=== PATIENT | female | born 1980 | race American Indian/Alaskan Native ===

== ENCOUNTER 2020-10-18 17:01 | Inpatient (IN) | payer BC ==
--- NOTE | 2020-10-18 18:38 | Event Note ---
ED Screening Note ED Screening Note: 40-year-old female that presents with chest pain and SOB with n/v. Tachycardia 123 in EKG. This initial assessment/diagnostic orders/clinical plan/treatment(s) is/are subject to change based on patients health status, clinical progression and re- assessment by fellow clinical providers in the ED. Further treatment and workup at subsequent clinical providers discretion. Patient/guardian urged not to elope from the ED as their condition may be serious if not clinically assessed and managed. Initial orders include: cardiac workup
[2020-10-18 19:30] LABS: Basophils % (Auto) 0.3 % (0.0-1.8); Eosinophils % (Auto) 0.2 % (0.0-4.3); Lymphocytes # (Auto) 0.6 K/mm3 (1.2-5.4); Lymphocytes % (Auto) 3.8 % (13.4-35.0); Mean Corpuscular HGB Conc 31 % (30-34); Mean Corpuscular Volume 71 fl (79-97); Monocytes # (Auto) 1.1 K/mm3 (0.0-0.8); Red Blood Count 7.16 M/mm3 (3.65-5.03); Red Cell Distribution Width 19.5 % (13.2-15.2)
[2020-10-18 19:38] LABS: Hematocrit 50.5 % (30.3-42.9); Hemoglobin 15.5 gm/dl (10.1-14.3); Platelet Count 269 K/mm3 (140-440)
[2020-10-18 19:40] LABS: INR 1.11 (0.87-1.13)
[2020-10-18 19:54] LABS: Alanine Aminotransferase 13 units/L (7-56); Albumin 4.5 g/dL (3.9-5); BUN/Creatinine Ratio 21; Blood Urea Nitrogen 23 mg/dL (7-17); Calcium 9.9 mg/dL (8.4-10.2); Hemolysis Index 1
--- NOTE | 2020-10-18 21:58 | Emergency Department Report ---
ED Chest Pain HPI - General Chief Complaint: Chest Pain Stated Complaint: CHEST PAIN PUI?: No Time Seen by Provider: 10/18/20 18:26 Source: patient Mode of arrival: Ambulatory Limitations: No Limitations - History of Present Illness Initial Comments: Patient is a 40-year-old female that presents emergency room with complaints of chest pain, shortness of breath, nausea, vomiting. Patient states that her symptoms. 4 days ago. Patient states she was evaluated at another hospital, [place] 3 days ago. Patient states she was diagnosed with anxiety and given Zofran and Xanax. Patient states she never filled the Xanax. Patient states her symptoms are worsening. Patient states she is under a lot of stress. Patient states the chest pain is in her bilateral chest. Patient states the chest pain is radiating to her throat. Patient states the chest pain is a 10 out of 10 and is a pressure. Patient states the chest pain and shortness of breath are better with rest and worse with movement and exertion. Patient denies blood in her vomitus. Patient denies diarrhea. Patient states her nausea vomiting is better with n.p.o. remaining still. Patient states that her throat is hurting. Patient dates her throat pain is a 10 out of 10. Patient states it is a pressure and a burning sensation. Patient states she does not have a cough. Patient denies fever and chills. Patient denies recent travel. Patient denies recent international travel. Patient denies exposure to the novel coronavirus. Patient denies sick contacts. Patient denies fever and chills. Patient denies cough. Patient denies diarrhea. Patient denies coming in contact with anybody with symptoms of the novel coronavirus. MD Complaint: chest pain -: Sudden, days(s) Onset: during rest Pain Location: substernal, left chest, right chest Severity: severe Severity scale (0 -10): 10 Quality: heaviness Consistency: constant Improves With: rest Worsens With: movement re: nausea, vomting, dyspnea. denies: sense of impending doom Other Symptoms: denies: cough, fever, syncope, rash, acid taste in mouth, leg swelling, palpitations, burping Aspirin use within the Past 7 Days: (0) No - Related Data On Oral Contraceptives: No Allergies Allergy/AdvReac Type Severity Reaction Status Date / Time No Known Allergies Allergy Verified 10/19/20 01:19 Heart Score - HEART Score History: Slightly suspicious EKG: Normal Age: < 45 Risk factors: 1-2 risk factors Troponin: < normal limit HEART Score: 1 - EKG Read Time Time EKG Completed: 17:12 EKG Read Time: 17:12 ED Review of Systems ROS: Stated complaint: CHEST PAIN Other details as noted in HPI Constitutional: denies: chills, fever Eyes: denies: eye pain, eye discharge, vision change ENT: as per HPI, throat pain. denies: ear pain Respiratory: see HPI, shortness of breath. denies: cough, wheezing Cardiovascular: as per HPI, chest pain. denies: palpitations Endocrine: no symptoms reported Gastrointestinal: as per HPI, nausea, vomiting. denies: abdominal pain, diarrhea Genitourinary: denies: urgency, dysuria, discharge Musculoskeletal: denies: back pain, joint swelling, arthralgia Skin: denies: rash, lesions Neurological: denies: headache, weakness, paresthesias Psychiatric: anxiety. denies: depression Hematological/Lymphatic: denies: easy bleeding, easy bruising ED Past Medical Hx - Past Medical History Previous Medical History?: Yes Hx Diabetes: Yes - Surgical History Past Surgical History?: No - Family History Family history: no significant - Social History Smoking Status: Never Smoker Substance Use Type: None ED Physical Exam - General Limitations: No Limitations General appearance: alert, in no apparent distress - Head Head exam: Present: atraumatic, normocephalic - Eye Eye exam: Present: normal appearance, PERRL Pupils: Present: normal accommodation - ENT ENT exam: Present: mucous membranes moist, other (red oropharynx noted.) - Neck Neck exam: Present: normal inspection - Respiratory Respiratory exam: Present: normal lung sounds bilaterally, chest wall tenderness. Absent: respiratory distress, wheezes, rales - Cardiovascular Cardiovascular Exam: Present: regular rate, normal rhythm. Absent: systolic murmur, diastolic murmur, rubs, gallop - GI/Abdominal GI/Abdominal exam: Present: soft, normal bowel sounds - Extremities Exam Extremities exam: Present: normal inspection - Back Exam Back exam: Present: normal inspection - Neurological Exam Neurological exam: Present: alert, oriented X3 - Psychiatric Psychiatric exam: Present: anxious - Skin Skin exam: Present: warm, dry, intact, normal color. Absent: rash ED Course Vital Signs 10/18/20 10/18/20 10/18/20 17:07 21:52 21:53 Temperature 98.9 F Pulse Rate 119 H 107 H 110 H Respiratory 20 20 19 Rate Blood Pressure 139/93 148/96 O2 Sat by Pulse 95 93 96 Oximetry 10/18/20 10/18/20 10/18/20 21:55 21:57 21:59 Temperature Pulse Rate 105 H 103 H 97 H Respiratory 21 19 19 Rate Blood Pressure 148/96 148/96 148/96 O2 Sat by Pulse 95 95 95 Oximetry 10/18/20 10/18/20 10/18/20 22:01 22:30 23:00 Temperature Pulse Rate 100 H 97 H 102 H Respiratory 18 22 21 Rate Blood Pressure 139/97 135/90 139/80 O2 Sat by Pulse 95 96 98 Oximetry 10/18/20 10/18/20 10/19/20 23:08 23:30 00:00 Temperature Pulse Rate 99 H 101 H 108 H Respiratory 22 14 23 Rate Blood Pressure 139/80 119/88 150/98 O2 Sat by Pulse 98 96 Oximetry 10/19/20 10/19/20 10/19/20 00:30 01:00 01:30 Temperature Pulse Rate 109 H 96 H 92 H Respiratory 21 23 22 Rate Blood Pressure 136/91 134/85 129/80 O2 Sat by Pulse 96 97 94 Oximetry 10/19/20 10/19/20 10/19/20 02:00 02:30 03:00 Temperature Pulse Rate 126 H 91 H Respiratory 21 14 Rate Blood Pressure 136/87 124/85 139/88 O2 Sat by Pulse 94 95 96 Oximetry 10/19/20 10/19/20 10/19/20 03:30 04:08 04:28 Temperature Pulse Rate 91 H 103 H 100 H Respiratory 21 18 22 Rate Blood Pressure 132/87 O2 Sat by Pulse 96 97 97 Oximetry 10/19/20 10/19/20 10/19/20 04:30 04:32 04:34 Temperature Pulse Rate 99 H 96 H 95 H Respiratory 19 19 15 Rate Blood Pressure O2 Sat by Pulse 97 97 97 Oximetry 10/19/20 10/19/20 10/19/20 04:36 04:38 04:40 Temperature Pulse Rate 106 H 102 H 89 Respiratory 18 15 16 Rate Blood Pressure 132/87 O2 Sat by Pulse 95 96 94 Oximetry 0510/19/20 10/19/20 04:42 04:44 04:46 Temperature Pulse Rate 87 82 89 Respiratory 20 22 14 Rate Blood Pressure 132/87 132/87 132/87 O2 Sat by Pulse 96 96 96 Oximetry 10/19/20 10/19/20 10/19/20 04:48 04:50 04:52 Temperature Pulse Rate 90 94 H 81 Respiratory 19 22 24 Rate Blood Pressure 132/87 132/87 132/87 O2 Sat by Pulse 95 96 96 Oximetry 10/19/20 10/19/20 10/19/20 04:54 04:56 04:58 Temperature Pulse Rate 83 84 87 Respiratory 22 24 16 Rate Blood Pressure 132/87 132/87 132/87 O2 Sat by Pulse 97 97 96 Oximetry 10/19/20 10/19/20 05:00 05:02 Temperature Pulse Rate 82 82 Respiratory 18 25 H Rate Blood Pressure 133/86 133/86 O2 Sat by Pulse 96 97 Oximetry - Reevaluation(s) Reevaluation #1: Patient's blood sugar still high. Patient will be given 10 units of insulin. Patient states her throat is feeling better. 10/18/20 23:39 Reevaluation #2: Patient states she is feeling better. Patient states her chest pain is resolved. Patient states her throat pain is better. 10/19/20 00:34 Reevaluation #3: Patient states her pain is better. Patient states the throat still hurts but it is improving. Patient denies chest pain but states that the shortness of breath is only when she is exer in the ER and the patient's oxygen saturation dropped to 88%. Patient will have a CT scan of the chest done. 10/19/20 02:34 Reevaluation #4: I discussed all results with patient. I discussed plan of care with patient. Patient agrees with plan of care and admission. Patient to be admitted to the hospitalist service. 10/19/20 04:56 - Consultations Consultation #1: Hospitalist consulted for admission. Hospitalist to admit patient. 10/19/20 05:10 MARIE score - Marie Score Age > 65: (0) No Aspirin use within the Past 7 Days: (0) No 3 or more CAD Risk Factors: (0) No 2 or more Angina events in past 24 hrs: (0) No Known CAD with more than 50% Stenosis: (0) No Elevated Cardiac Markers: (0) No ST Deviation Greater than 0.5mm: (0) No MARIE Score: 0 ED Medical Decision Making - Lab Data Result diagrams: 10/18/20 19:15 10/18/20 19:15 - EKG Data -: EKG Interpreted by Me EKG shows normal: sinus rhythm, axis, intervals, QRS complexes, ST-T waves Rate: normal - Radiology Data Radiology results: report reviewed, image reviewed interpreted by me: Chest x-ray: No pneumonia, no pneumothorax, no foreign body, no osseous findings, no acute findings CHEST 1 VIEW 10/18/2020 9:12 PM INDICATION / CLINICAL INFORMATION: Chest Pain. COMPARISON: None available. FINDINGS: SUPPORT DEVICES: None. HEART / MEDIASTINUM: No significant abnormality. LUNGS / PLEURA: No significant pulmonary or pleural abnormality. No pneumothorax. ADDITIONAL FINDINGS: No significant additional findings. IMPRESSION: 1. No acute findings. CTA CHEST WITH IV CONTRAST INDICATION / CLINICAL INFORMATION: Pt complains of chest pain with S.O.B. Tachycardia. TECHNIQUE: Axial CT images were obtained through the chest after injection of 100 mL Omnipaque 350 IV contrast. 3 plane MIP and/or 3D reconstructions were produced. All CT scans at this location are performed using CT dose reduction for ALARA by means of automated exposure control. COMPARISON: Chest radiograph one day prior FINDINGS: PULMONARY ARTERIES: No pulmonary emboli. THORACIC AORTA: No significant abnormality. HEART: No significant abnormality. CORONARY ARTERIES: No significant calcification. PLEURA: No pleural effusion. No pneumothorax. LYMPH NODES: No significant adenopathy. LUNGS: There are mild to moderate patchy bilateral groundglass airspace opacities with a predominantly peripheral and lower lung zone predominance ADDITIONAL FINDINGS: None. UPPER ABDOMEN: No acute findings. SKELETAL STRUCTURES: No significant osseous abnormality. IMPRESSION: 1. No CT evidence for pulmonary embolism. 2. Mild to moderate patchy bilateral groundglass opacities are worrisome for multifocal pneumonia. Atypical and viral etiologies should be considered. - Medical Decision Making Patient is a 40-year-old female who presents emergency room with complaints of chest pain or shortness of breath. Patient's chest pain is reproducible on palpation of the chest wall. Patient also stated that the chest pain radiates to her throat and she had throat pain. I examined her throat throat was extremely red. Patient then had a strep and a Monospot both negative. Patient had labs done which showed an elevated WBC and hyperglycemia. Patient was given multiple doses of insulin for the blood sugar. The blood sugar slowly improved. Patient was given fluids and antibiotics as well as corticosteroids. Patient's chest pain and throat pain improved with the treatment. Patient's chest x-ray is negative for acute findings. Patient's EKG was negative for acute findings showed normal ST. I personally reviewed the EKG and a chest x-ray. Patient ambulated in the ER and became really short of breath and then ambulated the patient again with a pulse ox and the patient's oxygen saturation dropped. Patient oxygen saturation during ambulation was 88%. I then decided to do a CT scan to rule out a PE or other pulmonary processes. Patient CTA of the chest showed no PE but showed atypical pneumonia patient then had a COVID-19 panel started. ID was consulted. Patient admitted to the hospital service for further evaluation and treatment. Critical care time documented due to the multiple reassessments, prolonged time at the bedside, interpretation of diagnostics and labs. - Differential Diagnosis Chest pain, shortness of breath, anxiety, throat pain pharyngitis, Critical Care Time: Yes Critical care time in (mins) excluding proc time.: 35 Critical care attestation.: If time is entered above; I have spent that time in minutes in the direct care of this critically ill patient, excluding procedure time. Critical Care Time: 35 minutes ED Disposition Clinical Impression: Chest wall pain, Shortness of breath, Throat pain, Person under investigation for COVID-19, Hyperglycemia, Viral pneumonia Chest pain Qualifiers: Chest pain type: unspecified Qualified Code(s): R07.9 - Chest pain, unspecified Pharyngitis Qualifiers: Pharyngitis/tonsillitis etiology: unspecified etiology Qualified Code(s): J02.9 - Acute pharyngitis, unspecified Respiratory failure Qualifiers: Chronicity: acute Respiratory failure complication: hypoxia Qualified Code(s): J96.01 - Acute respiratory failure with hypoxia Pneumonia Qualifiers: Pneumonia type: due to unspecified organism Laterality: bilateral Lung location: unspecified part of lung Qualified Code(s): J18.9 - Pneumonia, unspecified organism Disposition: OP ADMIT IP TO THIS HOSP Is pt being admited?: Yes Does the pt Need Aspirin: No Condition: Critical Instructions: Nonspecific Chest Pain, Adult, Bacterial Pneumonia (ED) Time of Disposition: 05:12
[2020-10-18] MEDS ORDERED: SODIUM CHLORIDE 0.9% 1000 ML 1,000 ML IV ONE (22:00)
[2020-10-18] MEDS ORDERED: ONDANSETRON 4 MG/2 ML INJ IV ONE (22:00)
[2020-10-18] MEDS ORDERED: dexAMETHasone 4 MG/ML VIAL IV ONE (22:32)
--- NOTE | 2020-10-18 22:56 | XRay Report ---
CHEST 1 VIEW 10/18/2020 9:12 PM INDICATION / CLINICAL INFORMATION: Chest Pain. COMPARISON: None available. FINDINGS: SUPPORT DEVICES: None. HEART / MEDIASTINUM: No significant abnormality. LUNGS / PLEURA: No significant pulmonary or pleural abnormality. No pneumothorax. ADDITIONAL FINDINGS: No significant additional findings. IMPRESSION: 1. No acute findings. Signer Name: Armando Rene MD Signed: 10/18/2020 10:52 PM Workstation Name: [id number]
[2020-10-18] MEDS ORDERED: INSULIN REGULAR, HUMAN 100 UNITS/1 ML IV ONE (23:02)
[2020-10-19] MEDS ORDERED: SODIUM CHLORIDE 0.9% 1000 ML 1,000 ML IV ONE (00:34)
[2020-10-19] MEDS ORDERED: INSULIN REGULAR, HUMAN 100 UNITS/1 ML ONE (01:16)
[2020-10-19] MEDS ORDERED: INSULIN REGULAR, HUMAN 100 UNITS/1 ML IV ONE (01:21)
[2020-10-19] MEDS ORDERED: CLINDAMYCIN 600 MG/50 mL 600 MG/50 ML BAG IV ONE (01:39)
--- NOTE | 2020-10-19 04:37 | Cat Scan Report ---
CTA CHEST WITH IV CONTRAST INDICATION / CLINICAL INFORMATION: Pt complains of chest pain with S.O.B. Tachycardia. TECHNIQUE: Axial CT images were obtained through the chest after injection of 100 mL Omnipaque 350 IV contrast. 3 plane MIP and/or 3D reconstructions were produced. All CT scans at this location are performed usin g CT dose reduction for ALARA by means of automated exposure control. COMPARISON: Chest radiograph one day prior FINDINGS: PULMONARY ARTERIES: No pulmonary emboli. THORACIC AORTA: No significant abnormality. HEART: No significant abnormality. CORONARY ARTERIES: No significant calcification. PLEURA: No pleural effusion. No pneumothorax. LYMPH NODES: No significant adenopathy. LUNGS: There are mild to moderate patchy bilateral groundglass airspace opacities with a predominantl y peripheral and lower lung zone predominance ADDITIONAL FINDINGS: None. UPPER ABDOMEN: No acute findings. SKELETAL STRUCTURES: No significant osseous abnormality. IMPRESSION: 1. No CT evidence for pulmonary embolism. 2. Mild to moderate patchy bilateral groundglass opacities are worrisome for multifocal pneumonia. At ypical and viral etiologies should be considered. Signer Name: Roseann Tenorio MD Signed: 10/19/2020 4:32 AM Workstation Name: [id number]
[2020-10-19] MEDS ORDERED: ACETAMINOPHEN 325 MG TAB PO PRN (05:17)
[2020-10-19] MEDS ORDERED: DEXTROSE 50% IN WATER (25GM) 50 ML SYRINGE IV PRN (05:17)
[2020-10-19] MEDS ORDERED: ALBUTEROL 8.5 GM MDI INHALATION IH PRN (05:21)
--- NOTE | 2020-10-19 05:25 | History and Physical Report ---
History of Present Illness Date of examination: 10/19/20 Date of admission: 10/19/2020 Chief complaint: MAURO, chest pain History of present illness: 40-year-old -[place] female with history of diabetes who presents [facility] ED with complaints of chest pain, shortness of breath, nausea and vomiting x4 days. Patient states that she went to [place] [facility] approximately 3 days ago with complaints of shortness of breath, nausea, vomiting, and diarrhea; was diagnosed with anxiety, and was given Zofran and Xanax and discharged. Endorses feeling the prescription for Zofran, denies filling the Xanax prescription. She admits to being under a lot of stress however over the past 3 days her symptoms worsened. She describes her bilateral chest pain as pressure, rates it 8/10, and radiates to the back of her throat. Denies history of GERD, or PUD. Her shortness of breath is worse with activity. She continues to have nausea, vomiting, and diarrhea. Denies hematemesis, hemoptysis, or hematochezia. Patient lives at home with her 17-year-old son and denies any recent known sick exposures. Past History Past Medical History: diabetes Past Surgical History: (x1) Social history: single, lives with family (son), full code. denies: smoking Family history: no significant family history Medications and Allergies Allergies Allergy/AdvReac Type Severity Reaction Status Date / Time No Known Allergies Allergy Verified 10/19/20 01:19 Active Meds: Active Medications Acetaminophen (Acetaminophen 325 Mg Tab) 650 mg PO Q4H PRN PRN Reason: Pain MILD(1-3)/Fever >100.5/ROJAS Albuterol (Albuterol 8.5 Gm Mdi Inhalation) 2 puff IH Q2HRT PRN PRN Reason: Shortness Of Breath Dextrose (Dextrose 50% In Water (25gm) 50 Ml Syringe) 50 ml IV Q30MIN PRN; Protocol PRN Reason: Hypoglycemia Docusate Sodium (Docusate Sodium 100 Mg Cap) 100 mg PO BID ROSSANA Enoxaparin Sodium (Enoxaparin 40 Mg/0.4 Ml Inj) 40 mg SUB-Q QDAY ROSSANA Azithromycin (Zithromax/Ns) 500 mg in 250 mls @ 250 mls/hr IV Q24H ROSSANA Ceftriaxone Sodium (Rocephin/Ns 1 Gm/50 Ml) 1 gm in 50 mls @ 100 mls/hr IV Q24H ROSSANA; Protocol Insulin Glargine (Insulin Glargine 100 Units/Ml) 15 units SUB-Q QAMDIAB ROSSANA Insulin Human Regular (Insulin Regular, Human 100 Units/1 Ml) 0 units SUB-Q ACHS ROSSANA; Protocol Ondansetron HCl (Ondansetron 4 Mg/2 Ml Inj) 4 mg IV Q6H PRN PRN Reason: Nausea And Vomiting Oxycodone/Acetaminophen (Oxycodone /Acetaminophen 5-325mg Tab) 1 tab PO Q6H PRN PRN Reason: Pain, Moderate (4-6) Sodium Chloride (Sodium Chloride 0.9% 10 Ml Flush Syringe) 10 ml IV BID ROSSANA Sodium Chloride (Sodium Chloride 0.9% 10 Ml Flush Syringe) 10 ml IV PRN PRN PRN Reason: LINE FLUSH Review of Systems All systems: negative (As noted in HPI) Exam - Physical Exam Narrative exam: Physical exam General appearance: Present: No acute distress, oriented 3, adult - [place] female - EENT Eyes: Present: PERRL, EOM intact ENT: hearing intact, normal dentition - Neck Neck: Present: supple, normal ROM - Respiratory Respiratory effort: Non-labored Respiratory: Clear throughout - Cardiovascular Heart rate: 82 (bpm) Rhythm: Sinus Heart Sounds: Present: S1 & S2. Absent: rub, click - Extremities Extremities: no ischemia, pulses intact, - Peripheral Assessment Peripheral Pulses: within normal limits - Abdominal General gastrointestinal: soft, non-tender, normal bowel sounds - Integumentary Integumentary: Present: warm, dry - Musculoskeletal Musculoskeletal: Able to move all extremities, generalized weakness -Neurological Neurological: CN II-XII intact - Psychiatric Psychiatric:cooperative - Constitutional Vitals: Temp Pulse Resp BP Pulse Ox 98.9 F 82 25 H 133/86 97 10/18/20 17:07 10/19/20 05:02 10/19/20 05:02 10/19/20 05:02 10/19/20 05:02 HEART Score - HEART Score EKG: Normal Age: < 45 Risk factors: No known risk factors Troponin: Troponin T < 0.010 ng/mL (0.00-0.029) 10/18/20 21:29 Troponin: < normal limit Results - Labs CBC & Chem 7: 10/18/20 19:15 10/18/20 19:15 Labs: Laboratory Last Values WBC 16.2 K/mm3 (4.5-11.0) H 10/18/20 19:15 RBC 7.16 M/mm3 (3.65-5.03) H 10/18/20 19:15 Hgb 15.5 gm/dl (10.1-14.3) H 10/18/20 19:15 Hct 50.5 % (30.3-42.9) H 10/18/20 19:15 MCV 71 fl (79-97) L 10/18/20 19:15 MCH 22 pg (28-32) L 10/18/20 19:15 MCHC 31 % (30-34) 10/18/20 19:15 RDW 19.5 % (13.2-15.2) H 10/18/20 19:15 Plt Count 269 K/mm3 (140-440) 10/18/20 19:15 Lymph % (Auto) 3.8 % (13.4-35.0) L 10/18/20 19:15 Falls % (Auto) 7.0 % (0.0-7.3) 10/18/20 19:15 Eos % (Auto) 0.2 % (0.0-4.3) 10/18/20 19:15 Baso % (Auto) 0.3 % (0.0-1.8) 10/18/20 19:15 Lymph # (Auto) 0.6 K/mm3 (1.2-5.4) L 10/18/20 19:15 Falls # (Auto) 1.1 K/mm3 (0.0-0.8) H 10/18/20 19:15 Eos # (Auto) 0.0 K/mm3 (0.0-0.4) 10/18/20 19:15 Baso # (Auto) 0.0 K/mm3 (0.0-0.1) 10/18/20 19:15 Seg Neutrophils % 88.7 % (40.0-70.0) H 10/18/20 19:15 Seg Neutrophils # 14.4 K/mm3 (1.8-7.7) H 10/18/20 19:15 PT 14.1 Sec. (12.2-14.9) 10/18/20 19:15 INR 1.11 (0.87-1.13) 10/18/20 19:15 APTT 25.0 Sec. (24.2-36.6) 10/18/20 19:15 Sodium 143 mmol/L (137-145) 10/18/20 19:15 Potassium 4.5 mmol/L (3.6-5.0) 10/18/20 19:15 Chloride 99.8 mmol/L (98-107) 10/18/20 19:15 Carbon Dioxide 14 mmol/L (22-30) L 10/18/20 19:15 Anion Gap 34 mmol/L 10/18/20 19:15 BUN 23 mg/dL (7-17) H 10/18/20 19:15 Creatinine 1.1 mg/dL (0.6-1.2) 10/18/20 19:15 Estimated GFR 54 ml/min 10/18/20 19:15 BUN/Creatinine Ratio 21 % 10/18/20 19:15 Glucose 453 mg/dL (65-100) H 10/18/20 19:15 POC Glucose 310 mg/dL (70-105) H 10/19/20 02:35 Calcium 9.9 mg/dL (8.4-10.2) 10/18/20 19:15 Total Bilirubin 0.30 mg/dL (0.1-1.2) 10/18/20 19:15 AST 13 units/L (5-40) 10/18/20 19:15 ALT 13 units/L (7-56) 10/18/20 19:15 Alkaline Phosphatase 97 units/L (35-129) 10/18/20 19:15 Troponin T < 0.010 ng/mL (0.00-0.029) 10/18/20 21:29 Total Protein 8.2 g/dL (6.3-8.2) 10/18/20 19:15 Albumin 4.5 g/dL (3.9-5) 10/18/20 19:15 Albumin/Globulin Ratio 1.2 % 10/18/20 19:15 HCG, Qual Negative (Negative) 10/18/20 19:15 Monoscreen Negative (Negative) 10/18/20 23:02 Group A Strep Rapid Negative (Negative) 10/18/20 23:00 - Imaging and Cardiology Imaging and Cardiology: CT angio Chest: FINDINGS: PULMONARY ARTERIES: No pulmonary emboli. THORACIC AORTA: No significant abnormality. HEART: No significant abnormality. CORONARY ARTERIES: No significant calcification. PLEURA: No pleural effusion. No pneumothorax. LYMPH NODES: No significant adenopathy. LUNGS: There are mild to moderate patchy bilateral groundglass airspace opacities with a predominantly peripheral and lower lung zone predominance ADDITIONAL FINDINGS: None. UPPER ABDOMEN: No acute findings. SKELETAL STRUCTURES: No significant osseous abnormality. IMPRESSION: 1. No CT evidence for pulmonary embolism. 2. Mild to moderate patchy bilateral groundglass opacities are worrisome CXR: IMPRESSION: 1. No acute findings. Assessment and Plan Assessment and plan: Suspected COVID-19 virus infection -c/o shortness of breath, sore throat, nausea, vomiting, chest pain x4 days -CT angio chest negative for PE, but shows mild to moderate patchy bilateral groundglass opacities -COVID Swab pending -Isolate and initiate MARIPOSA precautions -f/u labs -Start IV Abx -Supportive Care Hypoxia -Likely secondary to COVID-19 virus infection -No Baseline home oxygen requirements -Desats to mid 80s with ambulation on room air -Monitor saturations -Continue supplemental oxygen wean as tolerated -Albuterol as needed DM -With hyperglycemia -BG 310 (453 on presentation) -POC BG monitoring -Schedule Lantus and SSI coverage prn -HgbA1C pending Acute atypical chest Pain -Continuous telemetry monitoring -Continue supportive care -Pain mgmt -Troponin negative x 2 -EKG unrevealing for acute ischemic abnormalities -CXR negative Leukocytosis -WBC on admission 16.2 -Afebrile -Cultures pending -On IV ABX -Continue to monitor CBC DVT PPX -On Lovenox Advance Directives: No VTE prophylaxis?: Chemical, Mechanical Plan of care discussed with patient/family: Yes
[2020-10-19 05:52] LABS: C-Reactive Protein 4.8 mg/dL (0.00-1.30)
[2020-10-19] MEDS: cefTRIAXone/NS 1 GM/50 ML 1 GM/50 ML BAG IV SCH (06:00)
[2020-10-19] MEDS: AZITHROMYCIN/NS 500 MG/250 ML 500 MG/250 ML BAG IV SCH (06:30)
[2020-10-19] MEDS: INSULIN REGULAR, HUMAN 100 UNITS/1 ML SUB-Q SCH ×3 (08:08→18:15)
[2020-10-19] MEDS: INSULIN GLARGINE 100 UNITS/ML SUB-Q SCH (08:09)
[2020-10-19] MEDS: guaiFENesin ER 600 MG TAB PO SCH (10:38)
[2020-10-19] MEDS: ENOXAPARIN 40 MG/0.4 ML INJ SUB-Q SCH (10:38)
[2020-10-19] MEDS: DOCUSATE SODIUM 100 MG CAP PO SCH (10:38)
--- NOTE | 2020-10-19 12:32 | Progress Note ---
Assessment and Plan Assessment and plan: Assessment and Plan Assessment and plan: Suspected COVID-19 virus infection -c/o shortness of breath, sore throat, nausea, vomiting, chest pain x4 days -CT angio chest negative for PE, but shows mild to moderate patchy bilateral groundglass opacities -COVID Swab pending -Isolate and initiate MARIPOSA precautions -f/u labs -Start IV Abx -Supportive Care Hypoxia -Likely secondary to COVID-19 virus infection -No Baseline home oxygen requirements -Desats to mid 80s with ambulation on room air -Monitor saturations -Continue supplemental oxygen wean as tolerated -Albuterol as needed DM -With hyperglycemia -BG 310 (453 on presentation) -POC BG monitoring -Schedule Lantus and SSI coverage prn -HgbA1C pending Acute atypical chest Pain -Continuous telemetry monitoring -Continue supportive care -Pain mgmt -Troponin negative x 2 -EKG unrevealing for acute ischemic abnormalities -CXR negative Leukocytosis -WBC on admission 16.2 -Afebrile -Cultures pending -On IV ABX -Continue to monitor CBC DVT PPX -On Lovenox 10/19/20 Patient is doing better. Denies any chest pain no shortness of breath now Continue Rocephin and Zithromax and neb treatment. Follow the Covid test result We we will follow the serial cardiac enzyme. Repeat CBC BMP in the morning Continue scheduled Lantus and SSI coverage. Will check whether patient needs for home oxygen. Possible discharge plan in a.m. if is stable History of present illness: 40-year-old -Swedish female with history of diabetes who presents [facility] with complaints of chest pain, shortness of breath, nausea and vomiting x4 days. Patient states that she went to [facility] approximately 3 days ago with complaints of shortness of breath, nausea, vomiting, and diarrhea; was diagnosed with anxiety, and was given Zofran and Xanax and discharged. Endorses feeling t he prescription for Zofran, denies filling the Xanax prescription. She admits to being under a lot of stress however over the past 3 days her symptoms worsened. She describes her bilateral chest pain as pressure, rates it 8/10, and radiates to the back of her throat. Denies history of GERD, or PUD. Her shortness of breath is worse with activity. She continues to have nausea, vomiting, and diarrhea. Denies hematemesis, hemoptysis, or hematochezia. Patient lives at home with her 17-year-old son and denies any recent known sick exposures. History Interval history: Patient is seen and examined Patient chart reviewed and medication reviewed Patient denied any chest pain now. No shortness of breath Vitals are stable Hospitalist Physical - Constitutional Vitals: Temp Pulse Resp BP Pulse Ox 98.9 F 77 20 133/83 97 10/18/20 17:07 10/19/20 08:30 10/19/20 08:30 10/19/20 08:30 10/19/20 08:30 General appearance: Present: no acute distress - Respiratory Respiratory: bilateral: diminished - Cardiovascular Rhythm: regular Heart Sounds: Present: S1 & S2 - Extremities Extremities: no ischemia - Abdominal General gastrointestinal: soft, non-tender, non-distended - Integumentary Integumentary: Present: warm, dry - Neurologic Neurologic: CNII-XII intact, moves all extremities HEART Score - HEART Score EKG: Normal Age: < 45 Risk factors: No known risk factors Troponin: Troponin T < 0.010 ng/mL (0.00-0.029) 10/18/20 21:29 Troponin: < normal limit Results - Labs CBC & Chem 7: 10/18/20 19:15 10/19/20 05:15 Labs: Laboratory Last Values WBC 16.2 K/mm3 (4.5-11.0) H 10/18/20 19:15 RBC 7.16 M/mm3 (3.65-5.03) H 10/18/20 19:15 Hgb 15.5 gm/dl (10.1-14.3) H 10/18/20 19:15 Hct 50.5 % (30.3-42.9) H 10/18/20 19:15 MCV 71 fl (79-97) L 10/18/20 19:15 MCH 22 pg (28-32) L 10/18/20 19:15 MCHC 31 % (30-34) 10/18/20 19:15 RDW 19.5 % (13.2-15.2) H 10/18/20 19:15 Plt Count 269 K/mm3 (140-440) 10/18/20 19:15 Lymph % (Auto) 3.8 % (13.4-35.0) L 10/18/20 19:15 [place] % (Auto) 7.0 % (0.0-7.3) 10/18/20 19:15 Eos % (Auto) 0.2 % (0.0-4.3) 10/18/20 19:15 Baso % (Auto) 0.3 % (0.0-1.8) 10/18/20 19:15 Lymph # (Auto) 0.6 K/mm3 (1.2-5.4) L 10/18/20 19:15 [place] # (Auto) 1.1 K/mm3 (0.0-0.8) H 10/18/20 19:15 Eos # (Auto) 0.0 K/mm3 (0.0-0.4) 10/18/20 19:15 Baso # (Auto) 0.0 K/mm3 (0.0-0.1) 10/18/20 19:15 Seg Neutrophils % 88.7 % (40.0-70.0) H 10/18/20 19:15 Seg Neutrophils # 14.4 K/mm3 (1.8-7.7) H 10/18/20 19:15 PT 14.1 Sec. (12.2-14.9) 10/18/20 19:15 INR 1.11 (0.87-1.13) 10/18/20 19:15 APTT 25.0 Sec. (24.2-36.6) 10/18/20 19:15 D-Dimer 1876.16 ng/mlDDU (0-234) H 10/19/20 05:15 Sodium 143 mmol/L (137-145) 10/18/20 19:15 Potassium 4.5 mmol/L (3.6-5.0) 10/18/20 19:15 Chloride 99.8 mmol/L (98-107) 10/18/20 19:15 Carbon Dioxide 14 mmol/L (22-30) L 10/18/20 19:15 Anion Gap 34 mmol/L 10/18/20 19:15 BUN 23 mg/dL (7-17) H 10/18/20 19:15 Creatinine 1.1 mg/dL (0.6-1.2) 10/18/20 19:15 Estimated GFR 54 ml/min 10/18/20 19:15 BUN/Creatinine Ratio 21 % 10/18/20 19:15 Glucose 344 mg/dL (65-100) H 10/19/20 05:15 POC Glucose 310 mg/dL (70-105) H 10/19/20 02:35 Hemoglobin A1c 12.5 % (4-6) H 10/19/20 05:28 Calcium 9.9 mg/dL (8.4-10.2) 10/18/20 19:15 Ferritin 171.0 ng/mL (10.0-200.0) 10/19/20 05:15 Total Bilirubin 0.30 mg/dL (0.1-1.2) 10/18/20 19:15 AST 13 units/L (5-40) 10/18/20 19:15 ALT 13 units/L (7-56) 10/18/20 19:15 Alkaline Phosphatase 97 units/L (35-129) 10/18/20 19:15 Lactate Dehydrogenase 270 units/L (91-180) H 10/19/20 05:15 Troponin T < 0.010 ng/mL (0.00-0.029) 10/18/20 21:29 C-Reactive Protein 4.80 mg/dL (0.00-1.30) H 10/19/20 05:15 Total Protein 8.2 g/dL (6.3-8.2) 10/18/20 19:15 Albumin 4.5 g/dL (3.9-5) 10/18/20 19:15 Albumin/Globulin Ratio 1.2 % 10/18/20 19:15 Procalcitonin < 0.05 ng/mL (<0.15) 10/19/20 05:15 HCG, Qual Negative (Negative) 10/18/20 19:15 Monoscreen Negative (Negative) 10/18/20 23:02 Group A Strep Rapid Negative (Negative) 10/18/20 23:00 Microbiology: Microbiology 10/19/20 05:36 Peripheral/Venous Blood Culture - Preliminary Culture in Progress 10/19/20 05:43 Peripheral/Venous Blood Culture - Preliminary Culture in Progress Active Medications - Current Medications Current Medications: Generic Name Dose Route Start Last Admin Trade Name Freq PRN Reason Stop Dose Admin Acetaminophen 650 mg 10/19/20 05:17 Acetaminophen 325 Mg Tab PO Q4H PRN Pain MILD(1-3)/Fever >100.5/ROJAS Albuterol 2 puff 10/19/20 05:21 Albuterol 8.5 Gm Mdi Inhalation IH Q2HRT PRN Shortness Of Breath Dextrose 50 ml 10/19/20 05:17 Dextrose 50% In Water (25gm) 50 Ml Syringe IV Q30MIN PRN Hypoglycemia Protocol Docusate Sodium 100 mg 10/19/20 10:00 10/19/20 10:38 Docusate Sodium 100 Mg Cap PO 100 mg BID ROSSANA Administration Enoxaparin Sodium 40 mg 10/19/20 10:00 10/19/20 10:38 Enoxaparin 40 Mg/0.4 Ml Inj SUB-Q 40 mg QDAY ROSSANA Administration Guaifenesin 600 mg 10/19/20 10:00 10/19/20 10:38 Guaifenesin Er 600 Mg Tab PO 600 mg BID ROSSANA Administration Azithromycin 500 mg in 250 mls @ 250 mls/hr 10/19/20 06:00 10/19/20 06:30 Zithromax/Ns IV 250 mls/hr Q24H ROSSANA Administration Ceftriaxone Sodium 1 gm in 50 mls @ 100 mls/hr 10/19/20 06:00 10/19/20 06:00 Rocephin/Ns 1 Gm/50 Ml IV 100 mls/hr Q24H ROSSANA Administration Protocol Insulin Glargine 15 units 10/19/20 08:00 10/19/20 08:09 Insulin Glargine 100 Units/Ml SUB-Q 15 units QAMDIAB ROSSANA Administration Insulin Human Regular 0 units 10/19/20 07:30 10/19/20 12:12 Insulin Regular, Human 100 Units/1 Ml SUB-Q 4 units ACHS ROSSANA Administration Protocol Ondansetron HCl 4 mg 10/19/20 05:17 Ondansetron 4 Mg/2 Ml Inj IV Q6H PRN Nausea And Vomiting Oxycodone/Acetaminophen 1 tab 10/19/20 05:17 Oxycodone /Acetaminophen 5-325mg Tab PO Q6H PRN Pain, Moderate (4-6) Sodium Chloride 10 ml 10/19/20 10:00 10/19/20 10:39 Sodium Chloride 0.9% 10 Ml Flush Syringe IV 10 ml BID ROSSANA Administration Sodium Chloride 10 ml 10/19/20 05:17 Sodium Chloride 0.9% 10 Ml Flush Syringe IV PRN PRN LINE FLUSH Nutrition/Malnutrition Assess - Malnutrition Assessment Minimum of two criteria: No - Attestation Statement I have reviewed and agreed w/ Malnutrition eval & tx plan: Yes
--- NOTE | 2020-10-19 12:51 | Consultation ---
History of Present Illness - Reason for Consult Consult date: 10/19/20 LYLY MEDRANOI Requesting physician: ELA ADAMSON III - History of Present Illness The patient is a 40-year-old female with diabetes admitted to the hospital with chest pain, shortness of breath along with nausea and vomiting for the last 4 days. She had previously gone to the emergency room at [place] with similar complaints and was sent home with prescriptions for Xanax and Zofran. Upon work-up in the emergency room, CTA was negative for PE, also showed mild to moderate patchy bilateral groundglass opacities. COVID-19 test was ordered and is pending. Infectious diseases was consulted for additional evaluation. Labs revealed WBC 16.2, D-dimer 1876, procalcitonin 0.05, CRP 4.8, LDH 270, ferritin 171. Review of Systems: reviewed in the chart, unable to obtain, minimize risk of transmission Past History Past Medical History: diabetes Past Surgical History: (x1) Social history: single, lives with family (son), full code. denies: smoking Family history: no significant family history Medications and Allergies Allergies Allergy/AdvReac Type Severity Reaction Status Date / Time No Known Allergies Allergy Verified 10/19/20 01:19 Active Meds: Active Medications Acetaminophen (Acetaminophen 325 Mg Tab) 650 mg PO Q4H PRN PRN Reason: Pain MILD(1-3)/Fever >100.5/ROJAS Albuterol (Albuterol 8.5 Gm Mdi Inhalation) 2 puff IH Q2HRT PRN PRN Reason: Shortness Of Breath Dextrose (Dextrose 50% In Water (25gm) 50 Ml Syringe) 50 ml IV Q30MIN PRN; Protocol PRN Reason: Hypoglycemia Docusate Sodium (Docusate Sodium 100 Mg Cap) 100 mg PO BID [facility] Last Admin: 10/19/20 10:38 Dose: 100 mg Documented by: Enoxaparin Sodium (Enoxaparin 40 Mg/0.4 Ml Inj) 40 mg SUB-Q QDAY [facility] Last Admin: 10/19/20 10:38 Dose: 40 mg Documented by: Guaifenesin (Guaifenesin Er 600 Mg Tab) 600 mg PO BID [facility] Last Admin: 10/19/20 10:38 Dose: 600 mg Documented by: Azithromycin (Zithromax/Ns) 500 mg in 250 mls @ 250 mls/hr IV Q24H [facility] Last Admin: 10/19/20 06:30 Dose: 250 mls/hr Documented by: Ceftriaxone Sodium (Rocephin/Ns 1 Gm/50 Ml) 1 gm in 50 mls @ 100 mls/hr IV Q24H [facility]; Protocol Last Admin: 10/19/20 06:00 Dose: 100 mls/hr Documented by: Insulin Glargine (Insulin Glargine 100 Units/Ml) 15 units SUB-Q QAMDIAB [facility] Last Admin: 10/19/20 08:09 Dose: 15 units Documented by: Insulin Human Regular (Insulin Regular, Human 100 Units/1 Ml) 0 units SUB-Q ACHS [facility]; Protocol Last Admin: 10/19/20 12:12 Dose: 4 units Documented by: Ondansetron HCl (Ondansetron 4 Mg/2 Ml Inj) 4 mg IV Q6H PRN PRN Reason: Nausea And Vomiting Oxycodone/Acetaminophen (Oxycodone /Acetaminophen 5-325mg Tab) 1 tab PO Q6H PRN PRN Reason: Pain, Moderate (4-6) Sodium Chloride (Sodium Chloride 0.9% 10 Ml Flush Syringe) 10 ml IV BID [facility] Last Admin: 10/19/20 10:39 Dose: 10 ml Documented by: Sodium Chloride (Sodium Chloride 0.9% 10 Ml Flush Syringe) 10 ml IV PRN PRN PRN Reason: LINE FLUSH Physical Examination - Physical Exam Narrative exam: Physical Exam (reviewed in chart to minimize risk of transmission) Constitutional: deferred Head, Ears, Nose: deferred Eyes: deferred Neck: deferred Oral: deferred Cardiovascular: deferred Respiratory: deferred GI: deferred Musculoskeletal: deferred Skin: deferred Hem/Lymphatic: deferred Psych: deferred Neurological: deferred - Constitutional Vitals: Vital Signs Temp Pulse Resp BP Pulse Ox 98.9 F 77 20 133/83 97 10/18/20 17:07 10/19/20 08:30 10/19/20 08:30 10/19/20 08:30 10/19/20 08:30 Temperature -Last 24 Hours Temperature 98.9 F Results - Labs CBC & Chem 7: 10/18/20 19:15 10/19/20 05:15 Labs: Abnormal lab results 10/18/20 10/18/2010/18/21 Range/Units 19:15 19:15 23:37 WBC 16.2 H (4.5-11.0) K/mm3 RBC 7.16 H (3.65-5.03) M/mm3 Hgb 15.5 H (10.1-14.3) gm/dl Hct 50.5 H (30.3-42.9) % MCV 71 L (79-97) fl MCH 22 L (28-32) pg RDW 19.5 H (13.2-15.2) % Lymph % (Auto) 3.8 L (13.4-35.0) % Lymph # (Auto) 0.6 L (1.2-5.4) K/mm3 [place] # (Auto) 1.1 H (0.0-0.8) K/mm3 Seg Neutrophils % 88.7 H (40.0-70.0) % Seg Neutrophils # 14.4 H (1.8-7.7) K/mm3 D-Dimer (0-234) ng/mlDDU Carbon Dioxide 14 L (22-30) mmol/L BUN 23 H (7-17) mg/dL Glucose 453 H (65-100) mg/dL POC Glucose 446 H (70-105) mg/dL Hemoglobin A1c (4-6) % Lactate Dehydrogenase (91-180) units/L C-Reactive Protein (0.00-1.30) mg/dL 10/19/20 10/19/20 10/19/20 Range/Units 01:12 02:35 05:15 WBC (4.5-11.0) K/mm3 RBC (3.65-5.03) M/mm3 Hgb (10.1-14.3) gm/dl Hct (30.3-42.9) % MCV (79-97) fl MCH (28-32) pg RDW (13.2-15.2) % Lymph % (Auto) (13.4-35.0) % Lymph # (Auto) (1.2-5.4) K/mm3 [place] # (Auto) (0.0-0.8) K/mm3 Seg Neutrophils % (40.0-70.0) % Seg Neutrophils # (1.8-7.7) K/mm3 D-Dimer 1876.16 H (0-234) ng/mlDDU Carbon Dioxide (22-30) mmol/L BUN (7-17) mg/dL Glucose (65-100) mg/dL POC Glucose 359 H 310 H (70-105) mg/dL Hemoglobin A1c (4-6) % Lactate Dehydrogenase (91-180) units/L C-Reactive Protein (0.00-1.30) mg/dL 10/19/20 10/19/20 Range/Units 05:15 05:28 WBC (4.5-11.0) K/mm3 RBC (3.65-5.03) M/mm3 Hgb (10.1-14.3) gm/dl Hct (30.3-42.9) % MCV (79-97) fl MCH (28-32) pg RDW (13.2-15.2) % Lymph % (Auto) (13.4-35.0) % Lymph # (Auto) (1.2-5.4) K/mm3 [place] # (Auto) (0.0-0.8) K/mm3 Seg Neutrophils % (40.0-70.0) % Seg Neutrophils # (1.8-7.7) K/mm3 D-Dimer (0-234) ng/mlDDU Carbon Dioxide (22-30) mmol/L BUN (7-17) mg/dL Glucose 344 H (65-100) mg/dL POC Glucose (70-105) mg/dL Hemoglobin A1c 12.5 H (4-6) % Lactate Dehydrogenase 270 H (91-180) units/L C-Reactive Protein 4.80 H (0.00-1.30) mg/dL - Imaging and Cardiology CT scan - chest: report reviewed, image reviewed (patchy b/l GGO) Assessment and Plan Cultures: SARS CoV2 PCR: Pending 10/19/2020 blood culture: In process A/P: 40/F with DM: #Bilateral pneumonia: Rule out COVID-19. Borderline hypoxia. Currently on room air. #Leukocytosis: Likely secondary to above #Diabetes mellitus, uncontrolled: HbA1c 12.5 Recs: Follow-up COVID-19 PCR, if positive, get ambulatory sats again, if hypoxic, initiate Remdesivir + steroids Continue empiric ceftriaxone, azithromycin for now Yuli Barillas MD, FACP [facility] O: [phone] F: [phone]
--- NOTE | 2020-10-19 18:42 | Electrocardiograph Report ---
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
[2020-10-19] MEDS: ONDANSETRON 4 MG/2 ML INJ IV PRN (20:45)
[2020-10-20] MEDS: DOCUSATE SODIUM 100 MG CAP PO SCH ×3 (00:20→22:17)
[2020-10-20] MEDS: INSULIN REGULAR, HUMAN 100 UNITS/1 ML SUB-Q SCH ×5 (00:21→22:17)
[2020-10-20] MEDS: guaiFENesin ER 600 MG TAB PO SCH ×3 (00:21→22:17)
[2020-10-20] MEDS: cefTRIAXone/NS 1 GM/50 ML 1 GM/50 ML BAG IV SCH (05:06)
[2020-10-20] MEDS: AZITHROMYCIN/NS 500 MG/250 ML 500 MG/250 ML BAG IV SCH (05:27)
[2020-10-20 08:07] LABS: Basophils % (Auto) 0.5 % (0.0-1.8); Eosinophils % (Auto) 0.1 % (0.0-4.3); Hematocrit 40.3 % (30.3-42.9); Hemoglobin 12.5 gm/dl (10.1-14.3); Lymphocytes # (Auto) 0.8 K/mm3 (1.2-5.4); Lymphocytes % (Auto) 8.8 % (13.4-35.0); Mean Corpuscular HGB Conc 31 % (30-34); Monocytes # (Auto) 0.6 K/mm3 (0.0-0.8); Monocytes % (Auto) 6.6 % (0.0-7.3); Platelet Count 222 K/mm3 (140-440); Red Blood Count 5.83 M/mm3 (3.65-5.03); Red Cell Distribution Width 19.1 % (13.2-15.2)
[2020-10-20 08:10] LABS: Mean Corpuscular Volume 69 fl (79-97)
[2020-10-20 08:26] LABS: Blood Urea Nitrogen 13 mg/dL (7-17); Calcium 8.5 mg/dL (8.4-10.2); Hemolysis Index 3
[2020-10-20 08:31] LABS: BUN/Creatinine Ratio 22
[2020-10-20] MEDS: INSULIN GLARGINE 100 UNITS/ML SUB-Q SCH (09:22)
[2020-10-20] MEDS: ENOXAPARIN 40 MG/0.4 ML INJ SUB-Q SCH (09:22)
--- NOTE | 2020-10-20 09:31 | Progress Note ---
Assessment and Plan Assessment and plan: Assessment and Plan Assessment and plan: Suspected COVID-19 virus infection -c/o shortness of breath, sore throat, nausea, vomiting, chest pain x4 days -CT angio chest negative for PE, but shows mild to moderate patchy bilateral groundglass opacities -COVID Swab pending -Isolate and initiate MARIPOSA precautions -f/u labs -Start IV Abx -Supportive Care Hypoxia -Likely secondary to COVID-19 virus infection -No Baseline home oxygen requirements -Desats to mid 80s with ambulation on room air -Monitor saturations -Continue supplemental oxygen wean as tolerated -Albuterol as needed DM -With hyperglycemia -BG 310 (453 on presentation) -POC BG monitoring -Schedule Lantus and SSI coverage prn -HgbA1C pending Acute atypical chest Pain -Continuous telemetry monitoring -Continue supportive care -Pain mgmt -Troponin negative x 2 -EKG unrevealing for acute ischemic abnormalities -CXR negative Leukocytosis -WBC on admission 16.2 -Afebrile -Cultures pending -On IV ABX -Continue to monitor CBC DVT PPX -On Lovenox 10/19/20 Patient is doing better. Denies any chest pain no shortness of breath now Continue Rocephin and Zithromax and neb treatment. Follow the Covid test result We we will follow the serial cardiac enzyme. Repeat CBC BMP in the morning Continue scheduled Lantus and SSI coverage. Will check whether patient needs for home oxygen. Possible discharge plan in a.m. if is stable 10/20/20 Patient is doing better. Denies any chest pain no shortness of breath . No cough Continue Rocephin and Zithromax and neb treatment. Covid test is positive. Decadron 6 mg IV daily. We will check for oxygen saturation on walking. ID follow-up We we will follow the serial cardiac enzyme. Outpatient the stress test because of Covid status. Potassium is 3.3. Potassium supplemented. Repeat CBC BMP in the morning Continue scheduled Lantus and SSI coverage. History of present illness: 40-year-old -Serbian female with history of diabetes who presents [facility] with complaints of chest pain, shortness of breath, nausea and vomiting x4 days. Patient states that she went to [place] ER approximately 3 days ago with complaints of shortness of breath, nausea, vomiting, and diarrhea; was diagnosed with anxiety, and was given Zofran and Xanax and discharged. Endorses feeling the prescription for Zofran, denies filling the Xanax prescription. She admits to being under a lot of stress however over the past 3 days her symptoms worsened. She describes her bilateral chest pain as pressure, rates it 8/10, and radiates to the back of her throat. Denies history of GERD, or PUD. Her shortness of breath is worse with activity. She continues to have nausea, vomiting, and diarrhea. Denies hematemesis, hemoptysis, or hematochezia. Patient lives at home with her 17-year-old son and denies any recent known sick exposures. History Interval history: Patient is seen and examined Patient chart reviewed and medication reviewed Patient: [place] test is positive no shortness of breath. No cough Vitals are stable Hospitalist Physical - Constitutional Vitals: Temp Pulse Resp BP Pulse Ox 98.9 F 79 17 114/69 92 10/20/20 05:01 10/20/20 05:01 10/20/20 05:01 10/20/20 05:01 10/20/20 05:01 General appearance: Present: no acute distress - EENT Eyes: Present: PERRL, EOM intact ENT: hearing intact - Neck Neck: Present: supple, normal ROM - Respiratory Respiratory effort: normal Respiratory: bilateral: diminished - Cardiovascular Rhythm: regular Heart Sounds: Present: S1 & S2 - Extremities Extremities: no ischemia Peripheral Pulses: within normal limits - Abdominal General gastrointestinal: soft, non-tender, non-distended - Integumentary Integumentary: Present: warm, dry - Psychiatric Psychiatric: appropriate mood/affect, intact judgment & insight - Neurologic Neurologic: CNII-XII intact, moves all extremities - Allied Health Allied health notes reviewed: case management HEART Score - HEART Score EKG: Normal Age: < 45 Risk factors: No known risk factors Troponin: Troponin T < 0.010 ng/mL (0.00-0.029) 10/18/20 21:29 Troponin: < normal limit Results - Labs CBC & Chem 7: 10/20/20 07:05 10/20/20 07:05 Labs: Laboratory Last Values WBC 8.8 K/mm3 (4.5-11.0) 10/20/20 07:05 RBC 5.83 M/mm3 (3.65-5.03) H 10/20/20 07:05 Hgb 12.5 gm/dl (10.1-14.3) D 10/20/20 07:05 Hct 40.3 % (30.3-42.9) D 10/20/20 07:05 MCV 69 fl (79-97) L 10/20/20 07:05 MCH 22 pg (28-32) L 10/20/20 07:05 MCHC 31 % (30-34) 10/20/20 07:05 RDW 19.1 % (13.2-15.2) H 10/20/20 07:05 Plt Count 222 K/mm3 (140-440) 10/20/20 07:05 Lymph % (Auto) 8.8 % (13.4-35.0) L 10/20/20 07:05 [place] % (Auto) 6.6 % (0.0-7.3) 10/20/20 07:05 Eos % (Auto) 0.1 % (0.0-4.3) 10/20/20 07:05 Baso % (Auto) 0.5 % (0.0-1.8) 10/20/20 07:05 Lymph # (Auto) 0.8 K/mm3 (1.2-5.4) L 10/20/20 07:05 [place] # (Auto) 0.6 K/mm3 (0.0-0.8) 10/20/20 07:05 Eos # (Auto) 0.0 K/mm3 (0.0-0.4) 10/20/20 07:05 Baso # (Auto) 0.0 K/mm3 (0.0-0.1) 10/20/20 07:05 Seg Neutrophils % 84.0 % (40.0-70.0) H 10/20/20 07:05 Seg Neutrophils # 7.4 K/mm3 (1.8-7.7) 10/20/20 07:05 PT 14.1 Sec. (12.2-14.9) 10/18/20 19:15 INR 1.11 (0.87-1.13) 10/18/20 19:15 APTT 25.0 Sec. (24.2-36.6) 10/18/20 19:15 D-Dimer 1876.16 ng/mlDDU (0-234) H 10/19/20 05:15 Sodium 145 mmol/L (137-145) 10/20/20 07:05 Potassium 3.3 mmol/L (3.6-5.0) L D 10/20/20 07:05 Chloride 107.0 mmol/L (98-107) 10/20/20 07:05 Carbon Dioxide 20 mmol/L (22-30) L 10/20/20 07:05 Anion Gap 21 mmol/L 10/20/20 07:05 BUN 13 mg/dL (7-17) 10/20/20 07:05 Creatinine 0.6 mg/dL (0.6-1.2) 10/20/20 07:05 Estimated GFR > 60 ml/min 10/20/20 07:05 BUN/Creatinine Ratio 22 % 10/20/20 07:05 Glucose 280 mg/dL (65-100) H 10/20/20 07:05 POC Glucose 263 mg/dL (70-105) H 10/20/20 07:46 Hemoglobin A1c 12.5 % (4-6) H 10/19/20 05:28 Calcium 8.5 mg/dL (8.4-10.2) 10/20/20 07:05 Ferritin 171.0 ng/mL (10.0-200.0) 10/19/20 05:15 Total Bilirubin 0.30 mg/dL (0.1-1.2) 10/18/20 19:15 AST 13 units/L (5-40) 10/18/20 19:15 ALT 13 units/L (7-56) 10/18/20 19:15 Alkaline Phosphatase 97 units/L (35-129) 10/18/20 19:15 Lactate Dehydrogenase 270 units/L (91-180) H 10/19/20 05:15 Troponin T < 0.010 ng/mL (0.00-0.029) 10/18/20 21:29 C-Reactive Protein 4.80 mg/dL (0.00-1.30) H 10/19/20 05:15 Total Protein 8.2 g/dL (6.3-8.2) 10/18/20 19:15 Albumin 4.5 g/dL (3.9-5) 10/18/20 19:15 Albumin/Globulin Ratio 1.2 % 10/18/20 19:15 Procalcitonin < 0.05 ng/mL (<0.15) 10/19/20 05:15 HCG, Qual Negative (Negative) 10/18/20 19:15 Coronavirus (PCR) Positive (Negative) A 10/19/20 09:05 Monoscreen Negative (Negative) 10/18/20 23:02 Group A Strep Rapid Negative (Negative) 10/18/20 23:00 Microbiology: Microbiology 10/19/20 05:43 Peripheral/Venous Blood Culture - Preliminary NO GROWTH AFTER 24 HOURS 10/19/20 05:36 Peripheral/Venous Blood Culture - Preliminary NO GROWTH AFTER 24 HOURS [place]/IV: Voiding Method Toilet Active Medications - Current Medications Current Medications: Generic Name Dose Route Start Last Admin Trade Name Freq PRN Reason Stop Dose Admin Acetaminophen 650 mg 10/19/20 05:17 Acetaminophen 325 Mg Tab PO Q4H PRN Pain MILD(1-3)/Fever >100.5/ROJAS Albuterol 2 puff 10/19/20 05:21 Albuterol 8.5 Gm Mdi Inhalation IH Q2HRT PRN Shortness Of Breath Dexamethasone 6 mg 10/20/20 10:00 Dexamethasone 4 Mg/Ml Vial IV DAILY ROSSANA Dextrose 50 ml 10/19/20 05:17 Dextrose 50% In Water (25gm) 50 Ml Syringe IV Q30MIN PRN Hypoglycemia Protocol Docusate Sodium 100 mg 10/19/20 10:00 10/20/20 09:22 Docusate Sodium 100 Mg Cap PO 100 mg BID ROSSANA Administration Enoxaparin Sodium 40 mg 10/19/20 10:00 10/20/20 09:22 Enoxaparin 40 Mg/0.4 Ml Inj SUB-Q 40 mg QDAY ROSSANA Administration Guaifenesin 600 mg 10/19/20 10:00 10/20/20 00:21 Guaifenesin Er 600 Mg Tab PO 600 mg BID ROSSANA Administration Azithromycin 500 mg in 250 mls @ 250 mls/hr 10/19/20 06:00 10/20/20 05:27 Zithromax/Ns IV 250 mls/hr Q24H ROSSANA Administration Ceftriaxone Sodium 1 gm in 50 mls @ 100 mls/hr 10/19/20 06:00 10/20/20 05:06 Rocephin/Ns 1 Gm/50 Ml IV 100 mls/hr Q24H ROSSANA Administration Protocol Insulin Glargine 15 units 10/19/20 08:00 10/20/20 09:22 Insulin Glargine 100 Units/Ml SUB-Q 15 units QAMDIAB ROSSANA Administration Insulin Human Regular 0 units 10/19/20 07:30 10/20/20 08:37 Insulin Regular, Human 100 Units/1 Ml SUB-Q 4 units ACHS ROSSANA Administration Protocol Ondansetron HCl 4 mg 10/19/20 05:17 10/19/20 20:45 Ondansetron 4 Mg/2 Ml Inj IV 4 mg Q6H PRN Administration Nausea And Vomiting Oxycodone/Acetaminophen 1 tab 10/19/20 05:17 Oxycodone /Acetaminophen 5-325mg Tab PO Q6H PRN Pain, Moderate (4-6) Potassium Chloride 40 meq 10/20/20 09:24 Potassium Chloride Er 20 Meq Tab PO 10/20/20 09:25 ONCE ONE Sodium Chloride 10 ml 10/19/20 10:00 10/20/20 00:21 Sodium Chloride 0.9% 10 Ml Flush Syringe IV 10 ml BID ROSSANA Administration Sodium Chloride 10 ml 10/19/20 05:17 Sodium Chloride 0.9% 10 Ml Flush Syringe IV PRN PRN LINE FLUSH Nutrition/Malnutrition Assess - Malnutrition Assessment Minimum of two criteria: No - Attestation Statement I have reviewed and agreed w/ Malnutrition eval & tx plan: Yes
[2020-10-20] MEDS ORDERED: POTASSIUM CHLORIDE ER 20 MEQ TAB PO SCH (10:00)
[2020-10-20] MEDS ORDERED: dexAMETHasone 4 MG/ML VIAL IV SCH (10:00)
[2020-10-20 10:01] LABS: Basophils % (Auto) 0.3 % (0.0-1.8); Lymphocytes # (Auto) 0.9 K/mm3 (1.2-5.4); Lymphocytes % (Auto) 9.9 % (13.4-35.0); Mean Corpuscular HGB Conc 31 % (30-34); Monocytes # (Auto) 0.7 K/mm3 (0.0-0.8); Monocytes % (Auto) 7.3 % (0.0-7.3); Red Blood Count 6.09 M/mm3 (3.65-5.03); Red Cell Distribution Width 18.7 % (13.2-15.2)
[2020-10-20 10:10] LABS: Hematocrit 42.1 % (30.3-42.9); Mean Corpuscular Volume 69 fl (79-97)
[2020-10-20 10:11] LABS: Platelet Count 226 K/mm3 (140-440)
[2020-10-20] MEDS ORDERED: guaiFENesin 200 MG TAB PO PRN (12:35)
--- NOTE | 2020-10-20 12:40 | Progress Note ---
Assessment and Plan Cultures: SARS CoV2 PCR: positive 10/19/2020 blood culture: In process A/P: 40/F with DM: #Bilateral pneumonia: due to COVID-19. Remains on room air. #Leukocytosis: Likely secondary to above, improved. #Diabetes mellitus, uncontrolled: HbA1c 12.5 Recs: -Remains on room air, no indication for remdesivir yet per hospital criteria -Get ambulatory sats, if hypoxic, initiate Remdesivir + steroids -Procalcitonin is low, antibiotics discontinued Yuli Barillas MD, FACP [facility] ([facility] O: [phone] F: [phone] Subjective Date of service: 10/20/20 Interval history: No fever. Feels weak and tired. Not on oxygen. Discussed with RN. Patient reports cough along with some vomiting. Objective - Exam Narrative Exam: Physical Exam: Constitutional: Alert, cooperative. No acute distress Head, Ears, Nose: Normocephalic, atraumatic. External ears, nose normal Eyes: Conjunctivae/corneas clear. No icterus. No ptosis. Neck: Supple, no meningeal signs Cardiovascular: S1, S2 normal. Respiratory: Good air entry, clear to auscultation bilaterally GI: Soft, non-tender; bowel sounds normal. No peritoneal signs Musculoskeletal: No pedal edema, no cyanosis. Skin: No rash or abscess Hem/Lymphatic: No palpable cervical or supraclavicular nodes. No lymphangitis Psych: Mood ok. Affect normal Neurological: Awake, alert, oriented. No gross abnormality - Constitutional Vitals: Vital Signs Temp Pulse Resp BP Pulse Ox 98.9 F 79 17 114/69 92 10/20/20 05:01 10/20/20 05:01 10/20/20 05:01 10/20/20 05:01 10/20/20 05:01 Temperature -Last 24 Hours Temperature 98.9 F Temperature 98.6 F Temperature 98.3 F Temperature 98 F - Labs CBC & Chem 7: 10/20/20 09:05 10/20/20 07:05 Labs: Abnormal lab results 10/19/20 10/19/20 10/19/20 Range/Units 07:40 09:05 12:04 RBC (3.65-5.03) M/mm3 MCV (79-97) fl MCH (28-32) pg RDW (13.2-15.2) % Lymph % (Auto) (13.4-35.0) % Lymph # (Auto) (1.2-5.4) K/mm3 Seg Neutrophils % (40.0-70.0) % Potassium (3.6-5.0) mmol/L Carbon Dioxide (22-30) mmol/L Glucose (65-100) mg/dL POC Glucose 322 H 297 H (70-105) mg/dL Coronavirus (PCR) Positive A (Negative) 10/19/20 10/19/20 10/20/20 Range/Units 17:59 22:59 07:05 RBC 5.83 H (3.65-5.03) M/mm3 MCV 69 L (79-97) fl MCH 22 L (28-32) pg RDW 19.1 H (13.2-15.2) % Lymph % (Auto) 8.8 L (13.4-35.0) % Lymph # (Auto) 0.8 L (1.2-5.4) K/mm3 Seg Neutrophils % 84.0 H (40.0-70.0) % Potassium (3.6-5.0) mmol/L Carbon Dioxide (22-30) mmol/L Glucose (65-100) mg/dL POC Glucose 285 H 244 H (70-105) mg/dL Coronavirus (PCR) (Negative) 10/20/20 10/20/20 10/20/20 Range/Units 07:05 07:46 09:05 RBC 6.09 H (3.65-5.03) M/mm3 MCV 69 L (79-97) fl MCH 21 L (28-32) pg RDW 18.7 H (13.2-15.2) % Lymph % (Auto) 9.9 L (13.4-35.0) % Lymph # (Auto) 0.9 L (1.2-5.4) K/mm3 Seg Neutrophils % 82.5 H (40.0-70.0) % Potassium 3.3 L D (3.6-5.0) mmol/L Carbon Dioxide 20 L (22-30) mmol/L Glucose 280 H (65-100) mg/dL POC Glucose 263 H (70-105) mg/dL Coronavirus (PCR) (Negative)
[2020-10-20] MEDS: guaiFENesin 100 MG/5 ML ORAL LIQD PO PRN ×2 (13:38→22:40)
[2020-10-20] MEDS: oxyCODONE /ACETAMINOPHEN 5-325MG TAB PO PRN (17:49)
[2020-10-20] MEDS: ONDANSETRON 4 MG/2 ML INJ IV PRN (22:17)
[2020-10-21] MEDS: oxyCODONE /ACETAMINOPHEN 5-325MG TAB PO PRN (00:41)
[2020-10-21] MEDS: guaiFENesin 100 MG/5 ML ORAL LIQD PO PRN ×2 (07:52→17:16)
[2020-10-21] MEDS: INSULIN REGULAR, HUMAN 100 UNITS/1 ML SUB-Q SCH ×4 (07:53→22:19)
[2020-10-21 08:26] LABS: Blood Urea Nitrogen 9 mg/dL (7-17); Calcium 8.6 mg/dL (8.4-10.2); Hemolysis Index 0
[2020-10-21 08:31] LABS: BUN/Creatinine Ratio 18
[2020-10-21] MEDS ORDERED: POTASSIUM CHLORIDE ER 20 MEQ TAB PO ONE (09:00)
--- NOTE | 2020-10-21 09:06 | Progress Note ---
Assessment and Plan Assessment and plan: Assessment and Plan Assessment and plan: Suspected COVID-19 virus infection -c/o shortness of breath, sore throat, nausea, vomiting, chest pain x4 days -CT angio chest negative for PE, but shows mild to moderate patchy bilateral groundglass opacities -COVID Swab pending -Isolate and initiate MARIPOSA precautions -f/u labs -Start IV Abx -Supportive Care Hypoxia -Likely secondary to COVID-19 virus infection -No Baseline home oxygen requirements -Desats to mid 80s with ambulation on room air -Monitor saturations -Continue supplemental oxygen wean as tolerated -Albuterol as needed DM -With hyperglycemia -BG 310 (453 on presentation) -POC BG monitoring -Schedule Lantus and SSI coverage prn -HgbA1C pending Acute atypical chest Pain -Continuous telemetry monitoring -Continue supportive care -Pain mgmt -Troponin negative x 2 -EKG unrevealing for acute ischemic abnormalities -CXR negative Leukocytosis -WBC on admission 16.2 -Afebrile -Cultures pending -On IV ABX -Continue to monitor CBC DVT PPX -On Lovenox 10/19/20 Patient is doing better. Denies any chest pain no shortness of breath now Continue Rocephin and Zithromax and neb treatment. Follow the Covid test result We we will follow the serial cardiac enzyme. Repeat CBC BMP in the morning Continue scheduled Lantus and SSI coverage. Will check whether patient needs for home oxygen. Possible discharge plan in a.m. if is stable 10/20/20 Patient is doing better. Denies any chest pain no shortness of breath . No cough Continue Rocephin and Zithromax and neb treatment. Covid test is positive. Decadron 6 mg IV daily. We will check for oxygen saturation on walking. ID follow-up We we will follow the serial cardiac enzyme. Outpatient the stress test because of Covid status. Potassium is 3.3. Potassium supplemented. Repeat CBC BMP in the morning Continue scheduled Lantus and SSI coverage. 10/21/20 Patient complained mild coughing and shortness of breath. Continue DuoNeb treatment. Oxygen 2 to 3 L/min. Procalcitonin is low so antibiotic and steroid was discontinued. We will do a 6-minute walking test for oxygen. Potassium is 3.3 potassium is supplemented. BMP in the morning. Continue scheduled Lantus and SSI coverage. ID follow-up. Discharge planning 1 to 2 days History of present illness: 40-year-old -[place] female with history of diabetes who presents [facility] with complaints of chest pain, shortness of breath, nausea and vomiting x4 days. Patient states that she went to [place] ER approximately 3 days ago with complaints of shortness of breath, nausea, vomiting, and diarrhea; was diagnosed with anxiety, and was given Zofran and Xanax and discharged. Endorses feeling the prescription for Zofran, denies filling the Xanax prescription. She admits to being under a lot of stress however over the past 3 days her symptoms worsened. She describes her bilateral chest pain as pressure, rates it 8/10, and radiates to the back of her throat. Denies history of GERD, or PUD. Her shortness of breath is worse with activity. She continues to have nausea, vomiting, and diarrhea. Denies hematemesis, hemoptysis, or hematochezia. Patient lives at home with her 17-year-old son and denies any recent known sick exposures. History Interval history: Patient is seen and examined Patient chart reviewed and medication reviewed Patient: Wallis test is positive .complain of mild shortness of breath and coughing Vitals are stable Hospitalist Physical - Constitutional Vitals: Temp Pulse Resp BP Pulse Ox 98.5 F 73 20 123/76 91 10/21/20 05:32 10/21/20 05:32 10/21/20 05:32 10/21/20 05:32 10/21/20 05:32 General appearance: Present: no acute distress - EENT Eyes: Present: PERRL, EOM intact ENT: hearing intact - Neck Neck: Present: supple, normal ROM - Respiratory Respiratory effort: normal Respiratory: bilateral: diminished - Cardiovascular Rhythm: regular Heart Sounds: Present: S1 & S2 - Extremities Extremities: no ischemia Peripheral Pulses: within normal limits - Abdominal General gastrointestinal: soft, non-tender, non-distended, normal bowel sounds - Integumentary Integumentary: Present: warm, dry - Psychiatric Psychiatric: appropriate mood/affect, intact judgment & insight, memory intact - Neurologic Neurologic: CNII-XII intact, moves all extremities HEART Score - HEART Score EKG: Normal Age: < 45 Risk factors: No known risk factors Troponin: Troponin T < 0.010 ng/mL (0.00-0.029) 10/18/20 21:29 Troponin: < normal limit Results - Labs CBC & Chem 7: 10/20/20 09:05 10/21/20 07:21 Labs: Laboratory Last Values WBC 9.4 K/mm3 (4.5-11.0) 10/20/20 09:05 RBC 6.09 M/mm3 (3.65-5.03) H 10/20/20 09:05 Hgb 13.0 gm/dl (10.1-14.3) 10/20/20 09:05 Hct 42.1 % (30.3-42.9) 10/20/20 09:05 MCV 69 fl (79-97) L 10/20/20 09:05 MCH 21 pg (28-32) L 10/20/20 09:05 MCHC 31 % (30-34) 10/20/20 09:05 RDW 18.7 % (13.2-15.2) H 10/20/20 09:05 Plt Count 226 K/mm3 (140-440) 10/20/20 09:05 Lymph % (Auto) 9.9 % (13.4-35.0) L 10/20/20 09:05 Dukes % (Auto) 7.3 % (0.0-7.3) 10/20/20 09:05 Eos % (Auto) 0.0 % (0.0-4.3) 10/20/20 09:05 Baso % (Auto) 0.3 % (0.0-1.8) 10/20/20 09:05 Lymph # (Auto) 0.9 K/mm3 (1.2-5.4) L 10/20/20 09:05 Dukes # (Auto) 0.7 K/mm3 (0.0-0.8) 10/20/20 09:05 Eos # (Auto) 0.0 K/mm3 (0.0-0.4) 10/20/20 09:05 Baso # (Auto) 0.0 K/mm3 (0.0-0.1) 10/20/20 09:05 Seg Neutrophils % 82.5 % (40.0-70.0) H 10/20/20 09:05 Seg Neutrophils # 7.7 K/mm3 (1.8-7.7) 10/20/20 09:05 PT 14.1 Sec. (12.2-14.9) 10/18/20 19:15 INR 1.11 (0.87-1.13) 10/18/20 19:15 APTT 25.0 Sec. (24.2-36.6) 10/18/20 19:15 D-Dimer 1876.16 ng/mlDDU (0-234) H 10/19/20 05:15 Sodium 140 mmol/L (137-145) 10/21/20 07:21 Potassium 3.3 mmol/L (3.6-5.0) L 10/21/20 07:21 Chloride 102.7 mmol/L (98-107) 10/21/20 07:21 Carbon Dioxide 25 mmol/L (22-30) 10/21/20 07:21 Anion Gap 16 mmol/L 10/21/20 07:21 BUN 9 mg/dL (7-17) 10/21/20 07:21 Creatinine 0.5 mg/dL (0.6-1.2) L 10/21/20 07:21 Estimated GFR > 60 ml/min 10/21/20 07:21 BUN/Creatinine Ratio 18 % 10/21/20 07:21 Glucose 239 mg/dL (65-100) H 10/21/20 07:21 POC Glucose 256 mg/dL (70-105) H 10/21/20 07:11 Hemoglobin A1c 12.5 % (4-6) H 10/19/20 05:28 Calcium 8.6 mg/dL (8.4-10.2) 10/21/20 07:21 Ferritin 171.0 ng/mL (10.0-200.0) 10/19/20 05:15 Total Bilirubin 0.30 mg/dL (0.1-1.2) 10/18/20 19:15 AST 13 units/L (5-40) 10/18/20 19:15 ALT 13 units/L (7-56) 10/18/20 19:15 Alkaline Phosphatase 97 units/L (35-129) 10/18/20 19:15 Lactate Dehydrogenase 270 units/L (91-180) H 10/19/20 05:15 Troponin T < 0.010 ng/mL (0.00-0.029) 10/18/20 21:29 C-Reactive Protein 4.80 mg/dL (0.00-1.30) H 10/19/20 05:15 Total Protein 8.2 g/dL (6.3-8.2) 10/18/20 19:15 Albumin 4.5 g/dL (3.9-5) 10/18/20 19:15 Albumin/Globulin Ratio 1.2 % 10/18/20 19:15 Procalcitonin < 0.05 ng/mL (<0.15) 10/19/20 05:15 HCG, Qual Negative (Negative) 10/18/20 19:15 Coronavirus (PCR) Positive (Negative) A 10/19/20 09:05 Monoscreen Negative (Negative) 10/18/20 23:02 Group A Strep Rapid Negative (Negative) 10/18/20 23:00 Microbiology: Microbiology 10/19/20 05:36 Peripheral/Venous Blood Culture - Preliminary NO GROWTH AFTER 48 HOURS 10/19/20 05:43 Peripheral/Venous Blood Culture - Preliminary NO GROWTH AFTER 48 HOURS 10/18/20 23:18 Throat Group A Strep Throat Culture - Preliminary Sauceda/IV: Voiding Method Toilet Active Medications - Current Medications Current Medications: Generic Name Dose Route Start Last Admin Trade Name Freq PRN Reason Stop Dose Admin Acetaminophen 650 mg 10/19/20 05:17 Acetaminophen 325 Mg Tab PO Q4H PRN Pain MILD(1-3)/Fever >100.5/ROJAS Albuterol 2 puff 10/19/20 05:21 Albuterol 8.5 Gm Mdi Inhalation IH Q2HRT PRN Shortness Of Breath Dextrose 50 ml 10/19/20 05:17 Dextrose 50% In Water (25gm) 50 Ml Syringe IV Q30MIN PRN Hypoglycemia Protocol Docusate Sodium 100 mg 10/19/20 10:00 10/20/20 22:17 Docusate Sodium 100 Mg Cap PO 100 mg BID ROSSANA Administration Enoxaparin Sodium 40 mg 10/19/20 10:00 10/20/20 09:22 Enoxaparin 40 Mg/0.4 Ml Inj SUB-Q 40 mg QDAY ROSSANA Administration Guaifenesin 600 mg 10/19/20 10:00 10/20/20 22:17 Guaifenesin Er 600 Mg Tab PO 600 mg BID ROSSANA Administration Guaifenesin 200 mg 10/20/20 12:48 10/21/20 07:52 Guaifenesin 100 Mg/5 Ml Oral Liqd PO 200 mg Q8H PRN Administration Cough Insulin Glargine 15 units 10/19/20 08:00 10/20/20 09:22 Insulin Glargine 100 Units/Ml SUB-Q 15 units QAMDIAB ROSSANA Administration Insulin Human Regular 0 units 10/19/20 07:30 10/21/20 07:53 Insulin Regular, Human 100 Units/1 Ml SUB-Q 4 units ACHS ROSSANA Administration Protocol Ondansetron HCl 4 mg 10/19/20 05:17 10/20/20 22:17 Ondansetron 4 Mg/2 Ml Inj IV 4 mg Q6H PRN Administration Nausea And Vomiting Oxycodone/Acetaminophen 1 tab 10/19/20 05:17 10/21/20 00:41 Oxycodone /Acetaminophen 5-325mg Tab PO 1 tab Q6H PRN Administration Pain, Moderate (4-6) Phenol 1 spray 10/21/20 08:12 Phenol 1.4% 177 Ml Bottle MM PRN PRN Sore Throat Potassium Chloride 40 meq 10/21/20 09:00 Potassium Chloride Er 20 Meq Tab PO 10/21/20 09:01 ONCE ONE Sodium Chloride 10 ml 10/19/20 10:00 10/20/20 22:18 Sodium Chloride 0.9% 10 Ml Flush Syringe IV 10 ml BID ROSSANA Administration Sodium Chloride 10 ml 10/19/20 05:17 Sodium Chloride 0.9% 10 Ml Flush Syringe IV PRN PRN LINE FLUSH Nutrition/Malnutrition Assess - Malnutrition Assessment Minimum of two criteria: No physical signs of malnutrition - Attestation Statement I have reviewed and agreed w/ Malnutrition eval & tx plan: Yes
[2020-10-21] MEDS: INSULIN GLARGINE 100 UNITS/ML SUB-Q SCH (10:05)
[2020-10-21] MEDS: DOCUSATE SODIUM 100 MG CAP PO SCH ×2 (10:06→22:19)
[2020-10-21] MEDS: guaiFENesin ER 600 MG TAB PO SCH ×2 (10:06→22:19)
[2020-10-21] MEDS: ENOXAPARIN 40 MG/0.4 ML INJ SUB-Q SCH (10:07)
[2020-10-21] MEDS: ONDANSETRON 4 MG/2 ML INJ IV PRN (10:08)
[2020-10-21] MEDS: PHENOL 1.4% 177 ML BOTTLE MM PRN ×3 (10:40→17:18)
[2020-10-21] MEDS ORDERED: REMDESIVIR 100 MG VIAL IV ONE (13:00)
[2020-10-21] MEDS ORDERED: REMDESIVIR 200 MG in SODIUM CHLORIDE 0.9% 250ML 250 ML IV ONE (13:00)
[2020-10-21] MEDS ORDERED: SODIUM CHLORIDE 0.9% 50 ML ONE (13:11)
[2020-10-21] MEDS: dexAMETHasone 4 MG/ML VIAL IV SCH (13:44)
[2020-10-21 16:50] LABS: Alanine Aminotransferase 9 units/L (7-56); Albumin 2.9 g/dL (3.9-5); Blood Urea Nitrogen 9 mg/dL (7-17); Calcium 8.3 mg/dL (8.4-10.2); Hemolysis Index 0
[2020-10-21 16:51] LABS: BUN/Creatinine Ratio 18
[2020-10-21] MEDS: SODIUM CHLORIDE 0.9% 50 ML IVPB IV SCH (22:21)
[2020-10-22 08:20] LABS: Alanine Aminotransferase 10 units/L (7-56); Albumin 3.1 g/dL (3.9-5); Blood Urea Nitrogen 8 mg/dL (7-17); Calcium 8.8 mg/dL (8.4-10.2); Hemolysis Index 6
[2020-10-22 08:39] LABS: BUN/Creatinine Ratio 16
--- NOTE | 2020-10-22 09:48 | Progress Note ---
Assessment and Plan Assessment and plan: Assessment and Plan Assessment and plan: Suspected COVID-19 virus infection -c/o shortness of breath, sore throat, nausea, vomiting, chest pain x4 days -CT angio chest negative for PE, but shows mild to moderate patchy bilateral groundglass opacities -COVID Swab pending -Isolate and initiate MARIPOSA precautions -f/u labs -Start IV Abx -Supportive Care Hypoxia -Likely secondary to COVID-19 virus infection -No Baseline home oxygen requirements -Desats to mid 80s with ambulation on room air -Monitor saturations -Continue supplemental oxygen wean as tolerated -Albuterol as needed DM -With hyperglycemia -BG 310 (453 on presentation) -POC BG monitoring -Schedule Lantus and SSI coverage prn -HgbA1C pending Acute atypical chest Pain -Continuous telemetry monitoring -Continue supportive care -Pain mgmt -Troponin negative x 2 -EKG unrevealing for acute ischemic abnormalities -CXR negative Leukocytosis -WBC on admission 16.2 -Afebrile -Cultures pending -On IV ABX -Continue to monitor CBC DVT PPX -On Lovenox 10/19/20 Patient is doing better. Denies any chest pain no shortness of breath now Continue Rocephin and Zithromax and neb treatment. Follow the Covid test result We we will follow the serial cardiac enzyme. Repeat CBC BMP in the morning Continue scheduled Lantus and SSI coverage. Will check whether patient needs for home oxygen. Possible discharge plan in a.m. if is stable 10/20/20 Patient is doing better. Denies any chest pain no shortness of breath . No cough Continue Rocephin and Zithromax and neb treatment. Covid test is positive. Decadron 6 mg IV daily. We will check for oxygen saturation on walking. ID follow-up We we will follow the serial cardiac enzyme. Outpatient the stress test because of Covid status. Potassium is 3.3. Potassium supplemented. Repeat CBC BMP in the morning Continue scheduled Lantus and SSI coverage. 10/21/20 Patient complained mild coughing and shortness of breath. Continue DuoNeb treatment. Oxygen 2 to 3 L/min. Procalcitonin is low so antibiotic and steroid was discontinued. We will do a 6-minute walking test for oxygen. Potassium is 3.3 potassium is supplemented. BMP in the morning. Continue scheduled Lantus and SSI coverage. ID follow-up. Discharge planning 1 to 2 days 10/22/20 Patient is seen and examined Patient complained of nausea. Also shortness of breath and coughing. Patient O2 sat dropped to 85% on walking yesterday We started on remdesivir and dexamethasone IV 6 mg daily. Follow the markers of Covid Continue DuoNeb treatment. Oxygen 2 to 3 L/min. Procalcitonin is low so antibiotic was discontinued. Zofran 4 mg IV every 6 hours as needed. BMP in the morning. Continue scheduled Lantus and SSI coverage. ID follow-up. Discharge planning when medically stable and remdesivir completed. History of present illness: 40-year-old -[place] female with history of diabetes who presents [facility] with complaints of chest pain, shortness of breath, nausea and vomiting x4 days. Patient states that she went to [place] ER approximately 3 days ago with complaints of shortness of breath, nausea, vomiting, and diarrhea; was diagnosed with anxiety, and was given Zofran and Xanax and discharged. Endorses feeling the prescription for Zofran, denies filling the Xanax prescription. She admits to being under a lot of stress however over the past 3 days her symptoms worsened. She describes her bilateral chest pain as pressure, rates it 8/10, and radiates to the back of her throat. Denies history of GERD, or PUD. Her shortness of breath is worse with activity. She continues to have nausea, vomiting, and diarrhea. Denies hematemesis, hemoptysis, or hematochezia. Patient lives at home with her 17-year-old son and denies any recent known sick exposures. History Interval history: Patient is seen and examined Patient chart reviewed and medication reviewed Patient: Wallis test is positive. Complaint nausea ,complain of mild shortness of breath and coughing. O2 sat dropped to 85% on walking yesterday Vitals are stable Hospitalist Physical - Constitutional Vitals: Temp Pulse Resp BP Pulse Ox 98.7 F 71 20 120/69 92 10/22/20 06:17 10/22/20 08:43 10/22/20 06:17 10/22/20 06:17 10/22/20 08:12 General appearance: Present: mild distress - EENT Eyes: Present: PERRL, EOM intact ENT: hearing intact, clear oral mucosa, dentition normal - Neck Neck: Present: supple, normal ROM - Respiratory Respiratory effort: normal Respiratory: bilateral: diminished - Cardiovascular Rhythm: regular Heart Sounds: Present: S1 & S2 - Extremities Extremities: no ischemia Peripheral Pulses: within normal limits - Abdominal General gastrointestinal: soft, non-tender, non-distended, normal bowel sounds - Integumentary Integumentary: Present: clear, warm, dry - Psychiatric Psychiatric: appropriate mood/affect - Neurologic Neurologic: CNII-XII intact, moves all extremities - Allied Health Allied health notes reviewed: nursing HEART Score - HEART Score EKG: Normal Age: < 45 Risk factors: No known risk factors Troponin: Troponin T < 0.010 ng/mL (0.00-0.029) 10/18/20 21:29 Troponin: < normal limit Results - Labs CBC & Chem 7: 10/20/20 09:05 10/22/20 06:57 Labs: Laboratory Last Values WBC 9.4 K/mm3 (4.5-11.0) 10/20/20 09:05 RBC 6.09 M/mm3 (3.65-5.03) H 10/20/20 09:05 Hgb 13.0 gm/dl (10.1-14.3) 10/20/20 09:05 Hct 42.1 % (30.3-42.9) 10/20/20 09:05 MCV 69 fl (79-97) L 10/20/20 09:05 MCH 21 pg (28-32) L 10/20/20 09:05 MCHC 31 % (30-34) 10/20/20 09:05 RDW 18.7 % (13.2-15.2) H 10/20/20 09:05 Plt Count 226 K/mm3 (140-440) 10/20/20 09:05 Lymph % (Auto) 9.9 % (13.4-35.0) L 10/20/20 09:05 [place] % (Auto) 7.3 % (0.0-7.3) 10/20/20 09:05 Eos % (Auto) 0.0 % (0.0-4.3) 10/20/20 09:05 Baso % (Auto) 0.3 % (0.0-1.8) 10/20/20 09:05 Lymph # (Auto) 0.9 K/mm3 (1.2-5.4) L 10/20/20 09:05 [place] # (Auto) 0.7 K/mm3 (0.0-0.8) 10/20/20 09:05 Eos # (Auto) 0.0 K/mm3 (0.0-0.4) 10/20/20 09:05 Baso # (Auto) 0.0 K/mm3 (0.0-0.1) 10/20/20 09:05 Seg Neutrophils % 82.5 % (40.0-70.0) H 10/20/20 09:05 Seg Neutrophils # 7.7 K/mm3 (1.8-7.7) 10/20/20 09:05 PT 14.1 Sec. (12.2-14.9) 10/18/20 19:15 INR 1.11 (0.87-1.13) 10/18/20 19:15 APTT 25.0 Sec. (24.2-36.6) 10/18/20 19:15 D-Dimer 1876.16 ng/mlDDU (0-234) H 10/19/20 05:15 Sodium 140 mmol/L (137-145) 10/22/20 06:57 Potassium 3.3 mmol/L (3.6-5.0) L 10/22/20 06:57 Chloride 101.3 mmol/L (98-107) 10/22/20 06:57 Carbon Dioxide 29 mmol/L (22-30) 10/22/20 06:57 Anion Gap 13 mmol/L 10/22/20 06:57 BUN 8 mg/dL (7-17) 10/22/20 06:57 Creatinine 0.5 mg/dL (0.6-1.2) L 10/22/20 06:57 Estimated GFR > 60 ml/min 10/22/20 06:57 BUN/Creatinine Ratio 16 % 10/22/20 06:57 Glucose 200 mg/dL (65-100) H 10/22/20 06:57 POC Glucose 298 mg/dL (70-105) H 10/21/20 22:05 Hemoglobin A1c 12.5 % (4-6) H 10/19/20 05:28 Calcium 8.8 mg/dL (8.4-10.2) 10/22/20 06:57 Ferritin 171.0 ng/mL (10.0-200.0) 10/19/20 05:15 Total Bilirubin 0.40 mg/dL (0.1-1.2) 10/22/20 06:57 AST 13 units/L (5-40) 10/22/20 06:57 ALT 10 units/L (7-56) 10/22/20 06:57 Alkaline Phosphatase 79 units/L (35-129) 10/22/20 06:57 Lactate Dehydrogenase 270 units/L (91-180) H 10/19/20 05:15 Troponin T < 0.010 ng/mL (0.00-0.029) 10/18/20 21:29 C-Reactive Protein 4.80 mg/dL (0.00-1.30) H 10/19/20 05:15 Total Protein 6.4 g/dL (6.3-8.2) 10/22/20 06:57 Albumin 3.1 g/dL (3.9-5) L 10/22/20 06:57 Albumin/Globulin Ratio 0.9 % 10/22/20 06:57 Procalcitonin < 0.05 ng/mL (<0.15) 10/19/20 05:15 HCG, Qual Negative (Negative) 10/18/20 19:15 Coronavirus (PCR) Positive (Negative) A 10/19/20 09:05 Monoscreen Negative (Negative) 10/18/20 23:02 Group A Strep Rapid Negative (Negative) 10/18/20 23:00 Microbiology: Microbiology 10/19/20 05:36 Peripheral/Venous Blood Culture - Preliminary NO GROWTH AFTER 72 HOURS 10/19/20 05:43 Peripheral/Venous Blood Culture - Preliminary NO GROWTH AFTER 72 HOURS 10/18/20 23:18 Throat Group A Strep Throat Culture - Final Sauceda/IV: Voiding Method Toilet Active Medications - Current Medications Current Medications: Generic Name Dose Route Start Last Admin Trade Name Freq PRN Reason Stop Dose Admin Acetaminophen 650 mg 10/19/20 05:17 Acetaminophen 325 Mg Tab PO Q4H PRN Pain MILD(1-3)/Fever >100.5/ROJAS Albuterol 2 puff 10/19/20 05:21 Albuterol 8.5 Gm Mdi Inhalation IH Q2HRT PRN Shortness Of Breath Dexamethasone 6 mg 10/21/20 12:00 10/21/20 13:44 Dexamethasone 4 Mg/Ml Vial IV 10/30/20 10:01 6 mg DAILY ROSSANA Administration Dextrose 50 ml 10/19/20 05:17 Dextrose 50% In Water (25gm) 50 Ml Syringe IV Q30MIN PRN Hypoglycemia Protocol Docusate Sodium 100 mg 10/19/20 10:00 10/21/20 22:19 Docusate Sodium 100 Mg Cap PO 100 mg BID ROSSANA Administration Enoxaparin Sodium 40 mg 10/19/20 10:00 10/21/20 10:07 Enoxaparin 40 Mg/0.4 Ml Inj SUB-Q 40 mg QDAY ROSSANA Administration Guaifenesin 600 mg 10/19/20 10:00 10/21/20 22:19 Guaifenesin Er 600 Mg Tab PO 600 mg BID ROSSANA Administration Guaifenesin 200 mg 10/20/20 12:48 10/21/20 17:16 Guaifenesin 100 Mg/5 Ml Oral Liqd PO 200 mg Q8H PRN Administration Cough REMDESIVIR 100 mg/ Sodium 250 mls @ 500 mls/hr 10/22/20 21:00 Chloride IV 10/25/20 21:29 Q24HR@2100 COUNT INCLUDES THE [facility] Insulin Glargine 15 units 10/19/20 08:00 10/21/20 10:05 Insulin Glargine 100 Units/Ml SUB-Q 15 units QAMDIAB ROSSANA Administration Insulin Human Regular 0 units 10/19/20 07:30 10/21/20 22:19 Insulin Regular, Human 100 Units/1 Ml SUB-Q 4 units ACHS ROSSANA Administration Protocol Ondansetron HCl 4 mg 10/19/20 05:17 10/21/20 10:08 Ondansetron 4 Mg/2 Ml Inj IV 4 mg Q6H PRN Administration Nausea And Vomiting Oxycodone/Acetaminophen 1 tab 10/19/20 05:17 10/21/20 00:41 Oxycodone /Acetaminophen 5-325mg Tab PO 1 tab Q6H PRN Administration Pain, Moderate (4-6) Phenol 1 spray 10/21/20 08:12 10/21/20 17:18 Phenol 1.4% 177 Ml Bottle MM 1 spray PRN PRN Administration Sore Throat Sodium Chloride 10 ml 10/19/20 10:00 10/21/20 22:22 Sodium Chloride 0.9% 10 Ml Flush Syringe IV 10 ml BID ROSSANA Administration Sodium Chloride 10 ml 10/19/20 05:17 Sodium Chloride 0.9% 10 Ml Flush Syringe IV PRN PRN LINE FLUSH Sodium Chloride 50 ml 10/21/20 21:00 10/21/20 22:21 Sodium Chloride 0.9% 50 Ml Ivpb IV 10/25/20 21:01 50 ml Q24HR@2100 ROSSANA Administration Nutrition/Malnutrition Assess - Malnutrition Assessment Minimum of two criteria: No physical signs of malnutrition - Attestation Statement I have reviewed and agreed w/ Malnutrition eval & tx plan: Yes
[2020-10-22] MEDS: ENOXAPARIN 40 MG/0.4 ML INJ SUB-Q SCH (09:56)
[2020-10-22] MEDS: DOCUSATE SODIUM 100 MG CAP PO SCH ×2 (09:56→22:16)
[2020-10-22] MEDS: dexAMETHasone 4 MG/ML VIAL IV SCH (09:56)
[2020-10-22] MEDS: guaiFENesin ER 600 MG TAB PO SCH ×2 (09:56→22:16)
[2020-10-22] MEDS ORDERED: REMDESIVIR(see order set) IV SCH (10:00)
[2020-10-22] MEDS ORDERED: dexAMETHasone 4 MG/ML VIAL IV SCH (10:00)
[2020-10-22] MEDS: INSULIN GLARGINE 100 UNITS/ML SUB-Q SCH (10:05)
[2020-10-22] MEDS: INSULIN REGULAR, HUMAN 100 UNITS/1 ML SUB-Q SCH ×4 (10:05→22:17)
--- NOTE | 2020-10-22 14:46 | Progress Note ---
Assessment and Plan Cultures: SARS CoV2 PCR: positive 10/19/2020 blood culture: In process A/P: 40/F with DM: #COVID-19 pneumonia: Remains on room air. Markers elevated, D-dimer 1876, CRP 4.8, LDH 270. Ferritin is normal. #Leukocytosis: Likely secondary to above, improved. #Hypoxia: Sats dropped to 80s. On 2 L nasal cannula. #Diabetes mellitus, uncontrolled: HbA1c 12.5 Recs: -Continue dexamethasone 6 mg IV/PO daily for 10 days -Continue remdesivir D2 of 5 -No indication for antibiotics, procalcitonin is low -Evaluation for reflux, complaining of epigastric pain -Repeat markers today -Prone positioning as possible -Anticoagulation per system protocol MD [facility] ([facility]) Office [phone] Subjective Date of service: 10/22/20 Principal diagnosis: COVID-19 Interval history: Patient feels better, complaining of some epigastric pain, nausea and vomiting this time 1. Remains on 2 L. Positive cough. Objective - Exam Narrative Exam: General appearance: Alert in NAD pleasant Eyes: anicteric sclerae, moist conjunctivae; no lid-lag; PERRLA HENT: Normocephalic, Atraumatic; normal external ears, nares open, oropharynx clear with moist mucous membranes and no oral thrush Neck: supple, tracheal midline, no JVD Lungs: Bilateral crackles CV: RRR no murmur Abdomen: Soft, non-tender; no masses or hepatosplenomegaly Extremities: no edema, no cyanosis Skin: No rash. Psych: no agitated Neuro: alert and oriented x 3. Moving all extermities - Constitutional Vitals: Vital Signs Temp Pulse Resp BP Pulse Ox 98.7 F 71 20 120/69 92 10/22/20 06:17 10/22/20 08:43 10/22/20 06:17 10/22/20 06:17 10/22/20 08:12 Temperature -Last 24 Hours Temperature 98.7 F Temperature 98.6 F Temperature 98.7 F - Labs CBC & Chem 7: 10/20/20 09:05 10/22/20 06:57 Labs: Abnormal lab results 10/21/20 10/21/20 10/21/20 Range/Units 11:32 15:23 16:06 Potassium (3.6-5.0) mmol/L Creatinine 0.5 L (0.6-1.2) mg/dL Glucose 371 H (65-100) mg/dL POC Glucose 258 H 387 H (70-105) mg/dL Calcium 8.3 L (8.4-10.2) mg/dL Total Protein 5.4 L D (6.3-8.2) g/dL Albumin 2.9 L (3.9-5) g/dL 10/21/20 10/22/20 10/22/20 Range/Units 22:05 06:57 08:04 Potassium 3.3 L (3.6-5.0) mmol/L Creatinine 0.5 L (0.6-1.2) mg/dL Glucose 200 H (65-100) mg/dL POC Glucose 298 H 200 H (70-105) mg/dL Calcium (8.4-10.2) mg/dL Total Protein (6.3-8.2) g/dL Albumin 3.1 L (3.9-5) g/dL
[2020-10-22 17:11] LABS: C-Reactive Protein 1.4 mg/dL (0.00-1.30)
[2020-10-22] MEDS: REMDESIVIR 100 MG in SODIUM CHLORIDE 0.9% 250ML 250 ML IV SCH (22:16)
[2020-10-22] MEDS: SODIUM CHLORIDE 0.9% 50 ML IVPB IV SCH (23:01)
[2020-10-22] MEDS: guaiFENesin 100 MG/5 ML ORAL LIQD PO PRN (23:01)
[2020-10-23 06:54] LABS: Alanine Aminotransferase 9 units/L (7-56); Albumin 2.4 g/dL (3.9-5); Blood Urea Nitrogen 6 mg/dL (7-17); Hemolysis Index 15
[2020-10-23 07:15] LABS: BUN/Creatinine Ratio 15
[2020-10-23] MEDS ORDERED: POTASSIUM CHLORIDE ER 20 MEQ TAB PO NR ×2 (07:45→12:00)
[2020-10-23] MEDS: INSULIN REGULAR, HUMAN 100 UNITS/1 ML SUB-Q SCH ×4 (08:16→23:48)
[2020-10-23] MEDS: INSULIN GLARGINE 100 UNITS/ML SUB-Q SCH (08:34)
--- NOTE | 2020-10-23 09:04 | Progress Note ---
Assessment and Plan Assessment and plan: COVID-19 virus infection -CT angio chest negative for PE, but shows mild to moderate patchy bilateral gr oundglass opacities Acute hypoxic respiratory failure -Likely secondary to COVID-19 virus infection DM II, uncontrolled Acute atypical chest Pain -Troponin negative x 2 -EKG unrevealing for acute ischemic abnormalities -CXR negative Leukocytosis -WBC on admission 16.2 DVT PPX -On Lovenox 10/19/20 Patient is doing better. Denies any chest pain no shortness of breath now Continue Rocephin and Zithromax and neb treatment. Follow the Covid test result We we will follow the serial cardiac enzyme. Repeat CBC BMP in the morning Continue scheduled Lantus and SSI coverage. Will check whether patient needs for home oxygen. Possible discharge plan in a.m. if is stable 10/20/20 Patient is doing better. Denies any chest pain no shortness of breath . No cough Continue Rocephin and Zithromax and neb treatment. Covid test is positive. Decadron 6 mg IV daily. We will check for oxygen saturation on walking. ID follow-up We we will follow the serial cardiac enzyme. Outpatient the stress test because of Covid status. Potassium is 3.3. Potassium supplemented. Repeat CBC BMP in the morning Continue scheduled Lantus and SSI coverage. 10/21/20 Patient complained mild coughing and shortness of breath. Continue DuoNeb treatment. Oxygen 2 to 3 L/min. Procalcitonin is low so antibiotic and steroid was discontinued. We will do a 6-minute walking test for oxygen. Potassium is 3.3 potassium is supplemented. BMP in the morning. Continue scheduled Lantus and SSI coverage. ID follow-up. Discharge planning 1 to 2 days 10/22/20 Patient is seen and examined Patient complained of nausea. Also shortness of breath and coughing. Patient O2 sat dropped to 85% on walking yesterday We started on remdesivir and dexamethasone IV 6 mg daily. Follow the markers of Covid Continue DuoNeb treatment. Oxygen 2 to 3 L/min. Procalcitonin is low so antibiotic was discontinued. Zofran 4 mg IV every 6 hours as needed. BMP in the morning. Continue scheduled Lantus and SSI coverage. ID follow-up. Discharge planning when medically stable and remdesivir completed. 10/23/2020. Continue remdesivir and dexamethasone. ID following. Procalcitonin is low so antibiotic was discontinued. Exercise pulse oximetry testing prior to discharge. History Interval history: No new issues overnight. Hospitalist Physical - Constitutional Vitals: Temp Pulse Resp BP Pulse Ox 98.3 F 69 18 113/66 93 10/23/20 04:06 10/23/20 04:06 10/23/20 04:06 10/23/20 04:06 10/23/20 04:06 General appearance: Present: no acute distress - EENT Eyes: Present: PERRL, EOM intact ENT: hearing intact, clear oral mucosa, dentition normal - Neck Neck: Present: supple, normal ROM - Respiratory Respiratory effort: normal Respiratory: bilateral: CTA - Cardiovascular Rhythm: regular Heart Sounds: Present: S1 & S2. Absent: gallop, rub - Extremities Extremities: no ischemia, No edema, Full ROM - Abdominal General gastrointestinal: soft, non-tender, non-distended, normal bowel sounds - Integumentary Integumentary: Present: clear, warm, dry - Neurologic Neurologic: CNII-XII intact, moves all extremities HEART Score - HEART Score EKG: Normal Age: < 45 Risk factors: No known risk factors Troponin: Troponin T < 0.010 ng/mL (0.00-0.029) 10/18/20 21:29 Troponin: < normal limit Results - Labs CBC & Chem 7: 10/20/20 09:05 10/23/20 05:30 Labs: Laboratory Last Values WBC 9.4 K/mm3 (4.5-11.0) 10/20/20 09:05 RBC 6.09 M/mm3 (3.65-5.03) H 10/20/20 09:05 Hgb 13.0 gm/dl (10.1-14.3) 10/20/20 09:05 Hct 42.1 % (30.3-42.9) 10/20/20 09:05 MCV 69 fl (79-97) L 10/20/20 09:05 MCH 21 pg (28-32) L 10/20/20 09:05 MCHC 31 % (30-34) 10/20/20 09:05 RDW 18.7 % (13.2-15.2) H 10/20/20 09:05 Plt Count 226 K/mm3 (140-440) 10/20/20 09:05 Lymph % (Auto) 9.9 % (13.4-35.0) L 10/20/20 09:05 [place] % (Auto) 7.3 % (0.0-7.3) 10/20/20 09:05 Eos % (Auto) 0.0 % (0.0-4.3) 10/20/20 09:05 Baso % (Auto) 0.3 % (0.0-1.8) 10/20/20 09:05 Lymph # (Auto) 0.9 K/mm3 (1.2-5.4) L 10/20/20 09:05 [place] # (Auto) 0.7 K/mm3 (0.0-0.8) 10/20/20 09:05 Eos # (Auto) 0.0 K/mm3 (0.0-0.4) 10/20/20 09:05 Baso # (Auto) 0.0 K/mm3 (0.0-0.1) 10/20/20 09:05 Seg Neutrophils % 82.5 % (40.0-70.0) H 10/20/20 09:05 Seg Neutrophils # 7.7 K/mm3 (1.8-7.7) 10/20/20 09:05 PT 14.1 Sec. (12.2-14.9) 10/18/20 19:15 INR 1.11 (0.87-1.13) 10/18/20 19:15 APTT 25.0 Sec. (24.2-36.6) 10/18/20 19:15 D-Dimer 995.73 ng/mlDDU (0-234) H 10/23/20 05:30 Sodium 140 mmol/L (137-145) 10/23/20 05:30 Potassium 2.8 mmol/L (3.6-5.0) L* 10/23/20 05:30 Chloride 101.6 mmol/L (98-107) 10/23/20 05:30 Carbon Dioxide 32 mmol/L (22-30) H 10/23/20 05:30 Anion Gap 9 mmol/L 10/23/20 05:30 BUN 6 mg/dL (7-17) L 10/23/20 05:30 Creatinine 0.4 mg/dL (0.6-1.2) L 10/23/20 05:30 Estimated GFR > 60 ml/min 10/23/20 05:30 BUN/Creatinine Ratio 15 % 10/23/20 05:30 Glucose 131 mg/dL (65-100) H 10/23/20 05:30 POC Glucose 120 mg/dL (70-105) H 10/23/20 08:22 Hemoglobin A1c 12.5 % (4-6) H 10/19/20 05:28 Calcium 8.0 mg/dL (8.4-10.2) L 10/23/20 05:30 Ferritin 169.2 ng/mL (10.0-200.0) 10/23/20 05:30 Total Bilirubin 0.20 mg/dL (0.1-1.2) 10/23/20 05:30 AST 14 units/L (5-40) 10/23/20 05:30 ALT 9 units/L (7-56) 10/23/20 05:30 Alkaline Phosphatase 61 units/L (35-129) 10/23/20 05:30 Lactate Dehydrogenase 274 units/L (91-180) H 10/23/20 05:30 Troponin T < 0.010 ng/mL (0.00-0.029) 10/18/20 21:29 C-Reactive Protein 1.50 mg/dL (0.00-1.30) H 10/23/20 05:30 Total Protein 5.2 g/dL (6.3-8.2) L 10/23/20 05:30 Albumin 2.4 g/dL (3.9-5) L 10/23/20 05:30 Albumin/Globulin Ratio 0.9 % 10/23/20 05:30 Procalcitonin < 0.05 ng/mL (<0.15) 10/19/20 05:15 HCG, Qual Negative (Negative) 10/18/20 19:15 Coronavirus (PCR) Positive (Negative) A 10/19/20 09:05 Monoscreen Negative (Negative) 10/18/20 23:02 Group A Strep Rapid Negative (Negative) 10/18/20 23:00 Microbiology: Microbiology 10/19/20 05:36 Peripheral/Venous Blood Culture - Preliminary NO GROWTH AFTER 4 DAYS 10/19/20 05:43 Peripheral/Venous Blood Culture - Preliminary NO GROWTH AFTER 4 DAYS [place]/IV: Voiding Method Toilet Active Medications - Current Medications Current Medications: Generic Name Dose Route Start Last Admin Trade Name Freq PRN Reason Stop Dose Admin Acetaminophen 650 mg 10/19/20 05:17 Acetaminophen 325 Mg Tab PO Q4H PRN Pain MILD(1-3)/Fever >100.5/ROJAS Albuterol 2 puff 10/19/20 05:21 Albuterol 8.5 Gm Mdi Inhalation IH Q2HRT PRN Shortness Of Breath Dexamethasone 6 mg 10/21/20 12:00 10/22/20 09:56 Dexamethasone 4 Mg/Ml Vial IV 10/30/20 10:01 6 mg DAILY ROSSANA Administration Dextrose 50 ml 10/19/20 05:17 Dextrose 50% In Water (25gm) 50 Ml Syringe IV Q30MIN PRN Hypoglycemia Protocol Docusate Sodium 100 mg 10/19/20 10:00 10/22/20 22:16 Docusate Sodium 100 Mg Cap PO 100 mg BID ROSSANA Administration Enoxaparin Sodium 40 mg 10/19/20 10:00 10/22/20 09:56 Enoxaparin 40 Mg/0.4 Ml Inj SUB-Q 40 mg QDAY ROSSANA Administration Guaifenesin 600 mg 10/19/20 10:00 10/22/20 22:16 Guaifenesin Er 600 Mg Tab PO 600 mg BID ROSSANA Administration Guaifenesin 200 mg 10/20/20 12:48 10/22/20 23:01 Guaifenesin 100 Mg/5 Ml Oral Liqd PO 200 mg Q8H PRN Administration Cough REMDESIVIR 100 mg/ Sodium 250 mls @ 500 mls/hr 10/22/20 21:00 10/22/20 22:16 Chloride IV 10/25/20 21:29 500 mls/hr Q24HR@2100 ROSSANA Administration Insulin Glargine 15 units 10/19/20 08:00 10/23/20 08:34 Insulin Glargine 100 Units/Ml SUB-Q 15 units QAMDIAB ROSSANA Administration Insulin Human Regular 0 units 10/19/20 07:30 10/23/20 08:16 Insulin Regular, Human 100 Units/1 Ml SUB-Q Not Given ACHS ROSSANA Protocol Ondansetron HCl 4 mg 10/19/20 05:17 10/21/20 10:08 Ondansetron 4 Mg/2 Ml Inj IV 4 mg Q6H PRN Administration Nausea And Vomiting Oxycodone/Acetaminophen 1 tab 10/19/20 05:17 10/21/20 00:41 Oxycodone /Acetaminophen 5-325mg Tab PO 1 tab Q6H PRN Administration Pain, Moderate (4-6) Phenol 1 spray 10/21/20 08:12 10/21/20 17:18 Phenol 1.4% 177 Ml Bottle MM 1 spray PRN PRN Administration Sore Throat Potassium Chloride 40 meq 10/23/20 07:45 Potassium Chloride Er 20 Meq Tab PO 10/23/20 10:00 ONCE NR Potassium Chloride 40 meq 10/23/20 12:00 Potassium Chloride Er 20 Meq Tab PO 10/23/20 14:00 ONCE NR Sodium Chloride 10 ml 10/19/20 10:00 10/22/20 22:17 Sodium Chloride 0.9% 10 Ml Flush Syringe IV 10 ml BID ROSSANA Administration Sodium Chloride 10 ml 10/19/20 05:17 Sodium Chloride 0.9% 10 Ml Flush Syringe IV PRN PRN LINE FLUSH Sodium Chloride 50 ml 10/21/20 21:00 10/22/20 23:01 Sodium Chloride 0.9% 50 Ml Ivpb IV 10/25/20 21:01 50 ml Q24HR@2100 ROSSANA Administration
[2020-10-23] MEDS: guaiFENesin ER 600 MG TAB PO SCH ×2 (09:15→22:29)
[2020-10-23] MEDS: DOCUSATE SODIUM 100 MG CAP PO SCH ×2 (09:16→22:29)
[2020-10-23] MEDS: dexAMETHasone 4 MG/ML VIAL IV SCH (09:16)
[2020-10-23] MEDS: ENOXAPARIN 40 MG/0.4 ML INJ SUB-Q SCH (09:19)
--- NOTE | 2020-10-23 15:55 | Progress Note ---
Assessment and Plan Cultures: SARS CoV2 PCR: positive 10/19/2020 blood culture: no growth today A/P: 40/F with DM: #COVID-19 pneumonia: Markers elevated, D-dimer 1876, CRP 4.8, LDH 270. Markers improving. Ferritin is normal. #Leukocytosis: Likely secondary to above, improved. #Hypoxia: Sats dropped to 80s. Remains on 2 L nasal cannula. #Diabetes mellitus, uncontrolled: HbA1c 12.5 Recs: -Continue dexamethasone 6 mg IV/PO daily for 10 days -Continue remdesivir D3 of 5 -No indication for antibiotics, procalcitonin is low -Evaluation for reflux, complaining of epigastric pain -Prone positioning as possible -Anticoagulation per system protocol -check 6min exercise walking test Carline Gross MD [facility] ([facility]) Office [phone] Subjective Date of service: 10/23/20 Principal diagnosis: COVID-19 Interval history: Patient remains on 2 L nasal cannula, no desaturations. No fever. Objective - Exam Narrative Exam: Physical exam deferred to minimize COVID-19 transmission during pandemic. - Constitutional Vitals: Vital Signs Temp Pulse Resp BP Pulse Ox 98.4 F 77 19 100/60 92 10/23/20 11:42 10/23/20 11:42 10/23/20 11:42 10/23/20 11:42 10/23/20 11:42 Temperature -Last 24 Hours Temperature 98.4 F Temperature 98.3 F Temperature 98.7 F - Labs CBC & Chem 7: 10/20/20 09:05 10/23/20 05:30 Labs: Abnormal lab results 10/22/20 10/22/20 10/22/20 Range/Units 16:08 16:15 16:15 D-Dimer 1275.26 H (0-234) ng/mlDDU Potassium (3.6-5.0) mmol/L Carbon Dioxide (22-30) mmol/L BUN (7-17) mg/dL Creatinine (0.6-1.2) mg/dL Glucose (65-100) mg/dL POC Glucose 297 H (70-105) mg/dL Calcium (8.4-10.2) mg/dL Ferritin 201.8 H (10.0-200.0) ng/mL Lactate Dehydrogenase (91-180) units/L C-Reactive Protein (0.00-1.30) mg/dL Total Protein (6.3-8.2) g/dL Albumin (3.9-5) g/dL 10/22/20 10/22/20 10/23/20 Range/Units 16:15 22:05 05:30 D-Dimer (0-234) ng/mlDDU Potassium 2.8 L* (3.6-5.0) mmol/L Carbon Dioxide 32 H (22-30) mmol/L BUN 6 L (7-17) mg/dL Creatinine 0.4 L (0.6-1.2) mg/dL Glucose 131 H (65-100) mg/dL POC Glucose 283 H (70-105) mg/dL Calcium 8.0 L (8.4-10.2) mg/dL Ferritin (10.0-200.0) ng/mL Lactate Dehydrogenase 296 H 274 H (91-180) units/L C-Reactive Protein 1.40 H 1.50 H (0.00-1.30) mg/dL Total Protein 5.2 L (6.3-8.2) g/dL Albumin 2.4 L (3.9-5) g/dL 10/23/20 10/23/20 10/23/20 Range/Units 05:30 08:22 11:40 D-Dimer 995.73 H (0-234) ng/mlDDU Potassium (3.6-5.0) mmol/L Carbon Dioxide (22-30) mmol/L BUN (7-17) mg/dL Creatinine (0.6-1.2) mg/dL Glucose (65-100) mg/dL POC Glucose 120 H 257 H (70-105) mg/dL Calcium (8.4-10.2) mg/dL Ferritin (10.0-200.0) ng/mL Lactate Dehydrogenase (91-180) units/L C-Reactive Protein (0.00-1.30) mg/dL Total Protein (6.3-8.2) g/dL Albumin (3.9-5) g/dL
[2020-10-23 16:09] LABS: Blood Urea Nitrogen 10 mg/dL (7-17); Hemolysis Index 73
[2020-10-23 16:21] LABS: BUN/Creatinine Ratio 25
[2020-10-23] MEDS: REMDESIVIR 100 MG in SODIUM CHLORIDE 0.9% 250ML 250 ML IV SCH (22:30)
[2020-10-23] MEDS: SODIUM CHLORIDE 0.9% 50 ML IVPB IV SCH (23:05)
[2020-10-24 05:59] LABS: Basophils % (Auto) 0.4 % (0.0-1.8); Eosinophils # (Auto) 0.1 K/mm3 (0.0-0.4); Eosinophils % (Auto) 0.9 % (0.0-4.3); Hematocrit 37.9 % (30.3-42.9); Lymphocytes # (Auto) 1.8 K/mm3 (1.2-5.4); Lymphocytes % (Auto) 19.3 % (13.4-35.0); Mean Corpuscular HGB Conc 32 % (30-34); Monocytes # (Auto) 0.9 K/mm3 (0.0-0.8); Monocytes % (Auto) 10.3 % (0.0-7.3); Platelet Count 223 K/mm3 (140-440); Red Blood Count 5.52 M/mm3 (3.65-5.03); Red Cell Distribution Width 17.7 % (13.2-15.2)
[2020-10-24 06:00] LABS: Mean Corpuscular Volume 69 fl (79-97)
[2020-10-24 06:22] LABS: Alanine Aminotransferase 22 units/L (7-56); Albumin 2.3 g/dL (3.9-5); Blood Urea Nitrogen 6 mg/dL (7-17); Calcium 7.9 mg/dL (8.4-10.2); Hemolysis Index 10
[2020-10-24 06:24] LABS: BUN/Creatinine Ratio 12
[2020-10-24] MEDS: INSULIN REGULAR, HUMAN 100 UNITS/1 ML SUB-Q SCH ×5 (08:12→22:37)
[2020-10-24] MEDS: INSULIN GLARGINE 100 UNITS/ML SUB-Q SCH (08:12)
[2020-10-24] MEDS: DOCUSATE SODIUM 100 MG CAP PO SCH ×2 (09:01→22:38)
[2020-10-24] MEDS: ENOXAPARIN 40 MG/0.4 ML INJ SUB-Q SCH (09:01)
[2020-10-24] MEDS: guaiFENesin ER 600 MG TAB PO SCH ×2 (09:01→22:36)
[2020-10-24] MEDS: dexAMETHasone 4 MG/ML VIAL IV SCH (09:01)
--- NOTE | 2020-10-24 11:18 | Progress Note ---
Assessment and Plan Assessment and plan: COVID-19 virus infection -CT angio chest negative for PE, but shows mild to moderate patchy bilateral gr oundglass opacities Acute hypoxic respiratory failure -Likely secondary to COVID-19 virus infection DM II, uncontrolled Acute atypical chest Pain -Troponin negative x 2 -EKG unrevealing for acute ischemic abnormalities -CXR negative Leukocytosis -WBC on admission 16.2 DVT PPX -On Lovenox 10/19/20 Patient is doing better. Denies any chest pain no shortness of breath now Continue Rocephin and Zithromax and neb treatment. Follow the Covid test result We we will follow the serial cardiac enzyme. Repeat CBC BMP in the morning Continue scheduled Lantus and SSI coverage. Will check whether patient needs for home oxygen. Possible discharge plan in a.m. if is stable 10/20/20 Patient is doing better. Denies any chest pain no shortness of breath . No cough Continue Rocephin and Zithromax and neb treatment. Covid test is positive. Decadron 6 mg IV daily. We will check for oxygen saturation on walking. ID follow-up We we will follow the serial cardiac enzyme. Outpatient the stress test because of Covid status. Potassium is 3.3. Potassium supplemented. Repeat CBC BMP in the morning Continue scheduled Lantus and SSI coverage. 10/21/20 Patient complained mild coughing and shortness of breath. Continue DuoNeb treatment. Oxygen 2 to 3 L/min. Procalcitonin is low so antibiotic and steroid was discontinued. We will do a 6-minute walking test for oxygen. Potassium is 3.3 potassium is supplemented. BMP in the morning. Continue scheduled Lantus and SSI coverage. ID follow-up. Discharge planning 1 to 2 days 10/22/20 Patient is seen and examined Patient complained of nausea. Also shortness of breath and coughing. Patient O2 sat dropped to 85% on walking yesterday We started on remdesivir and dexamethasone IV 6 mg daily. Follow the markers of Covid Continue DuoNeb treatment. Oxygen 2 to 3 L/min. Procalcitonin is low so antibiotic was discontinued. Zofran 4 mg IV every 6 hours as needed. BMP in the morning. Continue scheduled Lantus and SSI coverage. ID follow-up. Discharge planning when medically stable and remdesivir completed. 10/23/2020. Continue remdesivir and dexamethasone. ID following. Procalcitonin is low so antibiotic was discontinued. Exercise pulse oximetry testing prior to discharge. 10/24/2020. Patient is to have remdesivir completed tomorrow. Continue dexamethasone. Walk test as reported by nursing is as follows: started walk test at 1033 on RA, pts sats 90%. Pt stood up, walked to sink. pt desatted to 85% on RA, complained on dizziness. Pt walked back to bed, sat down. O2 2L applied. Pt recovered to 91%, at 2 min zeyad after resting. Pt ambulated with O2 2L on. saturations 90-91%. After 2 mins pt requesting to sit down, stating " I am dizzy and short of breath." Pt oxygen sats 88-89% on 2L/NC. Pt recovered to 90-91% after 2 mins of resting in bed. Pt states feeling better after sitting. will continue plan of care, notify MD of walk test results. History Interval history: No new issues overnight. Hospitalist Physical - Constitutional Vitals: Temp Pulse Resp BP Pulse Ox 98.4 F 66 18 103/65 93 10/24/20 05:38 10/24/20 06:18 10/24/20 10:00 10/24/20 06:18 10/24/20 10:00 General appearance: Present: no acute distress - EENT Eyes: Present: PERRL, EOM intact ENT: hearing intact, clear oral mucosa, dentition normal - Neck Neck: Present: supple, normal ROM - Respiratory Respiratory effort: normal Respiratory: bilateral: CTA - Cardiovascular Rhythm: regular Heart Sounds: Present: S1 & S2. Absent: gallop, rub - Extremities Extremities: no ischemia, No edema, Full ROM - Abdominal General gastrointestinal: soft, non-tender, non-distended, normal bowel sounds - Integumentary Integumentary: Present: clear, warm, dry - Neurologic Neurologic: CNII-XII intact, moves all extremities HEART Score - HEART Score EKG: Normal Age: < 45 Risk factors: No known risk factors Troponin: Troponin T < 0.010 ng/mL (0.00-0.029) 10/18/20 21:29 Troponin: < normal limit Results - Labs CBC & Chem 7: 10/24/20 05:24 10/24/20 05:24 Labs: Laboratory Last Values WBC 9.2 K/mm3 (4.5-11.0) 10/24/20 05:24 RBC 5.52 M/mm3 (3.65-5.03) H 10/24/20 05:24 Hgb 12.0 gm/dl (10.1-14.3) 10/24/20 05:24 Hct 37.9 % (30.3-42.9) 10/24/20 05:24 MCV 69 fl (79-97) L 10/24/20 05:24 MCH 22 pg (28-32) L 10/24/20 05:24 MCHC 32 % (30-34) 10/24/20 05:24 RDW 17.7 % (13.2-15.2) H 10/24/20 05:24 Plt Count 223 K/mm3 (140-440) 10/24/20 05:24 Lymph % (Auto) 19.3 % (13.4-35.0) 10/24/20 05:24 [place] % (Auto) 10.3 % (0.0-7.3) H 10/24/20 05:24 Eos % (Auto) 0.9 % (0.0-4.3) 10/24/20 05:24 Baso % (Auto) 0.4 % (0.0-1.8) 10/24/20 05:24 Lymph # (Auto) 1.8 K/mm3 (1.2-5.4) 10/24/20 05:24 [place] # (Auto) 0.9 K/mm3 (0.0-0.8) H 10/24/20 05:24 Eos # (Auto) 0.1 K/mm3 (0.0-0.4) 10/24/20 05:24 Baso # (Auto) 0.0 K/mm3 (0.0-0.1) 10/24/20 05:24 Seg Neutrophils % 69.1 % (40.0-70.0) 10/24/20 05:24 Seg Neutrophils # 6.4 K/mm3 (1.8-7.7) 10/24/20 05:24 PT 14.1 Sec. (12.2-14.9) 10/18/20 19:15 INR 1.11 (0.87-1.13) 10/18/20 19:15 APTT 25.0 Sec. (24.2-36.6) 10/18/20 19:15 D-Dimer 995.73 ng/mlDDU (0-234) H 10/23/20 05:30 Sodium 139 mmol/L (137-145) 10/24/20 05:24 Potassium 3.0 mmol/L (3.6-5.0) L D 10/24/20 05:24 Chloride 102.3 mmol/L (98-107) 10/24/20 05:24 Carbon Dioxide 31 mmol/L (22-30) H 10/24/20 05:24 Anion Gap 9 mmol/L 10/24/20 05:24 BUN 6 mg/dL (7-17) L 10/24/20 05:24 Creatinine 0.5 mg/dL (0.6-1.2) L 10/24/20 05:24 Estimated GFR > 60 ml/min 10/24/20 05:24 BUN/Creatinine Ratio 12 % 10/24/20 05:24 Glucose 257 mg/dL (65-100) H 10/24/20 05:24 POC Glucose 212 mg/dL (70-105) H 10/24/20 07:41 Hemoglobin A1c 12.5 % (4-6) H 10/19/20 05:28 Calcium 7.9 mg/dL (8.4-10.2) L 10/24/20 05:24 Ferritin 169.2 ng/mL (10.0-200.0) 10/23/20 05:30 Total Bilirubin < 0.20 mg/dL (0.1-1.2) 10/24/20 05:24 AST 28 units/L (5-40) 10/24/20 05:24 ALT 22 units/L (7-56) 10/24/20 05:24 Alkaline Phosphatase 77 units/L (35-129) 10/24/20 05:24 Lactate Dehydrogenase 274 units/L (91-180) H 10/23/20 05:30 Troponin T < 0.010 ng/mL (0.00-0.029) 10/18/20 21:29 C-Reactive Protein 1.50 mg/dL (0.00-1.30) H 10/23/20 05:30 Total Protein 5.0 g/dL (6.3-8.2) L 10/24/20 05:24 Albumin 2.3 g/dL (3.9-5) L 10/24/20 05:24 Albumin/Globulin Ratio 0.9 % 10/24/20 05:24 Procalcitonin < 0.05 ng/mL (<0.15) 10/19/20 05:15 HCG, Qual Negative (Negative) 10/18/20 19:15 Coronavirus (PCR) Positive (Negative) A 10/19/20 09:05 Monoscreen Negative (Negative) 10/18/20 23:02 Group A Strep Rapid Negative (Negative) 10/18/20 23:00 Microbiology: Microbiology 10/19/20 05:36 Peripheral/Venous Blood Culture - Final NO GROWTH AFTER 5 DAYS 10/19/20 05:43 Peripheral/Venous Blood Culture - Final NO GROWTH AFTER 5 DAYS [place]/IV: Voiding Method Toilet Active Medications - Current Medications Current Medications: Generic Name Dose Route Start Last Admin Trade Name Freq PRN Reason Stop Dose Admin Acetaminophen 650 mg 10/19/20 05:17 10/23/20 09:25 Acetaminophen 325 Mg Tab PO 650 mg Q4H PRN Administration Pain MILD(1-3)/Fever >100.5/ROJAS Albuterol 2 puff 10/19/20 05: Albuterol 8.5 Gm Mdi Inhalation IH Q2HRT PRN Shortness Of Breath Dexamethasone 6 mg 10/21/20 12:00 10/24/20 09:01 Dexamethasone 4 Mg/Ml Vial IV 10/30/20 10:01 6 mg DAILY ROSSANA Administration Dextrose 50 ml 10/19/20 05:17 Dextrose 50% In Water (25gm) 50 Ml Syringe IV Q30MIN PRN Hypoglycemia Protocol Docusate Sodium 100 mg 10/19/20 10:00 10/24/20 09:01 Docusate Sodium 100 Mg Cap PO 100 mg BID ROSSANA Administration Enoxaparin Sodium 40 mg 10/19/20 10:00 10/24/20 09:01 Enoxaparin 40 Mg/0.4 Ml Inj SUB-Q 40 mg QDAY ROSSANA Administration Guaifenesin 600 mg 10/19/20 10:00 10/24/20 09:01 Guaifenesin Er 600 Mg Tab PO 600 mg BID ROSSANA Administration Guaifenesin 200 mg 10/20/20 12:48 10/22/20 23:01 Guaifenesin 100 Mg/5 Ml Oral Liqd PO 200 mg Q8H PRN Administration Cough REMDESIVIR 100 mg/ Sodium 250 mls @ 500 mls/hr 10/22/20 21:00 10/23/20 22:30 Chloride IV 10/25/20 21:29 500 mls/hr Q24HR@2100 ROSSANA Administration Insulin Glargine 15 units 10/19/20 08:00 10/24/20 08:12 Insulin Glargine 100 Units/Ml SUB-Q 15 units QAMDIAB ROSSANA Administration Insulin Human Regular 0 units 10/19/20 07:30 10/24/20 08:12 Insulin Regular, Human 100 Units/1 Ml SUB-Q 3 units ACHS ROSSANA Administration Protocol Ondansetron HCl 4 mg 10/19/20 05:17 10/21/20 10:08 Ondansetron 4 Mg/2 Ml Inj IV 4 mg Q6H PRN Administration Nausea And Vomiting Oxycodone/Acetaminophen 1 tab 10/19/20 05:17 10/21/20 00:41 Oxycodone /Acetaminophen 5-325mg Tab PO 1 tab Q6H PRN Administration Pain, Moderate (4-6) Phenol 1 spray 10/21/20 08:12 10/21/20 17:18 Phenol 1.4% 177 Ml Bottle MM 1 spray PRN PRN Administration Sore Throat Sodium Chloride 10 ml 10/19/20 10:00 10/24/20 09:02 Sodium Chloride 0.9% 10 Ml Flush Syringe IV 10 ml BID ROSSANA Administration Sodium Chloride 10 ml 10/19/20 05:17 Sodium Chloride 0.9% 10 Ml Flush Syringe IV PRN PRN LINE FLUSH Sodium Chloride 50 ml 10/21/20 21:00 10/23/20 23:05 Sodium Chloride 0.9% 50 Ml Ivpb IV 10/25/20 21:01 50 ml Q24HR@2100 ROSSANA Administration
--- NOTE | 2020-10-24 14:03 | Progress Note ---
Assessment and Plan Cultures: SARS CoV2 PCR: positive 10/19/2020 blood culture: no growth today A/P: 40/F with DM: #COVID-19 pneumonia: Markers elevated, D-dimer 1876, CRP 4.8, LDH 270. Markers improving. Ferritin is normal. #Leukocytosis: Likely secondary to above, improved. #Hypoxia: Sats dropped to 80s. Remains on 2 L nasal cannula. #Diabetes mellitus, uncontrolled: HbA1c 12.5 Recs: -Continue dexamethasone 6 mg IV/PO daily for 10 days -Continue remdesivir D4 of 5 -No indication for antibiotics, procalcitonin is low -Evaluation for reflux, complaining of epigastric pain -Prone positioning as possible -Anticoagulation per system protocol -check 6min exercise walking test, ordered Carline Gross MD [facility] ([facility]) Office [phone] Subjective Date of service: 10/24/20 Principal diagnosis: COVID-19 Interval history: Patient remains on 2 L nasal cannula, no fever. Objective - Exam Narrative Exam: General appearance: Alert in NAD pleasant Eyes: anicteric sclerae, moist conjunctivae; no lid-lag; PERRLA HENT: Normocephalic, Atraumatic; normal external ears, nares open, oropharynx limited Neck: supple, tracheal midline, no JVD Lungs: Diminished breath sound bilaterally CV: RRR Abdomen soft nontender Extremities: no edema, no cyanosis Skin: No rash. Psych: no agitated Neuro: alert and oriented x 3. Moving all extermities - Constitutional Vitals: Vital Signs Temp Pulse Resp BP Pulse Ox 98.3 F 89 18 96/77 95 10/24/20 12:27 10/24/20 12:27 10/24/20 12:27 10/24/20 12:27 10/24/20 12:27 Temperature -Last 24 Hours Temperature 98.3 F Temperature 98.4 F Temperature 98.2 F Temperature 97.6 F - Labs CBC & Chem 7: 10/24/20 05:24 10/24/20 05:24 Labs: Abnormal lab results 10/23/20 10/23/20 10/24/20 Range/Units 15:26 21:49 05:24 RBC (3.65-5.03) M/mm3 MCV (79-97) fl MCH (28-32) pg RDW (13.2-15.2) % Me[place] % (Auto) (0.0-7.3) % Me[place] # (Auto) (0.0-0.8) K/mm3 Sodium 134 L (137-145) mmol/L Potassium 3.0 L D (3.6-5.0) mmol/L Chloride 97.2 L (98-107) mmol/L Carbon Dioxide 31 H (22-30) mmol/L BUN 6 L (7-17) mg/dL Creatinine 0.4 L 0.5 L (0.6-1.2) mg/dL Glucose 372 H 257 H (65-100) mg/dL POC Glucose 292 H (70-105) mg/dL Calcium 8.0 L 7.9 L (8.4-10.2) mg/dL Total Protein 5.0 L (6.3-8.2) g/dL Albumin 2.3 L (3.9-5) g/dL 10/24/20 10/24/20 Range/Units 05:24 07:41 RBC 5.52 H (3.65-5.03) M/mm3 MCV 69 L (79-97) fl MCH 22 L (28-32) pg RDW 17.7 H (13.2-15.2) % Meade % (Auto) 10.3 H (0.0-7.3) % [place]ade # (Auto) 0.9 H (0.0-0.8) K/mm3 Sodium (137-145) mmol/L Potassium (3.6-5.0) mmol/L Chloride (98-107) mmol/L Carbon Dioxide (22-30) mmol/L BUN (7-17) mg/dL Creatinine (0.6-1.2) mg/dL Glucose (65-100) mg/dL POC Glucose 212 H (70-105) mg/dL Calcium (8.4-10.2) mg/dL Total Protein (6.3-8.2) g/dL Albumin (3.9-5) g/dL
[2020-10-24] MEDS: REMDESIVIR 100 MG in SODIUM CHLORIDE 0.9% 250ML 250 ML IV SCH (22:35)
[2020-10-24] MEDS: SODIUM CHLORIDE 0.9% 50 ML IVPB IV SCH (22:36)
--- NOTE | 2020-10-25 08:14 | Progress Note ---
Assessment and Plan Assessment and plan: COVID-19 virus infection -CT angio chest negative for PE, but shows mild to moderate patchy bilateral gr oundglass opacities Acute hypoxic respiratory failure -Likely secondary to COVID-19 virus infection DM II, uncontrolled Acute atypical chest Pain -Troponin negative x 2 -EKG unrevealing for acute ischemic abnormalities -CXR negative Leukocytosis -WBC on admission 16.2 DVT PPX -On Lovenox 10/19/20 Patient is doing better. Denies any chest pain no shortness of breath now Continue Rocephin and Zithromax and neb treatment. Follow the Covid test result We we will follow the serial cardiac enzyme. Repeat CBC BMP in the morning Continue scheduled Lantus and SSI coverage. Will check whether patient needs for home oxygen. Possible discharge plan in a.m. if is stable 10/20/20 Patient is doing better. Denies any chest pain no shortness of breath . No cough Continue Rocephin and Zithromax and neb treatment. Covid test is positive. Decadron 6 mg IV daily. We will check for oxygen saturation on walking. ID follow-up We we will follow the serial cardiac enzyme. Outpatient the stress test because of Covid status. Potassium is 3.3. Potassium supplemented. Repeat CBC BMP in the morning Continue scheduled Lantus and SSI coverage. 10/21/20 Patient complained mild coughing and shortness of breath. Continue DuoNeb treatment. Oxygen 2 to 3 L/min. Procalcitonin is low so antibiotic and steroid was discontinued. We will do a 6-minute walking test for oxygen. Potassium is 3.3 potassium is supplemented. BMP in the morning. Continue scheduled Lantus and SSI coverage. ID follow-up. Discharge planning 1 to 2 days 10/22/20 Patient is seen and examined Patient complained of nausea. Also shortness of breath and coughing. Patient O2 sat dropped to 85% on walking yesterday We started on remdesivir and dexamethasone IV 6 mg daily. Follow the markers of Covid Continue DuoNeb treatment. Oxygen 2 to 3 L/min. Procalcitonin is low so antibiotic was discontinued. Zofran 4 mg IV every 6 hours as needed. BMP in the morning. Continue scheduled Lantus and SSI coverage. ID follow-up. Discharge planning when medically stable and remdesivir completed. 10/23/2020. Continue remdesivir and dexamethasone. ID following. Procalcitonin is low so antibiotic was discontinued. Exercise pulse oximetry testing prior to discharge. 10/24/2020. Patient is to have remdesivir completed tomorrow. Continue dexamethasone. Walk test as reported by nursing is as follows: started walk test at 1033 on RA, pts sats 90%. Pt stood up, walked to sink. pt desatted to 85% on RA, complained on dizziness. Pt walked back to bed, sat down. O2 2L applied. Pt recovered to 91%, at 2 min zeyad after resting. Pt ambulated with O2 2L on. saturations 90-91%. After 2 mins pt requesting to sit down, stating " I am dizzy and short of breath." Pt oxygen sats 88-89% on 2L/NC. Pt recovered to 90-91% after 2 mins of resting in bed. Pt states feeling better after sitting. will continue plan of care, notify MD of walk test results. 10/25/2020. Continue dexamethasone and remdesivir is to complete on 10/25. Patient was hypoxic with exercise on oxygen with walk test yesterday. Therefore we will continue inpatient hospitalization until completion of her labs very which will be tonight. Continue to monitor and anticipate discharge in a.m. History Interval history: No new issues overnight. Hospitalist Physical - Constitutional Vitals: Temp Pulse Resp BP Pulse Ox 98.6 F 63 19 95/61 92 10/25/20 04:59 10/25/20 06:13 10/25/20 06:13 10/25/20 06:13 10/25/20 06:13 General appearance: Present: no acute distress - EENT Eyes: Present: PERRL, EOM intact ENT: hearing intact, clear oral mucosa, dentition normal - Neck Neck: Present: supple, normal ROM - Respiratory Respiratory effort: normal Respiratory: bilateral: CTA - Cardiovascular Rhythm: regular Heart Sounds: Present: S1 & S2. Absent: gallop, rub - Extremities Extremities: no ischemia, No edema, Full ROM - Abdominal General gastrointestinal: soft, non-tender, non-distended, normal bowel sounds - Integumentary Integumentary: Present: clear, warm, dry - Neurologic Neurologic: CNII-XII intact, moves all extremities HEART Score - HEART Score EKG: Normal Age: < 45 Risk factors: No known risk factors Troponin: Troponin T < 0.010 ng/mL (0.00-0.029) 10/18/20 21:29 Troponin: < normal limit Results - Labs CBC & Chem 7: 10/24/20 05:24 10/24/20 05:24 Labs: Laboratory Last Values WBC 9.2 K/mm3 (4.5-11.0) 10/24/20 05:24 RBC 5.52 M/mm3 (3.65-5.03) H 10/24/20 05:24 Hgb 12.0 gm/dl (10.1-14.3) 10/24/20 05:24 Hct 37.9 % (30.3-42.9) 10/24/20 05:24 MCV 69 fl (79-97) L 10/24/20 05:24 MCH 22 pg (28-32) L 10/24/20 05:24 MCHC 32 % (30-34) 10/24/20 05:24 RDW 17.7 % (13.2-15.2) H 10/24/20 05:24 Plt Count 223 K/mm3 (140-440) 10/24/20 05:24 Lymph % (Auto) 19.3 % (13.4-35.0) 10/24/20 05:24 [place] % (Auto) 10.3 % (0.0-7.3) H 10/24/20 05:24 Eos % (Auto) 0.9 % (0.0-4.3) 10/24/20 05:24 Baso % (Auto) 0.4 % (0.0-1.8) 10/24/20 05:24 Lymph # (Auto) 1.8 K/mm3 (1.2-5.4) 10/24/20 05:24 [place] # (Auto) 0.9 K/mm3 (0.0-0.8) H 10/24/20 05:24 Eos # (Auto) 0.1 K/mm3 (0.0-0.4) 10/24/20 05:24 Baso # (Auto) 0.0 K/mm3 (0.0-0.1) 10/24/20 05:24 Seg Neutrophils % 69.1 % (40.0-70.0) 10/24/20 05:24 Seg Neutrophils # 6.4 K/mm3 (1.8-7.7) 10/24/20 05:24 PT 14.1 Sec. (12.2-14.9) 10/18/20 19:15 INR 1.11 (0.87-1.13) 10/18/20 19:15 APTT 25.0 Sec. (24.2-36.6) 10/18/20 19:15 D-Dimer 995.73 ng/mlDDU (0-234) H 10/23/20 05:30 Sodium 139 mmol/L (137-145) 10/24/20 05:24 Potassium 3.0 mmol/L (3.6-5.0) L D 10/24/20 05:24 Chloride 102.3 mmol/L (98-107) 10/24/20 05:24 Carbon Dioxide 31 mmol/L (22-30) H 10/24/20 05:24 Anion Gap 9 mmol/L 10/24/20 05:24 BUN 6 mg/dL (7-17) L 10/24/20 05:24 Creatinine 0.5 mg/dL (0.6-1.2) L 10/24/20 05:24 Estimated GFR > 60 ml/min 10/24/20 05:24 BUN/Creatinine Ratio 12 % 10/24/20 05:24 Glucose 257 mg/dL (65-100) H 10/24/20 05:24 POC Glucose 316 mg/dL (70-105) H 10/24/20 21:03 Hemoglobin A1c 12.5 % (4-6) H 10/19/20 05:28 Calcium 7.9 mg/dL (8.4-10.2) L 10/24/20 05:24 Ferritin 169.2 ng/mL (10.0-200.0) 10/23/20 05:30 Total Bilirubin < 0.20 mg/dL (0.1-1.2) 10/24/20 05:24 AST 28 units/L (5-40) 10/24/20 05:24 ALT 22 units/L (7-56) 10/24/20 05:24 Alkaline Phosphatase 77 units/L (35-129) 10/24/20 05:24 Lactate Dehydrogenase 274 units/L (91-180) H 10/23/20 05:30 Troponin T < 0.010 ng/mL (0.00-0.029) 10/18/20 21:29 C-Reactive Protein 1.50 mg/dL (0.00-1.30) H 10/23/20 05:30 Total Protein 5.0 g/dL (6.3-8.2) L 10/24/20 05:24 Albumin 2.3 g/dL (3.9-5) L 10/24/20 05:24 Albumin/Globulin Ratio 0.9 % 10/24/20 05:24 Procalcitonin < 0.05 ng/mL (<0.15) 10/19/20 05:15 HCG, Qual Negative (Negative) 10/18/20 19:15 Coronavirus (PCR) Positive (Negative) A 10/19/20 09:05 Monoscreen Negative (Negative) 10/18/20 23:02 Group A Strep Rapid Negative (Negative) 10/18/20 23:00 Microbiology: Microbiology 10/19/20 05:36 Peripheral/Venous Blood Culture - Final NO GROWTH AFTER 5 DAYS 10/19/20 05:43 Peripheral/Venous Blood Culture - Final NO GROWTH AFTER 5 DAYS Sauceda/IV: Voiding Method Toilet Active Medications - Current Medications Current Medications: Generic Name Dose Route Start Last Admin Trade Name Freq PRN Reason Stop Dose Admin Acetaminophen 650 mg 10/19/20 05:17 10/23/20 09:25 Acetaminophen 325 Mg Tab PO 650 mg Q4H PRN Administration Pain MILD(1-3)/Fever >100.5/ROJAS Albuterol 2 puff 10/19/20 05: Albuterol 8.5 Gm Mdi Inhalation IH Q2HRT PRN Shortness Of Breath Dexamethasone 6 mg 10/21/20 12:00 10/24/20 09:01 Dexamethasone 4 Mg/Ml Vial IV 10/30/20 10:01 6 mg DAILY ROSSANA Administration Dextrose 50 ml 10/19/20 05:17 Dextrose 50% In Water (25gm) 50 Ml Syringe IV Q30MIN PRN Hypoglycemia Protocol Docusate Sodium 100 mg 10/19/20 10:00 10/24/20 22:38 Docusate Sodium 100 Mg Cap PO 100 mg BID ROSSANA Administration Enoxaparin Sodium 40 mg 10/19/20 10:00 10/24/20 09:01 Enoxaparin 40 Mg/0.4 Ml Inj SUB-Q 40 mg QDAY ROSSANA Administration Guaifenesin 600 mg 10/19/20 10:00 10/24/20 22:36 Guaifenesin Er 600 Mg Tab PO 600 mg BID ROSSANA Administration Guaifenesin 200 mg 10/20/20 12:48 10/22/20 23:01 Guaifenesin 100 Mg/5 Ml Oral Liqd PO 200 mg Q8H PRN Administration Cough REMDESIVIR 100 mg/ Sodium 250 mls @ 500 mls/hr 10/22/20 21:00 10/24/20 22:35 Chloride IV 10/25/20 21:29 500 mls/hr Q24HR@2100 ROSSANA Administration Insulin Glargine 15 units 10/19/20 08:00 10/24/20 08:12 Insulin Glargine 100 Units/Ml SUB-Q 15 units QAMDIAB ROSSANA Administration Insulin Human Regular 0 units 10/19/20 07:30 10/24/20 22:37 Insulin Regular, Human 100 Units/1 Ml SUB-Q 6 units ACHS ROSSANA Administration Protocol Ondansetron HCl 4 mg 10/19/20 05:17 10/21/20 10:08 Ondansetron 4 Mg/2 Ml Inj IV 4 mg Q6H PRN Administration Nausea And Vomiting Oxycodone/Acetaminophen 1 tab 10/19/20 05:17 10/21/20 00:41 Oxycodone /Acetaminophen 5-325mg Tab PO 1 tab Q6H PRN Administration Pain, Moderate (4-6) Phenol 1 spray 10/21/20 08:12 10/21/20 17:18 Phenol 1.4% 177 Ml Bottle MM 1 spray PRN PRN Administration Sore Throat Sodium Chloride 10 ml 10/19/20 10:00 10/24/20 22:38 Sodium Chloride 0.9% 10 Ml Flush Syringe IV 10 ml BID ROSSANA Administration Sodium Chloride 10 ml 10/19/20 05:17 Sodium Chloride 0.9% 10 Ml Flush Syringe IV PRN PRN LINE FLUSH Sodium Chloride 50 ml 10/21/20 21:00 10/24/20 22:36 Sodium Chloride 0.9% 50 Ml Ivpb IV 10/25/20 21:01 50 ml Q24HR@2100 ROSSANA Administration
[2020-10-25] MEDS: INSULIN REGULAR, HUMAN 100 UNITS/1 ML SUB-Q SCH ×4 (08:51→21:43)
[2020-10-25] MEDS: INSULIN GLARGINE 100 UNITS/ML SUB-Q SCH (08:51)
[2020-10-25] MEDS: dexAMETHasone 4 MG/ML VIAL IV SCH (09:55)
[2020-10-25] MEDS: guaiFENesin ER 600 MG TAB PO SCH ×2 (09:56→21:44)
[2020-10-25] MEDS: DOCUSATE SODIUM 100 MG CAP PO SCH ×2 (09:56→21:44)
[2020-10-25] MEDS: ENOXAPARIN 40 MG/0.4 ML INJ SUB-Q SCH (09:56)
--- NOTE | 2020-10-25 13:52 | Progress Note ---
Assessment and Plan Cultures: SARS CoV2 PCR: positive 10/19/2020 blood culture: no growth today A/P: 40/F with DM: #COVID-19 pneumonia: Markers elevated, D-dimer 1876, CRP 4.8, LDH 270. Markers improving. Ferritin is normal. #Leukocytosis: Likely secondary to above, improved. #Acute hypoxemic respiratory failure: Placed on salter 15 L overnight, O2 sat dropped to 89%. #Diabetes mellitus, uncontrolled: HbA1c 12.5 Recs: -Evaluation of O2 sats, patient clinically feels better, inflammatory markers are better, however an isolated 89% sats was noted overnight, patient is now 15 L -Home O2 arranged per case repairer -Continue dexamethasone 6 mg IV/PO daily for 10 days -Continue remdesivir D5 of 5 -No indication for antibiotics, procalcitonin is low -Prone positioning as possible -Anticoagulation per system protocol MD [facility] ([facility]) Office [phone] Subjective Date of service: 10/25/20 Principal diagnosis: COVID-19 Interval history: O2 sat dropped to 89%, patient was placed on 15 L overnight. Feels okay denies any shortness of breath. Objective - Exam Narrative Exam: Physical exam deferred to minimize COVID-19 transmission during pandemic. - Constitutional Vitals: Vital Signs Temp Pulse Resp BP Pulse Ox 98.6 F 63 19 95/61 93 10/25/20 04:59 10/25/20 06:13 10/25/20 06:13 10/25/20 06:13 10/25/20 08:19 Temperature -Last 24 Hours Temperature 98.6 F Temperature 98.4 F Temperature 98.3 F Temperature 98.2 F - Labs CBC & Chem 7: 10/24/20 05:24 10/24/20 05:24 Labs: Abnormal lab results 10/24/20 10/24/20 10/24/20 Range/Units 11:15 16:23 21:03 POC Glucose 228 H 386 H 316 H (70-105) mg/dL 10/25/20 10/25/20 Range/Units 07:41 11:24 POC Glucose 177 H 359 H (70-105) mg/dL
--- NOTE | 2020-10-25 18:14 | Consultation ---
History of Present Illness Consult date: 10/25/20 Requesting physician: LINDA MELCHOR Reason for consult: dyspnea, pneumonia History of present illness: 40 yo admitted with dyspnea, chest pain, N/V, hypoxia, and positive Covid-19 PCR. Has been receiving usual therapy. O2 requirements increased the past 24 hours, now on 15L. Patient denies worsening SOB the past 24 hours and actually states she feels better. Active Medications Acetaminophen (Acetaminophen 325 Mg Tab) 650 mg PO Q4H PRN PRN Reason: Pain MILD(1-3)/Fever >100.5/ROJAS Last Admin: 10/23/20 09:25 Dose: 650 mg Documented by: Albuterol (Albuterol 8.5 Gm Mdi Inhalation) 2 puff IH Q2HRT PRN PRN Reason: Shortness Of Breath Dexamethasone (Dexamethasone 4 Mg/Ml Vial) 6 mg IV DAILY [facility] Stop: 10/30/20 10:01 Last Admin: 10/25/20 09:55 Dose: 6 mg Documented by: Dextrose (Dextrose 50% In Water (25gm) 50 Ml Syringe) 50 ml IV Q30MIN PRN; Protocol PRN Reason: Hypoglycemia Docusate Sodium (Docusate Sodium 100 Mg Cap) 100 mg PO BID [facility] Last Admin: 10/25/20 09:56 Dose: 100 mg Documented by: Enoxaparin Sodium (Enoxaparin 40 Mg/0.4 Ml Inj) 40 mg SUB-Q QDAY [facility] Last Admin: 10/25/20 09:56 Dose: 40 mg Documented by: Guaifenesin (Guaifenesin Er 600 Mg Tab) 600 mg PO BID [facility] Last Admin: 10/25/20 09:56 Dose: 600 mg Documented by: Guaifenesin (Guaifenesin 100 Mg/5 Ml Oral Liqd) 200 mg PO Q8H PRN PRN Reason: Cough Last Admin: 10/22/20 23:01 Dose: 200 mg Documented by: REMDESIVIR 100 mg/ Sodium (Chloride) 250 mls @ 500 mls/hr IV Q24HR@2100 [facility] Stop: 10/25/20 21:29 Last Admin: 10/24/20 22:35 Dose: 500 mls/hr Documented by: Insulin Glargine (Insulin Glargine 100 Units/Ml) 15 units SUB-Q QAMDIAB [facility] Last Admin: 10/25/20 08:51 Dose: 15 units Documented by: Insulin Human Regular (Insulin Regular, Human 100 Units/1 Ml) 0 units SUB-Q ACHS [facility]; Protocol Last Admin: 10/25/20 17:55 Dose: 8 units Documented by: Ondansetron HCl (Ondansetron 4 Mg/2 Ml Inj) 4 mg IV Q6H PRN PRN Reason: Nausea And Vomiting Last Admin: 10/21/20 10:08 Dose: 4 mg Documented by: Oxycodone/Acetaminophen (Oxycodone /Acetaminophen 5-325mg Tab) 1 tab PO Q6H PRN PRN Reason: Pain, Moderate (4-6) Last Admin: 10/21/20 00:41 Dose: 1 tab Documented by: Phenol (Phenol 1.4% 177 Ml Bottle) 1 spray MM PRN PRN PRN Reason: Sore Throat Last Admin: 10/21/20 17:18 Dose: 1 spray Documented by: Sodium Chloride (Sodium Chloride 0.9% 10 Ml Flush Syringe) 10 ml IV BID [facility] Last Admin: 10/25/20 09:56 Dose: 10 ml Documented by: Sodium Chloride (Sodium Chloride 0.9% 10 Ml Flush Syringe) 10 ml IV PRN PRN PRN Reason: LINE FLUSH Sodium Chloride (Sodium Chloride 0.9% 50 Ml Ivpb) 50 ml IV Q24HR@2100 [facility] Stop: 10/25/20 21:01 Last Admin: 10/24/20 22:36 Dose: 50 ml Documented by: Past History Past Medical History: diabetes Past Surgical History: (x1) Social history: single, lives with family (son), full code. denies: smoking, alcohol abuse Family history: no significant family history (no pulm issues) Medications and Allergies Allergies Allergy/AdvReac Type Severity Reaction Status Date / Time No Known Allergies Allergy Verified 10/19/20 01:19 Home Medications Medication Instructions Recorded Confirmed Last Taken Type No Known Home Medications [No 10/21/20 10/21/20 Unknown History Reported Home Medications] Active Meds: Active Medications Acetaminophen (Acetaminophen 325 Mg Tab) 650 mg PO Q4H PRN PRN Reason: Pain MILD(1-3)/Fever >100.5/ROJAS Last Admin: 10/23/20 09:25 Dose: 650 mg Documented by: Albuterol (Albuterol 8.5 Gm Mdi Inhalation) 2 puff IH Q2HRT PRN PRN Reason: Shortness Of Breath Dexamethasone (Dexamethasone 4 Mg/Ml Vial) 6 mg IV DAILY [facility] Stop: 10/30/20 10:01 Last Admin: 10/25/20 09:55 Dose: 6 mg Documented by: Dextrose (Dextrose 50% In Water (25gm) 50 Ml Syringe) 50 ml IV Q30MIN PRN; Protocol PRN Reason: Hypoglycemia Docusate Sodium (Docusate Sodium 100 Mg Cap) 100 mg PO BID [facility] Last Admin: 10/25/20 09:56 Dose: 100 mg Documented by: Enoxaparin Sodium (Enoxaparin 40 Mg/0.4 Ml Inj) 40 mg SUB-Q QDAY [facility] Last Admin: 10/25/20 09:56 Dose: 40 mg Documented by: Guaifenesin (Guaifenesin Er 600 Mg Tab) 600 mg PO BID [facility] Last Admin: 10/25/20 09:56 Dose: 600 mg Documented by: Guaifenesin (Guaifenesin 100 Mg/5 Ml Oral Liqd) 200 mg PO Q8H PRN PRN Reason: Cough Last Admin: 10/22/20 23:01 Dose: 200 mg Documented by: REMDESIVIR 100 mg/ Sodium (Chloride) 250 mls @ 500 mls/hr IV Q24HR@2100 [facility] Stop: 10/25/20 21:29 Last Admin: 10/24/20 22:35 Dose: 500 mls/hr Documented by: Insulin Glargine (Insulin Glargine 100 Units/Ml) 15 units SUB-Q QAMDIAB [facility] Last Admin: 10/25/20 08:51 Dose: 15 units Documented by: Insulin Human Regular (Insulin Regular, Human 100 Units/1 Ml) 0 units SUB-Q ACHS [facility]; Protocol Last Admin: 10/25/20 17:55 Dose: 8 units Documented by: Ondansetron HCl (Ondansetron 4 Mg/2 Ml Inj) 4 mg IV Q6H PRN PRN Reason: Nausea And Vomiting Last Admin: 10/21/20 10:08 Dose: 4 mg Documented by: Oxycodone/Acetaminophen (Oxycodone /Acetaminophen 5-325mg Tab) 1 tab PO Q6H PRN PRN Reason: Pain, Moderate (4-6) Last Admin: 10/21/20 00:41 Dose: 1 tab Documented by: Phenol (Phenol 1.4% 177 Ml Bottle) 1 spray MM PRN PRN PRN Reason: Sore Throat Last Admin: 10/21/20 17:18 Dose: 1 spray Documented by: Sodium Chloride (Sodium Chloride 0.9% 10 Ml Flush Syringe) 10 ml IV BID [facility] Last Admin: 10/25/20 09:56 Dose: 10 ml Documented by: Sodium Chloride (Sodium Chloride 0.9% 10 Ml Flush Syringe) 10 ml IV PRN PRN PRN Reason: LINE FLUSH Sodium Chloride (Sodium Chloride 0.9% 50 Ml Ivpb) 50 ml IV Q24HR@2100 [facility] Stop: 10/25/20 21:01 Last Admin: 10/24/20 22:36 Dose: 50 ml Documented by: Review of Systems All systems: negative Physical Examination Vital signs: Vital Signs Temp Pulse Resp BP Pulse Ox 98.9 F 119 H 20 139/93 95 10/18/20 17:07 10/18/20 17:07 10/18/20 17:07 10/18/20 17:07 10/18/20 17:07 Vital Signs - 24 hr 10/24/20 10/24/20 10/24/20 22:00 22:10 22:29 Temperature 98.3 F 98.4 F Pulse Rate 89 Respiratory 19 19 17 Rate Blood Pressure 113/67 Blood Pressure 106/69 [Right] O2 Sat by Pulse 94 89 3 L Oximetry 10/25/20 10/25/20 10/25/20 04:59 06:13 08:19 Temperature 98.6 F Pulse Rate 68 63 Respiratory 20 19 Rate Blood Pressure 89/55 Blood Pressure 95/61 [Right] O2 Sat by Pulse 92 92 93 Oximetry 10/25/20 10/25/20 10/25/20 10:00 13:00 16:16 Temperature 97.6 F 97.3 F L Pulse Rate 79 72 Respiratory 24 18 24 Rate Blood Pressure 126/79 91/56 Blood Pressure [Right] O2 Sat by Pulse 94 98 99 Oximetry General appearance: no acute distress, alert Eyes: non-icteric ENT: oropharynx moist Neck: supple Effort: normal Ascultation: Bilateral: rales Cardiovascular: regular rate and rhythm Gastrointestinal: normoactive bowel sounds, soft, non-tender, non-distended Integumentary: normal Extremities: no cyanosis Musculoskeletal: no deformities normal mental status, non-focal exam, pupils equal and round, CN II-XII normal mood appropriate, affect normal Results - Laboratory Findings CBC and BMP: 10/24/20 05:24 10/24/20 05:24 PT/INR, D-dimer PT 14.1 Sec. (12.2-14.9) 10/18/20 19:15 INR 1.11 (0.87-1.13) 10/18/20 19:15 D-Dimer 995.73 ng/mlDDU (0-234) H 10/23/20 05:30 Abnormal lab findings: Abnormal Labs 10/18/20 10/18/20 10/18/20 19:15 19:15 23:37 WBC 16.2 H RBC 7.16 H Hgb 15.5 H Hct 50.5 H MCV 71 L MCH 22 L RDW 19.5 H Lymph % (Auto) 3.8 L Teller % (Auto) Lymph # (Auto) 0.6 L Teller # (Auto) 1.1 H Seg Neutrophils % 88.7 H Seg Neutrophils # 14.4 H D-Dimer Sodium Potassium Chloride Carbon Dioxide 14 L BUN 23 H Creatinine Glucose 453 H POC Glucose 446 H Hemoglobin A1c Calcium Ferritin Lactate Dehydrogenase C-Reactive Protein Total Protein Albumin Coronavirus (PCR) 10/19/20 10/19/20 10/19/20 01:12 02:35 05:15 WBC RBC Hgb Hct MCV MCH RDW Lymph % (Auto) Teller % (Auto) Lymph # (Auto) Teller # (Auto) Seg Neutrophils % Seg Neutrophils # D-Dimer 1876.16 H Sodium Potassium Chloride Carbon Dioxide BUN Creatinine Glucose POC Glucose 359 H 310 H Hemoglobin A1c Calcium Ferritin Lactate Dehydrogenase C-Reactive Protein Total Protein Albumin Coronavirus (PCR) 10/19/20 10/19/20 10/19/20 05:15 05:28 07:40 WBC RBC Hgb Hct MCV MCH RDW Lymph % (Auto) Teller % (Auto) Lymph # (Auto) Teller # (Auto) Seg Neutrophils % Seg Neutrophils # D-Dimer Sodium Potassium Chloride Carbon Dioxide BUN Creatinine Glucose 344 H POC Glucose 322 H Hemoglobin A1c 12.5 H Calcium Ferritin Lactate Dehydrogenase 270 H C-Reactive Protein 4.80 H Total Protein Albumin Coronavirus (PCR) 10/19/20 10/19/20 10/19/20 09:05 12:04 17:59 WBC RBC Hgb Hct MCV MCH RDW Lymph % (Auto) Teller % (Auto) Lymph # (Auto) Teller # (Auto) Seg Neutrophils % Seg Neutrophils # D-Dimer Sodium Potassium Chloride Carbon Dioxide BUN Creatinine Glucose POC Glucose 297 H 285 H Hemoglobin A1c Calcium Ferritin Lactate Dehydrogenase C-Reactive Protein Total Protein Albumin Coronavirus (PCR) Positive A 10/19/20 10/20/20 10/20/20 22:59 07:05 07:05 WBC RBC 5.83 H Hgb Hct MCV 69 L MCH 22 L RDW 19.1 H Lymph % (Auto) 8.8 L Teller % (Auto) Lymph # (Auto) 0.8 L Teller # (Auto) Seg Neutrophils % 84.0 H Seg Neutrophils # D-Dimer Sodium Potassium 3.3 L D Chloride Carbon Dioxide 20 L BUN Creatinine Glucose 280 H POC Glucose 244 H Hemoglobin A1c Calcium Ferritin Lactate Dehydrogenase C-Reactive Protein Total Protein Albumin Coronavirus (PCR) 10/20/20 10/20/20 10/20/20 07:46 09:05 11:31 WBC RBC 6.09 H Hgb Hct MCV 69 L MCH 21 L RDW 18.7 H Lymph % (Auto) 9.9 L Teller % (Auto) Lymph # (Auto) 0.9 L Teller # (Auto) Seg Neutrophils % 82.5 H Seg Neutrophils # D-Dimer Sodium Potassium Chloride Carbon Dioxide BUN Creatinine Glucose POC Glucose 263 H 349 H Hemoglobin A1c Calcium Ferritin Lactate Dehydrogenase C-Reactive Protein Total Protein Albumin Coronavirus (PCR) 10/20/20 10/20/20 10/21/20 16:28 22:01 07:11 WBC RBC Hgb Hct MCV MCH RDW Lymph % (Auto) Teller % (Auto) Lymph # (Auto) Teller # (Auto) Seg Neutrophils % Seg Neutrophils # D-Dimer Sodium Potassium Chloride Carbon Dioxide BUN Creatinine Glucose POC Glucose 245 H 278 H 256 H Hemoglobin A1c Calcium Ferritin Lactate Dehydrogenase C-Reactive Protein Total Protein Albumin Coronavirus (PCR) 10/21/20 10/21/20 10/21/20 07:21 11:32 15:23 WBC RBC Hgb Hct MCV MCH RDW Lymph % (Auto) Teller % (Auto) Lymph # (Auto) Teller # (Auto) Seg Neutrophils % Seg Neutrophils # D-Dimer Sodium Potassium 3.3 L Chloride Carbon Dioxide BUN Creatinine 0.5 L 0.5 L Glucose 239 H 371 H POC Glucose 258 H Hemoglobin A1c Calcium 8.3 L Ferritin Lactate Dehydrogenase C-Reactive Protein Total Protein 5.4 L D Albumin 2.9 L Coronavirus (PCR) 10/21/20 10/21/20 10/22/20 16:06 22:05 06:57 WBC RBC Hgb Hct MCV MCH RDW Lymph % (Auto) Teller % (Auto) Lymph # (Auto) Teller # (Auto) Seg Neutrophils % Seg Neutrophils # D-Dimer Sodium Potassium 3.3 L Chloride Carbon Dioxide BUN Creatinine 0.5 L Glucose 200 H POC Glucose 387 H 298 H Hemoglobin A1c Calcium Ferritin Lactate Dehydrogenase C-Reactive Protein Total Protein Albumin 3.1 L Coronavirus (PCR) 10/22/20 10/22/20 10/22/20 08:04 12:39 16:08 WBC RBC Hgb Hct MCV MCH RDW Lymph % (Auto) Teller % (Auto) Lymph # (Auto) Teller # (Auto) Seg Neutrophils % Seg Neutrophils # D-Dimer Sodium Potassium Chloride Carbon Dioxide BUN Creatinine Glucose POC Glucose 200 H 240 H 297 H Hemoglobin A1c Calcium Ferritin Lactate Dehydrogenase C-Reactive Protein Total Protein Albumin Coronavirus (PCR) 10/22/20 10/22/20 10/22/20 16:15 16:15 16:15 WBC RBC Hgb Hct MCV MCH RDW Lymph % (Auto) Teller % (Auto) Lymph # (Auto) Teller # (Auto) Seg Neutrophils % Seg Neutrophils # D-Dimer 1275.26 H Sodium Potassium Chloride Carbon Dioxide BUN Creatinine Glucose POC Glucose Hemoglobin A1c Calcium Ferritin 201.8 H Lactate Dehydrogenase 296 H C-Reactive Protein 1.40 H Total Protein Albumin Coronavirus (PCR) 10/22/20 10/23/20 10/23/20 22:05 05:30 05:30 WBC RBC Hgb Hct MCV MCH RDW Lymph % (Auto) Teller % (Auto) Lymph # (Auto) Teller # (Auto) Seg Neutrophils % Seg Neutrophils # D-Dimer 995.73 H Sodium Potassium 2.8 L* Chloride Carbon Dioxide 32 H BUN 6 L Creatinine 0.4 L Glucose 131 H POC Glucose 283 H Hemoglobin A1c Calcium 8.0 L Ferritin Lactate Dehydrogenase 274 H C-Reactive Protein 1.50 H Total Protein 5.2 L Albumin 2.4 L Coronavirus (PCR) 10/23/20 10/23/20 10/23/20 08:22 11:40 15:26 WBC RBC Hgb Hct MCV MCH RDW Lymph % (Auto) Teller % (Auto) Lymph # (Auto) Teller # (Auto) Seg Neutrophils % Seg Neutrophils # D-Dimer Sodium 134 L Potassium Chloride 97.2 L Carbon Dioxide BUN Creatinine 0.4 L Glucose 372 H POC Glucose 120 H 257 H Hemoglobin A1c Calcium 8.0 L Ferritin Lactate Dehydrogenase C-Reactive Protein Total Protein Albumin Coronavirus (PCR) 10/23/20 10/24/20 10/24/20 21:49 05:24 05:24 WBC RBC 5.52 H Hgb Hct MCV 69 L MCH 22 L RDW 17.7 H Lymph % (Auto) Teller % (Auto) 10.3 H Lymph # (Auto) Teller # (Auto) 0.9 H Seg Neutrophils % Seg Neutrophils # D-Dimer Sodium Potassium 3.0 L D Chloride Carbon Dioxide 31 H BUN 6 L Creatinine 0.5 L Glucose 257 H POC Glucose 292 H Hemoglobin A1c Calcium 7.9 L Ferritin Lactate Dehydrogenase C-Reactive Protein Total Protein 5.0 L Albumin 2.3 L Coronavirus (PCR) 10/24/20 10/24/20 10/24/20 07:41 11:15 16:23 WBC RBC Hgb Hct MCV MCH RDW Lymph % (Auto) Teller % (Auto) Lymph # (Auto) Teller # (Auto) Seg Neutrophils % Seg Neutrophils # D-Dimer Sodium Potassium Chloride Carbon Dioxide BUN Creatinine Glucose POC Glucose 212 H 228 H 386 H Hemoglobin A1c Calcium Ferritin Lactate Dehydrogenase C-Reactive Protein Total Protein Albumin Coronavirus (PCR) 10/24/20 10/25/20 10/25/20 21:03 07:41 11:24 WBC RBC Hgb Hct MCV MCH RDW Lymph % (Auto) Teller % (Auto) Lymph # (Auto) Teller # (Auto) Seg Neutrophils % Seg Neutrophils # D-Dimer Sodium Potassium Chloride Carbon Dioxide BUN Creatinine Glucose POC Glucose 316 H 177 H 359 H Hemoglobin A1c Calcium Ferritin Lactate Dehydrogenase C-Reactive Protein Total Protein Albumin Coronavirus (PCR) 10/25/20 16:19 WBC RBC Hgb Hct MCV MCH RDW Lymph % (Auto) Teller % (Auto) Lymph # (Auto) Teller # (Auto) Seg Neutrophils % Seg Neutrophils # D-Dimer Sodium Potassium Chloride Carbon Dioxide BUN Creatinine Glucose POC Glucose 368 H Hemoglobin A1c Calcium Ferritin Lactate Dehydrogenase C-Reactive Protein Total Protein Albumin Coronavirus (PCR) - Diagnostic Findings Chest x-ray: report reviewed, image reviewed CT scan - chest: report reviewed, image reviewed Assessment and Plan Imp: 1. Covid-19 2. Viral pneumonia 3. Acute respiratory failure, hypoxia 4. Hypokalemia 5. Diabetes Mellitus Rec: 1. Cont. Remdesivir, Decadron 2. Proning 3. Monitor inflammatory markers 4. VTE unlikely with CTA chest negative and D-dimer trending down; repeat D- dimer in AM; cont. current Lovenox dose 5. CXR, labs in AM 6. Wean FiO2 to keep sats 88% or > Plan of care reviewed w/ patient, she understands/agrees Thanks for the consult. Will follow with you.
[2020-10-25] MEDS: SODIUM CHLORIDE 0.9% 50 ML IVPB IV SCH (21:42)
[2020-10-25] MEDS: REMDESIVIR 100 MG in SODIUM CHLORIDE 0.9% 250ML 250 ML IV SCH (21:43)
[2020-10-26 07:56] LABS: Hematocrit 35.1 % (30.3-42.9); Hemoglobin 11.2 gm/dl (10.1-14.3); Mean Corpuscular HGB Conc 32 % (30-34); Mean Corpuscular Volume 69 fl (79-97); Platelet Count 251 K/mm3 (140-440); Red Blood Count 5.09 M/mm3 (3.65-5.03); Red Cell Distribution Width 17.4 % (13.2-15.2)
[2020-10-26 08:09] LABS: Blood Urea Nitrogen 7 mg/dL (7-17); Calcium 7.9 mg/dL (8.4-10.2); Hemolysis Index 3
--- NOTE | 2020-10-26 08:14 | Progress Note ---
Assessment and Plan Assessment and plan: COVID-19 virus infection -CT angio chest negative for PE, but shows mild to moderate patchy bilateral gr oundglass opacities Acute hypoxic respiratory failure -Likely secondary to COVID-19 virus infection DM II, uncontrolled Acute atypical chest Pain -Troponin negative x 2 -EKG unrevealing for acute ischemic abnormalities -CXR negative Leukocytosis -WBC on admission 16.2 DVT PPX -On Lovenox 10/19/20 Patient is doing better. Denies any chest pain no shortness of breath now Continue Rocephin and Zithromax and neb treatment. Follow the Covid test result We we will follow the serial cardiac enzyme. Repeat CBC BMP in the morning Continue scheduled Lantus and SSI coverage. Will check whether patient needs for home oxygen. Possible discharge plan in a.m. if is stable 10/20/20 Patient is doing better. Denies any chest pain no shortness of breath . No cough Continue Rocephin and Zithromax and neb treatment. Covid test is positive. Decadron 6 mg IV daily. We will check for oxygen saturation on walking. ID follow-up We we will follow the serial cardiac enzyme. Outpatient the stress test because of Covid status. Potassium is 3.3. Potassium supplemented. Repeat CBC BMP in the morning Continue scheduled Lantus and SSI coverage. 10/21/20 Patient complained mild coughing and shortness of breath. Continue DuoNeb treatment. Oxygen 2 to 3 L/min. Procalcitonin is low so antibiotic and steroid was discontinued. We will do a 6-minute walking test for oxygen. Potassium is 3.3 potassium is supplemented. BMP in the morning. Continue scheduled Lantus and SSI coverage. ID follow-up. Discharge planning 1 to 2 days 10/22/20 Patient is seen and examined Patient complained of nausea. Also shortness of breath and coughing. Patient O2 sat dropped to 85% on walking yesterday We started on remdesivir and dexamethasone IV 6 mg daily. Follow the markers of Covid Continue DuoNeb treatment. Oxygen 2 to 3 L/min. Procalcitonin is low so antibiotic was discontinued. Zofran 4 mg IV every 6 hours as needed. BMP in the morning. Continue scheduled Lantus and SSI coverage. ID follow-up. Discharge planning when medically stable and remdesivir completed. 10/23/2020. Continue remdesivir and dexamethasone. ID following. Procalcitonin is low so antibiotic was discontinued. Exercise pulse oximetry testing prior to discharge. 10/24/2020. Patient is to have remdesivir completed tomorrow. Continue dexamethasone. Walk test as reported by nursing is as follows: started walk test at 1033 on RA, pts sats 90%. Pt stood up, walked to sink. pt desatted to 85% on RA, complained on dizziness. Pt walked back to bed, sat down. O2 2L applied. Pt recovered to 91%, at 2 min zeyad after resting. Pt ambulated with O2 2L on. saturations 90-91%. After 2 mins pt requesting to sit down, stating " I am dizzy and short of breath." Pt oxygen sats 88-89% on 2L/NC. Pt recovered to 90-91% after 2 mins of resting in bed. Pt states feeling better after sitting. will continue plan of care, notify MD of walk test results. 10/25/2020. Continue dexamethasone and remdesivir is to complete on 10/25. Patient was hypoxic with exercise on oxygen with walk test yesterday. Therefore we will continue inpatient hospitalization until completion of her labs very which will be tonight. Continue to monitor and anticipate discharge in a.m. 10/26/2020. Patient's oxygen requirements increased to 15 L yesterday and somewhat improved today down to 10 L. Patient became more hypoxemic but doing better. We will continue to wean oxygen supplementation as needed. Remdesivir completed yesterday. Continue dexamethasone. Prone positioning as possible. Check inflammatory markers. History Interval history: No new issues overnight. Hospitalist Physical - Constitutional Vitals: Temp Pulse Resp BP Pulse Ox 97.2 F L 67 16 98/62 98 10/26/20 04:26 10/26/20 04:26 10/26/20 04:26 10/26/20 04:26 10/26/20 08:09 General appearance: Present: no acute distress - EENT Eyes: Present: PERRL, EOM intact ENT: hearing intact, clear oral mucosa, dentition normal - Neck Neck: Present: supple, normal ROM - Respiratory Respiratory effort: normal Respiratory: bilateral: CTA - Cardiovascular Rhythm: regular Heart Sounds: Present: S1 & S2. Absent: gallop, rub - Extremities Extremities: no ischemia, No edema, Full ROM - Abdominal General gastrointestinal: soft, non-tender, non-distended, normal bowel sounds - Integumentary Integumentary: Present: clear, warm, dry - Neurologic Neurologic: CNII-XII intact, moves all extremities HEART Score - HEART Score EKG: Normal Age: < 45 Risk factors: No known risk factors Troponin: Troponin T < 0.010 ng/mL (0.00-0.029) 10/18/20 21:29 Troponin: < normal limit Results - Labs CBC & Chem 7: 10/26/20 06:42 10/26/20 06:42 Labs: Laboratory Last Values WBC 11.7 K/mm3 (4.5-11.0) H 10/26/20 06:42 RBC 5.09 M/mm3 (3.65-5.03) H 10/26/20 06:42 Hgb 11.2 gm/dl (10.1-14.3) 10/26/20 06:42 Hct 35.1 % (30.3-42.9) 10/26/20 06:42 MCV 69 fl (79-97) L 10/26/20 06:42 MCH 22 pg (28-32) L 10/26/20 06:42 MCHC 32 % (30-34) 10/26/20 06:42 RDW 17.4 % (13.2-15.2) H 10/26/20 06:42 Plt Count 251 K/mm3 (140-440) 10/26/20 06:42 Lymph % (Auto) 19.3 % (13.4-35.0) 10/24/20 05:24 [place] % (Auto) 10.3 % (0.0-7.3) H 10/24/20 05:24 Eos % (Auto) 0.9 % (0.0-4.3) 10/24/20 05:24 Baso % (Auto) 0.4 % (0.0-1.8) 10/24/20 05:24 Lymph # (Auto) 1.8 K/mm3 (1.2-5.4) 10/24/20 05:24 [place] # (Auto) 0.9 K/mm3 (0.0-0.8) H 10/24/20 05:24 Eos # (Auto) 0.1 K/mm3 (0.0-0.4) 10/24/20 05:24 Baso # (Auto) 0.0 K/mm3 (0.0-0.1) 10/24/20 05:24 Seg Neutrophils % 69.1 % (40.0-70.0) 10/24/20 05:24 Seg Neutrophils # 6.4 K/mm3 (1.8-7.7) 10/24/20 05:24 PT 14.1 Sec. (12.2-14.9) 10/18/20 19:15 INR 1.11 (0.87-1.13) 10/18/20 19:15 APTT 25.0 Sec. (24.2-36.6) 10/18/20 19:15 D-Dimer 1137.09 ng/mlDDU (0-234) H 10/26/20 06:42 Sodium 142 mmol/L (137-145) 10/26/20 06:42 Potassium 3.0 mmol/L (3.6-5.0) L D 10/24/20 05:24 Chloride 102.8 mmol/L (98-107) 10/26/20 06:42 Carbon Dioxide 33 mmol/L (22-30) H 10/26/20 06:42 Anion Gap 9 mmol/L 10/26/20 06:42 BUN 7 mg/dL (7-17) 10/26/20 06:42 Creatinine 0.5 mg/dL (0.6-1.2) L 10/24/20 05:24 Estimated GFR > 60 ml/min 10/24/20 05:24 BUN/Creatinine Ratio 12 % 10/24/20 05:24 Glucose 136 mg/dL (65-100) H 10/26/20 06:42 POC Glucose 256 mg/dL (70-105) H 10/25/20 21:23 Hemoglobin A1c 12.5 % (4-6) H 10/19/20 05:28 Calcium 7.9 mg/dL (8.4-10.2) L 10/26/20 06:42 Ferritin 169.2 ng/mL (10.0-200.0) 10/23/20 05:30 Total Bilirubin < 0.20 mg/dL (0.1-1.2) 10/24/20 05:24 AST 28 units/L (5-40) 10/24/20 05:24 ALT 22 units/L (7-56) 10/24/20 05:24 Alkaline Phosphatase 77 units/L (35-129) 10/24/20 05:24 Lactate Dehydrogenase 274 units/L (91-180) H 10/23/20 05:30 Troponin T < 0.010 ng/mL (0.00-0.029) 10/18/20 21:29 C-Reactive Protein 1.50 mg/dL (0.00-1.30) H 10/23/20 05:30 Total Protein 5.0 g/dL (6.3-8.2) L 10/24/20 05:24 Albumin 2.3 g/dL (3.9-5) L 10/24/20 05:24 Albumin/Globulin Ratio 0.9 % 10/24/20 05:24 Procalcitonin < 0.05 ng/mL (<0.15) 10/19/20 05:15 HCG, Qual Negative (Negative) 10/18/20 19:15 Coronavirus (PCR) Positive (Negative) A 10/19/20 09:05 Monoscreen Negative (Negative) 10/18/20 23:02 Group A Strep Rapid Negative (Negative) 10/18/20 23:00 Sauceda/IV: Voiding Method Toilet Active Medications - Current Medications Current Medications: Generic Name Dose Route Start Last Admin Trade Name Freq PRN Reason Stop Dose Admin Acetaminophen 650 mg 10/19/20 05:17 10/23/20 09:25 Acetaminophen 325 Mg Tab PO 650 mg Q4H PRN Administration Pain MILD(1-3)/Fever >100.5/ROJAS Albuterol 2 puff 10/19/20 05:21 Albuterol 8.5 Gm Mdi Inhalation IH Q2HRT PRN Shortness Of Breath Dexamethasone 6 mg 10/21/20 12:00 10/25/20 09:55 Dexamethasone 4 Mg/Ml Vial IV 10/30/20 10:01 6 mg DAILY ROSSANA Administration Dextrose 50 ml 10/19/20 05:17 Dextrose 50% In Water (25gm) 50 Ml Syringe IV Q30MIN PRN Hypoglycemia Protocol Docusate Sodium 100 mg 10/19/20 10:00 10/25/20 21:44 Docusate Sodium 100 Mg Cap PO 100 mg BID ROSSANA Administration Enoxaparin Sodium 40 mg 10/19/20 10:00 10/25/20 09:56 Enoxaparin 40 Mg/0.4 Ml Inj SUB-Q 40 mg QDAY ROSSANA Administration Guaifenesin 600 mg 10/19/20 10:00 10/25/20 21:44 Guaifenesin Er 600 Mg Tab PO 600 mg BID ROSSANA Administration Guaifenesin 200 mg 10/20/20 12:48 10/22/20 23:01 Guaifenesin 100 Mg/5 Ml Oral Liqd PO 200 mg Q8H PRN Administration Cough Insulin Glargine 15 units 10/19/20 08:00 10/25/20 08:51 Insulin Glargine 100 Units/Ml SUB-Q 15 units QAMDIAB ROSSANA Administration Insulin Human Regular 0 units 10/19/20 07:30 10/25/20 21:43 Insulin Regular, Human 100 Units/1 Ml SUB-Q 4 units ACHS ROSSANA Administration Protocol Ondansetron HCl 4 mg 10/19/20 05:17 10/21/20 10:08 Ondansetron 4 Mg/2 Ml Inj IV 4 mg Q6H PRN Administration Nausea And Vomiting Oxycodone/Acetaminophen 1 tab 10/19/20 05:17 10/21/20 00:41 Oxycodone /Acetaminophen 5-325mg Tab PO 1 tab Q6H PRN Administration Pain, Moderate (4-6) Phenol 1 spray 10/21/20 08:12 10/21/20 17:18 Phenol 1.4% 177 Ml Bottle MM 1 spray PRN PRN Administration Sore Throat Sodium Chloride 10 ml 10/19/20 10:00 10/25/20 21:44 Sodium Chloride 0.9% 10 Ml Flush Syringe IV 10 ml BID ROSSANA Administration Sodium Chloride 10 ml 10/19/20 05:17 Sodium Chloride 0.9% 10 Ml Flush Syringe IV PRN PRN LINE FLUSH
[2020-10-26 08:37] LABS: BUN/Creatinine Ratio 18
[2020-10-26] MEDS: INSULIN REGULAR, HUMAN 100 UNITS/1 ML SUB-Q SCH ×4 (08:41→22:07)
[2020-10-26 08:49] LABS: Anisocytosis 1+; Band Neutrophils # (Manual) 0.5 K/mm3; Hypochromasia 1+; Myelocytes # (Manual) 0.1 K/mm3; Poikilocytosis 1+; Total Cells Counted 100
[2020-10-26 08:50] LABS: Ovalocytes 1+; Platelet Estimate Consistent w Auto
--- NOTE | 2020-10-26 09:08 | XRay Report ---
XR chest 1V ap INDICATION / CLINICAL INFORMATION: Covid pneumonia COMPARISON: Oct 18 2020 FINDINGS: SUPPORT DEVICES: None. HEART / MEDIASTINUM: No significant abnormality. LUNGS / PLEURA: Patchy bilateral airspace disease in a peripheral predilection. No definite effusion. No pneumothorax. ADDITIONAL FINDINGS: No significant additional findings. IMPRESSION: 1. Bilateral airspace disease consistent with provided history of Covid pneumonia. Signer Name: Wes Amato MD Signed: 10/26/2020 9:03 AM Workstation Name: [id number]
[2020-10-26] MEDS: guaiFENesin ER 600 MG TAB PO SCH ×2 (09:46→22:07)
[2020-10-26] MEDS: DOCUSATE SODIUM 100 MG CAP PO SCH ×2 (09:46→22:07)
[2020-10-26] MEDS: dexAMETHasone 4 MG/ML VIAL IV SCH (09:46)
[2020-10-26] MEDS: INSULIN GLARGINE 100 UNITS/ML SUB-Q SCH (09:47)
[2020-10-26] MEDS: ENOXAPARIN 40 MG/0.4 ML INJ SUB-Q SCH (09:47)
[2020-10-26] MEDS ORDERED: POTASSIUM CHLORIDE ER 20 MEQ TAB PO NR ×2 (12:00→16:00)
[2020-10-26 12:02] LABS: C-Reactive Protein 1.5 mg/dL (0.00-1.30)
--- NOTE | 2020-10-26 13:41 | Progress Note ---
Assessment and Plan Cultures: SARS CoV2 PCR: positive 10/19/2020 blood culture: no growth today A/P: 40/F with DM: #COVID-19 pneumonia: Markers elevated, D-dimer 1876, CRP 4.8, LDH 270. Markers improving. Ferritin is up now #Leukocytosis: Likely secondary to above, improved. #Acute hypoxemic respiratory failure: Placed on salter 15 L on 10/24 --> O2 sat dropped to 89% now 8L #Diabetes mellitus, uncontrolled: HbA1c 12.5 Recs: -Home O2 arranged per supervisor case loading -Continue dexamethasone 6 mg IV/PO daily for 10 days -Completed remdesivir -No indication for antibiotics, procalcitonin is low -Prone positioning as possible -Anticoagulation per system protocol -Pulmonary on board Carline Gross MD [facility] ([facility]) Office [phone] Subjective Date of service: 10/26/20 Principal diagnosis: COVID-19 Interval history: Patient is now on 8 L nasal cannula, complaining of shortness of breath feeling tired. Objective - Exam Narrative Exam: General appearance: Alert in NAD pleasant Eyes: anicteric sclerae, moist conjunctivae; no lid-lag; PERRLA HENT: Normocephalic, Atraumatic; normal external ears, nares open, oropharynx masood Neck: supple, tracheal midline, no JVD Lungs: Bilateral crackles CV: RRR no murmur Abdomen: Soft, non-tender; no masses or hepatosplenomegaly Extremities: no edema, no cyanosis Skin: No rash. Psych: no agitated Neuro: alert and oriented x 3. Moving all extermities - Constitutional Vitals: Vital Signs Temp Pulse Resp BP Pulse Ox 97.2 F L 67 18 98/62 98 10/26/20 04:26 10/26/20 04:26 10/26/20 08:03 10/26/20 04:26 10/26/20 08:09 Temperature -Last 24 Hours Temperature 97.2 F Temperature 98.2 F Temperature 97.3 F - Labs CBC & Chem 7: 10/26/20 06:42 10/26/20 06:42 Labs: Abnormal lab results 10/25/20 10/25/20 10/26/20 Range/Units 16:19 21:23 06:42 WBC 11.7 H (4.5-11.0) K/mm3 RBC 5.09 H (3.65-5.03) M/mm3 MCV 69 L (79-97) fl MCH 22 L (28-32) pg RDW 17.4 H (13.2-15.2) % D-Dimer (0-234) ng/mlDDU Potassium (3.6-5.0) mmol/L Carbon Dioxide (22-30) mmol/L Creatinine (0.6-1.2) mg/dL Glucose (65-100) mg/dL POC Glucose 368 H 256 H (70-105) mg/dL Calcium (8.4-10.2) mg/dL Ferritin (10.0-200.0) ng/mL Lactate Dehydrogenase (91-180) units/L C-Reactive Protein (0.00-1.30) mg/dL 10/26/20 10/26/20 10/26/20 Range/Units 06:42 06:42 07:47 WBC (4.5-11.0) K/mm3 RBC (3.65-5.03) M/mm3 MCV (79-97) fl MCH (28-32) pg RDW (13.2-15.2) % D-Dimer 1137.09 H (0-234) ng/mlDDU Potassium 2.9 L* (3.6-5.0) mmol/L Carbon Dioxide 33 H (22-30) mmol/L Creatinine 0.4 L (0.6-1.2) mg/dL Glucose 136 H (65-100) mg/dL POC Glucose 154 H (70-105) mg/dL Calcium 7.9 L (8.4-10.2) mg/dL Ferritin (10.0-200.0) ng/mL Lactate Dehydrogenase (91-180) units/L C-Reactive Protein (0.00-1.30) mg/dL 10/26/20 10/26/20 10/26/20 Range/Units 10:42 10:42 10:42 WBC (4.5-11.0) K/mm3 RBC (3.65-5.03) M/mm3 MCV (79-97) fl MCH (28-32) pg RDW (13.2-15.2) % D-Dimer 1101.58 H (0-234) ng/mlDDU Potassium (3.6-5.0) mmol/L Carbon Dioxide (22-30) mmol/L Creatinine (0.6-1.2) mg/dL Glucose (65-100) mg/dL POC Glucose (70-105) mg/dL Calcium (8.4-10.2) mg/dL Ferritin 235.0 H (10.0-200.0) ng/mL Lactate Dehydrogenase 332 H (91-180) units/L C-Reactive Protein 1.50 H (0.00-1.30) mg/dL
--- NOTE | 2020-10-26 15:38 | Progress Note ---
Assessment and Plan Imp: 1. Covid-19 2. Viral pneumonia 3. Acute respiratory failure, hypoxia 4. Hypokalemia 5. Diabetes Mellitus Rec: 1. Cont. Remdesivir, Decadron 2. Proning 3. Monitor inflammatory markers 4. VTE unlikely with CTA chest negative and D-dimer trending down; cont. current Lovenox dose 5. CXR worse but she is clinically better today; wean FiO2 to keep sats 88% or > 6. High complexity Plan of care reviewed w/ patient, she understands/agrees Subjective Date of service: 10/26/20 Principal diagnosis: COVID-19 Interval history: No events. On 8L NC. SOB better. Has dry cough, stable. Active Medications Acetaminophen (Acetaminophen 325 Mg Tab) 650 mg PO Q4H PRN PRN Reason: Pain MILD(1-3)/Fever >100.5/ROJAS Last Admin: 10/23/20 09:25 Dose: 650 mg Documented by: Albuterol (Albuterol 8.5 Gm Mdi Inhalation) 2 puff IH Q2HRT PRN PRN Reason: Shortness Of Breath Dexamethasone (Dexamethasone 4 Mg/Ml Vial) 6 mg IV DAILY [facility] Stop: 10/30/20 10:01 Last Admin: 10/26/20 09:46 Dose: 6 mg Documented by: Dextrose (Dextrose 50% In Water (25gm) 50 Ml Syringe) 50 ml IV Q30MIN PRN; Protocol PRN Reason: Hypoglycemia Docusate Sodium (Docusate Sodium 100 Mg Cap) 100 mg PO BID [facility] Last Admin: 10/26/20 09:46 Dose: 100 mg Documented by: Enoxaparin Sodium (Enoxaparin 40 Mg/0.4 Ml Inj) 40 mg SUB-Q QDAY [facility] Last Admin: 10/26/20 09:47 Dose: 40 mg Documented by: Guaifenesin (Guaifenesin Er 600 Mg Tab) 600 mg PO BID [facility] Last Admin: 10/26/20 09:46 Dose: 600 mg Documented by: Guaifenesin (Guaifenesin 100 Mg/5 Ml Oral Liqd) 200 mg PO Q8H PRN PRN Reason: Cough Last Admin: 10/22/20 23:01 Dose: 200 mg Documented by: Insulin Glargine (Insulin Glargine 100 Units/Ml) 15 units SUB-Q QAMDIAB [facility] Last Admin: 10/26/20 09:47 Dose: 15 units Documented by: Insulin Human Regular (Insulin Regular, Human 100 Units/1 Ml) 0 units SUB-Q ACHS [facility]; Protocol Last Admin: 10/26/20 12:46 Dose: 4 units Documented by: Ondansetron HCl (Ondansetron 4 Mg/2 Ml Inj) 4 mg IV Q6H PRN PRN Reason: Nausea And Vomiting Last Admin: 10/21/20 10:08 Dose: 4 mg Documented by: Oxycodone/Acetaminophen (Oxycodone /Acetaminophen 5-325mg Tab) 1 tab PO Q6H PRN PRN Reason: Pain, Moderate (4-6) Last Admin: 10/21/20 00:41 Dose: 1 tab Documented by: Phenol (Phenol 1.4% 177 Ml Bottle) 1 spray MM PRN PRN PRN Reason: Sore Throat Last Admin: 10/21/20 17:18 Dose: 1 spray Documented by: Potassium Chloride (Potassium Chloride Er 20 Meq Tab) 40 meq PO ONCE NR Stop: 10/26/20 18:00 Sodium Chloride (Sodium Chloride 0.9% 10 Ml Flush Syringe) 10 ml IV BID [facility] Last Admin: 10/26/20 09:47 Dose: 10 ml Documented by: Sodium Chloride (Sodium Chloride 0.9% 10 Ml Flush Syringe) 10 ml IV PRN PRN PRN Reason: LINE FLUSH Objective Vital Signs - 12hr 10/26/20 10/26/20 10/26/20 04:26 08:03 08:09 Temperature 97.2 F L Pulse Rate 67 Respiratory 16 18 Rate Blood Pressure 98/62 O2 Sat by Pulse 91 98 Oximetry 10/26/20 10/26/20 14:00 14:02 Temperature 97.4 F L Pulse Rate 70 Respiratory 18 Rate Blood Pressure 104/68 O2 Sat by Pulse 99 Oximetry Constitutional: no acute distress, alert Eyes: non-icteric ENT: oropharynx moist Neck: supple Effort: normal Ascultation: Bilateral: rales Cardiovascular: regular rate and rhythm Gastrointestinal: normoactive bowel sounds, soft, non-tender, non-distended Integumentary: normal Extremities: no cyanosis Neurologic: normal mental status, non-focal exam, pupils equal and round, CN II- XII normal Psychiatric: mood appropriate, affect normal CBC and BMP: 10/26/20 06:42 10/26/20 06:42 ABG, PT/INR, D-dimer: PT/INR, D-dimer PT 14.1 Sec. (12.2-14.9) 10/18/20 19:15 INR 1.11 (0.87-1.13) 10/18/20 19:15 D-Dimer 1101.58 ng/mlDDU (0-234) H 10/26/20 10:42 Abnormal lab findings: Abnormal Labs 10/18/20 10/18/20 10/18/20 19:15 19:15 23:37 WBC 16.2 H RBC 7.16 H Hgb 15.5 H Hct 50.5 H MCV 71 L MCH 22 L RDW 19.5 H Lymph % (Auto) 3.8 L Marshall % (Auto) Lymph # (Auto) 0.6 L Marshall # (Auto) 1.1 H Seg Neutrophils % 88.7 H Seg Neutrophils # 14.4 H D-Dimer Sodium Potassium Chloride Carbon Dioxide 14 L BUN 23 H Creatinine Glucose 453 H POC Glucose 446 H Hemoglobin A1c Calcium Ferritin Lactate Dehydrogenase C-Reactive Protein Total Protein Albumin Coronavirus (PCR) 10/19/20 10/19/20 10/19/20 01:12 02:35 05:15 WBC RBC Hgb Hct MCV MCH RDW Lymph % (Auto) Marshall % (Auto) Lymph # (Auto) Marshall # (Auto) Seg Neutrophils % Seg Neutrophils # D-Dimer 1876.16 H Sodium Potassium Chloride Carbon Dioxide BUN Creatinine Glucose POC Glucose 359 H 310 H Hemoglobin A1c Calcium Ferritin Lactate Dehydrogenase C-Reactive Protein Total Protein Albumin Coronavirus (PCR) 10/19/20 10/19/20 10/19/20 05:15 05:28 07:40 WBC RBC Hgb Hct MCV MCH RDW Lymph % (Auto) Marshall % (Auto) Lymph # (Auto) Marshall # (Auto) Seg Neutrophils % Seg Neutrophils # D-Dimer Sodium Potassium Chloride Carbon Dioxide BUN Creatinine Glucose 344 H POC Glucose 322 H Hemoglobin A1c 12.5 H Calcium Ferritin Lactate Dehydrogenase 270 H C-Reactive Protein 4.80 H Total Protein Albumin Coronavirus (PCR) 10/19/20 10/19/20 10/19/20 09:05 12:04 17:59 WBC RBC Hgb Hct MCV MCH RDW Lymph % (Auto) Marshall % (Auto) Lymph # (Auto) Marshall # (Auto) Seg Neutrophils % Seg Neutrophils # D-Dimer Sodium Potassium Chloride Carbon Dioxide BUN Creatinine Glucose POC Glucose 297 H 285 H Hemoglobin A1c Calcium Ferritin Lactate Dehydrogenase C-Reactive Protein Total Protein Albumin Coronavirus (PCR) Positive A 10/19/20 10/20/20 10/20/20 22:59 07:05 07:05 WBC RBC 5.83 H Hgb Hct MCV 69 L MCH 22 L RDW 19.1 H Lymph % (Auto) 8.8 L Marshall % (Auto) Lymph # (Auto) 0.8 L Marshall # (Auto) Seg Neutrophils % 84.0 H Seg Neutrophils # D-Dimer Sodium Potassium 3.3 L D Chloride Carbon Dioxide 20 L BUN Creatinine Glucose 280 H POC Glucose 244 H Hemoglobin A1c Calcium Ferritin Lactate Dehydrogenase C-Reactive Protein Total Protein Albumin Coronavirus (PCR) 10/20/20 10/20/20 10/20/20 07:46 09:05 11:31 WBC RBC 6.09 H Hgb Hct MCV 69 L MCH 21 L RDW 18.7 H Lymph % (Auto) 9.9 L Marshall % (Auto) Lymph # (Auto) 0.9 L Marshall # (Auto) Seg Neutrophils % 82.5 H Seg Neutrophils # D-Dimer Sodium Potassium Chloride Carbon Dioxide BUN Creatinine Glucose POC Glucose 263 H 349 H Hemoglobin A1c Calcium Ferritin Lactate Dehydrogenase C-Reactive Protein Total Protein Albumin Coronavirus (PCR) 10/20/20 10/20/20 10/21/20 16:28 22:01 07:11 WBC RBC Hgb Hct MCV MCH RDW Lymph % (Auto) Marshall % (Auto) Lymph # (Auto) Marshall # (Auto) Seg Neutrophils % Seg Neutrophils # D-Dimer Sodium Potassium Chloride Carbon Dioxide BUN Creatinine Glucose POC Glucose 245 H 278 H 256 H Hemoglobin A1c Calcium Ferritin Lactate Dehydrogenase C-Reactive Protein Total Protein Albumin Coronavirus (PCR) 10/21/20 10/21/20 10/21/20 07:21 11:32 15:23 WBC RBC Hgb Hct MCV MCH RDW Lymph % (Auto) Marshall % (Auto) Lymph # (Auto) Marshall # (Auto) Seg Neutrophils % Seg Neutrophils # D-Dimer Sodium Potassium 3.3 L Chloride Carbon Dioxide BUN Creatinine 0.5 L 0.5 L Glucose 239 H 371 H POC Glucose 258 H Hemoglobin A1c Calcium 8.3 L Ferritin Lactate Dehydrogenase C-Reactive Protein Total Protein 5.4 L D Albumin 2.9 L Coronavirus (PCR) 10/21/20 10/21/20 10/22/20 16:06 22:05 06:57 WBC RBC Hgb Hct MCV MCH RDW Lymph % (Auto) Marshall % (Auto) Lymph # (Auto) Marshall # (Auto) Seg Neutrophils % Seg Neutrophils # D-Dimer Sodium Potassium 3.3 L Chloride Carbon Dioxide BUN Creatinine 0.5 L Glucose 200 H POC Glucose 387 H 298 H Hemoglobin A1c Calcium Ferritin Lactate Dehydrogenase C-Reactive Protein Total Protein Albumin 3.1 L Coronavirus (PCR) 10/22/20 10/22/20 10/22/20 08:04 12:39 16:08 WBC RBC Hgb Hct MCV MCH RDW Lymph % (Auto) Marshall % (Auto) Lymph # (Auto) Marshall # (Auto) Seg Neutrophils % Seg Neutrophils # D-Dimer Sodium Potassium Chloride Carbon Dioxide BUN Creatinine Glucose POC Glucose 200 H 240 H 297 H Hemoglobin A1c Calcium Ferritin Lactate Dehydrogenase C-Reactive Protein Total Protein Albumin Coronavirus (PCR) 10/22/20 10/22/20 10/22/20 16:15 16:15 16:15 WBC RBC Hgb Hct MCV MCH RDW Lymph % (Auto) Marshall % (Auto) Lymph # (Auto) Marshall # (Auto) Seg Neutrophils % Seg Neutrophils # D-Dimer 1275.26 H Sodium Potassium Chloride Carbon Dioxide BUN Creatinine Glucose POC Glucose Hemoglobin A1c Calcium Ferritin 201.8 H Lactate Dehydrogenase 296 H C-Reactive Protein 1.40 H Total Protein Albumin Coronavirus (PCR) 10/22/20 10/23/20 10/23/20 22:05 05:30 05:30 WBC RBC Hgb Hct MCV MCH RDW Lymph % (Auto) Marshall % (Auto) Lymph # (Auto) Marshall # (Auto) Seg Neutrophils % Seg Neutrophils # D-Dimer 995.73 H Sodium Potassium 2.8 L* Chloride Carbon Dioxide 32 H BUN 6 L Creatinine 0.4 L Glucose 131 H POC Glucose 283 H Hemoglobin A1c Calcium 8.0 L Ferritin Lactate Dehydrogenase 274 H C-Reactive Protein 1.50 H Total Protein 5.2 L Albumin 2.4 L Coronavirus (PCR) 10/23/20 10/23/20 10/23/20 08:22 11:40 15:26 WBC RBC Hgb Hct MCV MCH RDW Lymph % (Auto) Marshall % (Auto) Lymph # (Auto) Marshall # (Auto) Seg Neutrophils % Seg Neutrophils # D-Dimer Sodium 134 L Potassium Chloride 97.2 L Carbon Dioxide BUN Creatinine 0.4 L Glucose 372 H POC Glucose 120 H 257 H Hemoglobin A1c Calcium 8.0 L Ferritin Lactate Dehydrogenase C-Reactive Protein Total Protein Albumin Coronavirus (PCR) 10/23/20 10/24/20 10/24/20 21:49 05:24 05:24 WBC RBC 5.52 H Hgb Hct MCV 69 L MCH 22 L RDW 17.7 H Lymph % (Auto) Marshall % (Auto) 10.3 H Lymph # (Auto) Marshall # (Auto) 0.9 H Seg Neutrophils % Seg Neutrophils # D-Dimer Sodium Potassium 3.0 L D Chloride Carbon Dioxide 31 H BUN 6 L Creatinine 0.5 L Glucose 257 H POC Glucose 292 H Hemoglobin A1c Calcium 7.9 L Ferritin Lactate Dehydrogenase C-Reactive Protein Total Protein 5.0 L Albumin 2.3 L Coronavirus (PCR) 10/24/20 10/24/20 10/24/20 07:41 11:15 16:23 WBC RBC Hgb Hct MCV MCH RDW Lymph % (Auto) Marshall % (Auto) Lymph # (Auto) Marshall # (Auto) Seg Neutrophils % Seg Neutrophils # D-Dimer Sodium Potassium Chloride Carbon Dioxide BUN Creatinine Glucose POC Glucose 212 H 228 H 386 H Hemoglobin A1c Calcium Ferritin Lactate Dehydrogenase C-Reactive Protein Total Protein Albumin Coronavirus (PCR) 10/24/20 10/25/20 10/25/20 21:03 07:41 11:24 WBC RBC Hgb Hct MCV MCH RDW Lymph % (Auto) Marshall % (Auto) Lymph # (Auto) Marshall # (Auto) Seg Neutrophils % Seg Neutrophils # D-Dimer Sodium Potassium Chloride Carbon Dioxide BUN Creatinine Glucose POC Glucose 316 H 177 H 359 H Hemoglobin A1c Calcium Ferritin Lactate Dehydrogenase C-Reactive Protein Total Protein Albumin Coronavirus (PCR) 10/25/20 10/25/20 10/26/20 16:19 21:23 06:42 WBC 11.7 H RBC 5.09 H Hgb Hct MCV 69 L MCH 22 L RDW 17.4 H Lymph % (Auto) Marshall % (Auto) Lymph # (Auto) Marshall # (Auto) Seg Neutrophils % Seg Neutrophils # D-Dimer Sodium Potassium Chloride Carbon Dioxide BUN Creatinine Glucose POC Glucose 368 H 256 H Hemoglobin A1c Calcium Ferritin Lactate Dehydrogenase C-Reactive Protein Total Protein Albumin Coronavirus (PCR) 10/26/20 10/26/20 10/26/20 06:42 06:42 07:47 WBC RBC Hgb Hct MCV MCH RDW Lymph % (Auto) Marshall % (Auto) Lymph # (Auto) Marshall # (Auto) Seg Neutrophils % Seg Neutrophils # D-Dimer 1137.09 H Sodium Potassium 2.9 L* Chloride Carbon Dioxide 33 H BUN Creatinine 0.4 L Glucose 136 H POC Glucose 154 H Hemoglobin A1c Calcium 7.9 L Ferritin Lactate Dehydrogenase C-Reactive Protein Total Protein Albumin Coronavirus (PCR) 10/26/20 10/26/20 10/26/20 10:42 10:42 10:42 WBC RBC Hgb Hct MCV MCH RDW Lymph % (Auto) Marshall % (Auto) Lymph # (Auto) Marshall # (Auto) Seg Neutrophils % Seg Neutrophils # D-Dimer 1101.58 H Sodium Potassium Chloride Carbon Dioxide BUN Creatinine Glucose POC Glucose Hemoglobin A1c Calcium Ferritin 235.0 H Lactate Dehydrogenase 332 H C-Reactive Protein 1.50 H Total Protein Albumin Coronavirus (PCR) 10/26/20 11:56 WBC RBC Hgb Hct MCV MCH RDW Lymph % (Auto) Marshall % (Auto) Lymph # (Auto) Marshall # (Auto) Seg Neutrophils % Seg Neutrophils # D-Dimer Sodium Potassium Chloride Carbon Dioxide BUN Creatinine Glucose POC Glucose 270 H Hemoglobin A1c Calcium Ferritin Lactate Dehydrogenase C-Reactive Protein Total Protein Albumin Coronavirus (PCR) Chest x-ray: report reviewed, image reviewed (worsening bilateral infiltrates)
[2020-10-27] MEDS: INSULIN REGULAR, HUMAN 100 UNITS/1 ML SUB-Q SCH ×4 (07:30→22:21)
--- NOTE | 2020-10-27 07:42 | Progress Note ---
Assessment and Plan Assessment and plan: COVID-19 virus infection -CT angio chest negative for PE, but shows mild to moderate patchy bilateral gr oundglass opacities Acute hypoxic respiratory failure -Likely secondary to COVID-19 virus infection DM II, uncontrolled Acute atypical chest Pain -Troponin negative x 2 -EKG unrevealing for acute ischemic abnormalities -CXR negative Leukocytosis -WBC on admission 16.2 DVT PPX -On Lovenox 10/19/20 Patient is doing better. Denies any chest pain no shortness of breath now Continue Rocephin and Zithromax and neb treatment. Follow the Covid test result We we will follow the serial cardiac enzyme. Repeat CBC BMP in the morning Continue scheduled Lantus and SSI coverage. Will check whether patient needs for home oxygen. Possible discharge plan in a.m. if is stable 10/20/20 Patient is doing better. Denies any chest pain no shortness of breath . No cough Continue Rocephin and Zithromax and neb treatment. Covid test is positive. Decadron 6 mg IV daily. We will check for oxygen saturation on walking. ID follow-up We we will follow the serial cardiac enzyme. Outpatient the stress test because of Covid status. Potassium is 3.3. Potassium supplemented. Repeat CBC BMP in the morning Continue scheduled Lantus and SSI coverage. 10/21/20 Patient complained mild coughing and shortness of breath. Continue DuoNeb treatment. Oxygen 2 to 3 L/min. Procalcitonin is low so antibiotic and steroid was discontinued. We will do a 6-minute walking test for oxygen. Potassium is 3.3 potassium is supplemented. BMP in the morning. Continue scheduled Lantus and SSI coverage. ID follow-up. Discharge planning 1 to 2 days 10/22/20 Patient is seen and examined Patient complained of nausea. Also shortness of breath and coughing. Patient O2 sat dropped to 85% on walking yesterday We started on remdesivir and dexamethasone IV 6 mg daily. Follow the markers of Covid Continue DuoNeb treatment. Oxygen 2 to 3 L/min. Procalcitonin is low so antibiotic was discontinued. Zofran 4 mg IV every 6 hours as needed. BMP in the morning. Continue scheduled Lantus and SSI coverage. ID follow-up. Discharge planning when medically stable and remdesivir completed. 10/23/2020. Continue remdesivir and dexamethasone. ID following. Procalcitonin is low so antibiotic was discontinued. Exercise pulse oximetry testing prior to discharge. 10/24/2020. Patient is to have remdesivir completed tomorrow. Continue dexamethasone. Walk test as reported by nursing is as follows: started walk test at 1033 on RA, pts sats 90%. Pt stood up, walked to sink. pt desatted to 85% on RA, complained on dizziness. Pt walked back to bed, sat down. O2 2L applied. Pt recovered to 91%, at 2 min zeyad after resting. Pt ambulated with O2 2L on. saturations 90-91%. After 2 mins pt requesting to sit down, stating " I am dizzy and short of breath." Pt oxygen sats 88-89% on 2L/NC. Pt recovered to 90-91% after 2 mins of resting in bed. Pt states feeling better after sitting. will continue plan of care, notify MD of walk test results. 10/25/2020. Continue dexamethasone and remdesivir is to complete on 10/25. Patient was hypoxic with exercise on oxygen with walk test yesterday. Therefore we will continue inpatient hospitalization until completion of her labs very which will be tonight. Continue to monitor and anticipate discharge in a.m. 10/26/2020. Patient's oxygen requirements increased to 15 L yesterday and somewhat improved today down to 10 L. Patient became more hypoxemic but doing better. We will continue to wean oxygen supplementation as needed. Remdesivir completed yesterday. Continue dexamethasone. Prone positioning as possible. Check inflammatory markers. 10/27/2020. Patient's oxygen requirements decreased from 10 L to 8 L/min currently. Continue to wean oxygen supplementation as needed. Remdesivir completed. Prone positioning as possible. History Interval history: No new issues overnight. Hospitalist Physical - Constitutional Vitals: Temp Pulse Resp BP Pulse Ox 97.5 F L 63 16 97/57 97 10/27/20 04:00 10/27/20 04:00 10/27/20 04:00 10/27/20 04:00 10/27/20 04:00 General appearance: Present: no acute distress - EENT Eyes: Present: PERRL, EOM intact ENT: hearing intact, clear oral mucosa, dentition normal - Neck Neck: Present: supple, normal ROM - Respiratory Respiratory effort: normal Respiratory: bilateral: CTA - Cardiovascular Rhythm: regular Heart Sounds: Present: S1 & S2. Absent: gallop, rub - Extremities Extremities: no ischemia, No edema, Full ROM - Abdominal General gastrointestinal: soft, non-tender, non-distended, normal bowel sounds - Integumentary Integumentary: Present: clear, warm, dry - Neurologic Neurologic: CNII-XII intact, moves all extremities HEART Score - HEART Score EKG: Normal Age: < 45 Risk factors: No known risk factors Troponin: Troponin T < 0.010 ng/mL (0.00-0.029) 10/18/20 21:29 Troponin: < normal limit Results - Labs CBC & Chem 7: 10/26/20 06:42 10/26/20 06:42 Labs: Laboratory Last Values WBC 11.7 K/mm3 (4.5-11.0) H 10/26/20 06:42 RBC 5.09 M/mm3 (3.65-5.03) H 10/26/20 06:42 Hgb 11.2 gm/dl (10.1-14.3) 10/26/20 06:42 Hct 35.1 % (30.3-42.9) 10/26/20 06:42 MCV 69 fl (79-97) L 10/26/20 06:42 MCH 22 pg (28-32) L 10/26/20 06:42 MCHC 32 % (30-34) 10/26/20 06:42 RDW 17.4 % (13.2-15.2) H 10/26/20 06:42 Plt Count 251 K/mm3 (140-440) 10/26/20 06:42 Lymph % (Auto) 19.3 % (13.4-35.0) 10/24/20 05:24 [place] % (Auto) 10.3 % (0.0-7.3) H 10/24/20 05:24 Eos % (Auto) 0.9 % (0.0-4.3) 10/24/20 05:24 Baso % (Auto) 0.4 % (0.0-1.8) 10/24/20 05:24 Lymph # (Auto) 1.8 K/mm3 (1.2-5.4) 10/24/20 05:24 [place] # (Auto) 0.9 K/mm3 (0.0-0.8) H 10/24/20 05:24 Eos # (Auto) 0.1 K/mm3 (0.0-0.4) 10/24/20 05:24 Baso # (Auto) 0.0 K/mm3 (0.0-0.1) 10/24/20 05:24 Add Manual Diff Complete 10/26/20 06:42 Total Counted 100 10/26/20 06:42 Seg Neutrophils % 69.1 % (40.0-70.0) 10/24/20 05:24 Seg Neuts % (Manual) 65.0 % (40.0-70.0) 10/26/20 06:42 Band Neutrophils % 4.0 % 10/26/20 06:42 Lymphocytes % (Manual) 18.0 % (13.4-35.0) 10/26/20 06:42 Monocytes % (Manual) 4.0 % (0.0-7.3) 10/26/20 06:42 Eosinophils % (Manual) 1.0 % (0.0-4.3) 10/26/20 06:42 Metamyelocytes % 7.0 % 10/26/20 06:42 Myelocytes % 1.0 % 10/26/20 06:42 Nucleated RBC % Not Reportable 10/26/20 06:42 Seg Neutrophils # 6.4 K/mm3 (1.8-7.7) 10/24/20 05:24 Seg Neutrophils # Man 7.6 K/mm3 (1.8-7.7) 10/26/20 06:42 Band Neutrophils # 0.5 K/mm3 10/26/20 06:42 Lymphocytes # (Manual) 2.1 K/mm3 (1.2-5.4) 10/26/20 06:42 Abs React Lymphs (Man) 0.0 K/mm3 10/26/20 06:42 Monocytes # (Manual) 0.5 K/mm3 (0.0-0.8) 10/26/20 06:42 Eosinophils # (Manual) 0.1 K/mm3 (0.0-0.4) 10/26/20 06:42 Basophils # (Manual) 0.0 K/mm3 (0.0-0.1) 10/26/20 06:42 Metamyelocytes # 0.8 K/mm3 10/26/20 06:42 Myelocytes # 0.1 K/mm3 10/26/20 06:42 Promyelocytes # 0.0 K/mm3 10/26/20 06:42 Blast Cells # 0.0 K/mm3 10/26/20 06:42 WBC Morphology Not Reportable 10/26/20 06:42 Hypersegmented Neuts Not Reportable 10/26/20 06:42 Hyposegmented Neuts Not Reportable 10/26/20 06:42 Hypogranular Neuts Not Reportable 10/26/20 06:42 Smudge Cells Not Reportable 10/26/20 06:42 Toxic Granulation Not Reportable 10/26/20 06:42 Toxic Vacuolation Not Reportable 10/26/20 06:42 Dohle Bodies Not Reportable 10/26/20 06:42 Pelger-Huet Anomaly Not Reportable 10/26/20 06:42 Apryl Rods Not Reportable 10/26/20 06:42 Platelet Estimate Consistent w auto 10/26/20 06:42 Clumped Platelets Not Reportable 10/26/20 06:42 Plt Clumps, EDTA Not Reportable 10/26/20 06:42 Large Platelets Not Reportable 10/26/20 06:42 Giant Platelets Not Reportable 10/26/20 06:42 Platelet Satelliting Not Reportable 10/26/20 06:42 Plt Morphology Comment Not Reportable 10/26/20 06:42 RBC Morphology Not Reportable 10/26/20 06:42 Dimorphic RBCs Not Reportable 10/26/20 06:42 Polychromasia Not Reportable 10/26/20 06:42 Hypochromasia 1+ 10/26/20 06:42 Poikilocytosis 1+ 10/26/20 06:42 Anisocytosis 1+ 10/26/20 06:42 Microcytosis 1+ 10/26/20 06:42 Macrocytosis Not Reportable 10/26/20 06:42 Spherocytes Not Reportable 10/26/20 06:42 Pappenheimer Bodies Not Reportable 10/26/20 06:42 Sickle Cells Not Reportable 10/26/20 06:42 Target Cells Not Reportable 10/26/20 06:42 Tear Drop Cells Not Reportable 10/26/20 06:42 Ovalocytes 1+ 10/26/20 06:42 Helmet Cells Not Reportable 10/26/20 06:[address] [place] Bodies Not Reportable 10/26/20 06:42 [place] Rings Not Reportable 10/26/20 06:42 [place] Cells Not Reportable 10/26/20 06:42 Bite Cells Not Reportable 10/26/20 06:42 Crenated Cell Not Reportable 10/26/20 06:42 Elliptocytes Few 10/26/20 06:42 Acanthocytes (Spur) Not Reportable 10/26/20 06:42 Rouleaux Not Reportable 10/26/20 06:42 Hemoglobin C Crystals Not Reportable 10/26/20 06:42 Schistocytes Not Reportable 10/26/20 06:42 Malaria parasites Not Reportable 10/26/20 06:42 Mauricio Bodies Not Reportable 10/26/20 06:42 Hem Pathologist Commnt No 10/26/20 06:42 PT 14.1 Sec. (12.2-14.9) 10/18/20 19:15 INR 1.11 (0.87-1.13) 10/18/20 19:15 APTT 25.0 Sec. (24.2-36.6) 10/18/20 19:15 D-Dimer 1101.58 ng/mlDDU (0-234) H 10/26/20 10:42 Sodium 142 mmol/L (137-145) 10/26/20 06:42 Potassium 2.9 mmol/L (3.6-5.0) L* 10/26/20 06:42 Chloride 102.8 mmol/L (98-107) 10/26/20 06:42 Carbon Dioxide 33 mmol/L (22-30) H 10/26/20 06:42 Anion Gap 9 mmol/L 10/26/20 06:42 BUN 7 mg/dL (7-17) 10/26/20 06:42 Creatinine 0.4 mg/dL (0.6-1.2) L 10/26/20 06:42 Estimated GFR > 60 ml/min 10/26/20 06:42 BUN/Creatinine Ratio 18 % 10/26/20 06:42 Glucose 136 mg/dL (65-100) H 10/26/20 06:42 POC Glucose 321 mg/dL (70-105) H 10/26/20 21:04 Hemoglobin A1c 12.5 % (4-6) H 10/19/20 05:28 Calcium 7.9 mg/dL (8.4-10.2) L 10/26/20 06:42 Ferritin 235.0 ng/mL (10.0-200.0) H 10/26/20 10:42 Total Bilirubin < 0.20 mg/dL (0.1-1.2) 10/24/20 05:24 AST 28 units/L (5-40) 10/24/20 05:24 ALT 22 units/L (7-56) 10/24/20 05:24 Alkaline Phosphatase 77 units/L (35-129) 10/24/20 05:24 Lactate Dehydrogenase 332 units/L (91-180) H 10/26/20 10:42 Troponin T < 0.010 ng/mL (0.00-0.029) 10/18/20 21:29 C-Reactive Protein 1.50 mg/dL (0.00-1.30) H 10/26/20 10:42 Total Protein 5.0 g/dL (6.3-8.2) L 10/24/20 05:24 Albumin 2.3 g/dL (3.9-5) L 10/24/20 05:24 Albumin/Globulin Ratio 0.9 % 10/24/20 05:24 Procalcitonin < 0.05 ng/mL (<0.15) 10/19/20 05:15 HCG, Qual Negative (Negative) 10/18/20 19:15 Coronavirus (PCR) Positive (Negative) A 10/19/20 09:05 Monoscreen Negative (Negative) 10/18/20 23:02 Group A Strep Rapid Negative (Negative) 10/18/20 23:00 Sauceda/IV: Voiding Method Toilet Active Medications - Current Medications Current Medications: Generic Name Dose Route Start Last Admin Trade Name Freq PRN Reason Stop Dose Admin Acetaminophen 650 mg 10/19/20 05:17 10/23/20 09:25 Acetaminophen 325 Mg Tab PO 650 mg Q4H PRN Administration Pain MILD(1-3)/Fever >100.5/ROJAS Albuterol 2 puff 10/19/20 05:21 Albuterol 8.5 Gm Mdi Inhalation IH Q2HRT PRN Shortness Of Breath Dexamethasone 6 mg 10/21/20 12:00 10/26/20 09:46 Dexamethasone 4 Mg/Ml Vial IV 10/30/20 10:01 6 mg DAILY ROSSANA Administration Dextrose 50 ml 10/19/20 05:17 Dextrose 50% In Water (25gm) 50 Ml Syringe IV Q30MIN PRN Hypoglycemia Protocol Docusate Sodium 100 mg 10/19/20 10:00 10/26/20 22:07 Docusate Sodium 100 Mg Cap PO 100 mg BID ROSSANA Administration Enoxaparin Sodium 40 mg 10/19/20 10:00 10/26/20 09:47 Enoxaparin 40 Mg/0.4 Ml Inj SUB-Q 40 mg QDAY ROSSANA Administration Guaifenesin 600 mg 10/19/20 10:00 10/26/20 22:07 Guaifenesin Er 600 Mg Tab PO 600 mg BID ROSSANA Administration Guaifenesin 200 mg 10/20/20 12:48 10/22/20 23:01 Guaifenesin 100 Mg/5 Ml Oral Liqd PO 200 mg Q8H PRN Administration Cough Insulin Glargine 15 units 10/19/20 08:00 10/26/20 09:47 Insulin Glargine 100 Units/Ml SUB-Q 15 units QAMDIAB ROSSANA Administration Insulin Human Regular 0 units 10/19/20 07:30 10/26/20 22:07 Insulin Regular, Human 100 Units/1 Ml SUB-Q 6 units ACHS ROSSANA Administration Protocol Ondansetron HCl 4 mg 10/19/20 05:17 10/21/20 10:08 Ondansetron 4 Mg/2 Ml Inj IV 4 mg Q6H PRN Administration Nausea And Vomiting Oxycodone/Acetaminophen 1 tab 10/19/20 05:17 10/21/20 00:41 Oxycodone /Acetaminophen 5-325mg Tab PO 1 tab Q6H PRN Administration Pain, Moderate (4-6) Phenol 1 spray 10/21/20 08:12 10/21/20 17:18 Phenol 1.4% 177 Ml Bottle MM 1 spray PRN PRN Administration Sore Throat Sodium Chloride 10 ml 10/19/20 10:00 10/26/20 22:08 Sodium Chloride 0.9% 10 Ml Flush Syringe IV 10 ml BID ROSSANA Administration Sodium Chloride 10 ml 10/19/20 05:17 Sodium Chloride 0.9% 10 Ml Flush Syringe IV PRN PRN LINE FLUSH Nutrition/Malnutrition Assess - Dietary Evaluation Nutrition/Malnutrition Findings: Nutrition Notes Start: 10/26/20 08:32 Freq: Status: Active Protocol: Document 10/26/20 08:32 AT (Rec: 10/26/20 08:38 AT [id number]) Co-Sign 10/26/20 08:32 MK Nutrition Notes Need for Assessment generated from: LOS Initial or Follow up Brief Note Current Diagnosis Diabetes Other Pertinent Diagnosis COVID-19(+) Current Diet Cardiac/Consistent CHO Labs/Tests K 2.9 Cr 0.4 BG 136 A1c 12.5% Gary Body Weight (kg) 0 Subjective/Other Information Screen for LOS. Unable to reach pt by phone x3. Per chart, pt consuming 69% of meals on average. However, yesterday pt consumed 75% of meals on average. Per RN, pt consumed 75% of breakfast this morning. Pt meeting 80% EER and 100% of estimated protein needs. Pt may be appropriate for Consistent CHO diet education. Will follow for stable intakes and ONS needs. Nutrition Intervention Anticipated Discharge Needs: Cardiac/Consistent CHO Follow-Up By: 10/30/20 Additional Comments F/U stable intakes, ONS needs, diet education needs
[2020-10-27] MEDS: INSULIN GLARGINE 100 UNITS/ML SUB-Q SCH (08:06)
[2020-10-27] MEDS: ENOXAPARIN 40 MG/0.4 ML INJ SUB-Q SCH (10:36)
[2020-10-27] MEDS: DOCUSATE SODIUM 100 MG CAP PO SCH ×2 (10:36→22:21)
[2020-10-27] MEDS: dexAMETHasone 4 MG/ML VIAL IV SCH (10:37)
[2020-10-27] MEDS: guaiFENesin ER 600 MG TAB PO SCH ×2 (10:37→22:21)
--- NOTE | 2020-10-27 12:02 | Progress Note ---
Assessment and Plan - Patient Problems (1) Acute respiratory failure due to COVID-19 Current Visit: Yes Status: Acute (2) Pharyngitis Current Visit: Yes Status: Acute Qualifiers: Pharyngitis/tonsillitis etiology: unspecified etiology Qualified Code(s): J02.9 - Acute pharyngitis, unspecified (3) Pneumonia Current Visit: Yes Status: Acute Qualifiers: Pneumonia type: due to unspecified organism Laterality: bilateral Lung location: unspecified part of lung Qualified Code(s): J18.9 - Pneumonia, unspecified organism (4) Respiratory failure Current Visit: Yes Status: Acute Qualifiers: Chronicity: acute Respiratory failure complication: hypoxia Qualified Code(s): J96.01 - Acute respiratory failure with hypoxia (5) Shortness of breath Current Visit: Yes Status: Acute (6) Hypoxia Current Visit: Yes Status: Acute Subjective Principal diagnosis: COVID-19 Interval history: feels bettr. Still sob. Has been ambulating in room and doing incentive paramjit and prone positioning Objective Vital Signs - 12hr 10/27/20 10/27/20 10/27/20 02:23 04:00 08:00 Temperature 97.5 F L Pulse Rate 63 Respiratory 16 Rate Blood Pressure 97/57 O2 Sat by Pulse 91 97 95 Oximetry Constitutional: no acute distress, alert Eyes: non-icteric ENT: oropharynx moist Neck: supple Effort: normal Ascultation: Bilateral: rales (rare) Cardiovascular: regular rate and rhythm Gastrointestinal: normoactive bowel sounds, soft, non-tender, non-distended Integumentary: normal Extremities: no cyanosis Neurologic: normal mental status, non-focal exam, pupils equal and round, CN II- XII normal Psychiatric: mood appropriate, affect normal CBC and BMP: 10/26/20 06:42 10/26/20 06:42 ABG, PT/INR, D-dimer: PT/INR, D-dimer PT 14.1 Sec. (12.2-14.9) 10/18/20 19:15 INR 1.11 (0.87-1.13) 10/18/20 19:15 D-Dimer 1101.58 ng/mlDDU (0-234) H 10/26/20 10:42 Abnormal lab findings: Abnormal Labs 10/18/20 10/18/20 10/18/20 19:15 19:15 23:37 WBC 16.2 H RBC 7.16 H Hgb 15.5 H Hct 50.5 H MCV 71 L MCH 22 L RDW 19.5 H Lymph % (Auto) 3.8 L [place] % (Auto) Lymph # (Auto) 0.6 L [place] # (Auto) 1.1 H Seg Neutrophils % 88.7 H Seg Neutrophils # 14.4 H D-Dimer Sodium Potassium Chloride Carbon Dioxide 14 L BUN 23 H Creatinine Glucose 453 H POC Glucose 446 H Hemoglobin A1c Calcium Ferritin Lactate Dehydrogenase C-Reactive Protein Total Protein Albumin Coronavirus (PCR) 10/19/20 10/19/20 10/19/20 01:12 02:35 05:15 WBC RBC Hgb Hct MCV MCH RDW Lymph % (Auto) [place] % (Auto) Lymph # (Auto) [place] # (Auto) Seg Neutrophils % Seg Neutrophils # D-Dimer 1876.16 H Sodium Potassium Chloride Carbon Dioxide BUN Creatinine Glucose POC Glucose 359 H 310 H Hemoglobin A1c Calcium Ferritin Lactate Dehydrogenase C-Reactive Protein Total Protein Albumin Coronavirus (PCR) 10/19/20 10/19/20 10/19/20 05:15 05:28 07:40 WBC RBC Hgb Hct MCV MCH RDW Lymph % (Auto) [place] % (Auto) Lymph # (Auto) [place] # (Auto) Seg Neutrophils % Seg Neutrophils # D-Dimer Sodium Potassium Chloride Carbon Dioxide BUN Creatinine Glucose 344 H POC Glucose 322 H Hemoglobin A1c 12.5 H Calcium Ferritin Lactate Dehydrogenase 270 H C-Reactive Protein 4.80 H Total Protein Albumin Coronavirus (PCR) 10/19/20 10/19/20 10/19/20 09:05 12:04 17:59 WBC RBC Hgb Hct MCV MCH RDW Lymph % (Auto) [place] % (Auto) Lymph # (Auto) [place] # (Auto) Seg Neutrophils % Seg Neutrophils # D-Dimer Sodium Potassium Chloride Carbon Dioxide BUN Creatinine Glucose POC Glucose 297 H 285 H Hemoglobin A1c Calcium Ferritin Lactate Dehydrogenase C-Reactive Protein Total Protein Albumin Coronavirus (PCR) Positive A 10/19/20 10/20/20 10/20/20 22:59 07:05 07:05 WBC RBC 5.83 H Hgb Hct MCV 69 L MCH 22 L RDW 19.1 H Lymph % (Auto) 8.8 L [place] % (Auto) Lymph # (Auto) 0.8 L [place] # (Auto) Seg Neutrophils % 84.0 H Seg Neutrophils # D-Dimer Sodium Potassium 3.3 L D Chloride Carbon Dioxide 20 L BUN Creatinine Glucose 280 H POC Glucose 244 H Hemoglobin A1c Calcium Ferritin Lactate Dehydrogenase C-Reactive Protein Total Protein Albumin Coronavirus (PCR) 10/20/20 10/20/20 10/20/20 07:46 09:05 11:31 WBC RBC 6.09 H Hgb Hct MCV 69 L MCH 21 L RDW 18.7 H Lymph % (Auto) 9.9 L [place] % (Auto) Lymph # (Auto) 0.9 L [place] # (Auto) Seg Neutrophils % 82.5 H Seg Neutrophils # D-Dimer Sodium Potassium Chloride Carbon Dioxide BUN Creatinine Glucose POC Glucose 263 H 349 H Hemoglobin A1c Calcium Ferritin Lactate Dehydrogenase C-Reactive Protein Total Protein Albumin Coronavirus (PCR) 10/20/20 10/20/20 10/21/20 16:28 22:01 07:11 WBC RBC Hgb Hct MCV MCH RDW Lymph % (Auto) [place] % (Auto) Lymph # (Auto) [place] # (Auto) Seg Neutrophils % Seg Neutrophils # D-Dimer Sodium Potassium Chloride Carbon Dioxide BUN Creatinine Glucose POC Glucose 245 H 278 H 256 H Hemoglobin A1c Calcium Ferritin Lactate Dehydrogenase C-Reactive Protein Total Protein Albumin Coronavirus (PCR) 10/21/20 10/21/20 10/21/20 07:21 11:32 15:23 WBC RBC Hgb Hct MCV MCH RDW Lymph % (Auto) [place] % (Auto) Lymph # (Auto) [place] # (Auto) Seg Neutrophils % Seg Neutrophils # D-Dimer Sodium Potassium 3.3 L Chloride Carbon Dioxide BUN Creatinine 0.5 L 0.5 L Glucose 239 H 371 H POC Glucose 258 H Hemoglobin A1c Calcium 8.3 L Ferritin Lactate Dehydrogenase C-Reactive Protein Total Protein 5.4 L D Albumin 2.9 L Coronavirus (PCR) 10/21/20 10/21/20 10/22/20 16:06 22:05 06:57 WBC RBC Hgb Hct MCV MCH RDW Lymph % (Auto) [place] % (Auto) Lymph # (Auto) [place] # (Auto) Seg Neutrophils % Seg Neutrophils # D-Dimer Sodium Potassium 3.3 L Chloride Carbon Dioxide BUN Creatinine 0.5 L Glucose 200 H POC Glucose 387 H 298 H Hemoglobin A1c Calcium Ferritin Lactate Dehydrogenase C-Reactive Protein Total Protein Albumin 3.1 L Coronavirus (PCR) 10/22/20 10/22/20 10/22/20 08:04 12:39 16:08 WBC RBC Hgb Hct MCV MCH RDW Lymph % (Auto) [place] % (Auto) Lymph # (Auto) [place] # (Auto) Seg Neutrophils % Seg Neutrophils # D-Dimer Sodium Potassium Chloride Carbon Dioxide BUN Creatinine Glucose POC Glucose 200 H 240 H 297 H Hemoglobin A1c Calcium Ferritin Lactate Dehydrogenase C-Reactive Protein Total Protein Albumin Coronavirus (PCR) 10/22/20 10/22/20 10/22/20 16:15 16:15 16:15 WBC RBC Hgb Hct MCV MCH RDW Lymph % (Auto) [place] % (Auto) Lymph # (Auto) [place] # (Auto) Seg Neutrophils % Seg Neutrophils # D-Dimer 1275.26 H Sodium Potassium Chloride Carbon Dioxide BUN Creatinine Glucose POC Glucose Hemoglobin A1c Calcium Ferritin 201.8 H Lactate Dehydrogenase 296 H C-Reactive Protein 1.40 H Total Protein Albumin Coronavirus (PCR) 10/22/20 10/23/20 10/23/20 22:05 05:30 05:30 WBC RBC Hgb Hct MCV MCH RDW Lymph % (Auto) [place] % (Auto) Lymph # (Auto) [place] # (Auto) Seg Neutrophils % Seg Neutrophils # D-Dimer 995.73 H Sodium Potassium 2.8 L* Chloride Carbon Dioxide 32 H BUN 6 L Creatinine 0.4 L Glucose 131 H POC Glucose 283 H Hemoglobin A1c Calcium 8.0 L Ferritin Lactate Dehydrogenase 274 H C-Reactive Protein 1.50 H Total Protein 5.2 L Albumin 2.4 L Coronavirus (PCR) 10/23/20 10/23/20 10/23/20 08:22 11:40 15:26 WBC RBC Hgb Hct MCV MCH RDW Lymph % (Auto) [place] % (Auto) Lymph # (Auto) [place] # (Auto) Seg Neutrophils % Seg Neutrophils # D-Dimer Sodium 134 L Potassium Chloride 97.2 L Carbon Dioxide BUN Creatinine 0.4 L Glucose 372 H POC Glucose 120 H 257 H Hemoglobin A1c Calcium 8.0 L Ferritin Lactate Dehydrogenase C-Reactive Protein Total Protein Albumin Coronavirus (PCR) 10/23/20 10/24/20 10/24/20 21:49 05:24 05:24 WBC RBC 5.52 H Hgb Hct MCV 69 L MCH 22 L RDW 17.7 H Lymph % (Auto) [place] % (Auto) 10.3 H Lymph # (Auto) [place] # (Auto) 0.9 H Seg Neutrophils % Seg Neutrophils # D-Dimer Sodium Potassium 3.0 L D Chloride Carbon Dioxide 31 H BUN 6 L Creatinine 0.5 L Glucose 257 H POC Glucose 292 H Hemoglobin A1c Calcium 7.9 L Ferritin Lactate Dehydrogenase C-Reactive Protein Total Protein 5.0 L Albumin 2.3 L Coronavirus (PCR) 10/24/20 10/24/20 10/24/20 07:41 11:15 16:23 WBC RBC Hgb Hct MCV MCH RDW Lymph % (Auto) [place] % (Auto) Lymph # (Auto) [place] # (Auto) Seg Neutrophils % Seg Neutrophils # D-Dimer Sodium Potassium Chloride Carbon Dioxide BUN Creatinine Glucose POC Glucose 212 H 228 H 386 H Hemoglobin A1c Calcium Ferritin Lactate Dehydrogenase C-Reactive Protein Total Protein Albumin Coronavirus (PCR) 10/24/20 10/25/20 10/25/20 21:03 07:41 11:24 WBC RBC Hgb Hct MCV MCH RDW Lymph % (Auto) [place] % (Auto) Lymph # (Auto) [place] # (Auto) Seg Neutrophils % Seg Neutrophils # D-Dimer Sodium Potassium Chloride Carbon Dioxide BUN Creatinine Glucose POC Glucose 316 H 177 H 359 H Hemoglobin A1c Calcium Ferritin Lactate Dehydrogenase C-Reactive Protein Total Protein Albumin Coronavirus (PCR) 10/25/20 10/25/20 10/26/20 16:19 21:23 06:42 WBC 11.7 H RBC 5.09 H Hgb Hct MCV 69 L MCH 22 L RDW 17.4 H Lymph % (Auto) [place] % (Auto) Lymph # (Auto) [place] # (Auto) Seg Neutrophils % Seg Neutrophils # D-Dimer Sodium Potassium Chloride Carbon Dioxide BUN Creatinine Glucose POC Glucose 368 H 256 H Hemoglobin A1c Calcium Ferritin Lactate Dehydrogenase C-Reactive Protein Total Protein Albumin Coronavirus (PCR) 10/26/20 10/26/20 10/26/20 06:42 06:42 07:47 WBC RBC Hgb Hct MCV MCH RDW Lymph % (Auto) [place] % (Auto) Lymph # (Auto) [place] # (Auto) Seg Neutrophils % Seg Neutrophils # D-Dimer 1137.09 H Sodium Potassium 2.9 L* Chloride Carbon Dioxide 33 H BUN Creatinine 0.4 L Glucose 136 H POC Glucose 154 H Hemoglobin A1c Calcium 7.9 L Ferritin Lactate Dehydrogenase C-Reactive Protein Total Protein Albumin Coronavirus (PCR) 10/26/20 10/26/2021 10:42 10:42 10:42 WBC RBC Hgb Hct MCV MCH RDW Lymph % (Auto) [place] % (Auto) Lymph # (Auto) [place] # (Auto) Seg Neutrophils % Seg Neutrophils # D-Dimer 1101.58 H Sodium Potassium Chloride Carbon Dioxide BUN Creatinine Glucose POC Glucose Hemoglobin A1c Calcium Ferritin 235.0 H Lactate Dehydrogenase 332 H C-Reactive Protein 1.50 H Total Protein Albumin Coronavirus (PCR) 10/26/20 10/26/20 10/26/20 11:56 16:14 21:04 WBC RBC Hgb Hct MCV MCH RDW Lymph % (Auto) [place] % (Auto) Lymph # (Auto) [place] # (Auto) Seg Neutrophils % Seg Neutrophils # D-Dimer Sodium Potassium Chloride Carbon Dioxide BUN Creatinine Glucose POC Glucose 270 H 363 H 321 H Hemoglobin A1c Calcium Ferritin Lactate Dehydrogenase C-Reactive Protein Total Protein Albumin Coronavirus (PCR) 10/27/20 07:54 WBC RBC Hgb Hct MCV MCH RDW Lymph % (Auto) [place] % (Auto) Lymph # (Auto) [place] # (Auto) Seg Neutrophils % Seg Neutrophils # D-Dimer Sodium Potassium Chloride Carbon Dioxide BUN Creatinine Glucose POC Glucose 190 H Hemoglobin A1c Calcium Ferritin Lactate Dehydrogenase C-Reactive Protein Total Protein Albumin Coronavirus (PCR) Chest x-ray: report reviewed, image reviewed
[2020-10-28] MEDS: INSULIN REGULAR, HUMAN 100 UNITS/1 ML SUB-Q SCH ×4 (07:30→22:32)
--- NOTE | 2020-10-28 07:35 | Progress Note ---
Assessment and Plan Assessment and plan: COVID-19 virus infection -CT angio chest negative for PE, but shows mild to moderate patchy bilateral gr oundglass opacities Acute hypoxic respiratory failure -Likely secondary to COVID-19 virus infection Asthma exacerbation DM II, uncontrolled Acute atypical chest Pain -Troponin negative x 2 -EKG unrevealing for acute ischemic abnormalities -CXR negative Leukocytosis -WBC on admission 16.2 DVT PPX -On Lovenox 10/19/20 Patient is doing better. Denies any chest pain no shortness of breath now Continue Rocephin and Zithromax and neb treatment. Follow the Covid test result We we will follow the serial cardiac enzyme. Repeat CBC BMP in the morning Continue scheduled Lantus and SSI coverage. Will check whether patient needs for home oxygen. Possible discharge plan in a.m. if is stable 10/20/20 Patient is doing better. Denies any chest pain no shortness of breath . No cough Continue Rocephin and Zithromax and neb treatment. Covid test is positive. Decadron 6 mg IV daily. We will check for oxygen saturation on walking. ID follow-up We we will follow the serial cardiac enzyme. Outpatient the stress test because of Covid status. Potassium is 3.3. Potassium supplemented. Repeat CBC BMP in the morning Continue scheduled Lantus and SSI coverage. 10/21/20 Patient complained mild coughing and shortness of breath. Continue DuoNeb treatment. Oxygen 2 to 3 L/min. Procalcitonin is low so antibiotic and steroid was discontinued. We will do a 6-minute walking test for oxygen. Potassium is 3.3 potassium is supplemented. BMP in the morning. Continue scheduled Lantus and SSI coverage. ID follow-up. Discharge planning 1 to 2 days 10/22/20 Patient is seen and examined Patient complained of nausea. Also shortness of breath and coughing. Patient O2 sat dropped to 85% on walking yesterday We started on remdesivir and dexamethasone IV 6 mg daily. Follow the markers of Covid Continue DuoNeb treatment. Oxygen 2 to 3 L/min. Procalcitonin is low so antibiotic was discontinued. Zofran 4 mg IV every 6 hours as needed. BMP in the morning. Continue scheduled Lantus and SSI coverage. ID follow-up. Discharge planning when medically stable and remdesivir completed. 10/23/2020. Continue remdesivir and dexamethasone. ID following. Procalcitonin is low so antibiotic was discontinued. Exercise pulse oximetry testing prior to discharge. 10/24/2020. Patient is to have remdesivir completed tomorrow. Continue dexamethasone. Walk test as reported by nursing is as follows: started walk test at 1033 on RA, pts sats 90%. Pt stood up, walked to sink. pt desatted to 85% on RA, complained on dizziness. Pt walked back to bed, sat down. O2 2L applied. Pt recovered to 91%, at 2 min zeyad after resting. Pt ambulated with O2 2L on. saturations 90-91%. After 2 mins pt requesting to sit down, stating " I am dizzy and short of breath." Pt oxygen sats 88-89% on 2L/NC. Pt recovered to 90-91% after 2 mins of resting in bed. Pt states feeling better after sitting. will continue plan of care, notify of walk test results. 10/25/2020. Continue dexamethasone and remdesivir is to complete on 10/25. Patient was hypoxic with exercise on oxygen with walk test yesterday. Therefore we will continue inpatient hospitalization until completion of her labs very which will be tonight. Continue to monitor and anticipate discharge in a.m. 10/26/2020. Patient's oxygen requirements increased to 15 L yesterday and somewhat improved today down to 10 L. Patient became more hypoxemic but doing better. We will continue to wean oxygen supplementation as needed. Remdesivir completed yesterday. Continue dexamethasone. Prone positioning as possible. Check inflammatory markers. 10/27/2020. Patient's oxygen requirements decreased from 10 L to 8 L/min currently. Continue to wean oxygen supplementation as needed. Remdesivir completed. Prone positioning as possible. 10/28/2020. Patient's oxygen requirements decreased from 8 L to 7 L/min currently. Continue to wean oxygen supplementation as needed. Remdesivir completed. Prone positioning as possible. Patient reports a history of asthma but not on medications for the past few years. Consider changing dexamethasone to Solu-Medrol IV. Defer to pulmonary. History Interval history: No new issues overnight. Hospitalist Physical - Constitutional Vitals: Temp Pulse Resp BP Pulse Ox 98.0 F 61 18 105/65 96 10/28/20 04:41 10/28/20 04:41 10/28/20 04:41 10/28/20 04:41 10/28/20 07:23 General appearance: Present: no acute distress - EENT Eyes: Present: PERRL, EOM intact ENT: hearing intact, clear oral mucosa, dentition normal - Neck Neck: Present: supple, normal ROM - Respiratory Respiratory effort: normal Respiratory: bilateral: CTA - Cardiovascular Rhythm: regular Heart Sounds: Present: S1 & S2. Absent: gallop, rub - Extremities Extremities: no ischemia, No edema, Full ROM - Abdominal General gastrointestinal: soft, non-tender, non-distended, normal bowel sounds - Integumentary Integumentary: Present: clear, warm, dry - Neurologic Neurologic: CNII-XII intact, moves all extremities HEART Score - HEART Score EKG: Normal Age: < 45 Risk factors: No known risk factors Troponin: Troponin T < 0.010 ng/mL (0.00-0.029) 10/18/20 21:29 Troponin: < normal limit Results - Labs CBC & Chem 7: 10/26/20 06:42 10/26/20 06:42 Labs: Laboratory Last Values WBC 11.7 K/mm3 (4.5-11.0) H 10/26/20 06:42 RBC 5.09 M/mm3 (3.65-5.03) H 10/26/20 06:42 Hgb 11.2 gm/dl (10.1-14.3) 10/26/20 06:42 Hct 35.1 % (30.3-42.9) 10/26/20 06:42 MCV 69 fl (79-97) L 10/26/20 06:42 MCH 22 pg (28-32) L 10/26/20 06:42 MCHC 32 % (30-34) 10/26/20 06:42 RDW 17.4 % (13.2-15.2) H 10/26/20 06:42 Plt Count 251 K/mm3 (140-440) 10/26/20 06:42 Lymph % (Auto) 19.3 % (13.4-35.0) 10/24/20 05:24 Bee % (Auto) 10.3 % (0.0-7.3) H 10/24/20 05:24 Eos % (Auto) 0.9 % (0.0-4.3) 10/24/20 05:24 Baso % (Auto) 0.4 % (0.0-1.8) 10/24/20 05:24 Lymph # (Auto) 1.8 K/mm3 (1.2-5.4) 10/24/20 05:24 Bee # (Auto) 0.9 K/mm3 (0.0-0.8) H 10/24/20 05:24 Eos # (Auto) 0.1 K/mm3 (0.0-0.4) 10/24/20 05:24 Baso # (Auto) 0.0 K/mm3 (0.0-0.1) 10/24/20 05:24 Add Manual Diff Complete 10/26/20 06:42 Total Counted 100 10/26/20 06:42 Seg Neutrophils % 69.1 % (40.0-70.0) 10/24/20 05:24 Seg Neuts % (Manual) 65.0 % (40.0-70.0) 10/26/20 06:42 Band Neutrophils % 4.0 % 10/26/20 06:42 Lymphocytes % (Manual) 18.0 % (13.4-35.0) 10/26/20 06:42 Monocytes % (Manual) 4.0 % (0.0-7.3) 10/26/20 06:42 Eosinophils % (Manual) 1.0 % (0.0-4.3) 10/26/20 06:42 Metamyelocytes % 7.0 % 10/26/20 06:42 Myelocytes % 1.0 % 10/26/20 06:42 Nucleated RBC % Not Reportable 10/26/20 06:42 Seg Neutrophils # 6.4 K/mm3 (1.8-7.7) 10/24/20 05:24 Seg Neutrophils # Man 7.6 K/mm3 (1.8-7.7) 10/26/20 06:42 Band Neutrophils # 0.5 K/mm3 10/26/20 06:42 Lymphocytes # (Manual) 2.1 K/mm3 (1.2-5.4) 10/26/20 06:42 Abs React Lymphs (Man) 0.0 K/mm3 10/26/20 06:42 Monocytes # (Manual) 0.5 K/mm3 (0.0-0.8) 10/26/20 06:42 Eosinophils # (Manual) 0.1 K/mm3 (0.0-0.4) 10/26/20 06:42 Basophils # (Manual) 0.0 K/mm3 (0.0-0.1) 10/26/20 06:42 Metamyelocytes # 0.8 K/mm3 10/26/20 06:42 Myelocytes # 0.1 K/mm3 10/26/20 06:42 Promyelocytes # 0.0 K/mm3 10/26/20 06:42 Blast Cells # 0.0 K/mm3 10/26/20 06:42 WBC Morphology Not Reportable 10/26/20 06:42 Hypersegmented Neuts Not Reportable 10/26/20 06:42 Hyposegmented Neuts Not Reportable 10/26/20 06:42 Hypogranular Neuts Not Reportable 10/26/20 06:42 Smudge Cells Not Reportable 10/26/20 06:42 Toxic Granulation Not Reportable 10/26/20 06:42 Toxic Vacuolation Not Reportable 10/26/20 06:42 Dohle Bodies Not Reportable 10/26/20 06:42 Pelger-Huet Anomaly Not Reportable 10/26/20 06:42 Apryl Rods Not Reportable 10/26/20 06:42 Platelet Estimate Consistent w auto 10/26/20 06:42 Clumped Platelets Not Reportable 10/26/20 06:42 Plt Clumps, EDTA Not Reportable 10/26/20 06:42 Large Platelets Not Reportable 10/26/20 06:42 Giant Platelets Not Reportable 10/26/20 06:42 Platelet Satelliting Not Reportable 10/26/20 06:42 Plt Morphology Comment Not Reportable 10/26/20 06:42 RBC Morphology Not Reportable 10/26/20 06:42 Dimorphic RBCs Not Reportable 10/26/20 06:42 Polychromasia Not Reportable 10/26/20 06:42 Hypochromasia 1+ 10/26/20 06:42 Poikilocytosis 1+ 10/26/20 06:42 Anisocytosis 1+ 10/26/20 06:42 Microcytosis 1+ 10/26/20 06:42 Macrocytosis Not Reportable 10/26/20 06:42 Spherocytes Not Reportable 10/26/20 06:42 Pappenheimer Bodies Not Reportable 10/26/20 06:42 Sickle Cells Not Reportable 10/26/20 06:42 Target Cells Not Reportable 10/26/20 06:42 Tear Drop Cells Not Reportable 10/26/20 06:42 Ovalocytes 1+ 10/26/20 06:42 Helmet Cells Not Reportable 10/26/20 06:42 [place] Hotrontk Bodies Not Reportable 10/26/20 06:42 Chicken Rings Not Reportable 10/26/20 06:42 Delores Cells Not Reportable 10/26/20 06:42 Bite Cells Not Reportable 10/26/20 06:42 Crenated Cell Not Reportable 10/26/20 06:42 Elliptocytes Few 10/26/20 06:42 Acanthocytes (Spur) Not Reportable 10/26/20 06:42 Rouleaux Not Reportable 10/26/20 06:42 Hemoglobin C Crystals Not Reportable 10/26/20 06:42 Schistocytes Not Reportable 10/26/20 06:42 Malaria parasites Not Reportable 10/26/20 06:42 Mauricio Bodies Not Reportable 10/26/20 06:42 Hem Pathologist Commnt No 10/26/20 06:42 PT 14.1 Sec. (12.2-14.9) 10/18/20 19:15 INR 1.11 (0.87-1.13) 10/18/20 19:15 APTT 25.0 Sec. (24.2-36.6) 10/18/20 19:15 D-Dimer 1101.58 ng/mlDDU (0-234) H 10/26/20 10:42 Sodium 142 mmol/L (137-145) 10/26/20 06:42 Potassium 2.9 mmol/L (3.6-5.0) L* 10/26/20 06:42 Chloride 102.8 mmol/L (98-107) 10/26/20 06:42 Carbon Dioxide 33 mmol/L (22-30) H 10/26/20 06:42 Anion Gap 9 mmol/L 10/26/20 06:42 BUN 7 mg/dL (7-17) 10/26/20 06:42 Creatinine 0.4 mg/dL (0.6-1.2) L 10/26/20 06:42 Estimated GFR > 60 ml/min 10/26/20 06:42 BUN/Creatinine Ratio 18 % 10/26/20 06:42 Glucose 136 mg/dL (65-100) H 10/26/20 06:42 POC Glucose 264 mg/dL (70-105) H 10/27/20 22:08 Hemoglobin A1c 12.5 % (4-6) H 10/19/20 05:28 Calcium 7.9 mg/dL (8.4-10.2) L 10/26/20 06:42 Ferritin 235.0 ng/mL (10.0-200.0) H 10/26/20 10:42 Total Bilirubin < 0.20 mg/dL (0.1-1.2) 10/24/20 05:24 AST 28 units/L (5-40) 10/24/20 05:24 ALT 22 units/L (7-56) 10/24/20 05:24 Alkaline Phosphatase 77 units/L (35-129) 10/24/20 05:24 Lactate Dehydrogenase 332 units/L (91-180) H 10/26/20 10:42 Troponin T < 0.010 ng/mL (0.00-0.029) 10/18/20 21:29 C-Reactive Protein 1.50 mg/dL (0.00-1.30) H 10/26/20 10:42 Total Protein 5.0 g/dL (6.3-8.2) L 10/24/20 05:24 Albumin 2.3 g/dL (3.9-5) L 10/24/20 05:24 Albumin/Globulin Ratio 0.9 % 10/24/20 05:24 Procalcitonin < 0.05 ng/mL (<0.15) 10/19/20 05:15 HCG, Qual Negative (Negative) 10/18/20 19:15 Coronavirus (PCR) Positive (Negative) A 10/19/20 09:05 Monoscreen Negative (Negative) 10/18/20 23:02 Group A Strep Rapid Negative (Negative) 10/18/20 23:00 Sauceda/IV: Voiding Method Toilet Active Medications - Current Medications Current Medications: Generic Name Dose Route Start Last Admin Trade Name Freq PRN Reason Stop Dose Admin Acetaminophen 650 mg 10/19/20 05:17 10/23/20 09:25 Acetaminophen 325 Mg Tab PO 650 mg Q4H PRN Administration Pain MILD(1-3)/Fever >100.5/ROJAS Albuterol 2 puff 10/19/20 05:21 Albuterol 8.5 Gm Mdi Inhalation IH Q2HRT PRN Shortness Of Breath Dexamethasone 6 mg 10/21/20 12:00 10/27/20 10:37 Dexamethasone 4 Mg/Ml Vial IV 10/30/20 10:01 6 mg DAILY ROSSANA Administration Dextrose 50 ml 10/19/20 05:17 Dextrose 50% In Water (25gm) 50 Ml Syringe IV Q30MIN PRN Hypoglycemia Protocol Docusate Sodium 100 mg 10/19/20 10:00 10/27/20 22:21 Docusate Sodium 100 Mg Cap PO 100 mg BID ROSSANA Administration Enoxaparin Sodium 40 mg 10/19/20 10:00 10/27/20 10:36 Enoxaparin 40 Mg/0.4 Ml Inj SUB-Q 40 mg QDAY ROSSANA Administration Guaifenesin 600 mg 10/19/20 10:00 10/27/20 22:21 Guaifenesin Er 600 Mg Tab PO 600 mg BID ROSSANA Administration Guaifenesin 200 mg 10/20/20 12:48 10/22/20 23:01 Guaifenesin 100 Mg/5 Ml Oral Liqd PO 200 mg Q8H PRN Administration Cough Insulin Glargine 15 units 10/19/20 08:00 10/27/20 08:06 Insulin Glargine 100 Units/Ml SUB-Q 15 units QAMDIAB ROSSANA Administration Insulin Human Regular 0 units 10/19/20 07:30 10/27/20 22:21 Insulin Regular, Human 100 Units/1 Ml SUB-Q 3 units ACHS ROSSANA Administration Protocol Ondansetron HCl 4 mg 10/19/20 05:17 10/21/20 10:08 Ondansetron 4 Mg/2 Ml Inj IV 4 mg Q6H PRN Administration Nausea And Vomiting Oxycodone/Acetaminophen 1 tab 10/19/20 05:17 10/21/20 00:41 Oxycodone /Acetaminophen 5-325mg Tab PO 1 tab Q6H PRN Administration Pain, Moderate (4-6) Phenol 1 spray 10/21/20 08:12 05/09/21 17:18 Phenol 1.4% 177 Ml Bottle MM 1 spray PRN PRN Administration Sore Throat Sodium Chloride 10 ml 10/19/20 10:00 10/27/20 22:21 Sodium Chloride 0.9% 10 Ml Flush Syringe IV 10 ml BID ROSSANA Administration Sodium Chloride 10 ml 10/19/20 05:17 Sodium Chloride 0.9% 10 Ml Flush Syringe IV PRN PRN LINE FLUSH Nutrition/Malnutrition Assess - Dietary Evaluation Nutrition/Malnutrition Findings: Nutrition Notes Start: 10/26/20 08:32 Freq: Status: Active Protocol: Document 10/26/20 08:32 AT (Rec: 10/26/20 08:38 AT [id number]) Co-Sign 10/26/20 08:32 MK Nutrition Notes Need for Assessment generated from: LOS Initial or Follow up Brief Note Current Diagnosis Diabetes Other Pertinent Diagnosis COVID-19(+) Current Diet Cardiac/Consistent CHO Labs/Tests K 2.9 Cr 0.4 BG 136 A1c 12.5% [place] Body Weight (kg) 0 Subjective/Other Information Screen for LOS. Unable to reach pt by phone x3. Per chart, pt consuming 69% of meals on average. However, yesterday pt consumed 75% of meals on average. Per RN, pt consumed 75% of breakfast this morning. Pt meeting 80% EER and 100% of estimated protein needs. Pt may be appropriate for Consistent CHO diet education. Will follow for stable intakes and ONS needs. Nutrition Intervention Anticipated Discharge Needs: Cardiac/Consistent CHO Follow-Up By: 10/30/20 Additional Comments F/U stable intakes, ONS needs, diet education needs
[2020-10-28] MEDS: INSULIN GLARGINE 100 UNITS/ML SUB-Q SCH (08:04)
[2020-10-28] MEDS: dexAMETHasone 4 MG/ML VIAL IV SCH (10:28)
[2020-10-28] MEDS: DOCUSATE SODIUM 100 MG CAP PO SCH ×2 (10:28→22:32)
[2020-10-28] MEDS: ENOXAPARIN 40 MG/0.4 ML INJ SUB-Q SCH (10:29)
[2020-10-28] MEDS: guaiFENesin ER 600 MG TAB PO SCH ×2 (10:29→22:32)
--- NOTE | 2020-10-28 13:50 | Progress Note ---
Assessment and Plan - Patient Problems (1) Acute respiratory failure due to COVID-19 Current Visit: Yes Status: Acute (2) Pharyngitis Current Visit: Yes Status: Acute Qualifiers: Qualified Code(s): J02.9 - Acute pharyngitis, unspecified (3) Pneumonia Current Visit: Yes Status: Acute Qualifiers: Qualified Code(s): J18.9 - Pneumonia, unspecified organism (4) Respiratory failure Current Visit: Yes Status: Acute Qualifiers: Qualified Code(s): J96.01 - Acute respiratory failure with hypoxia (5) Shortness of breath Current Visit: Yes Status: Acute (6) Hypoxia Current Visit: Yes Status: Acute Subjective Principal diagnosis: COVID-19 Interval history: in prone position. feels better Objective Vital Signs - 12hr 10/28/20 10/28/20 10/28/20 02:00 04:41 07:23 Temperature 98.0 F Pulse Rate 61 Respiratory 18 Rate Blood Pressure 105/65 O2 Sat by Pulse 96 98 96 Oximetry 10/28/20 10/28/20 08:00 11:33 Temperature 98.6 F Pulse Rate 77 Respiratory 16 Rate Blood Pressure 109/71 O2 Sat by Pulse 100 93 Oximetry Constitutional: no acute distress, alert Eyes: non-icteric ENT: oropharynx moist Neck: supple Effort: normal Ascultation: Bilateral: rales (rare) Cardiovascular: regular rate and rhythm Gastrointestinal: normoactive bowel sounds, soft, non-tender, non-distended Integumentary: normal Extremities: no cyanosis Neurologic: normal mental status, non-focal exam, pupils equal and round, CN II- XII normal Psychiatric: mood appropriate, affect normal CBC and BMP: 10/26/20 06:42 10/26/20 06:42 ABG, PT/INR, D-dimer: PT/INR, D-dimer PT 14.1 Sec. (12.2-14.9) 10/18/20 19:15 INR 1.11 (0.87-1.13) 10/18/20 19:15 D-Dimer 1101.58 ng/mlDDU (0-234) H 10/26/20 10:42 Abnormal lab findings: Abnormal Labs 10/18/20 10/18/20 10/18/20 19:15 19:15 23:37 WBC 16.2 H RBC 7.16 H Hgb 15.5 H Hct 50.5 H MCV 71 L MCH 22 L RDW 19.5 H Lymph % (Auto) 3.8 L [place] % (Auto) Lymph # (Auto) 0.6 L [place] # (Auto) 1.1 H Seg Neutrophils % 88.7 H Seg Neutrophils # 14.4 H D-Dimer Sodium Potassium Chloride Carbon Dioxide 14 L BUN 23 H Creatinine Glucose 453 H POC Glucose 446 H Hemoglobin A1c Calcium Ferritin Lactate Dehydrogenase C-Reactive Protein Total Protein Albumin Coronavirus (PCR) 10/19/20 10/19/20 10/19/20 01:12 02:35 05:15 WBC RBC Hgb Hct MCV MCH RDW Lymph % (Auto) [place] % (Auto) Lymph # (Auto) [place] # (Auto) Seg Neutrophils % Seg Neutrophils # D-Dimer 1876.16 H Sodium Potassium Chloride Carbon Dioxide BUN Creatinine Glucose POC Glucose 359 H 310 H Hemoglobin A1c Calcium Ferritin Lactate Dehydrogenase C-Reactive Protein Total Protein Albumin Coronavirus (PCR) 10/19/20 10/19/20 10/19/20 05:15 05:28 07:40 WBC RBC Hgb Hct MCV MCH RDW Lymph % (Auto) [place] % (Auto) Lymph # (Auto) [place] # (Auto) Seg Neutrophils % Seg Neutrophils # D-Dimer Sodium Potassium Chloride Carbon Dioxide BUN Creatinine Glucose 344 H POC Glucose 322 H Hemoglobin A1c 12.5 H Calcium Ferritin Lactate Dehydrogenase 270 H C-Reactive Protein 4.80 H Total Protein Albumin Coronavirus (PCR) 10/19/20 10/19/20 10/19/20 09:05 12:04 17:59 WBC RBC Hgb Hct MCV MCH RDW Lymph % (Auto) [place] % (Auto) Lymph # (Auto) [place] # (Auto) Seg Neutrophils % Seg Neutrophils # D-Dimer Sodium Potassium Chloride Carbon Dioxide BUN Creatinine Glucose POC Glucose 297 H 285 H Hemoglobin A1c Calcium Ferritin Lactate Dehydrogenase C-Reactive Protein Total Protein Albumin Coronavirus (PCR) Positive A 10/19/20 10/20/20 10/20/20 22:59 07:05 07:05 WBC RBC 5.83 H Hgb Hct MCV 69 L MCH 22 L RDW 19.1 H Lymph % (Auto) 8.8 L [place] % (Auto) Lymph # (Auto) 0.8 L [place] # (Auto) Seg Neutrophils % 84.0 H Seg Neutrophils # D-Dimer Sodium Potassium 3.3 L D Chloride Carbon Dioxide 20 L BUN Creatinine Glucose 280 H POC Glucose 244 H Hemoglobin A1c Calcium Ferritin Lactate Dehydrogenase C-Reactive Protein Total Protein Albumin Coronavirus (PCR) 10/20/20 10/20/20 10/20/20 07:46 09:05 11:31 WBC RBC 6.09 H Hgb Hct MCV 69 L MCH 21 L RDW 18.7 H Lymph % (Auto) 9.9 L [place] % (Auto) Lymph # (Auto) 0.9 L [place] # (Auto) Seg Neutrophils % 82.5 H Seg Neutrophils # D-Dimer Sodium Potassium Chloride Carbon Dioxide BUN Creatinine Glucose POC Glucose 263 H 349 H Hemoglobin A1c Calcium Ferritin Lactate Dehydrogenase C-Reactive Protein Total Protein Albumin Coronavirus (PCR) 10/20/20 10/20/20 10/21/20 16:28 22:01 07:11 WBC RBC Hgb Hct MCV MCH RDW Lymph % (Auto) [place] % (Auto) Lymph # (Auto) [place] # (Auto) Seg Neutrophils % Seg Neutrophils # D-Dimer Sodium Potassium Chloride Carbon Dioxide BUN Creatinine Glucose POC Glucose 245 H 278 H 256 H Hemoglobin A1c Calcium Ferritin Lactate Dehydrogenase C-Reactive Protein Total Protein Albumin Coronavirus (PCR) 10/21/20 10/21/20 10/21/20 07:21 11:32 15:23 WBC RBC Hgb Hct MCV MCH RDW Lymph % (Auto) [place] % (Auto) Lymph # (Auto) [place] # (Auto) Seg Neutrophils % Seg Neutrophils # D-Dimer Sodium Potassium 3.3 L Chloride Carbon Dioxide BUN Creatinine 0.5 L 0.5 L Glucose 239 H 371 H POC Glucose 258 H Hemoglobin A1c Calcium 8.3 L Ferritin Lactate Dehydrogenase C-Reactive Protein Total Protein 5.4 L D Albumin 2.9 L Coronavirus (PCR) 10/21/20 10/21/20 10/22/20 16:06 22:05 06:57 WBC RBC Hgb Hct MCV MCH RDW Lymph % (Auto) [place] % (Auto) Lymph # (Auto) [place] # (Auto) Seg Neutrophils % Seg Neutrophils # D-Dimer Sodium Potassium 3.3 L Chloride Carbon Dioxide BUN Creatinine 0.5 L Glucose 200 H POC Glucose 387 H 298 H Hemoglobin A1c Calcium Ferritin Lactate Dehydrogenase C-Reactive Protein Total Protein Albumin 3.1 L Coronavirus (PCR) 10/22/20 10/22/20 10/22/20 08:04 12:39 16:08 WBC RBC Hgb Hct MCV MCH RDW Lymph % (Auto) [place] % (Auto) Lymph # (Auto) [place] # (Auto) Seg Neutrophils % Seg Neutrophils # D-Dimer Sodium Potassium Chloride Carbon Dioxide BUN Creatinine Glucose POC Glucose 200 H 240 H 297 H Hemoglobin A1c Calcium Ferritin Lactate Dehydrogenase C-Reactive Protein Total Protein Albumin Coronavirus (PCR) 10/22/20 10/22/20 10/22/20 16:15 16:15 16:15 WBC RBC Hgb Hct MCV MCH RDW Lymph % (Auto) [place] % (Auto) Lymph # (Auto) [place] # (Auto) Seg Neutrophils % Seg Neutrophils # D-Dimer 1275.26 H Sodium Potassium Chloride Carbon Dioxide BUN Creatinine Glucose POC Glucose Hemoglobin A1c Calcium Ferritin 201.8 H Lactate Dehydrogenase 296 H C-Reactive Protein 1.40 H Total Protein Albumin Coronavirus (PCR) 10/22/20 10/23/20 10/23/20 22:05 05:30 05:30 WBC RBC Hgb Hct MCV MCH RDW Lymph % (Auto) [place] % (Auto) Lymph # (Auto) [place] # (Auto) Seg Neutrophils % Seg Neutrophils # D-Dimer 995.73 H Sodium Potassium 2.8 L* Chloride Carbon Dioxide 32 H BUN 6 L Creatinine 0.4 L Glucose 131 H POC Glucose 283 H Hemoglobin A1c Calcium 8.0 L Ferritin Lactate Dehydrogenase 274 H C-Reactive Protein 1.50 H Total Protein 5.2 L Albumin 2.4 L Coronavirus (PCR) 10/23/20 10/23/20 10/23/20 08:22 11:40 15:26 WBC RBC Hgb Hct MCV MCH RDW Lymph % (Auto) [place] % (Auto) Lymph # (Auto) [place] # (Auto) Seg Neutrophils % Seg Neutrophils # D-Dimer Sodium 134 L Potassium Chloride 97.2 L Carbon Dioxide BUN Creatinine 0.4 L Glucose 372 H POC Glucose 120 H 257 H Hemoglobin A1c Calcium 8.0 L Ferritin Lactate Dehydrogenase C-Reactive Protein Total Protein Albumin Coronavirus (PCR) 10/23/20 10/24/20 10/24/20 21:49 05:24 05:24 WBC RBC 5.52 H Hgb Hct MCV 69 L MCH 22 L RDW 17.7 H Lymph % (Auto) [place] % (Auto) 10.3 H Lymph # (Auto) [place] # (Auto) 0.9 H Seg Neutrophils % Seg Neutrophils # D-Dimer Sodium Potassium 3.0 L D Chloride Carbon Dioxide 31 H BUN 6 L Creatinine 0.5 L Glucose 257 H POC Glucose 292 H Hemoglobin A1c Calcium 7.9 L Ferritin Lactate Dehydrogenase C-Reactive Protein Total Protein 5.0 L Albumin 2.3 L Coronavirus (PCR) 10/24/20 10/24/20 10/24/20 07:41 11:15 16:23 WBC RBC Hgb Hct MCV MCH RDW Lymph % (Auto) [place] % (Auto) Lymph # (Auto) [place] # (Auto) Seg Neutrophils % Seg Neutrophils # D-Dimer Sodium Potassium Chloride Carbon Dioxide BUN Creatinine Glucose POC Glucose 212 H 228 H 386 H Hemoglobin A1c Calcium Ferritin Lactate Dehydrogenase C-Reactive Protein Total Protein Albumin Coronavirus (PCR) 10/24/20 10/25/20 10/25/20 21:03 07:41 11:24 WBC RBC Hgb Hct MCV MCH RDW Lymph % (Auto) [place] % (Auto) Lymph # (Auto) [place] # (Auto) Seg Neutrophils % Seg Neutrophils # D-Dimer Sodium Potassium Chloride Carbon Dioxide BUN Creatinine Glucose POC Glucose 316 H 177 H 359 H Hemoglobin A1c Calcium Ferritin Lactate Dehydrogenase C-Reactive Protein Total Protein Albumin Coronavirus (PCR) 10/25/20 10/25/20 10/26/20 16:19 21:23 06:42 WBC 11.7 H RBC 5.09 H Hgb Hct MCV 69 L MCH 22 L RDW 17.4 H Lymph % (Auto) [place] % (Auto) Lymph # (Auto) [place] # (Auto) Seg Neutrophils % Seg Neutrophils # D-Dimer Sodium Potassium Chloride Carbon Dioxide BUN Creatinine Glucose POC Glucose 368 H 256 H Hemoglobin A1c Calcium Ferritin Lactate Dehydrogenase C-Reactive Protein Total Protein Albumin Coronavirus (PCR) 10/26/20 10/26/20 10/26/20 06:42 06:42 07:47 WBC RBC Hgb Hct MCV MCH RDW Lymph % (Auto) [place] % (Auto) Lymph # (Auto) [place] # (Auto) Seg Neutrophils % Seg Neutrophils # D-Dimer 1137.09 H Sodium Potassium 2.9 L* Chloride Carbon Dioxide 33 H BUN Creatinine 0.4 L Glucose 136 H POC Glucose 154 H Hemoglobin A1c Calcium 7.9 L Ferritin Lactate Dehydrogenase C-Reactive Protein Total Protein Albumin Coronavirus (PCR) 10/26/20 10/26/20 10/26/20 10:42 10:42 10:42 WBC RBC Hgb Hct MCV MCH RDW Lymph % (Auto) [place] % (Auto) Lymph # (Auto) [place] # (Auto) Seg Neutrophils % Seg Neutrophils # D-Dimer 1101.58 H Sodium Potassium Chloride Carbon Dioxide BUN Creatinine Glucose POC Glucose Hemoglobin A1c Calcium Ferritin 235.0 H Lactate Dehydrogenase 332 H C-Reactive Protein 1.50 H Total Protein Albumin Coronavirus (PCR) 10/26/20 10/26/20 10/26/20 11:56 16:14 21:04 WBC RBC Hgb Hct MCV MCH RDW Lymph % (Auto) [place] % (Auto) Lymph # (Auto) [place] # (Auto) Seg Neutrophils % Seg Neutrophils # D-Dimer Sodium Potassium Chloride Carbon Dioxide BUN Creatinine Glucose POC Glucose 270 H 363 H 321 H Hemoglobin A1c Calcium Ferritin Lactate Dehydrogenase C-Reactive Protein Total Protein Albumin Coronavirus (PCR) 10/27/20 10/27/20 10/27/20 07:54 11:24 16:05 WBC RBC Hgb Hct MCV MCH RDW Lymph % (Auto) [place] % (Auto) Lymph # (Auto) [place] # (Auto) Seg Neutrophils % Seg Neutrophils # D-Dimer Sodium Potassium Chloride Carbon Dioxide BUN Creatinine Glucose POC Glucose 190 H 451 H 314 H Hemoglobin A1c Calcium Ferritin Lactate Dehydrogenase C-Reactive Protein Total Protein Albumin Coronavirus (PCR) 10/27/20 10/28/20 10/28/20 22:08 07:46 11:35 WBC RBC Hgb Hct MCV MCH RDW Lymph % (Auto) [place] % (Auto) Lymph # (Auto) [place] # (Auto) Seg Neutrophils % Seg Neutrophils # D-Dimer Sodium Potassium Chloride Carbon Dioxide BUN Creatinine Glucose POC Glucose 264 H 208 H 270 H Hemoglobin A1c Calcium Ferritin Lactate Dehydrogenase C-Reactive Protein Total Protein Albumin Coronavirus (PCR)
--- NOTE | 2020-10-28 14:01 | Progress Note ---
Assessment and Plan Cultures: SARS CoV2 PCR: positive 10/19/2020 blood culture: no growth today A/P: 40/F with DM: #COVID-19 pneumonia: Markers elevated, D-dimer 1876, CRP 4.8, LDH 270. Markers uptrending. CTA no PE. #Leukocytosis: Likely secondary to above, improved. #Acute hypoxemic respiratory failure: better remains on salter now 5L #Diabetes mellitus, uncontrolled: HbA1c 12.5 Recs: -Ordered markers today -Home O2 arranged per case planner -Continue dexamethasone 6 mg IV/PO daily for 10 days -Completed remdesivir -No indication for antibiotics, procalcitonin is low -Prone positioning as possible -Anticoagulation per system protocol -Pulmonary on board Okay to discharge home if continues to improve Discussed with patient MD Fermin [facility] ([facility]) Office [phone] Subjective Date of service: 10/28/20 Principal diagnosis: COVID-19 Interval history: Patient feels much better, currently on 5 L salter, cough improving. Objective - Exam Narrative Exam: General appearance: Alert in NAD pleasant Eyes: anicteric sclerae, moist conjunctivae; no lid-lag; PERRLA HENT: Normocephalic, Atraumatic; normal external ears, nares open, oropharynx masood Neck: supple, tracheal midline, no JVD Lungs: Bilateral crackles CV: RRR no murmur Abdomen: Soft, non-tender; no masses or hepatosplenomegaly Extremities: no edema, no cyanosis Skin: No rash. Psych: no agitated Neuro: alert and oriented x 3. Moving all extermities - Constitutional Vitals: Vital Signs Temp Pulse Resp BP Pulse Ox 98.0 F 61 18 105/65 100 10/28/20 04:41 10/28/20 04:41 10/28/20 04:41 10/28/20 04:41 10/28/20 08:00 Temperature -Last 24 Hours Temperature 98.0 F Temperature 97.8 F Temperature 98 F Temperature 97.6 F - Labs CBC & Chem 7: 10/26/20 06:42 10/26/20 06:42 Labs: Abnormal lab results 10/27/20 10/27/20 10/27/20 Range/Units 11:24 16:05 22:08 POC Glucose 451 H 314 H 264 H (70-105) mg/dL 10/28/20 Range/Units 07:46 POC Glucose 208 H (70-105) mg/dL
[2020-10-28 15:46] LABS: C-Reactive Protein 0.8 mg/dL (0.00-1.30)
--- NOTE | 2020-10-29 07:26 | Progress Note ---
Assessment and Plan Assessment and plan: COVID-19 virus infection -CT angio chest negative for PE, but shows mild to moderate patchy bilateral gr oundglass opacities Acute hypoxic respiratory failure -Likely secondary to COVID-19 virus infection Asthma exacerbation DM II, uncontrolled Acute atypical chest Pain -Troponin negative x 2 -EKG unrevealing for acute ischemic abnormalities -CXR negative Leukocytosis -WBC on admission 16.2 DVT PPX -On Lovenox 10/19/20 Patient is doing better. Denies any chest pain no shortness of breath now Continue Rocephin and Zithromax and neb treatment. Follow the Covid test result We we will follow the serial cardiac enzyme. Repeat CBC BMP in the morning Continue scheduled Lantus and SSI coverage. Will check whether patient needs for home oxygen. Possible discharge plan in a.m. if is stable 10/20/20 Patient is doing better. Denies any chest pain no shortness of breath . No cough Continue Rocephin and Zithromax and neb treatment. Covid test is positive. Decadron 6 mg IV daily. We will check for oxygen saturation on walking. ID follow-up We we will follow the serial cardiac enzyme. Outpatient the stress test because of Covid status. Potassium is 3.3. Potassium supplemented. Repeat CBC BMP in the morning Continue scheduled Lantus and SSI coverage. 10/21/20 Patient complained mild coughing and shortness of breath. Continue DuoNeb treatment. Oxygen 2 to 3 L/min. Procalcitonin is low so antibiotic and steroid was discontinued. We will do a 6-minute walking test for oxygen. Potassium is 3.3 potassium is supplemented. BMP in the morning. Continue scheduled Lantus and SSI coverage. ID follow-up. Discharge planning 1 to 2 days 10/22/20 Patient is seen and examined Patient complained of nausea. Also shortness of breath and coughing. Patient O2 sat dropped to 85% on walking yesterday We started on remdesivir and dexamethasone IV 6 mg daily. Follow the markers of Covid Continue DuoNeb treatment. Oxygen 2 to 3 L/min. Procalcitonin is low so antibiotic was discontinued. Zofran 4 mg IV every 6 hours as needed. BMP in the morning. Continue scheduled Lantus and SSI coverage. ID follow-up. Discharge planning when medically stable and remdesivir completed. 10/23/2020. Continue remdesivir and dexamethasone. ID following. Procalcitonin is low so antibiotic was discontinued. Exercise pulse oximetry testing prior to discharge. 10/24/2020. Patient is to have remdesivir completed tomorrow. Continue dexamethasone. Walk test as reported by nursing is as follows: started walk test at 1033 on RA, pts sats 90%. Pt stood up, walked to sink. pt desatted to 85% on RA, complained on dizziness. Pt walked back to bed, sat down. O2 2L applied. Pt recovered to 91%, at 2 min zeyad after resting. Pt ambulated with O2 2L on. saturations 90-91%. After 2 mins pt requesting to sit down, stating " I am dizzy and short of breath." Pt oxygen sats 88-89% on 2L/NC. Pt recovered to 90-91% after 2 mins of resting in bed. Pt states feeling better after sitting. will continue plan of care, notify MD of walk test results. 10/25/2020. Continue dexamethasone and remdesivir is to complete on 10/25. Patient was hypoxic with exercise on oxygen with walk test yesterday. Therefore we will continue inpatient hospitalization until completion of her labs very which will be tonight. Continue to monitor and anticipate discharge in a.m. 10/26/2020. Patient's oxygen requirements increased to 15 L yesterday and somewhat improved today down to 10 L. Patient became more hypoxemic but doing better. We will continue to wean oxygen supplementation as needed. Remdesivir completed yesterday. Continue dexamethasone. Prone positioning as possible. Check inflammatory markers. 10/27/2020. Patient's oxygen requirements decreased from 10 L to 8 L/min currently. Continue to wean oxygen supplementation as needed. Remdesivir completed. Prone positioning as possible. 10/28/2020. Patient's oxygen requirements decreased from 8 L to 7 L/min currently. Continue to wean oxygen supplementation as needed. Remdesivir completed. Prone positioning as possible. Patient reports a history of asthma but not on medications for the past few years. Consider changing dexamethasone to Solu-Medrol IV. Defer to pulmonary. 10/29/2020. Patient's oxygen requirements have been decreased to 5 L/min. Continue to wean oxygen supplementation as needed. Remdesivir completed. Prone positioning as possible. Exercise pulse oximetry testing to determine discharge planning. History Interval history: No new issues overnight. Hospitalist Physical - Constitutional Vitals: Temp Pulse Resp BP Pulse Ox 98.6 F 75 18 107/71 97 10/29/20 04:11 10/29/20 04:11 10/29/20 04:11 10/29/20 04:11 10/29/20 04:11 General appearance: Present: no acute distress - EENT Eyes: Present: PERRL, EOM intact ENT: hearing intact, clear oral mucosa, dentition normal - Neck Neck: Present: supple, normal ROM - Respiratory Respiratory effort: normal Respiratory: bilateral: CTA - Cardiovascular Rhythm: regular Heart Sounds: Present: S1 & S2. Absent: gallop, rub - Extremities Extremities: no ischemia, No edema, Full ROM - Abdominal General gastrointestinal: soft, non-tender, non-distended, normal bowel sounds - Integumentary Integumentary: Present: clear, warm, dry - Neurologic Neurologic: CNII-XII intact, moves all extremities HEART Score - HEART Score EKG: Normal Age: < 45 Risk factors: No known risk factors Troponin: Troponin T < 0.010 ng/mL (0.00-0.029) 10/18/20 21:29 Troponin: < normal limit Results - Labs CBC & Chem 7: 10/26/20 06:42 10/26/20 06:42 Labs: Laboratory Last Values WBC 11.7 K/mm3 (4.5-11.0) H 10/26/20 06:42 RBC 5.09 M/mm3 (3.65-5.03) H 10/26/20 06:42 Hgb 11.2 gm/dl (10.1-14.3) 10/26/20 06:42 Hct 35.1 % (30.3-42.9) 10/26/20 06:42 MCV 69 fl (79-97) L 10/26/20 06:42 MCH 22 pg (28-32) L 10/26/20 06:42 MCHC 32 % (30-34) 10/26/20 06:42 RDW 17.4 % (13.2-15.2) H 10/26/20 06:42 Plt Count 251 K/mm3 (140-440) 10/26/20 06:42 Lymph % (Auto) 19.3 % (13.4-35.0) 10/24/20 05:24 Gray % (Auto) 10.3 % (0.0-7.3) H 10/24/20 05:24 Eos % (Auto) 0.9 % (0.0-4.3) 10/24/20 05:24 Baso % (Auto) 0.4 % (0.0-1.8) 10/24/20 05:24 Lymph # (Auto) 1.8 K/mm3 (1.2-5.4) 10/24/20 05:24 Gray # (Auto) 0.9 K/mm3 (0.0-0.8) H 10/24/20 05:24 Eos # (Auto) 0.1 K/mm3 (0.0-0.4) 10/24/20 05:24 Baso # (Auto) 0.0 K/mm3 (0.0-0.1) 10/24/20 05:24 Add Manual Diff Complete 10/26/20 06:42 Total Counted 100 10/26/20 06:42 Seg Neutrophils % 69.1 % (40.0-70.0) 10/24/20 05:24 Seg Neuts % (Manual) 65.0 % (40.0-70.0) 10/26/20 06:42 Band Neutrophils % 4.0 % 10/26/20 06:42 Lymphocytes % (Manual) 18.0 % (13.4-35.0) 10/26/20 06:42 Monocytes % (Manual) 4.0 % (0.0-7.3) 10/26/20 06:42 Eosinophils % (Manual) 1.0 % (0.0-4.3) 10/26/20 06:42 Metamyelocytes % 7.0 % 10/26/20 06:42 Myelocytes % 1.0 % 10/26/20 06:42 Nucleated RBC % Not Reportable 10/26/20 06:42 Seg Neutrophils # 6.4 K/mm3 (1.8-7.7) 10/24/20 05:24 Seg Neutrophils # Man 7.6 K/mm3 (1.8-7.7) 10/26/20 06:42 Band Neutrophils # 0.5 K/mm3 10/26/20 06:42 Lymphocytes # (Manual) 2.1 K/mm3 (1.2-5.4) 10/26/20 06:42 Abs React Lymphs (Man) 0.0 K/mm3 10/26/20 06:42 Monocytes # (Manual) 0.5 K/mm3 (0.0-0.8) 10/26/20 06:42 Eosinophils # (Manual) 0.1 K/mm3 (0.0-0.4) 10/26/20 06:42 Basophils # (Manual) 0.0 K/mm3 (0.0-0.1) 10/26/20 06:42 Metamyelocytes # 0.8 K/mm3 10/26/20 06:42 Myelocytes # 0.1 K/mm3 10/26/20 06:42 Promyelocytes # 0.0 K/mm3 10/26/20 06:42 Blast Cells # 0.0 K/mm3 10/26/20 06:42 WBC Morphology Not Reportable 10/26/20 06:42 Hypersegmented Neuts Not Reportable 10/26/20 06:42 Hyposegmented Neuts Not Reportable 10/26/20 06:42 Hypogranular Neuts Not Reportable 10/26/20 06:42 Smudge Cells Not Reportable 10/26/20 06:42 Toxic Granulation Not Reportable 10/26/20 06:42 Toxic Vacuolation Not Reportable 10/26/20 06:42 Dohle Bodies Not Reportable 10/26/20 06:42 Pelger-Huet Anomaly Not Reportable 10/26/20 06:42 Apryl Rods Not Reportable 10/26/20 06:42 Platelet Estimate Consistent w auto 10/26/20 06:42 Clumped Platelets Not Reportable 10/26/20 06:42 Plt Clumps, EDTA Not Reportable 10/26/20 06:42 Large Platelets Not Reportable 10/26/20 06:42 Giant Platelets Not Reportable 10/26/20 06:42 Platelet Satelliting Not Reportable 10/26/20 06:42 Plt Morphology Comment Not Reportable 10/26/20 06:42 RBC Morphology Not Reportable 10/26/20 06:42 Dimorphic RBCs Not Reportable 10/26/20 06:42 Polychromasia Not Reportable 10/26/20 06:42 Hypochromasia 1+ 10/26/20 06:42 Poikilocytosis 1+ 10/26/20 06:42 Anisocytosis 1+ 10/26/20 06:42 Microcytosis 1+ 10/26/20 06:42 Macrocytosis Not Reportable 10/26/20 06:42 Spherocytes Not Reportable 10/26/20 06:42 Pappenheimer Bodies Not Reportable 10/26/20 06:42 Sickle Cells Not Reportable 10/26/20 06:42 Target Cells Not Reportable 10/26/20 06:42 Tear Drop Cells Not Reportable 10/26/20 06:42 Ovalocytes 1+ 10/26/20 06:42 Helmet Cells Not Reportable 10/26/20 06:42 [place] Bodies Not Reportable 10/26/20 06:42 [place] Rings Not Reportable 10/26/20 06:42 [place] Cells Not Reportable 10/26/20 06:42 Bite Cells Not Reportable 10/26/20 06:42 Crenated Cell Not Reportable 10/26/20 06:42 Elliptocytes Few 10/26/20 06:42 Acanthocytes (Spur) Not Reportable 10/26/20 06:42 Rouleaux Not Reportable 10/26/20 06:42 Hemoglobin C Crystals Not Reportable 10/26/20 06:42 Schistocytes Not Reportable 10/26/20 06:42 Malaria parasites Not Reportable 10/26/20 06:42 Mauricio Bodies Not Reportable 10/26/20 06:42 Hem Pathologist Commnt No 10/26/20 06:42 PT 14.1 Sec. (12.2-14.9) 10/18/20 19:15 INR 1.11 (0.87-1.13) 10/18/20 19:15 APTT 25.0 Sec. (24.2-36.6) 10/18/20 19:15 D-Dimer 699.99 ng/mlDDU (0-234) H 10/28/20 14:38 Sodium 142 mmol/L (137-145) 10/26/20 06:42 Potassium 2.9 mmol/L (3.6-5.0) L* 10/26/20 06:42 Chloride 102.8 mmol/L (98-107) 10/26/20 06:42 Carbon Dioxide 33 mmol/L (22-30) H 10/26/20 06:42 Anion Gap 9 mmol/L 10/26/20 06:42 BUN 7 mg/dL (7-17) 10/26/20 06:42 Creatinine 0.4 mg/dL (0.6-1.2) L 10/26/20 06:42 Estimated GFR > 60 ml/min 10/26/20 06:42 BUN/Creatinine Ratio 18 % 10/26/20 06:42 Glucose 136 mg/dL (65-100) H 10/26/20 06:42 POC Glucose 298 mg/dL (70-105) H 10/28/20 21:58 Hemoglobin A1c 12.5 % (4-6) H 10/19/20 05:28 Calcium 7.9 mg/dL (8.4-10.2) L 10/26/20 06:42 Ferritin 137.1 ng/mL (10.0-200.0) 10/28/20 14:38 Total Bilirubin < 0.20 mg/dL (0.1-1.2) 10/24/20 05:24 AST 28 units/L (5-40) 10/24/20 05:24 ALT 22 units/L (7-56) 10/24/20 05:24 Alkaline Phosphatase 77 units/L (35-129) 10/24/20 05:24 Lactate Dehydrogenase 354 units/L (91-180) H 10/28/20 14:38 Troponin T < 0.010 ng/mL (0.00-0.029) 10/18/20 21:29 C-Reactive Protein 0.80 mg/dL (0.00-1.30) 10/28/20 14:38 Total Protein 5.0 g/dL (6.3-8.2) L 10/24/20 05:24 Albumin 2.3 g/dL (3.9-5) L 10/24/20 05:24 Albumin/Globulin Ratio 0.9 % 10/24/20 05:24 Procalcitonin < 0.05 ng/mL (<0.15) 10/19/20 05:15 HCG, Qual Negative (Negative) 10/18/20 19:15 Coronavirus (PCR) Positive (Negative) A 10/19/20 09:05 Monoscreen Negative (Negative) 10/18/20 23:02 Group A Strep Rapid Negative (Negative) 10/18/20 23:00 [place]/IV: Voiding Method Toilet Active Medications - Current Medications Current Medications: Generic Name Dose Route Start Last Admin Trade Name Freq PRN Reason Stop Dose Admin Acetaminophen 650 mg 10/19/20 05:17 10/23/20 09:25 Acetaminophen 325 Mg Tab PO 650 mg Q4H PRN Administration Pain MILD(1-3)/Fever >100.5/ROJAS Albuterol 2 puff 10/19/20 05:21 Albuterol 8.5 Gm Mdi Inhalation IH Q2HRT PRN Shortness Of Breath Dexamethasone 6 mg 10/21/20 12:00 10/28/20 10:28 Dexamethasone 4 Mg/Ml Vial IV 10/30/20 10:01 6 mg DAILY ROSSANA Administration Dextrose 50 ml 10/19/20 05:17 Dextrose 50% In Water (25gm) 50 Ml Syringe IV Q30MIN PRN Hypoglycemia Protocol Docusate Sodium 100 mg 10/19/20 10:00 10/28/20 22:32 Docusate Sodium 100 Mg Cap PO 100 mg BID ROSSANA Administration Enoxaparin Sodium 40 mg 10/19/20 10:00 10/28/20 10:29 Enoxaparin 40 Mg/0.4 Ml Inj SUB-Q 40 mg QDAY ROSSANA Administration Guaifenesin 600 mg 10/19/20 10:00 10/28/20 22:32 Guaifenesin Er 600 Mg Tab PO 600 mg BID ROSSANA Administration Guaifenesin 200 mg 10/20/20 12:48 10/22/20 23:01 Guaifenesin 100 Mg/5 Ml Oral Liqd PO 200 mg Q8H PRN Administration Cough Insulin Glargine 15 units 10/19/20 08:00 10/28/20 08:04 Insulin Glargine 100 Units/Ml SUB-Q 15 units QAMDIAB ROSSANA Administration Insulin Human Regular 0 units 10/19/20 07:30 10/28/20 22:32 Insulin Regular, Human 100 Units/1 Ml SUB-Q 4 units ACHS ROSSANA Administration Protocol Ondansetron HCl 4 mg 10/19/20 05:17 10/21/20 10:08 Ondansetron 4 Mg/2 Ml Inj IV 4 mg Q6H PRN Administration Nausea And Vomiting Oxycodone/Acetaminophen 1 tab 10/19/20 05:17 10/21/20 00:41 Oxycodone /Acetaminophen 5-325mg Tab PO 1 tab Q6H PRN Administration Pain, Moderate (4-6) Phenol 1 spray 10/21/20 08:12 10/21/20 17:18 Phenol 1.4% 177 Ml Bottle MM 1 spray PRN PRN Administration Sore Throat Sodium Chloride 10 ml 10/19/20 10:00 10/28/20 22:33 Sodium Chloride 0.9% 10 Ml Flush Syringe IV 10 ml BID ROSSANA Administration Sodium Chloride 10 ml 10/19/20 05:17 Sodium Chloride 0.9% 10 Ml Flush Syringe IV PRN PRN LINE FLUSH Nutrition/Malnutrition Assess - Dietary Evaluation Nutrition/Malnutrition Findings: Nutrition Notes Start: 10/26/20 08:32 Freq: Status: Active Protocol: Document 10/26/20 08:32 AT (Rec: 10/26/20 08:38 AT [id number]) Co-Sign 10/26/20 08:32 MK Nutrition Notes Need for Assessment generated from: LOS Initial or Follow up Brief Note Current Diagnosis Diabetes Other Pertinent Diagnosis COVID-19(+) Current Diet Cardiac/Consistent CHO Labs/Tests K 2.9 Cr 0.4 BG 136 A1c 12.5% [place] Body Weight (kg) 0 Subjective/Other Information Screen for LOS. Unable to reach pt by phone x3. Per chart, pt consuming 69% of meals on average. However, yesterday pt consumed 75% of meals on average. Per RN, pt consumed 75% of breakfast this morning. Pt meeting 80% EER and 100% of estimated protein needs. Pt may be appropriate for Consistent CHO diet education. Will follow for stable intakes and ONS needs. Nutrition Intervention Anticipated Discharge Needs: Cardiac/Consistent CHO Follow-Up By: 10/30/20 Additional Comments F/U stable intakes, ONS needs, diet education needs
[2020-10-29] MEDS: INSULIN GLARGINE 100 UNITS/ML SUB-Q SCH (09:00)
[2020-10-29] MEDS: INSULIN REGULAR, HUMAN 100 UNITS/1 ML SUB-Q SCH ×4 (09:00→21:41)
[2020-10-29] MEDS: dexAMETHasone 4 MG/ML VIAL IV SCH (09:48)
[2020-10-29] MEDS: DOCUSATE SODIUM 100 MG CAP PO SCH ×2 (09:48→21:26)
[2020-10-29] MEDS: ENOXAPARIN 40 MG/0.4 ML INJ SUB-Q SCH (09:49)
[2020-10-29] MEDS: guaiFENesin ER 600 MG TAB PO SCH ×2 (09:50→21:25)
--- NOTE | 2020-10-29 10:57 | Progress Note ---
Assessment and Plan Cultures: SARS CoV2 PCR: positive 10/19/2020 blood culture: no growth today A/P: 40/F with DM: #COVID-19 pneumonia: Markers elevated, D-dimer 1876, CRP 4.8, LDH 270. Markers uptrending. CTA no PE. #Leukocytosis: Likely secondary to above, improved. #Acute hypoxemic respiratory failure: better remains on salter now 5L #Diabetes mellitus, uncontrolled: HbA1c 12.5 Recs: -Home O2 arranged per case monitor -Continue dexamethasone 6 mg IV/PO daily for 10 days -Completed remdesivir -No indication for antibiotics, procalcitonin is low -Prone positioning as possible -Anticoagulation per system protocol -Pulmonary on board OK to DC when otherwise stable. Loki Byrne MD [facility] O: [phone] F: [phone] vascular fellow 5 implant on #4. Melanoma diagnosis Subjective Date of service: 10/29/20 Principal diagnosis: COVID-19 Interval history: Afebrile, no acute change. Objective - Exam Narrative Exam: Physical exam deferred to reduce risk of transmission of COVID-19. Please refer to primary team's note. - Constitutional Vitals: Vital Signs Temp Pulse Resp BP Pulse Ox 98.6 F 75 18 107/71 97 10/29/20 04:11 10/29/20 04:11 10/29/20 04:11 10/29/20 04:11 10/29/20 04:11 Temperature -Last 24 Hours Temperature 98.6 F Temperature 98.3 F Temperature 98.1 F Temperature 98.6 F - Labs CBC & Chem 7: 10/26/20 06:42 10/26/20 06:42 Labs: Abnormal lab results 10/28/20 10/28/20 10/28/20 Range/Units 11:35 14:38 14:38 D-Dimer 699.99 H (0-234) ng/mlDDU POC Glucose 270 H (70-105) mg/dL Lactate Dehydrogenase 354 H (91-180) units/L 10/28/20 10/28/20 Range/Units 16:46 21:58 D-Dimer (0-234) ng/mlDDU POC Glucose 292 H 298 H (70-105) mg/dL Lactate Dehydrogenase (91-180) units/L
--- NOTE | 2020-10-29 11:46 | Progress Note ---
Assessment and Plan 40 y/o female with acute respiratory failure secondary to COVID 19 1. Continue to wean FiO2 as tolerated. Would walk patient on 3 liters to make sure she maintains sats on this. And this would be what I would send her home on. If she needs 4, patient would benefit from a higher flow concentrator at home (7-10) liters to provide more of a buffer if there are times when more oxygen is needed. Agree with finishing 10 days total of steroids. Monitor fluid balance. Will continue to follow along with you. Subjective Date of service: 10/29/20 Principal diagnosis: COVID-19 Interval history: Down to 4 liters. Sats in the low 90's. Had walk test on done on yesterday to show that she qualified for home O2. Objective Vital Signs - 12hr 10/29/20 10/29/20 10/29/20 01:53 04:11 08:00 Temperature 98.6 F Pulse Rate 75 Respiratory 18 Rate Blood Pressure 107/71 O2 Sat by Pulse 96 97 93 Oximetry Constitutional: no acute distress, alert Eyes: non-icteric ENT: oropharynx moist Neck: supple Effort: normal Ascultation: Bilateral: rales (rare) Cardiovascular: regular rate and rhythm Gastrointestinal: normoactive bowel sounds, soft, non-tender, non-distended Integumentary: normal Extremities: no cyanosis Neurologic: normal mental status, non-focal exam, pupils equal and round, CN II- XII normal Psychiatric: mood appropriate, affect normal CBC and BMP: 10/26/20 06:42 10/26/20 06:42 ABG, PT/INR, D-dimer: PT/INR, D-dimer PT 14.1 Sec. (12.2-14.9) 10/18/20 19:15 INR 1.11 (0.87-1.13) 10/18/20 19:15 D-Dimer 699.99 ng/mlDDU (0-234) H 10/28/20 14:38 Abnormal lab findings: Abnormal Labs 10/18/20 10/18/20 10/18/20 19:15 19:15 23:37 WBC 16.2 H RBC 7.16 H Hgb 15.5 H Hct 50.5 H MCV 71 L MCH 22 L RDW 19.5 H Lymph % (Auto) 3.8 L [place] % (Auto) Lymph # (Auto) 0.6 L [place] # (Auto) 1.1 H Seg Neutrophils % 88.7 H Seg Neutrophils # 14.4 H D-Dimer Sodium Potassium Chloride Carbon Dioxide 14 L BUN 23 H Creatinine Glucose 453 H POC Glucose 446 H Hemoglobin A1c Calcium Ferritin Lactate Dehydrogenase C-Reactive Protein Total Protein Albumin Coronavirus (PCR) 10/19/20 10/19/20 10/19/20 01:12 02:35 05:15 WBC RBC Hgb Hct MCV MCH RDW Lymph % (Auto) [place] % (Auto) Lymph # (Auto) [place] # (Auto) Seg Neutrophils % Seg Neutrophils # D-Dimer 1876.16 H Sodium Potassium Chloride Carbon Dioxide BUN Creatinine Glucose POC Glucose 359 H 310 H Hemoglobin A1c Calcium Ferritin Lactate Dehydrogenase C-Reactive Protein Total Protein Albumin Coronavirus (PCR) 10/19/20 10/19/20 10/19/20 05:15 05:28 07:40 WBC RBC Hgb Hct MCV MCH RDW Lymph % (Auto) [place] % (Auto) Lymph # (Auto) [place] # (Auto) Seg Neutrophils % Seg Neutrophils # D-Dimer Sodium Potassium Chloride Carbon Dioxide BUN Creatinine Glucose 344 H POC Glucose 322 H Hemoglobin A1c 12.5 H Calcium Ferritin Lactate Dehydrogenase 270 H C-Reactive Protein 4.80 H Total Protein Albumin Coronavirus (PCR) 10/19/20 10/19/20 10/19/20 09:05 12:04 17:59 WBC RBC Hgb Hct MCV MCH RDW Lymph % (Auto) [place] % (Auto) Lymph # (Auto) [place] # (Auto) Seg Neutrophils % Seg Neutrophils # D-Dimer Sodium Potassium Chloride Carbon Dioxide BUN Creatinine Glucose POC Glucose 297 H 285 H Hemoglobin A1c Calcium Ferritin Lactate Dehydrogenase C-Reactive Protein Total Protein Albumin Coronavirus (PCR) Positive A 10/19/20 10/20/20 10/20/20 22:59 07:05 07:05 WBC RBC 5.83 H Hgb Hct MCV 69 L MCH 22 L RDW 19.1 H Lymph % (Auto) 8.8 L [place] % (Auto) Lymph # (Auto) 0.8 L [place] # (Auto) Seg Neutrophils % 84.0 H Seg Neutrophils # D-Dimer Sodium Potassium 3.3 L D Chloride Carbon Dioxide 20 L BUN Creatinine Glucose 280 H POC Glucose 244 H Hemoglobin A1c Calcium Ferritin Lactate Dehydrogenase C-Reactive Protein Total Protein Albumin Coronavirus (PCR) 10/20/20 10/20/20 10/20/20 07:46 09:05 11:31 WBC RBC 6.09 H Hgb Hct MCV 69 L MCH 21 L RDW 18.7 H Lymph % (Auto) 9.9 L [place] % (Auto) Lymph # (Auto) 0.9 L [place] # (Auto) Seg Neutrophils % 82.5 H Seg Neutrophils # D-Dimer Sodium Potassium Chloride Carbon Dioxide BUN Creatinine Glucose POC Glucose 263 H 349 H Hemoglobin A1c Calcium Ferritin Lactate Dehydrogenase C-Reactive Protein Total Protein Albumin Coronavirus (PCR) 10/20/20 10/20/20 10/21/20 16:28 22:01 07:11 WBC RBC Hgb Hct MCV MCH RDW Lymph % (Auto) [place] % (Auto) Lymph # (Auto) [place] # (Auto) Seg Neutrophils % Seg Neutrophils # D-Dimer Sodium Potassium Chloride Carbon Dioxide BUN Creatinine Glucose POC Glucose 245 H 278 H 256 H Hemoglobin A1c Calcium Ferritin Lactate Dehydrogenase C-Reactive Protein Total Protein Albumin Coronavirus (PCR) 10/21/20 10/21/20 10/21/20 07:21 11:32 15:23 WBC RBC Hgb Hct MCV MCH RDW Lymph % (Auto) [place] % (Auto) Lymph # (Auto) [place] # (Auto) Seg Neutrophils % Seg Neutrophils # D-Dimer Sodium Potassium 3.3 L Chloride Carbon Dioxide BUN Creatinine 0.5 L 0.5 L Glucose 239 H 371 H POC Glucose 258 H Hemoglobin A1c Calcium 8.3 L Ferritin Lactate Dehydrogenase C-Reactive Protein Total Protein 5.4 L D Albumin 2.9 L Coronavirus (PCR) 10/21/20 10/21/20 10/22/20 16:06 22:05 06:57 WBC RBC Hgb Hct MCV MCH RDW Lymph % (Auto) [place] % (Auto) Lymph # (Auto) [place] # (Auto) Seg Neutrophils % Seg Neutrophils # D-Dimer Sodium Potassium 3.3 L Chloride Carbon Dioxide BUN Creatinine 0.5 L Glucose 200 H POC Glucose 387 H 298 H Hemoglobin A1c Calcium Ferritin Lactate Dehydrogenase C-Reactive Protein Total Protein Albumin 3.1 L Coronavirus (PCR) 10/22/20 10/22/20 10/22/20 08:04 12:39 16:08 WBC RBC Hgb Hct MCV MCH RDW Lymph % (Auto) [place] % (Auto) Lymph # (Auto) [place] # (Auto) Seg Neutrophils % Seg Neutrophils # D-Dimer Sodium Potassium Chloride Carbon Dioxide BUN Creatinine Glucose POC Glucose 200 H 240 H 297 H Hemoglobin A1c Calcium Ferritin Lactate Dehydrogenase C-Reactive Protein Total Protein Albumin Coronavirus (PCR) 10/22/20 10/22/20 10/22/20 16:15 16:15 16:15 WBC RBC Hgb Hct MCV MCH RDW Lymph % (Auto) [place] % (Auto) Lymph # (Auto) [place] # (Auto) Seg Neutrophils % Seg Neutrophils # D-Dimer 1275.26 H Sodium Potassium Chloride Carbon Dioxide BUN Creatinine Glucose POC Glucose Hemoglobin A1c Calcium Ferritin 201.8 H Lactate Dehydrogenase 296 H C-Reactive Protein 1.40 H Total Protein Albumin Coronavirus (PCR) 10/22/20 10/23/20 10/23/20 22:05 05:30 05:30 WBC RBC Hgb Hct MCV MCH RDW Lymph % (Auto) [place] % (Auto) Lymph # (Auto) [place] # (Auto) Seg Neutrophils % Seg Neutrophils # D-Dimer 995.73 H Sodium Potassium 2.8 L* Chloride Carbon Dioxide 32 H BUN 6 L Creatinine 0.4 L Glucose 131 H POC Glucose 283 H Hemoglobin A1c Calcium 8.0 L Ferritin Lactate Dehydrogenase 274 H C-Reactive Protein 1.50 H Total Protein 5.2 L Albumin 2.4 L Coronavirus (PCR) 10/23/20 10/23/20 10/23/20 08:22 11:40 15:26 WBC RBC Hgb Hct MCV MCH RDW Lymph % (Auto) [place] % (Auto) Lymph # (Auto) [place] # (Auto) Seg Neutrophils % Seg Neutrophils # D-Dimer Sodium 134 L Potassium Chloride 97.2 L Carbon Dioxide BUN Creatinine 0.4 L Glucose 372 H POC Glucose 120 H 257 H Hemoglobin A1c Calcium 8.0 L Ferritin Lactate Dehydrogenase C-Reactive Protein Total Protein Albumin Coronavirus (PCR) 10/23/20 10/24/20 10/24/20 21:49 05:24 05:24 WBC RBC 5.52 H Hgb Hct MCV 69 L MCH 22 L RDW 17.7 H Lymph % (Auto) [place] % (Auto) 10.3 H Lymph # (Auto) [place] # (Auto) 0.9 H Seg Neutrophils % Seg Neutrophils # D-Dimer Sodium Potassium 3.0 L D Chloride Carbon Dioxide 31 H BUN 6 L Creatinine 0.5 L Glucose 257 H POC Glucose 292 H Hemoglobin A1c Calcium 7.9 L Ferritin Lactate Dehydrogenase C-Reactive Protein Total Protein 5.0 L Albumin 2.3 L Coronavirus (PCR) 10/24/20 10/24/20 10/24/20 07:41 11:15 16:23 WBC RBC Hgb Hct MCV MCH RDW Lymph % (Auto) [place] % (Auto) Lymph # (Auto) [place] # (Auto) Seg Neutrophils % Seg Neutrophils # D-Dimer Sodium Potassium Chloride Carbon Dioxide BUN Creatinine Glucose POC Glucose 212 H 228 H 386 H Hemoglobin A1c Calcium Ferritin Lactate Dehydrogenase C-Reactive Protein Total Protein Albumin Coronavirus (PCR) 10/24/20 10/25/20 10/25/20 21:03 07:41 11:24 WBC RBC Hgb Hct MCV MCH RDW Lymph % (Auto) [place] % (Auto) Lymph # (Auto) [place] # (Auto) Seg Neutrophils % Seg Neutrophils # D-Dimer Sodium Potassium Chloride Carbon Dioxide BUN Creatinine Glucose POC Glucose 316 H 177 H 359 H Hemoglobin A1c Calcium Ferritin Lactate Dehydrogenase C-Reactive Protein Total Protein Albumin Coronavirus (PCR) 10/25/20 10/25/20 10/26/20 16:19 21:23 06:42 WBC 11.7 H RBC 5.09 H Hgb Hct MCV 69 L MCH 22 L RDW 17.4 H Lymph % (Auto) [place] % (Auto) Lymph # (Auto) [place] # (Auto) Seg Neutrophils % Seg Neutrophils # D-Dimer Sodium Potassium Chloride Carbon Dioxide BUN Creatinine Glucose POC Glucose 368 H 256 H Hemoglobin A1c Calcium Ferritin Lactate Dehydrogenase C-Reactive Protein Total Protein Albumin Coronavirus (PCR) 10/26/20 10/26/20 10/26/20 06:42 06:42 07:47 WBC RBC Hgb Hct MCV MCH RDW Lymph % (Auto) [place] % (Auto) Lymph # (Auto) [place] # (Auto) Seg Neutrophils % Seg Neutrophils # D-Dimer 1137.09 H Sodium Potassium 2.9 L* Chloride Carbon Dioxide 33 H BUN Creatinine 0.4 L Glucose 136 H POC Glucose 154 H Hemoglobin A1c Calcium 7.9 L Ferritin Lactate Dehydrogenase C-Reactive Protein Total Protein Albumin Coronavirus (PCR) 10/26/20 10/26/20 10/26/20 10:42 10:42 10:42 WBC RBC Hgb Hct MCV MCH RDW Lymph % (Auto) [place] % (Auto) Lymph # (Auto) [place] # (Auto) Seg Neutrophils % Seg Neutrophils # D-Dimer 1101.58 H Sodium Potassium Chloride Carbon Dioxide BUN Creatinine Glucose POC Glucose Hemoglobin A1c Calcium Ferritin 235.0 H Lactate Dehydrogenase 332 H C-Reactive Protein 1.50 H Total Protein Albumin Coronavirus (PCR) 10/26/20 10/26/20 10/26/20 11:56 16:14 21:04 WBC RBC Hgb Hct MCV MCH RDW Lymph % (Auto) [place] % (Auto) Lymph # (Auto) [place] # (Auto) Seg Neutrophils % Seg Neutrophils # D-Dimer Sodium Potassium Chloride Carbon Dioxide BUN Creatinine Glucose POC Glucose 270 H 363 H 321 H Hemoglobin A1c Calcium Ferritin Lactate Dehydrogenase C-Reactive Protein Total Protein Albumin Coronavirus (PCR) 10/27/20 10/27/20 10/27/20 07:54 11:24 16:05 WBC RBC Hgb Hct MCV MCH RDW Lymph % (Auto) [place] % (Auto) Lymph # (Auto) [place] # (Auto) Seg Neutrophils % Seg Neutrophils # D-Dimer Sodium Potassium Chloride Carbon Dioxide BUN Creatinine Glucose POC Glucose 190 H 451 H 314 H Hemoglobin A1c Calcium Ferritin Lactate Dehydrogenase C-Reactive Protein Total Protein Albumin Coronavirus (PCR) 10/27/20 10/28/20 10/28/20 22:08 07:46 11:35 WBC RBC Hgb Hct MCV MCH RDW Lymph % (Auto) [place] % (Auto) Lymph # (Auto) [place] # (Auto) Seg Neutrophils % Seg Neutrophils # D-Dimer Sodium Potassium Chloride Carbon Dioxide BUN Creatinine Glucose POC Glucose 264 H 208 H 270 H Hemoglobin A1c Calcium Ferritin Lactate Dehydrogenase C-Reactive Protein Total Protein Albumin Coronavirus (PCR) 10/28/20 10/28/20 10/28/20 14:38 14:38 16:46 WBC RBC Hgb Hct MCV MCH RDW Lymph % (Auto) [place] % (Auto) Lymph # (Auto) [place] # (Auto) Seg Neutrophils % Seg Neutrophils # D-Dimer 699.99 H Sodium Potassium Chloride Carbon Dioxide BUN Creatinine Glucose POC Glucose 292 H Hemoglobin A1c Calcium Ferritin Lactate Dehydrogenase 354 H C-Reactive Protein Total Protein Albumin Coronavirus (PCR) 10/28/20 10/29/20 21:58 07:22 WBC RBC Hgb Hct MCV MCH RDW Lymph % (Auto) [place] % (Auto) Lymph # (Auto) [place] # (Auto) Seg Neutrophils % Seg Neutrophils # D-Dimer Sodium Potassium Chloride Carbon Dioxide BUN Creatinine Glucose POC Glucose 298 H 171 H Hemoglobin A1c Calcium Ferritin Lactate Dehydrogenase C-Reactive Protein Total Protein Albumin Coronavirus (PCR)
[2020-10-29] MEDS: oxyCODONE /ACETAMINOPHEN 5-325MG TAB PO PRN (21:25)
[2020-10-30] MEDS: oxyCODONE /ACETAMINOPHEN 5-325MG TAB PO PRN (05:23)
[2020-10-30] MEDS: guaiFENesin 100 MG/5 ML ORAL LIQD PO PRN (05:23)
[2020-10-30] MEDS: INSULIN REGULAR, HUMAN 100 UNITS/1 ML SUB-Q SCH ×4 (08:32→21:17)
[2020-10-30] MEDS: INSULIN GLARGINE 100 UNITS/ML SUB-Q SCH (08:32)
[2020-10-30 08:36] LABS: Basophils # (Auto) 0.1 K/mm3 (0.0-0.1); Basophils % (Auto) 0.7 % (0.0-1.8); Eosinophils % (Auto) 0.2 % (0.0-4.3); Hematocrit 34.9 % (30.3-42.9); Hemoglobin 11.1 gm/dl (10.1-14.3); Lymphocytes # (Auto) 2.2 K/mm3 (1.2-5.4); Lymphocytes % (Auto) 15.4 % (13.4-35.0); Mean Corpuscular HGB Conc 32 % (30-34); Mean Corpuscular Volume 70 fl (79-97); Monocytes # (Auto) 0.8 K/mm3 (0.0-0.8); Monocytes % (Auto) 5.7 % (0.0-7.3); Platelet Count 283 K/mm3 (140-440); Red Blood Count 4.98 M/mm3 (3.65-5.03); Red Cell Distribution Width 17.4 % (13.2-15.2)
[2020-10-30 08:57] LABS: Blood Urea Nitrogen 7 mg/dL (7-17); Calcium 8.5 mg/dL (8.4-10.2); Hemolysis Index 7
[2020-10-30 09:05] LABS: BUN/Creatinine Ratio 18
[2020-10-30] MEDS: guaiFENesin ER 600 MG TAB PO SCH ×2 (09:10→21:16)
[2020-10-30] MEDS: DOCUSATE SODIUM 100 MG CAP PO SCH ×2 (09:10→21:16)
[2020-10-30] MEDS: dexAMETHasone 4 MG/ML VIAL IV SCH (09:10)
[2020-10-30] MEDS: ENOXAPARIN 40 MG/0.4 ML INJ SUB-Q SCH (09:11)
--- NOTE | 2020-10-30 09:14 | Progress Note ---
Assessment and Plan 40 y/o female with acute respiratory failure secondary to COVID 19 10/30/20: Same recs as yesterday. Please see below. 1. Continue to wean FiO2 as tolerated. Would walk patient on 3 liters to make sure she maintains sats on this. And this would be what I would send her home on. If she needs 4, patient would benefit from a higher flow concentrator at home (7-10) liters to provide more of a buffer if there are times when more oxygen is needed. Agree with finishing 10 days total of steroids. Monitor fluid balance. Will continue to follow along with you. Subjective Date of service: 10/30/20 Principal diagnosis: COVID-19 Interval history: Last documented O2 at 4 liters. Good sats. this was last night. None documented yet for this am. Remainder is negative. Objective Vital Signs - 12hr 10/29/20 10/29/20 10/29/20 21:25 21:32 21:48 Temperature 98.8 F Pulse Rate 67 Pulse Rate [ 71 From Monitor] Respiratory 18 18 Rate Blood Pressure 104/68 O2 Sat by Pulse 95 96 Oximetry 10/29/20 10/29/20 10/30/20 21:55 22:25 05:23 Temperature Pulse Rate Pulse Rate [ From Monitor] Respiratory 18 18 Rate Blood Pressure O2 Sat by Pulse 96 Oximetry 10/30/20 05:47 Temperature 97.6 F Pulse Rate 58 L Pulse Rate [ From Monitor] Respiratory 18 Rate Blood Pressure 104/67 O2 Sat by Pulse 97 Oximetry Constitutional: no acute distress, alert Eyes: non-icteric ENT: oropharynx moist Neck: supple Effort: normal Ascultation: Bilateral: rales (rare) Cardiovascular: regular rate and rhythm Gastrointestinal: normoactive bowel sounds, soft, non-tender, non-distended Integumentary: normal Extremities: no cyanosis Neurologic: normal mental status, non-focal exam, pupils equal and round, CN II- XII normal Psychiatric: mood appropriate, affect normal CBC and BMP: 10/30/20 07:56 10/30/20 07:56 ABG, PT/INR, D-dimer: PT/INR, D-dimer PT 14.1 Sec. (12.2-14.9) 10/18/20 19:15 INR 1.11 (0.87-1.13) 10/18/20 19:15 D-Dimer 699.99 ng/mlDDU (0-234) H 10/28/20 14:38 Abnormal lab findings: Abnormal Labs 10/18/20 10/18/20 10/18/20 19:15 19:15 23:37 WBC 16.2 H RBC 7.16 H Hgb 15.5 H Hct 50.5 H MCV 71 L MCH 22 L RDW 19.5 H Lymph % (Auto) 3.8 L Humphreys % (Auto) Lymph # (Auto) 0.6 L Humphreys # (Auto) 1.1 H Seg Neutrophils % 88.7 H Seg Neutrophils # 14.4 H D-Dimer Sodium Potassium Chloride Carbon Dioxide 14 L BUN 23 H Creatinine Glucose 453 H POC Glucose 446 H Hemoglobin A1c Calcium Ferritin Lactate Dehydrogenase C-Reactive Protein Total Protein Albumin Coronavirus (PCR) 10/19/20 10/19/20 10/19/20 01:12 02:35 05:15 WBC RBC Hgb Hct MCV MCH RDW Lymph % (Auto) Humphreys % (Auto) Lymph # (Auto) Humphreys # (Auto) Seg Neutrophils % Seg Neutrophils # D-Dimer 1876.16 H Sodium Potassium Chloride Carbon Dioxide BUN Creatinine Glucose POC Glucose 359 H 310 H Hemoglobin A1c Calcium Ferritin Lactate Dehydrogenase C-Reactive Protein Total Protein Albumin Coronavirus (PCR) 10/19/20 10/19/20 10/19/20 05:15 05:28 07:40 WBC RBC Hgb Hct MCV MCH RDW Lymph % (Auto) Humphreys % (Auto) Lymph # (Auto) Humphreys # (Auto) Seg Neutrophils % Seg Neutrophils # D-Dimer Sodium Potassium Chloride Carbon Dioxide BUN Creatinine Glucose 344 H POC Glucose 322 H Hemoglobin A1c 12.5 H Calcium Ferritin Lactate Dehydrogenase 270 H C-Reactive Protein 4.80 H Total Protein Albumin Coronavirus (PCR) 10/19/20 10/19/20 10/19/20 09:05 12:04 17:59 WBC RBC Hgb Hct MCV MCH RDW Lymph % (Auto) Humphreys % (Auto) Lymph # (Auto) Humphreys # (Auto) Seg Neutrophils % Seg Neutrophils # D-Dimer Sodium Potassium Chloride Carbon Dioxide BUN Creatinine Glucose POC Glucose 297 H 285 H Hemoglobin A1c Calcium Ferritin Lactate Dehydrogenase C-Reactive Protein Total Protein Albumin Coronavirus (PCR) Positive A 10/19/20 10/20/20 10/20/20 22:59 07:05 07:05 WBC RBC 5.83 H Hgb Hct MCV 69 L MCH 22 L RDW 19.1 H Lymph % (Auto) 8.8 L Humphreys % (Auto) Lymph # (Auto) 0.8 L Humphreys # (Auto) Seg Neutrophils % 84.0 H Seg Neutrophils # D-Dimer Sodium Potassium 3.3 L D Chloride Carbon Dioxide 20 L BUN Creatinine Glucose 280 H POC Glucose 244 H Hemoglobin A1c Calcium Ferritin Lactate Dehydrogenase C-Reactive Protein Total Protein Albumin Coronavirus (PCR) 10/20/20 10/20/20 10/20/20 07:46 09:05 11:31 WBC RBC 6.09 H Hgb Hct MCV 69 L MCH 21 L RDW 18.7 H Lymph % (Auto) 9.9 L Humphreys % (Auto) Lymph # (Auto) 0.9 L Humphreys # (Auto) Seg Neutrophils % 82.5 H Seg Neutrophils # D-Dimer Sodium Potassium Chloride Carbon Dioxide BUN Creatinine Glucose POC Glucose 263 H 349 H Hemoglobin A1c Calcium Ferritin Lactate Dehydrogenase C-Reactive Protein Total Protein Albumin Coronavirus (PCR) 10/20/20 10/20/20 10/21/20 16:28 22:01 07:11 WBC RBC Hgb Hct MCV MCH RDW Lymph % (Auto) Humphreys % (Auto) Lymph # (Auto) Humphreys # (Auto) Seg Neutrophils % Seg Neutrophils # D-Dimer Sodium Potassium Chloride Carbon Dioxide BUN Creatinine Glucose POC Glucose 245 H 278 H 256 H Hemoglobin A1c Calcium Ferritin Lactate Dehydrogenase C-Reactive Protein Total Protein Albumin Coronavirus (PCR) 10/21/20 10/21/20 10/21/20 07:21 11:32 15:23 WBC RBC Hgb Hct MCV MCH RDW Lymph % (Auto) Humphreys % (Auto) Lymph # (Auto) Humphreys # (Auto) Seg Neutrophils % Seg Neutrophils # D-Dimer Sodium Potassium 3.3 L Chloride Carbon Dioxide BUN Creatinine 0.5 L 0.5 L Glucose 239 H 371 H POC Glucose 258 H Hemoglobin A1c Calcium 8.3 L Ferritin Lactate Dehydrogenase C-Reactive Protein Total Protein 5.4 L D Albumin 2.9 L Coronavirus (PCR) 10/21/20 10/21/20 10/22/20 16:06 22:05 06:57 WBC RBC Hgb Hct MCV MCH RDW Lymph % (Auto) Humphreys % (Auto) Lymph # (Auto) Humphreys # (Auto) Seg Neutrophils % Seg Neutrophils # D-Dimer Sodium Potassium 3.3 L Chloride Carbon Dioxide BUN Creatinine 0.5 L Glucose 200 H POC Glucose 387 H 298 H Hemoglobin A1c Calcium Ferritin Lactate Dehydrogenase C-Reactive Protein Total Protein Albumin 3.1 L Coronavirus (PCR) 10/22/20 10/22/20 10/22/20 08:04 12:39 16:08 WBC RBC Hgb Hct MCV MCH RDW Lymph % (Auto) Humphreys % (Auto) Lymph # (Auto) Humphreys # (Auto) Seg Neutrophils % Seg Neutrophils # D-Dimer Sodium Potassium Chloride Carbon Dioxide BUN Creatinine Glucose POC Glucose 200 H 240 H 297 H Hemoglobin A1c Calcium Ferritin Lactate Dehydrogenase C-Reactive Protein Total Protein Albumin Coronavirus (PCR) 10/22/20 10/22/20 10/22/20 16:15 16:15 16:15 WBC RBC Hgb Hct MCV MCH RDW Lymph % (Auto) Humphreys % (Auto) Lymph # (Auto) Humphreys # (Auto) Seg Neutrophils % Seg Neutrophils # D-Dimer 1275.26 H Sodium Potassium Chloride Carbon Dioxide BUN Creatinine Glucose POC Glucose Hemoglobin A1c Calcium Ferritin 201.8 H Lactate Dehydrogenase 296 H C-Reactive Protein 1.40 H Total Protein Albumin Coronavirus (PCR) 10/22/20 10/23/20 10/23/20 22:05 05:30 05:30 WBC RBC Hgb Hct MCV MCH RDW Lymph % (Auto) Humphreys % (Auto) Lymph # (Auto) Humphreys # (Auto) Seg Neutrophils % Seg Neutrophils # D-Dimer 995.73 H Sodium Potassium 2.8 L* Chloride Carbon Dioxide 32 H BUN 6 L Creatinine 0.4 L Glucose 131 H POC Glucose 283 H Hemoglobin A1c Calcium 8.0 L Ferritin Lactate Dehydrogenase 274 H C-Reactive Protein 1.50 H Total Protein 5.2 L Albumin 2.4 L Coronavirus (PCR) 10/23/20 10/23/20 10/23/20 08:22 11:40 15:26 WBC RBC Hgb Hct MCV MCH RDW Lymph % (Auto) Humphreys % (Auto) Lymph # (Auto) Humphreys # (Auto) Seg Neutrophils % Seg Neutrophils # D-Dimer Sodium 134 L Potassium Chloride 97.2 L Carbon Dioxide BUN Creatinine 0.4 L Glucose 372 H POC Glucose 120 H 257 H Hemoglobin A1c Calcium 8.0 L Ferritin Lactate Dehydrogenase C-Reactive Protein Total Protein Albumin Coronavirus (PCR) 10/23/20 10/24/20 10/24/20 21:49 05:24 05:24 WBC RBC 5.52 H Hgb Hct MCV 69 L MCH 22 L RDW 17.7 H Lymph % (Auto) Humphreys % (Auto) 10.3 H Lymph # (Auto) Humphreys # (Auto) 0.9 H Seg Neutrophils % Seg Neutrophils # D-Dimer Sodium Potassium 3.0 L D Chloride Carbon Dioxide 31 H BUN 6 L Creatinine 0.5 L Glucose 257 H POC Glucose 292 H Hemoglobin A1c Calcium 7.9 L Ferritin Lactate Dehydrogenase C-Reactive Protein Total Protein 5.0 L Albumin 2.3 L Coronavirus (PCR) 10/24/20 10/24/20 10/24/20 07:41 11:15 16:23 WBC RBC Hgb Hct MCV MCH RDW Lymph % (Auto) Humphreys % (Auto) Lymph # (Auto) Humphreys # (Auto) Seg Neutrophils % Seg Neutrophils # D-Dimer Sodium Potassium Chloride Carbon Dioxide BUN Creatinine Glucose POC Glucose 212 H 228 H 386 H Hemoglobin A1c Calcium Ferritin Lactate Dehydrogenase C-Reactive Protein Total Protein Albumin Coronavirus (PCR) 10/24/20 10/25/20 10/25/20 21:03 07:41 11:24 WBC RBC Hgb Hct MCV MCH RDW Lymph % (Auto) Humphreys % (Auto) Lymph # (Auto) Humphreys # (Auto) Seg Neutrophils % Seg Neutrophils # D-Dimer Sodium Potassium Chloride Carbon Dioxide BUN Creatinine Glucose POC Glucose 316 H 177 H 359 H Hemoglobin A1c Calcium Ferritin Lactate Dehydrogenase C-Reactive Protein Total Protein Albumin Coronavirus (PCR) 10/25/20 10/25/20 10/26/20 16:19 21:23 06:42 WBC 11.7 H RBC 5.09 H Hgb Hct MCV 69 L MCH 22 L RDW 17.4 H Lymph % (Auto) Humphreys % (Auto) Lymph # (Auto) Humphreys # (Auto) Seg Neutrophils % Seg Neutrophils # D-Dimer Sodium Potassium Chloride Carbon Dioxide BUN Creatinine Glucose POC Glucose 368 H 256 H Hemoglobin A1c Calcium Ferritin Lactate Dehydrogenase C-Reactive Protein Total Protein Albumin Coronavirus (PCR) 10/26/20 10/26/20 10/26/20 06:42 06:42 07:47 WBC RBC Hgb Hct MCV MCH RDW Lymph % (Auto) Humphreys % (Auto) Lymph # (Auto) Humphreys # (Auto) Seg Neutrophils % Seg Neutrophils # D-Dimer 1137.09 H Sodium Potassium 2.9 L* Chloride Carbon Dioxide 33 H BUN Creatinine 0.4 L Glucose 136 H POC Glucose 154 H Hemoglobin A1c Calcium 7.9 L Ferritin Lactate Dehydrogenase C-Reactive Protein Total Protein Albumin Coronavirus (PCR) 10/26/20 10/26/20 10/26/20 10:42 10:42 10:42 WBC RBC Hgb Hct MCV MCH RDW Lymph % (Auto) Humphreys % (Auto) Lymph # (Auto) Humphreys # (Auto) Seg Neutrophils % Seg Neutrophils # D-Dimer 1101.58 H Sodium Potassium Chloride Carbon Dioxide BUN Creatinine Glucose POC Glucose Hemoglobin A1c Calcium Ferritin 235.0 H Lactate Dehydrogenase 332 H C-Reactive Protein 1.50 H Total Protein Albumin Coronavirus (PCR) 10/26/20 10/26/20 10/26/20 11:56 16:14 21:04 WBC RBC Hgb Hct MCV MCH RDW Lymph % (Auto) Humphreys % (Auto) Lymph # (Auto) Humphreys # (Auto) Seg Neutrophils % Seg Neutrophils # D-Dimer Sodium Potassium Chloride Carbon Dioxide BUN Creatinine Glucose POC Glucose 270 H 363 H 321 H Hemoglobin A1c Calcium Ferritin Lactate Dehydrogenase C-Reactive Protein Total Protein Albumin Coronavirus (PCR) 10/27/20 10/27/20 10/27/20 07:54 11:24 16:05 WBC RBC Hgb Hct MCV MCH RDW Lymph % (Auto) Humphreys % (Auto) Lymph # (Auto) Humphreys # (Auto) Seg Neutrophils % Seg Neutrophils # D-Dimer Sodium Potassium Chloride Carbon Dioxide BUN Creatinine Glucose POC Glucose 190 H 451 H 314 H Hemoglobin A1c Calcium Ferritin Lactate Dehydrogenase C-Reactive Protein Total Protein Albumin Coronavirus (PCR) 10/27/20 10/28/20 10/28/20 22:08 07:46 11:35 WBC RBC Hgb Hct MCV MCH RDW Lymph % (Auto) Humphreys % (Auto) Lymph # (Auto) Humphreys # (Auto) Seg Neutrophils % Seg Neutrophils # D-Dimer Sodium Potassium Chloride Carbon Dioxide BUN Creatinine Glucose POC Glucose 264 H 208 H 270 H Hemoglobin A1c Calcium Ferritin Lactate Dehydrogenase C-Reactive Protein Total Protein Albumin Coronavirus (PCR) 10/28/20 10/28/20 10/28/20 14:38 14:38 16:46 WBC RBC Hgb Hct MCV MCH RDW Lymph % (Auto) Humphreys % (Auto) Lymph # (Auto) Humphreys # (Auto) Seg Neutrophils % Seg Neutrophils # D-Dimer 699.99 H Sodium Potassium Chloride Carbon Dioxide BUN Creatinine Glucose POC Glucose 292 H Hemoglobin A1c Calcium Ferritin Lactate Dehydrogenase 354 H C-Reactive Protein Total Protein Albumin Coronavirus (PCR) 10/28/20 10/29/20 10/29/20 21:58 07:22 11:48 WBC RBC Hgb Hct MCV MCH RDW Lymph % (Auto) Humphreys % (Auto) Lymph # (Auto) Humphreys # (Auto) Seg Neutrophils % Seg Neutrophils # D-Dimer Sodium Potassium Chloride Carbon Dioxide BUN Creatinine Glucose POC Glucose 298 H 171 H 267 H Hemoglobin A1c Calcium Ferritin Lactate Dehydrogenase C-Reactive Protein Total Protein Albumin Coronavirus (PCR) 10/29/20 10/29/20 10/30/20 16:11 21:31 07:37 WBC RBC Hgb Hct MCV MCH RDW Lymph % (Auto) Humphreys % (Auto) Lymph # (Auto) Humphreys # (Auto) Seg Neutrophils % Seg Neutrophils # D-Dimer Sodium Potassium Chloride Carbon Dioxide BUN Creatinine Glucose POC Glucose 494 H 267 H 185 H Hemoglobin A1c Calcium Ferritin Lactate Dehydrogenase C-Reactive Protein Total Protein Albumin Coronavirus (PCR) 10/30/20 10/30/20 07:56 07:56 WBC 14.6 H RBC Hgb Hct MCV 70 L MCH 22 L RDW 17.4 H Lymph % (Auto) Humphreys % (Auto) Lymph # (Auto) Humphreys # (Auto) Seg Neutrophils % 78.0 H Seg Neutrophils # 11.4 H D-Dimer Sodium Potassium Chloride Carbon Dioxide BUN Creatinine 0.4 L Glucose 200 H POC Glucose Hemoglobin A1c Calcium Ferritin Lactate Dehydrogenase C-Reactive Protein Total Protein Albumin Coronavirus (PCR)
--- NOTE | 2020-10-30 11:16 | Progress Note ---
Assessment and Plan Cultures: SARS CoV2 PCR: positive 10/19/2020 blood culture: no growth today A/P: 40/F with DM: #COVID-19 pneumonia: Markers elevated, D-dimer 1876, CRP 4.8, LDH 270. Markers uptrending. CTA no PE. #Leukocytosis: Likely secondary to above, improved. #Acute hypoxemic respiratory failure: better remains on salter now 3L #Diabetes mellitus, uncontrolled: HbA1c 12.5 Recs: -Continue dexamethasone 6 mg IV/PO daily for 10 days -Leukocytosis likely secondary to steroids -Completed remdesivir -No indication for antibiotics, procalcitonin is low -Prone positioning as possible -Anticoagulation per system protocol -Pulmonary on board OK to DC when otherwise stable. Loki Byrne MD [facility] ([facility] O: [phone] F: [phone] vascular fellow 5 implant on #4. Melanoma diagnosis Subjective Date of service: 10/30/20 Principal diagnosis: COVID-19 Interval history: Afebrile, white count 14.6. On 3L NC Objective - Exam Narrative Exam: Physical exam deferred to reduce risk of transmission of COVID-19. Please refer to primary team's note. - Constitutional Vitals: Vital Signs Temp Pulse Resp BP Pulse Ox 97.6 F 58 L 18 104/67 97 10/30/20 05:47 10/30/20 05:47 10/30/20 05:47 10/30/20 05:47 10/30/20 09:46 Temperature -Last 24 Hours Temperature 97.6 F Temperature 98.8 F Temperature 97.9 F - Labs CBC & Chem 7: 10/30/20 07:56 10/30/20 07:56 Labs: Abnormal lab results 10/29/20 10/29/20 10/29/20 Range/Units 07:22 11:48 16:11 WBC (4.5-11.0) K/mm3 MCV (79-97) fl MCH (28-32) pg RDW (13.2-15.2) % Seg Neutrophils % (40.0-70.0) % Seg Neutrophils # (1.8-7.7) K/mm3 Creatinine (0.6-1.2) mg/dL Glucose (65-100) mg/dL POC Glucose 171 H 267 H 494 H (70-105) mg/dL 10/29/20 10/30/20 10/30/20 Range/Units 21:31 07:37 07:56 WBC 14.6 H (4.5-11.0) K/mm3 MCV 70 L (79-97) fl MCH 22 L (28-32) pg RDW 17.4 H (13.2-15.2) % Seg Neutrophils % 78.0 H (40.0-70.0) % Seg Neutrophils # 11.4 H (1.8-7.7) K/mm3 Creatinine (0.6-1.2) mg/dL Glucose (65-100) mg/dL POC Glucose 267 H 185 H (70-105) mg/dL 10/30/20 10/30/20 Range/Units 07:56 10:34 WBC (4.5-11.0) K/mm3 MCV (79-97) fl MCH (28-32) pg RDW (13.2-15.2) % Seg Neutrophils % (40.0-70.0) % Seg Neutrophils # (1.8-7.7) K/mm3 Creatinine 0.4 L (0.6-1.2) mg/dL Glucose 200 H (65-100) mg/dL POC Glucose 332 H (70-105) mg/dL
--- NOTE | 2020-10-30 13:11 | Progress Note ---
Assessment and Plan Assessment and plan: Severe COVID-19 virus infection Continue current management ID following --Acute respiratory failure h with Hypoxia Secondary to COVID-19 virus infection Patient is requiring supplemental oxygen Home oxygen is set up,Still mild hypoxia with supplemental oxygen On ambulation --Type II DM Uncontrolled blood sugars, probably secondary to noncompliance And high-dose steroids Increase insulin dose Diabetic education, nutrition education --Atypical chest Pain/probably due to GERD Troponin negative x 2 EKG unrevealing for acute ischemic abnormalities CXR negative --GERD; Protonix and supportive care --Acute exacerbation of bronchial asthma Oxygen nebulizers IV steroids IV antibiotics Supportive long-term oxygen evaluation at discharge Oxygen is already set up Titrate this tolerated --DVT prophylaxis; Lovenox Ambulate as tolerated Possible discharge home tomorrow on home oxygen if stable 10/30/2020; patient still complains of shortness of breath Saturating well on 3 L of nasal cannula oxygen, home oxygen is already set up However patient is dropping O2 sats on oxygen while ambulating We will continue current management, reevaluate tomorrow DC home on home oxygen if stable Pulmonary and ID recommendations noted and appreciated History Interval history: I have seen and examined the patient at the bedside this morning Isolation and PPE protocols strictly followed Patient feels slightly better still has shortness of breath on oxygen Vital signs noted Hospitalist Physical - Constitutional Vitals: Temp Pulse Resp BP Pulse Ox 98.8 F 77 24 102/66 94 10/30/20 10:36 10/30/20 10:36 10/30/20 10:36 10/30/20 10:36 10/30/20 10:36 General appearance: Present: no acute distress, well-nourished, cachectic - EENT Eyes: Present: PERRL, EOM intact - Neck Neck: Present: supple, normal ROM - Respiratory Respiratory effort: normal Respiratory: bilateral: diminished, rhonchi, negative: rales, wheezing - Cardiovascular Rhythm: regular Heart Sounds: Present: S1 & S2 - Extremities Extremities: no ischemia, No edema - Abdominal General gastrointestinal: soft, non-tender, non-distended, normal bowel sounds - Integumentary Integumentary: Present: clear, warm - Psychiatric Psychiatric: appropriate mood/affect, cooperative - Neurologic Neurologic: CNII-XII intact, moves all extremities HEART Score - HEART Score EKG: Normal Age: < 45 Risk factors: No known risk factors Troponin: Troponin T < 0.010 ng/mL (0.00-0.029) 10/18/20 21:29 Troponin: < normal limit Results - Labs CBC & Chem 7: 10/30/20 07:56 10/30/20 07:56 Labs: Laboratory Last Values WBC 14.6 K/mm3 (4.5-11.0) H 10/30/20 07:56 RBC 4.98 M/mm3 (3.65-5.03) 10/30/20 07:56 Hgb 11.1 gm/dl (10.1-14.3) 10/30/20 07:56 Hct 34.9 % (30.3-42.9) 10/30/20 07:56 MCV 70 fl (79-97) L 10/30/20 07:56 MCH 22 pg (28-32) L 10/30/20 07:56 MCHC 32 % (30-34) 10/30/20 07:56 RDW 17.4 % (13.2-15.2) H 10/30/20 07:56 Plt Count 283 K/mm3 (140-440) 10/30/20 07:56 Lymph % (Auto) 15.4 % (13.4-35.0) 10/30/20 07:56 [place] % (Auto) 5.7 % (0.0-7.3) 10/30/20 07:56 Eos % (Auto) 0.2 % (0.0-4.3) 10/30/20 07:56 Baso % (Auto) 0.7 % (0.0-1.8) 10/30/20 07:56 Lymph # (Auto) 2.2 K/mm3 (1.2-5.4) 10/30/20 07:56 [place] # (Auto) 0.8 K/mm3 (0.0-0.8) 10/30/20 07:56 Eos # (Auto) 0.0 K/mm3 (0.0-0.4) 10/30/20 07:56 Baso # (Auto) 0.1 K/mm3 (0.0-0.1) 10/30/20 07:56 Add Manual Diff Complete 10/26/20 06:42 Total Counted 100 10/26/20 06:42 Seg Neutrophils % 78.0 % (40.0-70.0) H 10/30/20 07:56 Seg Neuts % (Manual) 65.0 % (40.0-70.0) 10/26/20 06:42 Band Neutrophils % 4.0 % 10/26/20 06:42 Lymphocytes % (Manual) 18.0 % (13.4-35.0) 10/26/20 06:42 Monocytes % (Manual) 4.0 % (0.0-7.3) 10/26/20 06:42 Eosinophils % (Manual) 1.0 % (0.0-4.3) 10/26/20 06:42 Metamyelocytes % 7.0 % 10/26/20 06:42 Myelocytes % 1.0 % 10/26/20 06:42 Nucleated RBC % Not Reportable 10/26/20 06:42 Seg Neutrophils # 11.4 K/mm3 (1.8-7.7) H 10/30/20 07:56 Seg Neutrophils # Man 7.6 K/mm3 (1.8-7.7) 10/26/20 06:42 Band Neutrophils # 0.5 K/mm3 10/26/20 06:42 Lymphocytes # (Manual) 2.1 K/mm3 (1.2-5.4) 10/26/20 06:42 Abs React Lymphs (Man) 0.0 K/mm3 10/26/20 06:42 Monocytes # (Manual) 0.5 K/mm3 (0.0-0.8) 10/26/20 06:42 Eosinophils # (Manual) 0.1 K/mm3 (0.0-0.4) 10/26/20 06:42 Basophils # (Manual) 0.0 K/mm3 (0.0-0.1) 10/26/20 06:42 Metamyelocytes # 0.8 K/mm3 10/26/20 06:42 Myelocytes # 0.1 K/mm3 10/26/20 06:42 Promyelocytes # 0.0 K/mm3 10/26/20 06:42 Blast Cells # 0.0 K/mm3 10/26/20 06:42 WBC Morphology Not Reportable 10/26/20 06:42 Hypersegmented Neuts Not Reportable 10/26/20 06:42 Hyposegmented Neuts Not Reportable 10/26/20 06:42 Hypogranular Neuts Not Reportable 10/26/20 06:42 Smudge Cells Not Reportable 10/26/20 06:42 Toxic Granulation Not Reportable 10/26/20 06:42 Toxic Vacuolation Not Reportable 10/26/20 06:42 Dohle Bodies Not Reportable 10/26/20 06:42 Pelger-Huet Anomaly Not Reportable 10/26/20 06:42 Apryl Rods Not Reportable 10/26/20 06:42 Platelet Estimate Consistent w auto 10/26/20 06:42 Clumped Platelets Not Reportable 10/26/20 06:42 Plt Clumps, EDTA Not Reportable 10/26/20 06:42 Large Platelets Not Reportable 10/26/20 06:42 Giant Platelets Not Reportable 10/26/20 06:42 Platelet Satelliting Not Reportable 10/26/20 06:42 Plt Morphology Comment Not Reportable 10/26/20 06:42 RBC Morphology Not Reportable 10/26/20 06:42 Dimorphic RBCs Not Reportable 10/26/20 06:42 Polychromasia Not Reportable 10/26/20 06:42 Hypochromasia 1+ 10/26/20 06:42 Poikilocytosis 1+ 10/26/20 06:42 Anisocytosis 1+ 10/26/20 06:42 Microcytosis 1+ 10/26/20 06:42 Macrocytosis Not Reportable 10/26/20 06:42 Spherocytes Not Reportable 10/26/20 06:42 Pappenheimer Bodies Not Reportable 10/26/20 06:42 Sickle Cells Not Reportable 10/26/20 06:42 Target Cells Not Reportable 10/26/20 06:42 Tear Drop Cells Not Reportable 10/26/20 06:42 Ovalocytes 1+ 10/26/20 06:42 Helmet Cells Not Reportable 10/26/20 06:42 [place] Bodies Not Reportable 10/26/20 06:42 [place] Rings Not Reportable 10/26/20 06:42 [place] Cells Not Reportable 10/26/20 06:42 Bite Cells Not Reportable 10/26/20 06:42 Crenated Cell Not Reportable 10/26/20 06:42 Elliptocytes Few 10/26/20 06:42 Acanthocytes (Spur) Not Reportable 10/26/20 06:42 Rouleaux Not Reportable 10/26/20 06:42 Hemoglobin C Crystals Not Reportable 10/26/20 06:42 Schistocytes Not Reportable 10/26/20 06:42 Malaria parasites Not Reportable 10/26/20 06:42 Mauricio Bodies Not Reportable 10/26/20 06:42 Hem Pathologist Commnt No 10/26/20 06:42 PT 14.1 Sec. (12.2-14.9) 10/18/20 19:15 INR 1.11 (0.87-1.13) 10/18/20 19:15 APTT 25.0 Sec. (24.2-36.6) 10/18/20 19:15 D-Dimer 699.99 ng/mlDDU (0-234) H 10/28/20 14:38 Sodium 138 mmol/L (137-145) 10/30/20 07:56 Potassium 3.8 mmol/L (3.6-5.0) D 10/30/20 07:56 Chloride 103.2 mmol/L (98-107) 10/30/20 07:56 Carbon Dioxide 27 mmol/L (22-30) 10/30/20 07:56 Anion Gap 12 mmol/L 10/30/20 07:56 BUN 7 mg/dL (7-17) 10/30/20 07:56 Creatinine 0.4 mg/dL (0.6-1.2) L 10/30/20 07:56 Estimated GFR > 60 ml/min 10/30/20 07:56 BUN/Creatinine Ratio 18 % 10/30/20 07:56 Glucose 200 mg/dL (65-100) H 10/30/20 07:56 POC Glucose 332 mg/dL (70-105) H 10/30/20 10:34 Hemoglobin A1c 12.5 % (4-6) H 10/19/20 05:28 Calcium 8.5 mg/dL (8.4-10.2) 10/30/20 07:56 Ferritin 137.1 ng/mL (10.0-200.0) 10/28/20 14:38 Total Bilirubin < 0.20 mg/dL (0.1-1.2) 10/24/20 05:24 AST 28 units/L (5-40) 10/24/20 05:24 ALT 22 units/L (7-56) 10/24/20 05:24 Alkaline Phosphatase 77 units/L (35-129) 10/24/20 05:24 Lactate Dehydrogenase 354 units/L (91-180) H 10/28/20 14:38 Troponin T < 0.010 ng/mL (0.00-0.029) 10/18/20 21:29 C-Reactive Protein 0.80 mg/dL (0.00-1.30) 10/28/20 14:38 Total Protein 5.0 g/dL (6.3-8.2) L 10/24/20 05:24 Albumin 2.3 g/dL (3.9-5) L 10/24/20 05:24 Albumin/Globulin Ratio 0.9 % 10/24/20 05:24 Procalcitonin < 0.05 ng/mL (<0.15) 10/19/20 05:15 HCG, Qual Negative (Negative) 10/18/20 19:15 Coronavirus (PCR) Positive (Negative) A 10/19/20 09:05 Monoscreen Negative (Negative) 10/18/20 23:02 Group A Strep Rapid Negative (Negative) 10/18/20 23:00 [place]/IV: Voiding Method Toilet Active Medications - Current Medications Current Medications: Generic Name Dose Route Start Last Admin Trade Name Freq PRN Reason Stop Dose Admin Acetaminophen 650 mg 10/19/20 05:17 10/23/20 09:25 Acetaminophen 325 Mg Tab PO 650 mg Q4H PRN Administration Pain MILD(1-3)/Fever >100.5/ROJAS Albuterol 2 puff 10/19/20 05:21 Albuterol 8.5 Gm Mdi Inhalation IH Q2HRT PRN Shortness Of Breath Dextrose 50 ml 10/19/20 05:17 Dextrose 50% In Water (25gm) 50 Ml Syringe IV Q30MIN PRN Hypoglycemia Protocol Docusate Sodium 100 mg 10/19/20 10:00 10/30/20 09:10 Docusate Sodium 100 Mg Cap PO 100 mg BID ROSSANA Administration Enoxaparin Sodium 40 mg 10/19/20 10:00 10/30/20 09:11 Enoxaparin 40 Mg/0.4 Ml Inj SUB-Q 40 mg QDAY ROSSANA Administration Guaifenesin 600 mg 10/19/20 10:00 10/30/20 09:10 Guaifenesin Er 600 Mg Tab PO 600 mg BID ROSSANA Administration Guaifenesin 200 mg 10/20/20 12:48 10/30/20 05:23 Guaifenesin 100 Mg/5 Ml Oral Liqd PO 200 mg Q8H PRN Administration Cough Insulin Glargine 15 units 10/19/20 08:00 10/30/20 08:32 Insulin Glargine 100 Units/Ml SUB-Q 15 units QAMDIAB ROSSANA Administration Insulin Human Regular 0 units 10/19/20 07:30 10/30/20 08:32 Insulin Regular, Human 100 Units/1 Ml SUB-Q 2 units ACHS ROSSANA Administration Protocol Ondansetron HCl 4 mg 10/19/20 05:17 10/21/20 10:08 Ondansetron 4 Mg/2 Ml Inj IV 4 mg Q6H PRN Administration Nausea And Vomiting Oxycodone/Acetaminophen 1 tab 10/19/20 05:17 10/30/20 05:23 Oxycodone /Acetaminophen 5-325mg Tab PO 1 tab Q6H PRN Administration Pain, Moderate (4-6) Phenol 1 spray 10/21/20 08:12 10/21/20 17:18 Phenol 1.4% 177 Ml Bottle MM 1 spray PRN PRN Administration Sore Throat Sodium Chloride 10 ml 10/19/20 10:00 10/30/20 09:11 Sodium Chloride 0.9% 10 Ml Flush Syringe IV 10 ml BID ROSSANA Administration Sodium Chloride 10 ml 10/19/20 05:17 Sodium Chloride 0.9% 10 Ml Flush Syringe IV PRN PRN LINE FLUSH Nutrition/Malnutrition Assess - Dietary Evaluation Nutrition/Malnutrition Findings: Nutrition Notes Start: 10/26/20 08:32 Freq: Status: Active Protocol: Document 10/26/20 08:32 AT (Rec: 10/26/20 08:38 AT [id number]) Co-Sign 10/26/20 08:32 MK Nutrition Notes Need for Assessment generated from: LOS Initial or Follow up Brief Note Current Diagnosis Diabetes Other Pertinent Diagnosis COVID-19(+) Current Diet Cardiac/Consistent CHO Labs/Tests K 2.9 Cr 0.4 BG 136 A1c 12.5% [place] Body Weight (kg) 0 Subjective/Other Information Screen for LOS. Unable to reach pt by phone x3. Per chart, pt consuming 69% of meals on average. However, yesterday pt consumed 75% of meals on average. Per RN, pt consumed 75% of breakfast this morning. Pt meeting 80% EER and 100% of estimated protein needs. Pt may be appropriate for Consistent CHO diet education. Will follow for stable intakes and ONS needs. Nutrition Intervention Anticipated Discharge Needs: Cardiac/Consistent CHO Follow-Up By: 10/30/20 Additional Comments F/U stable intakes, ONS needs, diet education needs
[2020-10-30] MEDS: INSULIN NPH/REGULAR 70/30 INJ SUB-Q SCH (17:02)
[2020-10-31] MEDS: INSULIN REGULAR, HUMAN 100 UNITS/1 ML SUB-Q SCH ×3 (08:15→17:52)
[2020-10-31] MEDS: INSULIN NPH/REGULAR 70/30 INJ SUB-Q SCH ×2 (08:15→17:53)
--- NOTE | 2020-10-31 10:27 | Discharge Summary ---
Providers - Providers Date of Admission: 10/19/20 05:17 Date of discharge: 10/31/20 Attending physician: ISSAC MCDONALD 10/19/20 05:11 Consult to Physician [CONS] Routine Comment: Consulting Provider: YOVANI DE JESUS Physician Instructions: Reason For Exam: \pui 10/25/20 10:04 Consult to Physician [CONS] Routine Comment: Consulting Provider: LATRICIA MORA Physician Instructions: Reason For Exam: worsening hypoxia Primary care physician: POSTAL SORTING OFFICER Hospitalization Reason for admission: Acute hypoxic respiratory failure Condition: Stable Pertinent studies: CTA chest; no PE, mild to moderate patchy bilateral groundglass opacities worrisome for multifocal pneumonia atypical and viral etiology considered. Chest x-ray; no acute no acute abnormality noted Hospital course: 40-year-old -Citizen Of [place] female with history of diabetes who presents [facility] with complaints of chest pain, shortness of breath, nausea and vomiting x4 days. Initial work-up is consistent with acute hypoxic respiratory failure requiring supplemental oxygen. Patient was admitted as PUI, placed in isolation, kraft PCR test is positive, evaluated by ID, received appropriate therapy per guidelines and instructions inform the patient by discharge nurse protocol Patient blood pressure blood sugars closely monitored medications optimized. Patient also has severe protein calorie malnutrition, managed with nutritional supplementation and nutrition consult and supportive care. Patient symptoms slowly but gradually improving, today patient is comfortable no new complaints vital signs stable However patient is oxygen dependent between 2 to 3 L of nasal cannula, case management has set up home oxygen Today patient is comfortable no new complaints vital signs stable, physical examination prior to discharge did not show any new findings Patient is hemodynamically and clinically stable at discharge Cleared by all the consultants for discharge and follow-up per schedule Discharge diagnosis: --Severe COVID-19 virus infection Continue current management --Acute respiratory failure with Hypoxia Secondary to COVID-19 virus infection Patient is requiring supplemental oxygen Home oxygen is set up --Type II DM Uncontrolled blood sugars, probably secondary to noncompliance And high-dose steroids,Increase insulin dose Diabetic education, nutrition education --Atypical chest Pain/probably due to GERD --GERD; Protonix and supportive care --Severe malnutrition/hypoalbuminemia, Nutrition supplements --Acute exacerbation of bronchial asthma Oxygen nebulizers IV steroids IV antibiotics Home Oxygen is already set up --DVT prophylaxis; Lovenox Cleared by all the consultants Stable at discharge Disposition: [id number] TO HOME OR SELFCARE Final Discharge Diagnosis (Prints w/discharge instructions): Severe COVID-19 infection. Acute hypoxic respiratory failure. Type 2 diabetes mellitus. Atypical chest pain. GERD. Acute exacerbation of bronchial asthma. Severe protein calorie malnutrition Time spent for discharge: 35 min Core Measure Documentation - Palliative Care Palliative Care/ Comfort Measures: Not Applicable - Core Measures Any of the following diagnoses?: none Exam - Constitutional Vitals: Temp Pulse Resp BP Pulse Ox 98.4 F 78 16 102/68 93 10/31/20 03:57 10/31/20 03:57 10/31/20 03:57 10/31/20 03:57 10/31/20 03:57 General appearance: Present: no acute distress, well-nourished - EENT Eyes: Present: PERRL, EOM intact - Neck Neck: Present: supple, normal ROM - Respiratory Respiratory effort: normal Respiratory: bilateral: diminished, rhonchi, negative: rales, wheezing - Cardiovascular Rhythm: regular Heart Sounds: Present: S1 & S2 - Extremities Extremities: no ischemia, No edema - Abdominal General gastrointestinal: Present: soft, non-tender, non-distended, normal bowel sounds - Integumentary Integumentary: Present: clear, warm - Musculoskeletal Musculoskeletal: strength equal bilaterally - Psychiatric Psychiatric: appropriate mood/affect, cooperative - Neurologic Neurologic: moves all extremities Plan Activity: advance as tolerated Diet: regular Durable Medical Equipment Needed Upon Discharge: Oxygen (3 to 4 L nasal cannula oxygen as needed) Additional Instructions: Please follow-up COVID-19 precautions and protocols as instructed to you by the discharge nurse, social distancing, mask, handwashing, prone position while resting and other protocols. If you have worsening sy mptoms contact MD or go to emergency room. Advised to follow-up private pulmonary, PMD per schedule. Advised to use 3 to 4 L of nasal cannula oxygen as instructed Follow up with: PRIMARY CARE, [Primary Care Provider] - 3-5 Days WASHINGTON LOPEZ MD [Staff Physician] - 7 Days Prescriptions: Phenol 1.4% [Chloraseptic] 1 spray MM PRN PRN #1 bottle PRN Reason: Sore Throat Insulin Regular, Human [Humulin R] 3 unit SC ACHS #2 vial guaiFENesin ER [Mucinex ER] 600 mg PO BID #30 tablet Insulin NPH/Regular [Novolin 70/30] 20 unit SQ BIDDIAB #2 vial Albuterol Mdi (or & Nicu Only) [ProAir HFA Inhaler] 2 puff IH Q2HRT PRN #1 inha PRN Reason: Shortness Of Breath Other Discharge Orders: Glucometer (Amb) Location: None Selected Glucometer supplies[Amb] Location: None Selected
[2020-10-31] MEDS: ENOXAPARIN 40 MG/0.4 ML INJ SUB-Q SCH (11:04)
[2020-10-31] MEDS: guaiFENesin ER 600 MG TAB PO SCH (11:04)
[2020-10-31] MEDS: DOCUSATE SODIUM 100 MG CAP PO SCH (11:04)
--- NOTE | 2020-10-31 12:02 | Progress Note ---
Assessment and Plan 40 y/o female with acute respiratory failure secondary to COVID 19 10/31/20: Appears patient being discharged today. No objection pulm guerin. Follow up in 10-14 days with 6 minute walk in our office 10/30/20: Same recs as yesterday. Please see below. 1. Continue to wean FiO2 as tolerated. Would walk patient on 3 liters to make sure she maintains sats on this. And this would be what I would send her home on. If she needs 4, patient would benefit from a higher flow concentrator at home (7-10) liters to provide more of a buffer if there are times when more oxygen is needed. Agree with finishing 10 days total of steroids. Monitor fluid balance. Will continue to follow along with you. Subjective Date of service: 10/31/20 Principal diagnosis: COVID-19 Interval history: No acute events. STable on 3 liters. Objective Vital Signs - 12hr 10/31/20 10/31/20 03:31 03:57 Temperature 98.4 F Pulse Rate 78 Respiratory 16 Rate Blood Pressure 102/68 [Right] O2 Sat by Pulse 75 L 93 Oximetry Constitutional: no acute distress, alert Eyes: non-icteric ENT: oropharynx moist Neck: supple Effort: normal Ascultation: Bilateral: rales (rare) Cardiovascular: regular rate and rhythm Gastrointestinal: normoactive bowel sounds, soft, non-tender, non-distended Integumentary: normal Extremities: no cyanosis Neurologic: normal mental status, non-focal exam, pupils equal and round, CN II- XII normal Psychiatric: mood appropriate, affect normal CBC and BMP: 10/30/20 07:56 10/30/20 07:56 ABG, PT/INR, D-dimer: PT/INR, D-dimer PT 14.1 Sec. (12.2-14.9) 10/18/20 19:15 INR 1.11 (0.87-1.13) 10/18/20 19:15 D-Dimer 699.99 ng/mlDDU (0-234) H 10/28/20 14:38 Abnormal lab findings: Abnormal Labs 10/18/20 10/18/20 10/18/20 19:15 19:15 23:37 WBC 16.2 H RBC 7.16 H Hgb 15.5 H Hct 50.5 H MCV 71 L MCH 22 L RDW 19.5 H Lymph % (Auto) 3.8 L [place] % (Auto) Lymph # (Auto) 0.6 L [place] # (Auto) 1.1 H Seg Neutrophils % 88.7 H Seg Neutrophils # 14.4 H D-Dimer Sodium Potassium Chloride Carbon Dioxide 14 L BUN 23 H Creatinine Glucose 453 H POC Glucose 446 H Hemoglobin A1c Calcium Ferritin Lactate Dehydrogenase C-Reactive Protein Total Protein Albumin Coronavirus (PCR) 10/19/20 10/19/20 10/19/20 01:12 02:35 05:15 WBC RBC Hgb Hct MCV MCH RDW Lymph % (Auto) [place] % (Auto) Lymph # (Auto) [place] # (Auto) Seg Neutrophils % Seg Neutrophils # D-Dimer 1876.16 H Sodium Potassium Chloride Carbon Dioxide BUN Creatinine Glucose POC Glucose 359 H 310 H Hemoglobin A1c Calcium Ferritin Lactate Dehydrogenase C-Reactive Protein Total Protein Albumin Coronavirus (PCR) 10/19/20 10/19/20 10/19/20 05:15 05:28 07:40 WBC RBC Hgb Hct MCV MCH RDW Lymph % (Auto) [place] % (Auto) Lymph # (Auto) [place] # (Auto) Seg Neutrophils % Seg Neutrophils # D-Dimer Sodium Potassium Chloride Carbon Dioxide BUN Creatinine Glucose 344 H POC Glucose 322 H Hemoglobin A1c 12.5 H Calcium Ferritin Lactate Dehydrogenase 270 H C-Reactive Protein 4.80 H Total Protein Albumin Coronavirus (PCR) 10/19/20 10/19/20 10/19/20 09:05 12:04 17:59 WBC RBC Hgb Hct MCV MCH RDW Lymph % (Auto) [place] % (Auto) Lymph # (Auto) [place] # (Auto) Seg Neutrophils % Seg Neutrophils # D-Dimer Sodium Potassium Chloride Carbon Dioxide BUN Creatinine Glucose POC Glucose 297 H 285 H Hemoglobin A1c Calcium Ferritin Lactate Dehydrogenase C-Reactive Protein Total Protein Albumin Coronavirus (PCR) Positive A 10/19/20 10/20/20 10/20/20 22:59 07:05 07:05 WBC RBC 5.83 H Hgb Hct MCV 69 L MCH 22 L RDW 19.1 H Lymph % (Auto) 8.8 L [place] % (Auto) Lymph # (Auto) 0.8 L [place] # (Auto) Seg Neutrophils % 84.0 H Seg Neutrophils # D-Dimer Sodium Potassium 3.3 L D Chloride Carbon Dioxide 20 L BUN Creatinine Glucose 280 H POC Glucose 244 H Hemoglobin A1c Calcium Ferritin Lactate Dehydrogenase C-Reactive Protein Total Protein Albumin Coronavirus (PCR) 10/20/20 10/20/20 10/20/20 07:46 09:05 11:31 WBC RBC 6.09 H Hgb Hct MCV 69 L MCH 21 L RDW 18.7 H Lymph % (Auto) 9.9 L [place] % (Auto) Lymph # (Auto) 0.9 L [place] # (Auto) Seg Neutrophils % 82.5 H Seg Neutrophils # D-Dimer Sodium Potassium Chloride Carbon Dioxide BUN Creatinine Glucose POC Glucose 263 H 349 H Hemoglobin A1c Calcium Ferritin Lactate Dehydrogenase C-Reactive Protein Total Protein Albumin Coronavirus (PCR) 10/20/20 10/20/20 10/21/20 16:28 22:01 07:11 WBC RBC Hgb Hct MCV MCH RDW Lymph % (Auto) [place] % (Auto) Lymph # (Auto) [place] # (Auto) Seg Neutrophils % Seg Neutrophils # D-Dimer Sodium Potassium Chloride Carbon Dioxide BUN Creatinine Glucose POC Glucose 245 H 278 H 256 H Hemoglobin A1c Calcium Ferritin Lactate Dehydrogenase C-Reactive Protein Total Protein Albumin Coronavirus (PCR) 10/21/20 10/21/20 10/21/20 07:21 11:32 15:23 WBC RBC Hgb Hct MCV MCH RDW Lymph % (Auto) [place] % (Auto) Lymph # (Auto) [place] # (Auto) Seg Neutrophils % Seg Neutrophils # D-Dimer Sodium Potassium 3.3 L Chloride Carbon Dioxide BUN Creatinine 0.5 L 0.5 L Glucose 239 H 371 H POC Glucose 258 H Hemoglobin A1c Calcium 8.3 L Ferritin Lactate Dehydrogenase C-Reactive Protein Total Protein 5.4 L D Albumin 2.9 L Coronavirus (PCR) 10/21/20 10/21/20 10/22/20 16:06 22:05 06:57 WBC RBC Hgb Hct MCV MCH RDW Lymph % (Auto) [place] % (Auto) Lymph # (Auto) [place] # (Auto) Seg Neutrophils % Seg Neutrophils # D-Dimer Sodium Potassium 3.3 L Chloride Carbon Dioxide BUN Creatinine 0.5 L Glucose 200 H POC Glucose 387 H 298 H Hemoglobin A1c Calcium Ferritin Lactate Dehydrogenase C-Reactive Protein Total Protein Albumin 3.1 L Coronavirus (PCR) 10/22/20 10/22/20 10/22/20 08:04 12:39 16:08 WBC RBC Hgb Hct MCV MCH RDW Lymph % (Auto) [place] % (Auto) Lymph # (Auto) [place] # (Auto) Seg Neutrophils % Seg Neutrophils # D-Dimer Sodium Potassium Chloride Carbon Dioxide BUN Creatinine Glucose POC Glucose 200 H 240 H 297 H Hemoglobin A1c Calcium Ferritin Lactate Dehydrogenase C-Reactive Protein Total Protein Albumin Coronavirus (PCR) 10/22/20 10/22/20 10/22/20 16:15 16:15 16:15 WBC RBC Hgb Hct MCV MCH RDW Lymph % (Auto) [place] % (Auto) Lymph # (Auto) [place] # (Auto) Seg Neutrophils % Seg Neutrophils # D-Dimer 1275.26 H Sodium Potassium Chloride Carbon Dioxide BUN Creatinine Glucose POC Glucose Hemoglobin A1c Calcium Ferritin 201.8 H Lactate Dehydrogenase 296 H C-Reactive Protein 1.40 H Total Protein Albumin Coronavirus (PCR) 10/22/20 10/23/20 10/23/20 22:05 05:30 05:30 WBC RBC Hgb Hct MCV MCH RDW Lymph % (Auto) [place] % (Auto) Lymph # (Auto) [place] # (Auto) Seg Neutrophils % Seg Neutrophils # D-Dimer 995.73 H Sodium Potassium 2.8 L* Chloride Carbon Dioxide 32 H BUN 6 L Creatinine 0.4 L Glucose 131 H POC Glucose 283 H Hemoglobin A1c Calcium 8.0 L Ferritin Lactate Dehydrogenase 274 H C-Reactive Protein 1.50 H Total Protein 5.2 L Albumin 2.4 L Coronavirus (PCR) 10/23/20 10/23/20 10/23/20 08:22 11:40 15:26 WBC RBC Hgb Hct MCV MCH RDW Lymph % (Auto) [place] % (Auto) Lymph # (Auto) [place] # (Auto) Seg Neutrophils % Seg Neutrophils # D-Dimer Sodium 134 L Potassium Chloride 97.2 L Carbon Dioxide BUN Creatinine 0.4 L Glucose 372 H POC Glucose 120 H 257 H Hemoglobin A1c Calcium 8.0 L Ferritin Lactate Dehydrogenase C-Reactive Protein Total Protein Albumin Coronavirus (PCR) 10/23/20 10/24/20 10/24/20 21:49 05:24 05:24 WBC RBC 5.52 H Hgb Hct MCV 69 L MCH 22 L RDW 17.7 H Lymph % (Auto) [place] % (Auto) 10.3 H Lymph # (Auto) [place] # (Auto) 0.9 H Seg Neutrophils % Seg Neutrophils # D-Dimer Sodium Potassium 3.0 L D Chloride Carbon Dioxide 31 H BUN 6 L Creatinine 0.5 L Glucose 257 H POC Glucose 292 H Hemoglobin A1c Calcium 7.9 L Ferritin Lactate Dehydrogenase C-Reactive Protein Total Protein 5.0 L Albumin 2.3 L Coronavirus (PCR) 10/24/20 10/24/20 10/24/20 07:41 11:15 16:23 WBC RBC Hgb Hct MCV MCH RDW Lymph % (Auto) [place] % (Auto) Lymph # (Auto) [place] # (Auto) Seg Neutrophils % Seg Neutrophils # D-Dimer Sodium Potassium Chloride Carbon Dioxide BUN Creatinine Glucose POC Glucose 212 H 228 H 386 H Hemoglobin A1c Calcium Ferritin Lactate Dehydrogenase C-Reactive Protein Total Protein Albumin Coronavirus (PCR) 10/24/20 10/25/20 10/25/20 21:03 07:41 11:24 WBC RBC Hgb Hct MCV MCH RDW Lymph % (Auto) [place] % (Auto) Lymph # (Auto) [place] # (Auto) Seg Neutrophils % Seg Neutrophils # D-Dimer Sodium Potassium Chloride Carbon Dioxide BUN Creatinine Glucose POC Glucose 316 H 177 H 359 H Hemoglobin A1c Calcium Ferritin Lactate Dehydrogenase C-Reactive Protein Total Protein Albumin Coronavirus (PCR) 10/25/20 10/25/20 10/26/20 16:19 21:23 06:42 WBC 11.7 H RBC 5.09 H Hgb Hct MCV 69 L MCH 22 L RDW 17.4 H Lymph % (Auto) [place] % (Auto) Lymph # (Auto) [place] # (Auto) Seg Neutrophils % Seg Neutrophils # D-Dimer Sodium Potassium Chloride Carbon Dioxide BUN Creatinine Glucose POC Glucose 368 H 256 H Hemoglobin A1c Calcium Ferritin Lactate Dehydrogenase C-Reactive Protein Total Protein Albumin Coronavirus (PCR) 10/26/20 10/26/20 10/26/20 06:42 06:42 07:47 WBC RBC Hgb Hct MCV MCH RDW Lymph % (Auto) [place] % (Auto) Lymph # (Auto) [place] # (Auto) Seg Neutrophils % Seg Neutrophils # D-Dimer 1137.09 H Sodium Potassium 2.9 L* Chloride Carbon Dioxide 33 H BUN Creatinine 0.4 L Glucose 136 H POC Glucose 154 H Hemoglobin A1c Calcium 7.9 L Ferritin Lactate Dehydrogenase C-Reactive Protein Total Protein Albumin Coronavirus (PCR) 10/26/20 10/26/20 10/26/20 10:42 10:42 10:42 WBC RBC Hgb Hct MCV MCH RDW Lymph % (Auto) [place] % (Auto) Lymph # (Auto) [place] # (Auto) Seg Neutrophils % Seg Neutrophils # D-Dimer 1101.58 H Sodium Potassium Chloride Carbon Dioxide BUN Creatinine Glucose POC Glucose Hemoglobin A1c Calcium Ferritin 235.0 H Lactate Dehydrogenase 332 H C-Reactive Protein 1.50 H Total Protein Albumin Coronavirus (PCR) 10/26/20 10/26/20 10/26/20 11:56 16:14 21:04 WBC RBC Hgb Hct MCV MCH RDW Lymph % (Auto) [place] % (Auto) Lymph # (Auto) [place] # (Auto) Seg Neutrophils % Seg Neutrophils # D-Dimer Sodium Potassium Chloride Carbon Dioxide BUN Creatinine Glucose POC Glucose 270 H 363 H 321 H Hemoglobin A1c Calcium Ferritin Lactate Dehydrogenase C-Reactive Protein Total Protein Albumin Coronavirus (PCR) 10/27/20 10/27/20 10/27/20 07:54 11:24 16:05 WBC RBC Hgb Hct MCV MCH RDW Lymph % (Auto) [place] % (Auto) Lymph # (Auto) [place] # (Auto) Seg Neutrophils % Seg Neutrophils # D-Dimer Sodium Potassium Chloride Carbon Dioxide BUN Creatinine Glucose POC Glucose 190 H 451 H 314 H Hemoglobin A1c Calcium Ferritin Lactate Dehydrogenase C-Reactive Protein Total Protein Albumin Coronavirus (PCR) 10/27/20 10/28/20 10/28/20 22:08 07:46 11:35 WBC RBC Hgb Hct MCV MCH RDW Lymph % (Auto) [place] % (Auto) Lymph # (Auto) [place] # (Auto) Seg Neutrophils % Seg Neutrophils # D-Dimer Sodium Potassium Chloride Carbon Dioxide BUN Creatinine Glucose POC Glucose 264 H 208 H 270 H Hemoglobin A1c Calcium Ferritin Lactate Dehydrogenase C-Reactive Protein Total Protein Albumin Coronavirus (PCR) 10/28/20 10/28/20 10/28/20 14:38 14:38 16:46 WBC RBC Hgb Hct MCV MCH RDW Lymph % (Auto) [place] % (Auto) Lymph # (Auto) [place] # (Auto) Seg Neutrophils % Seg Neutrophils # D-Dimer 699.99 H Sodium Potassium Chloride Carbon Dioxide BUN Creatinine Glucose POC Glucose 292 H Hemoglobin A1c Calcium Ferritin Lactate Dehydrogenase 354 H C-Reactive Protein Total Protein Albumin Coronavirus (PCR) 10/28/20 10/29/20 10/29/20 21:58 07:22 11:48 WBC RBC Hgb Hct MCV MCH RDW Lymph % (Auto) [place] % (Auto) Lymph # (Auto) [place] # (Auto) Seg Neutrophils % Seg Neutrophils # D-Dimer Sodium Potassium Chloride Carbon Dioxide BUN Creatinine Glucose POC Glucose 298 H 171 H 267 H Hemoglobin A1c Calcium Ferritin Lactate Dehydrogenase C-Reactive Protein Total Protein Albumin Coronavirus (PCR) 10/29/20 10/29/20 10/30/20 16:11 21:31 07:37 WBC RBC Hgb Hct MCV MCH RDW Lymph % (Auto) [place] % (Auto) Lymph # (Auto) [place] # (Auto) Seg Neutrophils % Seg Neutrophils # D-Dimer Sodium Potassium Chloride Carbon Dioxide BUN Creatinine Glucose POC Glucose 494 H 267 H 185 H Hemoglobin A1c Calcium Ferritin Lactate Dehydrogenase C-Reactive Protein Total Protein Albumin Coronavirus (PCR) 10/30/20 10/30/20 10/30/20 07:56 07:56 10:34 WBC 14.6 H RBC Hgb Hct MCV 70 L MCH 22 L RDW 17.4 H Lymph % (Auto) [place] % (Auto) Lymph # (Auto) [place] # (Auto) Seg Neutrophils % 78.0 H Seg Neutrophils # 11.4 H D-Dimer Sodium Potassium Chloride Carbon Dioxide BUN Creatinine 0.4 L Glucose 200 H POC Glucose 332 H Hemoglobin A1c Calcium Ferritin Lactate Dehydrogenase C-Reactive Protein Total Protein Albumin Coronavirus (PCR) 10/30/20 10/30/20 15:58 20:53 WBC RBC Hgb Hct MCV MCH RDW Lymph % (Auto) [place] % (Auto) Lymph # (Auto) [place] # (Auto) Seg Neutrophils % Seg Neutrophils # D-Dimer Sodium Potassium Chloride Carbon Dioxide BUN Creatinine Glucose POC Glucose 435 H 279 H Hemoglobin A1c Calcium Ferritin Lactate Dehydrogenase C-Reactive Protein Total Protein Albumin Coronavirus (PCR)
--- NOTE | 2020-10-31 14:49 | Progress Note ---
Assessment and Plan Cultures: SARS CoV2 PCR: positive 10/19/2020 blood culture: no growth today A/P: 40/F with DM: #COVID-19 pneumonia: Markers elevated, D-dimer 1876, CRP 4.8, LDH 270. Markers uptrending. CTA no PE. #Leukocytosis: Likely secondary to above, improved. #Acute hypoxemic respiratory failure: better remains on [place] now 3L #Diabetes mellitus, uncontrolled: HbA1c 12.5 Recs: -Continue dexamethasone 6 mg IV/PO daily for 10 days -Leukocytosis likely secondary to steroids -Completed remdesivir -No indication for antibiotics, procalcitonin is low -Prone positioning as possible -Anticoagulation per system protocol -Pulmonary on board OK to DC when otherwise stable. Loki Byrne MD [facility] O: [phone] F: [phone] vascular fellow 5 implant on #4. Melanoma diagnosis Subjective Date of service: 10/31/20 Principal diagnosis: COVID-19 Interval history: Afebrile, no acute changes. On 3 L nasal cannula. Objective - Exam Narrative Exam: Physical exam deferred to reduce risk of transmission of COVID-19. Please refer to primary team's note. - Constitutional Vitals: Vital Signs Temp Pulse Resp BP Pulse Ox 97.3 F L 71 20 96/61 93 10/31/20 11:23 10/31/20 11:23 10/31/20 11:23 10/31/20 11:23 10/31/20 11:23 Temperature -Last 24 Hours Temperature 97.3 F Temperature 98.4 F Temperature 98.4 F Temperature 98.2 F - Labs CBC & Chem 7: 10/30/20 07:56 10/30/20 07:56 Labs: Abnormal lab results 10/30/20 10/30/20 Range/Units 15:58 20:53 POC Glucose 435 H 279 H (70-105) mg/dL
[2020-10-31 19:17] VITALS: BP 110/72
== END 2020-10-31 21:35 | disposition home or self-care (01) | DRG 177 ==
LOC: ED 17:01 → 3A 10-19 05:17
PROVIDERS: ADMIT Internal Medicine Geriatric Medicine; ATTEND Internal Medicine
PROC: XW033E5 Introduction of Remdesivir Anti-infective into Peripheral Vein, Percutaneous Approach, New Technology Group 5 (ICD-10-PCS; 2020-10-21)
PROC: 4A033R1 Measurement of Arterial Saturation, Peripheral, Percutaneous Approach (ICD-10-PCS; principal; 2020-10-25)
DX: U07.1 COVID-19 (principal); J96.01 Acute respiratory failure with hypoxia; J12.82 Pneumonia due to coronavirus disease 2019; J45.901 Unspecified asthma with (acute) exacerbation; E11.65 Type 2 diabetes mellitus with hyperglycemia; F41.9 Anxiety disorder, unspecified; J02.9 Acute pharyngitis, unspecified; E87.6 Hypokalemia; K21.9 Gastro-esophageal reflux disease without esophagitis
CPT/HCPCS: 36415; 36600; 71045; 71275; 80048; 80053; 82728; 82947; 82962; 83036; 83615; 84145; 84484; 84703; 85007; 85025; 85379; 85610; 85730; 86140; 86308; 87040; 87116; 87430; 93005; 94640; 96365; 96375; G0378; J0456; J0696; J1100; J1650; J1815; J2405; J7030; Q9967; U0003

== ENCOUNTER 2021-01-18 09:52 | Outpatient (CLI) | payer BC ==
--- NOTE | 2021-01-18 11:48 | Cat Scan Report ---
CT CHEST WITHOUT CONTRAST INDICATION / CLINICAL INFORMATION: DISORDERS OF LUNGS, POST COVID . TECHNIQUE: Axial CT images were obtained through the chest without contrast. All CT scans at this location are p erformed using CT dose reduction for ALARA by means of automated exposure control. COMPARISON: CT from 10/19/2020. FINDINGS: THORACIC AORTA: No significant abnormality. HEART: No significant abnormality. MEDIASTINUM / SAMARIA: No significant thoracic lymphadenopathy. LUNGS/PLEURA: Significant improvement in peripheral and basilar predominant airspace disease from hailee or CTA from 10/19/2020. Mild reticular opacities persist within the bilateral lower lobes and left uppe r lobe. No acute airspace consolidation. No pleural effusion or pneumothorax. ADDITIONAL CHEST FINDINGS: None. UPPER ABDOMEN: No significant abnormality. SKELETAL SYSTEM: No significant abnormality. IMPRESSION: 1. Significant improvement in peripheral and basilar predominant airspace disease with mild persisten t reticular opacities involving the lower lungs. Findings may simply reflect resolving infiltrate, th ough early parenchymal scarring/fibrosis are not excluded. Continued follow-up is recommended. 2. No acute abnormality of the chest. Signer Name: Samson Roy MD Signed: 01/18/2021 11:42 AM Workstation Name: [id number]
== END 2021-01-18 09:53 | disposition home or self-care (01) ==
LOC: CT 09:52
PROVIDERS: ATTEND Specialist
DX: J98.4 Other disorders of lung (principal); R06.02 Shortness of breath
CPT/HCPCS: 71250

== ENCOUNTER 2021-08-06 14:41 | Inpatient (IN) | payer BC ==
[2021-08-06] MEDS ORDERED: SODIUM CHLORIDE 0.9% 1000 ML 1,000 ML IV ONE ×2 (17:31→23:16)
[2021-08-06] MEDS ORDERED: ASPIRIN 325 MG TAB PO ONE (17:31)
[2021-08-06] MEDS ORDERED: MORPHINE 2 MG/1 ML INJ IV ONE ×2 (17:32→23:43)
--- NOTE | 2021-08-06 18:20 | XRay Report ---
CHEST 2 VIEWS INDICATION / CLINICAL INFORMATION: Chest Pain. COMPARISON: 10/26/20. FINDINGS: SUPPORT DEVICES: None. HEART / MEDIASTINUM: The heart size and pulmonary vasculature are normal. The aorta is normal in sophia kory. LUNGS / PLEURA: No significant pulmonary or pleural abnormality. Patchy parenchymal opacities through out both lungs have completely cleared since the prior exam. No pneumothorax. ADDITIONAL FINDINGS: No significant additional findings. IMPRESSION: No acute findings. Signer Name: Nader Pham MD Signed: 08/06/2021 6:15 PM Workstation Name: [id number]
[2021-08-06 19:04] LABS: INR 1.11 (0.87-1.13)
[2021-08-06 19:05] LABS: Alanine Aminotransferase 30 units/L (7-56); Albumin 3.5 g/dL (3.9-5); BUN/Creatinine Ratio 14; Blood Urea Nitrogen 11 mg/dL (7-17); Hemolysis Index 2; Mean Corpuscular HGB Conc 30 % (30-34); Mean Corpuscular Volume 76 fl (79-97); Platelet Count 191 K/mm3 (140-440); Red Blood Count 5.85 M/mm3 (3.65-5.03); Red Cell Distribution Width 14.9 % (13.2-15.2)
[2021-08-06 19:09] LABS: Hematocrit 44.6 % (30.3-42.9); Hemoglobin 13.5 gm/dl (10.1-14.3)
[2021-08-06] MEDS ORDERED: INSULIN REGULAR, HUMAN 100 UNITS/1 ML IV ONE (20:56)
[2021-08-06] MEDS ORDERED: SODIUM CHLORIDE 0.45% 1000 ML 1,000 ML IV ONE (21:13)
[2021-08-06 21:54] LABS: Monocytes % (Manual) 0 % (0.0-7.3); Total Cells Counted 100
[2021-08-06 21:55] LABS: Basophils % (Manual) 0 % (0.0-1.8); Eosinophils % (Manual) 0 % (0.0-4.3); Hypochromasia 1+
[2021-08-06 21:56] LABS: Anisocytosis 1+; Platelet Estimate Consistent w Auto
[2021-08-06] MEDS ORDERED: SODIUM CHLORIDE 0.45% 1000 ML IV SOLN IV SCH (22:00)
[2021-08-06 23:33] LABS: Alanine Aminotransferase 32 units/L (7-56); Albumin 2.7 g/dL (3.9-5); BUN/Creatinine Ratio 18; Blood Urea Nitrogen 11 mg/dL (7-17); Calcium 8.3 mg/dL (8.4-10.2); Hemolysis Index 19
[2021-08-07] MEDS ORDERED: PANTOPRAZOLE 80 MG in SODIUM CHLORIDE 0.9% 100 ML IV SCH (01:00)
[2021-08-07] MEDS ORDERED: PANTOPRAZOLE 40 MG INJ IV ONE (01:05)
--- NOTE | 2021-08-07 01:10 | Emergency Department Report ---
ED General Adult HPI - General Chief complaint: Chest Pain Stated complaint: CHEST/BACK PAIN/WHEEZING Time Seen by Provider: 08/06/21 17:22 Source: patient Mode of arrival: Ambulatory Limitations: No Limitations - History of Present Illness Initial comments: pt presents to ed with complaint of chest pain , pt had chest pain few days ago right side going to his back , had histoyr of the same and was musculo skeletal in nature , no fever no cough no SOB , no confusion, pt had DM and HTN -: Gradual, days(s) Location: chest (right) Radiation: back, neck Severity scale (0 -10): 9 Quality: sharp, dull Consistency: constant Improves with: none Worsens with: none Associated Symptoms: headaches, nausea/vomiting - Related Data Previous Rx's Medication Instructions Recorded Last Taken Type Albuterol Mdi (or & Nicu Only) 2 puff IH Q2HRT PRN #1 inha 10/31/20 Unknown Rx [ProAir HFA Inhaler] Insulin NPH/Regular [Novolin 70/30] 20 unit SQ BIDDIAB #2 vial 10/31/20 Unknown Rx Insulin Regular, Human [Humulin R] 3 unit SC ACHS #2 vial 10/31/20 Unknown Rx Phenol 1.4% [Chloraseptic] 1 spray MM PRN PRN #1 bottle 10/31/20 Unknown Rx guaiFENesin ER [Mucinex ER] 600 mg PO BID #30 tablet 10/31/20 Unknown Rx Allergies Allergy/AdvReac Type Severity Reaction Status Date / Time No Known Allergies Allergy Verified 10/19/20 01:19 ED Review of Systems ROS: Stated complaint: CHEST/BACK PAIN/WHEEZING Other details as noted in HPI Constitutional: denies: chills, fever Eyes: denies: eye pain, eye discharge, vision change ENT: denies: ear pain, throat pain Respiratory: denies: cough, shortness of breath, wheezing Cardiovascular: denies: chest pain, palpitations Endocrine: no symptoms reported Gastrointestinal: denies: abdominal pain, nausea, diarrhea Genitourinary: denies: urgency, dysuria, discharge Musculoskeletal: denies: back pain, joint swelling, arthralgia Skin: denies: rash, lesions Neurological: denies: headache, weakness, paresthesias Psychiatric: denies: anxiety, depression Hematological/Lymphatic: denies: easy bleeding, easy bruising ED Past Medical Hx - Past Medical History Hx Congestive Heart Failure: No Hx Diabetes: Yes Hx Asthma: No Hx COPD: No - Social History Smoking Status: Never Smoker - Medications Home Medications: Home Medications Medication Instructions Recorded Confirmed Last Taken Type Albuterol Mdi (or & Nicu Only) 2 puff IH Q2HRT PRN #1 inha 10/31/20 Unknown Rx [ProAir HFA Inhaler] Insulin NPH/Regular [Novolin 70/30] 20 unit SQ BIDDIAB #2 vial 10/31/20 Unknown Rx Insulin Regular, Human [Humulin R] 3 unit SC ACHS #2 vial 10/31/20 Unknown Rx Phenol 1.4% [Chloraseptic] 1 spray MM PRN PRN #1 bottle 10/31/20 Unknown Rx guaiFENesin ER [Mucinex ER] 600 mg PO BID #30 tablet 10/31/20 Unknown Rx ED Physical Exam - General Limitations: No Limitations General appearance: alert, in no apparent distress - Head Head exam: Present: atraumatic, normocephalic - Eye Eye exam: Present: normal appearance - ENT ENT exam: Present: mucous membranes moist - Neck Neck exam: Present: normal inspection - Respiratory Respiratory exam: Present: normal lung sounds bilaterally. Absent: respiratory distress - Cardiovascular Cardiovascular Exam: Present: regular rate, normal rhythm, tachycardia. Absent: systolic murmur, diastolic murmur, rubs, gallop - GI/Abdominal GI/Abdominal exam: Present: soft, normal bowel sounds - Extremities Exam Extremities exam: Present: normal inspection - Back Exam Back exam: Present: normal inspection - Neurological Exam Neurological exam: Present: alert, oriented X3 - Psychiatric Psychiatric exam: Present: normal affect, normal mood - Skin Skin exam: Present: warm, dry, intact, normal color. Absent: rash ED Course Vital Signs 08/06/21 08/06/21 08/06/21 15:05 19:09 19:16 Temperature 100.1 F H Pulse Rate 130 H 121 H 119 H Respiratory 18 29 H Rate Blood Pressure 117/84 Blood Pressure [Left] O2 Sat by Pulse 97 Oximetry 08/06/21 08/06/21 08/06/21 19:21 19:30 19:46 Temperature 97.9 F Pulse Rate 122 H 121 H 120 H Respiratory 25 H 27 H 28 H Rate Blood Pressure 104/67 111/72 Blood Pressure 104/67 [Left] O2 Sat by Pulse 97 98 97 Oximetry 08/06/21 08/06/21 08/06/21 20:00 20:16 20:30 Temperature Pulse Rate 125 H 122 H 118 H Respiratory 29 H 31 H 26 H Rate Blood Pressure 106/72 105/68 110/71 Blood Pressure [Left] O2 Sat by Pulse 98 97 98 Oximetry 08/06/21 08/06/21 08/06/21 20:46 21:00 21:24 Temperature Pulse Rate 119 H 120 H 125 H Respiratory 28 H 29 H 21 Rate Blood Pressure 107/69 107/68 109/72 Blood Pressure [Left] O2 Sat by Pulse 97 98 98 Oximetry 08/06/21 08/06/21 08/06/21 21:30 21:46 22:00 Temperature Pulse Rate 122 H 122 H 123 H Respiratory 28 H 30 H 31 H Rate Blood Pressure 109/72 109/72 109/72 Blood Pressure [Left] O2 Sat by Pulse 100 99 98 Oximetry 08/06/21 08/06/21 08/06/21 22:16 22:30 22:46 Temperature Pulse Rate 124 H 125 H 127 H Respiratory 32 H 33 H 37 H Rate Blood Pressure 109/72 109/72 109/72 Blood Pressure [Left] O2 Sat by Pulse 97 98 Oximetry 08/06/21 08/06/21 08/06/21 23:00 23:16 23:30 Temperature Pulse Rate 124 H 126 H 125 H Respiratory 53 H 32 H 33 H Rate Blood Pressure 109/72 113/76 113/76 Blood Pressure [Left] O2 Sat by Pulse 98 97 92 Oximetry 08/06/21 08/06/21 08/06/21 23:42 23:46 23:51 Temperature Pulse Rate 124 H 123 H Respiratory 31 H 31 H 25 H Rate Blood Pressure 95/58 95/58 Blood Pressure [Left] O2 Sat by Pulse 97 99 Oximetry 08/07/21 08/07/21 08/07/21 00:00 00:16 00:30 Temperature Pulse Rate 123 H 125 H 124 H Respiratory 33 H 35 H 32 H Rate Blood Pressure 118/78 118/78 118/78 Blood Pressure [Left] O2 Sat by Pulse 98 97 99 Oximetry 08/07/21 08/07/21 08/07/21 00:46 00:59 01:00 Temperature 98.9 F Pulse Rate 124 H 126 H Respiratory 32 H 35 H Rate Blood Pressure 118/78 110/76 Blood Pressure [Left] O2 Sat by Pulse 98 98 Oximetry - Reevaluation(s) Reevaluation #1: 08/07/21 01:07 work up showed acidosis and hyperglucemia and gap ED Medical Decision Making - Lab Data Result diagrams: 08/06/21 17:36 08/06/21 22:46 Critical Care Time: Yes Critical care time in (mins) excluding proc time.: 65 Critical care attestation.: If time is entered above; I have spent that time in minutes in the direct care of this critically ill patient, excluding procedure time. ED Disposition Clinical Impression: DKA (diabetic ketoacidosis), Chest wall pain Disposition: ADMITTED INPATIENT Is pt being admited?: Yes Does the pt Need Aspirin: No Condition: Fair Instructions: Diabetic Ketoacidosis (ED), Nonspecific Chest Pain, Adult Referrals: PRIMARY CARE, [Primary Care Provider] - 3-5 Days
[2021-08-07] MEDS ORDERED: PHYTONADIONE(ADULT ONLY) 10 MG in SODIUM CHLORIDE 0.9% 50 ML IV ONE (01:38)
[2021-08-07] MEDS ORDERED: ACETAMINOPHEN 325 MG TAB PO PRN (01:48)
[2021-08-07] MEDS ORDERED: NITROGLYCERIN 0.4 MG TAB SUBL SL PRN (01:48)
[2021-08-07] MEDS ORDERED: ALBUTEROL 2.5 MG/3 ML NEBU IH PRN (01:48)
[2021-08-07 01:55] LABS: Blood Urea Nitrogen 11 mg/dL (7-17); Calcium 8.1 mg/dL (8.4-10.2); Hemolysis Index 0
--- NOTE | 2021-08-07 01:58 | History and Physical Report ---
History of Present Illness Date of examination: 08/07/21 Date of admission: 08/07/21 Chief complaint: Chest pain History of present illness: 40 years old female with history of diabetes and hypertension was brought to the hospital because of chest pain which is right chest 9/10 sharp , constant radiating to the right side to the back and neck, patient had some chest pain few days ago right side going to the back, musculoskeletal in nature no shortness of breath no cough no fever. Initial cardiac enzyme is negative troponin is 0.010 In the emergency room patient is found to have DKA patient blood glucose is 315, bicarb 15 anion gap 30.'s were going to admit the patient to the ICU overnight. We will put the patient on insulin drip and consult critical care Past History Past Medical History: diabetes, hypertension Medications and Allergies Allergies Allergy/AdvReac Type Severity Reaction Status Date / Time No Known Allergies Allergy Verified 10/19/20 01:19 Home Medications Medication Instructions Recorded Confirmed Last Taken Type Albuterol Mdi (or & Nicu Only) 2 puff IH Q2HRT PRN #1 inha 10/31/20 Unknown Rx [ProAir HFA Inhaler] Insulin NPH/Regular [Novolin 70/30] 20 unit SQ BIDDIAB #2 vial 10/31/20 Unknown Rx Insulin Regular, Human [Humulin R] 3 unit SC ACHS #2 vial 10/31/20 Unknown Rx Phenol 1.4% [Chloraseptic] 1 spray MM PRN PRN #1 bottle 10/31/20 Unknown Rx guaiFENesin ER [Mucinex ER] 600 mg PO BID #30 tablet 10/31/20 Unknown Rx Active Meds: Active Medications Acetaminophen (Acetaminophen 325 Mg Tab) 650 mg PO Q4H PRN PRN Reason: Pain MILD(1-3)/Fever >100.5/ROJAS Acetaminophen (Acetaminophen 325 Mg Tab) 650 mg PO Q6H PRN PRN Reason: Pain, Mild (1-3) Dextrose (Dextrose 50% In Water (25gm) 50 Ml Syringe) 0 ml IV Q30MIN PRN; Protocol PRN Reason: Hypoglycemia Insulin Human Regular 100 (units/ Sodium Chloride) 100 mls @ 1 mls/hr IV TITR ROSSANA; Protocol Dextrose/Sodium Chloride (D5/0.45ns) 1,000 mls @ 125 mls/hr IV DIRECT ROSSANA Insulin Human Regular 100 (units/ Sodium Chloride) 100 mls @ 1 mls/hr IV TITR ROSSANA; Protocol Ondansetron HCl (Ondansetron 4 Mg/2 Ml Inj) 4 mg IV Q8H PRN PRN Reason: Nausea And Vomiting Sodium Chloride (Sodium Chloride 0.9% 10 Ml Flush Syringe) 10 ml IV BID ROSSANA Sodium Chloride (Sodium Chloride 0.9% 10 Ml Flush Syringe) 10 ml IV PRN PRN PRN Reason: LINE FLUSH Sodium Chloride (Sodium Chloride 0.9% 10 Ml Flush Syringe) 10 ml IV PRN PRN PRN Reason: LINE FLUSH Tramadol HCl (Tramadol 50 Mg Tab) 50 mg PO Q6H PRN PRN Reason: Pain, Moderate (4-6) Review of Systems Cardiovascular: chest pain Musculoskeletal: other (Chest pain) Exam - Constitutional Vitals: Temp Pulse Resp BP Pulse Ox 98.9 F 126 H 35 H 110/76 98 08/07/21 00:59 08/07/21 01:00 08/07/21 01:00 08/07/21 01:00 08/07/21 01:00 General appearance: Present: no acute distress, well-nourished - EENT Eyes: Present: PERRL ENT: hearing intact, clear oral mucosa - Neck Neck: Present: supple, normal ROM - Respiratory Respiratory effort: normal Respiratory: bilateral: diminished - Cardiovascular Heart Sounds: Present: S1 & S2. Absent: rub, click - Extremities Extremities: pulses symmetrical, No edema Peripheral Pulses: within normal limits - Abdominal General gastrointestinal: Present: soft, non-tender, non-distended, normal bowel sounds Female genitourinary: Present: normal - Integumentary Integumentary: Present: clear, warm, dry - Musculoskeletal Musculoskeletal: gait normal, strength equal bilaterally - Psychiatric Psychiatric: appropriate mood/affect, intact judgment & insight - Neurologic Neurologic: CNII-XII intact, moves all extremities HEART Score - HEART Score Troponin: Troponin T < 0.010 ng/mL (0.00-0.029) 08/06/21 17:36 Results - Labs CBC & Chem 7: 08/06/21 17:36 08/06/21 22:46 Labs: Laboratory Last Values WBC 17.9 K/mm3 (4.5-11.0) H 08/06/21 17:36 RBC 5.85 M/mm3 (3.65-5.03) H 08/06/21 17:36 Hgb 13.5 gm/dl (10.1-14.3) 08/06/21 17:36 Hct 44.6 % (30.3-42.9) H 08/06/21 17:36 MCV 76 fl (79-97) L 08/06/21 17:36 MCH 23 pg (28-32) L 08/06/21 17:36 MCHC 30 % (30-34) 08/06/21 17:36 RDW 14.9 % (13.2-15.2) 08/06/21 17:36 Plt Count 191 K/mm3 (140-440) 08/06/21 17:36 Add Manual Diff Complete 08/06/21 17:36 Total Counted 100 08/06/21 17:36 Seg Neuts % (Manual) 85.0 % (40.0-70.0) H 08/06/21 17:36 Band Neutrophils % 0 % 08/06/21 17:36 Lymphocytes % (Manual) 15.0 % (13.4-35.0) 08/06/21 17:36 Reactive Lymphs % (Man) 0 % 08/06/21 17:36 Monocytes % (Manual) 0 % (0.0-7.3) 08/06/21 17:36 Eosinophils % (Manual) 0 % (0.0-4.3) 08/06/21 17:36 Basophils % (Manual) 0 % (0.0-1.8) 08/06/21 17:36 Metamyelocytes % 0 % 08/06/21 17:36 Myelocytes % 0 % 08/06/21 17:36 Promyelocytes % 0 % 08/06/21 17:36 Blast Cells % 0 % 08/06/21 17:36 Nucleated RBC % Not Reportable 08/06/21 17:36 Seg Neutrophils # Man 15.2 K/mm3 (1.8-7.7) H 08/06/21 17:36 Band Neutrophils # 0.0 K/mm3 08/06/21 17:36 Lymphocytes # (Manual) 2.7 K/mm3 (1.2-5.4) 08/06/21 17:36 Abs React Lymphs (Man) 0.0 K/mm3 08/06/21 17:36 Monocytes # (Manual) 0.0 K/mm3 (0.0-0.8) 08/06/21 17:36 Eosinophils # (Manual) 0.0 K/mm3 (0.0-0.4) 08/06/21 17:36 Basophils # (Manual) 0.0 K/mm3 (0.0-0.1) 08/06/21 17:36 Metamyelocytes # 0.0 K/mm3 08/06/21 17:36 Myelocytes # 0.0 K/mm3 08/06/21 17:36 Promyelocytes # 0.0 K/mm3 08/06/21 17:36 Blast Cells # 0.0 K/mm3 08/06/21 17:36 WBC Morphology Not Reportable 08/06/21 17:36 Hypersegmented Neuts Not Reportable 08/06/21 17:36 Hyposegmented Neuts Not Reportable 08/06/21 17:36 Hypogranular Neuts Not Reportable 08/06/21 17:36 Smudge Cells Not Reportable 08/06/21 17:36 Toxic Granulation Not Reportable 08/06/21 17:36 Toxic Vacuolation Not Reportable 08/06/21 17:36 Dohle Bodies Not Reportable 08/06/21 17:36 Pelger-Huet Anomaly Not Reportable 08/06/21 17:36 Apryl Rods Not Reportable 08/06/21 17:36 Platelet Estimate Consistent w auto 08/06/21 17:36 Clumped Platelets Not Reportable 08/06/21 17:36 Plt Clumps, EDTA Not Reportable 08/06/21 17:36 Large Platelets Not Reportable 08/06/21 17:36 Giant Platelets Not Reportable 08/06/21 17:36 Platelet Satelliting Not Reportable 08/06/21 17:36 Plt Morphology Comment Not Reportable 08/06/21 17:36 RBC Morphology Not Reportable 08/06/21 17:36 Dimorphic RBCs Not Reportable 08/06/21 17:36 Polychromasia Not Reportable 08/06/21 17:36 Hypochromasia 1+ 08/06/21 17:36 Poikilocytosis Not Reportable 08/06/21 17:36 Anisocytosis 1+ 08/06/21 17:36 Microcytosis Not Reportable 08/06/21 17:36 Macrocytosis Not Reportable 08/06/21 17:36 Spherocytes Not Reportable 08/06/21 17:36 Pappenheimer Bodies Not Reportable 08/06/21 17:36 Sickle Cells Not Reportable 08/06/21 17:36 Target Cells Not Reportable 08/06/21 17:36 Tear Drop Cells Not Reportable 08/06/21 17:36 Ovalocytes Not Reportable 08/06/21 17:36 Helmet Cells Not Reportable 08/06/21 17:36 [place] Bodies Not Reportable 08/06/21 17:36 [place] Rings Not Reportable 08/06/21 17:36 Delores Cells Not Reportable 08/06/21 17:36 Bite Cells Not Reportable 08/06/21 17:36 Crenated Cell Not Reportable 08/06/21 17:36 Elliptocytes Not Reportable 08/06/21 17:36 Acanthocytes (Spur) Not Reportable 08/06/21 17:36 Rouleaux Not Reportable 08/06/21 17:36 Hemoglobin C Crystals Not Reportable 08/06/21 17:36 Schistocytes Not Reportable 08/06/21 17:36 Malaria parasites Not Reportable 08/06/21 17:36 Mauricio Bodies Not Reportable 08/06/21 17:36 Hem Pathologist Commnt No 08/06/21 17:36 PT 15.5 Sec. (12.2-14.9) H 08/06/21 17:36 INR 1.11 (0.87-1.13) 08/06/21 17:36 VBG pH 7.362 (7.320-7.420) 08/06/21 20:07 Sodium 133 mmol/L (137-145) L 08/06/21 22:46 Potassium 4.1 mmol/L (3.6-5.0) 08/06/21 22:46 Chloride 100.1 mmol/L (98-107) 08/06/21 22:46 Carbon Dioxide 10 mmol/L (22-30) L 08/06/21 22:46 Anion Gap 27 mmol/L 08/06/21 22:46 BUN 11 mg/dL (7-17) 08/06/21 22:46 Creatinine 0.6 mg/dL (0.6-1.2) 08/06/21 22:46 Estimated GFR > 60 ml/min 08/06/21 22:46 BUN/Creatinine Ratio 18 % 08/06/21 22:46 Glucose 280 mg/dL (65-100) H 08/06/21 22:46 POC Glucose 269 mg/dL (70-105) H 08/06/21 23:10 Ketones Quantitative Moderate (Negative) 08/06/21 20:07 Calcium 8.3 mg/dL (8.4-10.2) L 08/06/21 22:46 Total Bilirubin 0.60 mg/dL (0.1-1.2) 08/06/21 22:46 AST 42 units/L (5-40) H 08/06/21 22:46 ALT 32 units/L (7-56) 08/06/21 22:46 Alkaline Phosphatase 96 units/L (35-129) 08/06/21 22:46 Total Creatine Kinase 124 units/L (30-135) 08/06/21 17:36 Troponin T < 0.010 ng/mL (0.00-0.029) 08/06/21 17:36 Total Protein 6.7 g/dL (6.3-8.2) 08/06/21 22:46 Albumin 2.7 g/dL (3.9-5) L 08/06/21 22:46 Albumin/Globulin Ratio 0.7 % 08/06/21 22:46 Lipase 13 units/L (13-60) 08/06/21 17:36 - Imaging and Cardiology Chest x-ray: report reviewed Assessment and Plan VTE prophylaxis?: Chemical Plan of care discussed with patient/family: Yes - Patient Problems (1) DKA (diabetic ketoacidosis) Current Visit: Yes Status: Acute Plan to address problem: Admit the patient to the critical care unit overnight. NPO. IV fluid as per protocol. Insulin drip as per protocol. We do the serial BMP. We consulted critical care evaluation. Recheck CBC BMP in the morning (2) ACS (acute coronary syndrome) Current Visit: Yes Status: Acute Plan to address problem: Aspirin 325 mg p.o. daily. Lipitor 40 mg p.o. daily. Nitroglycerin as needed. We will do the serial cardiac enzymes. Consult cardiology if needed (3) Hypertension Current Visit: Yes Status: Acute Plan to address problem: Hydralazine 10 mg IV every 6 hours as needed. We continue the home medication (4) Diabetes Current Visit: Yes Status: Acute Plan to address problem: We will put the patient insulin drip we will do the serial BMP. Reconsult diabetic education (5) Leukocytosis Current Visit: Yes Status: Acute Plan to address problem: Rocephin 2 g IV daily. Recheck CBC in the morning (6) DVT prophylaxis Current Visit: Yes Status: Acute Plan to address problem: Heparin 5000 units subcu every 8 hours for DVT prophylaxis. Pepcid 20 mg IV every 12 hours for GI prophylaxis. Patient is a full code
[2021-08-07 01:59] LABS: BUN/Creatinine Ratio 16
[2021-08-07] MEDS ORDERED: hydrALAZINE 20 MG/1 ML INJ IV PRN (02:00)
[2021-08-07] MEDS ORDERED: INSULIN REGULAR, HUMAN 100 UNITS in SODIUM CHLORIDE 0.9% 99 ML IV SCH (02:00)
[2021-08-07] MEDS ORDERED: D5W/0.45% NACL 1,000 ML IV SCH (02:00)
[2021-08-07] MEDS ORDERED: DEXTROSE 10% *Hypoglycemia IV PRN (02:12)
[2021-08-07] MEDS: INSULIN REGULAR, HUMAN 100 UNITS in SODIUM CHLORIDE 0.9% 99 ML IV SCH ×2 (02:22→17:11)
[2021-08-07 06:25] LABS: Bilirubin,Urine NEG (Negative); Blood,Urine MOD (Negative); Color,Urine Yellow (Yellow); Mucus,Urine FEW /HPF; RBC,Urine > 182.0 /HPF (0.0-6.0); Urobilinogen,Urine < 2.0 mg/dL (<2.0)
[2021-08-07 06:31] LABS: Amphetamine Screen,Urine Negative; Benzodiazepines Screen,Urine Negative; Cocaine Screen,Urine Negative; Methadone Screen,Urine Negative; Opiate Screen,Urine Negative
[2021-08-07 06:46] LABS: Cannabinoid Screen,Urine Positive
[2021-08-07] MEDS: HEPARIN 5,000 UNIT/1 ML VIAL SUB-Q SCH ×2 (08:00→17:13)
--- NOTE | 2021-08-07 08:24 | Progress Note ---
Assessment and Plan Assessment and plan: History of present illness: 40 years old female with history of diabetes and hypertension was brought to the hospital because of chest pain which is right chest 9/10 sharp , constant radiating to the right side to the back and neck, patient had some chest pain few days ago right side going to the back, musculoskeletal in nature no shortness of breath no cough no fever. Initial cardiac enzyme is negative troponin is 0.010 In the emergency room patient is found to have DKA patient blood glucose is 315, bicarb 15 anion gap 30.'s were going to admit the patient to the ICU overnight. We will put the patient on insulin drip and consult critical care Hospital Course: 08/07: Patient was discontinued off her diabetic medication as an outpatient by h er primary. She states that after her blood sugars had normalized so she was discontinued. She does not track her blood sugars and does not take any medications for diabetes. Of note her A1c was 12.5 in October 2020. We will continue IV insulin until anion gap is closed. Can likely be downgraded once metabolic acidosis resolves. Assessment and Plan: #Diabetic ketoacidosis - A, BG in 300's, glucosuria (500's). ketonuria (80), VB.362 on presentation - DKA protocol: IV insulin, IVF. - NPO until AG closes - once AG closed (< 14), can start lantus 10 mg subq. Please run insulin gtt 1hr after lantus admin. Can initiate diabetic diet as well - accuchecks q1 hr until AG closed - BMP q4hr until AG closed #Musculoskeletal chest pain - reproducible with papation - doubt acs, non elevated troponin, EKG appears to be normal with no st depressios/elevations. #Hypertension - elevated on admission - start haleigh-i on discharge #Type 2 diabetes with hyperglycemia - a1c: 12.17 Oct 2020 - was d/c off diabetic medication after as primary has stated that she no longer had diabetes. She does not take any medication as an outpatient. - repeat a1c ordered - will need optimization of regimen at discharge. #SIRS - wbc: 17.6, likely demargination from DKA - low suspicion for infectious etiology - procalcitonin ordered, will d/c empiric if unremarkable. #THC use - behavioral health counseling on the effects of THC on body. Cessation and quitting advised +15mins. #Advance care planning Disease education conducted, care plan discussed, diagnoses discussed, prognosis discussed, patient is full code, patient acknowledges understanding and agree with care plan, +30 minutes. Dispo: ICU, can downgrade once AG is closed. The high probability of a clinically significant, sudden or life threatening deterioration of the [multi] system(s) required my full and direct attention, intervention and personal management. The aggregate critical care time was [60] minutes. This time is in addition to time spent performing reported procedures but includes the following: [x] Data Review and interpretation [x] Patient assessment and monitoring of vital signs [x] Documentation [x] Medication orders and management History Interval history: Resting on encounter, mild discomfort noted. patient states she still does not have an appetite. Denies active nausea vomiting Hospitalist Physical - Physical exam Narrative exam: Physical Exam: VITAL SIGNS: Reviewed. GENERAL: The patient appears normally developed, Vital signs as documented. HEAD: No signs of head trauma. EYES: Pupils are equal. Extraocular motions intact. EARS: Hearing grossly intact. MOUTH: Oropharynx is normal. NECK: No adenopathy, no JVD. CHEST: Chest with clear breath sounds bilaterally. No wheezes, rales, or rhonchi. CARDIAC: Regular rate and rhythm. S1 and S2, without murmurs, gallops, or rubs. VASCULAR: No Edema. Peripheral pulses normal and equal in all extremities. ABDOMEN: Soft, non tender and non distended. No rebound or guarding, and no masses palpated. Bowel Sounds normal. MUSCULOSKELETAL: Good range of motion of all major joints. Extremities without clubbing, cyanosis or edema. NEUROLOGIC EXAM: Alert and oriented x 4. no focal sensory or strength deficits. PSYCHIATRIC: Mood normal. SKIN: detail exam as documented in skin assessment - Constitutional Vitals: Temp Pulse Resp BP Pulse Ox 98.0 F 125 H 23 104/74 98 08/07/21 04:44 08/07/21 04:30 08/07/21 04:30 08/07/21 04:30 08/07/21 04:30 General appearance: Present: no acute distress, well-nourished HEART Score - HEART Score Troponin: Troponin T < 0.010 ng/mL (0.00-0.029) 08/06/21 17:36 Results - Labs CBC & Chem 7: 08/06/21 17:36 08/07/21 01:21 Labs: Laboratory Last Values WBC 17.9 K/mm3 (4.5-11.0) H 08/06/21 17:36 RBC 5.85 M/mm3 (3.65-5.03) H 08/06/21 17:36 Hgb 13.5 gm/dl (10.1-14.3) 08/06/21 17:36 Hct 44.6 % (30.3-42.9) H 08/06/21 17:36 MCV 76 fl (79-97) L 08/06/21 17:36 MCH 23 pg (28-32) L 08/06/21 17:36 MCHC 30 % (30-34) 08/06/21 17:36 RDW 14.9 % (13.2-15.2) 08/06/21 17:36 Plt Count 191 K/mm3 (140-440) 08/06/21 17:36 Add Manual Diff Complete 08/06/21 17:36 Total Counted 100 08/06/21 17:36 Seg Neuts % (Manual) 85.0 % (40.0-70.0) H 08/06/21 17:36 Band Neutrophils % 0 % 08/06/21 17:36 Lymphocytes % (Manual) 15.0 % (13.4-35.0) 08/06/21 17:36 Reactive Lymphs % (Man) 0 % 08/06/21 17:36 Monocytes % (Manual) 0 % (0.0-7.3) 08/06/21 17:36 Eosinophils % (Manual) 0 % (0.0-4.3) 08/06/21 17:36 Basophils % (Manual) 0 % (0.0-1.8) 08/06/21 17:36 Metamyelocytes % 0 % 08/06/21 17:36 Myelocytes % 0 % 08/06/21 17:36 Promyelocytes % 0 % 08/06/21 17:36 Blast Cells % 0 % 08/06/21 17:36 Nucleated RBC % Not Reportable 08/06/21 17:36 Seg Neutrophils # Man 15.2 K/mm3 (1.8-7.7) H 08/06/21 17:36 Band Neutrophils # 0.0 K/mm3 08/06/21 17:36 Lymphocytes # (Manual) 2.7 K/mm3 (1.2-5.4) 08/06/21 17:36 Abs React Lymphs (Man) 0.0 K/mm3 08/06/21 17:36 Monocytes # (Manual) 0.0 K/mm3 (0.0-0.8) 08/06/21 17:36 Eosinophils # (Manual) 0.0 K/mm3 (0.0-0.4) 08/06/21 17:36 Basophils # (Manual) 0.0 K/mm3 (0.0-0.1) 08/06/21 17:36 Metamyelocytes # 0.0 K/mm3 08/06/21 17:36 Myelocytes # 0.0 K/mm3 08/06/21 17:36 Promyelocytes # 0.0 K/mm3 08/06/21 17:36 Blast Cells # 0.0 K/mm3 08/06/21 17:36 WBC Morphology Not Reportable 08/06/21 17:36 Hypersegmented Neuts Not Reportable 08/06/21 17:36 Hyposegmented Neuts Not Reportable 08/06/21 17:36 Hypogranular Neuts Not Reportable 08/06/21 17:36 Smudge Cells Not Reportable 08/06/21 17:36 Toxic Granulation Not Reportable 08/06/21 17:36 Toxic Vacuolation Not Reportable 08/06/21 17:36 Dohle Bodies Not Reportable 08/06/21 17:36 Pelger-Huet Anomaly Not Reportable 08/06/21 17:36 Apryl Rods Not Reportable 08/06/21 17:36 Platelet Estimate Consistent w auto 08/06/21 17:36 Clumped Platelets Not Reportable 08/06/21 17:36 Plt Clumps, EDTA Not Reportable 08/06/21 17:36 Large Platelets Not Reportable 08/06/21 17:36 Giant Platelets Not Reportable 08/06/21 17:36 Platelet Satelliting Not Reportable 08/06/21 17:36 Plt Morphology Comment Not Reportable 08/06/21 17:36 RBC Morphology Not Reportable 08/06/21 17:36 Dimorphic RBCs Not Reportable 08/06/21 17:36 Polychromasia Not Reportable 08/06/21 17:36 Hypochromasia 1+ 02/22/22 17:36 Poikilocytosis Not Reportable 08/06/21 17:36 Anisocytosis 1+ 08/06/21 17:36 Microcytosis Not Reportable 08/06/21 17:36 Macrocytosis Not Reportable 08/06/21 17:36 Spherocytes Not Reportable 08/06/21 17:36 Pappenheimer Bodies Not Reportable 08/06/21 17:36 Sickle Cells Not Reportable 08/06/21 17:36 Target Cells Not Reportable 08/06/21 17:36 Tear Drop Cells Not Reportable 08/06/21 17:36 Ovalocytes Not Reportable 08/06/21 17:36 Helmet Cells Not Reportable 08/06/21 17:36 [place] Bodies Not Reportable 08/06/21 17:36 [place] Rings Not Reportable 08/06/21 17:36 Delores Cells Not Reportable 08/06/21 17:36 Bite Cells Not Reportable 08/06/21 17:36 Crenated Cell Not Reportable 08/06/21 17:36 Elliptocytes Not Reportable 08/06/21 17:36 Acanthocytes (Spur) Not Reportable 08/06/21 17:36 Rouleaux Not Reportable 08/06/21 17:36 Hemoglobin C Crystals Not Reportable 08/06/21 17:36 Schistocytes Not Reportable 08/06/21 17:36 Malaria parasites Not Reportable 08/06/21 17:36 Mauricio Bodies Not Reportable 08/06/21 17:36 Hem Pathologist Commnt No 08/06/21 17:36 PT 15.5 Sec. (12.2-14.9) H 08/06/21 17:36 INR 1.11 (0.87-1.13) 08/06/21 17:36 VBG pH 7.362 (7.320-7.420) 08/06/21 20:07 Sodium 132 mmol/L (137-145) L 08/07/21 01:21 Potassium 4.0 mmol/L (3.6-5.0) 08/07/21 01:21 Chloride 99.5 mmol/L (98-107) 08/07/21 01:21 Carbon Dioxide 12 mmol/L (22-30) L 08/07/21 01:21 Anion Gap 25 mmol/L 08/07/21 01:21 BUN 11 mg/dL (7-17) 08/07/21 01:21 Creatinine 0.7 mg/dL (0.6-1.2) 08/07/21 01:21 Estimated GFR > 60 ml/min 08/07/21 01:21 BUN/Creatinine Ratio 16 % 08/07/21 01:21 Glucose 287 mg/dL (65-100) H 08/07/21 01:21 POC Glucose 265 mg/dL (70-105) H 08/07/21 06:49 Ketones Quantitative Moderate (Negative) 08/06/21 20:07 Calcium 8.1 mg/dL (8.4-10.2) L 08/07/21 01:21 Phosphorus 1.10 mg/dL (2.5-4.5) L 08/07/21 01:21 Magnesium 2.10 mg/dL (1.7-2.3) 08/07/21 01:21 Total Bilirubin 0.60 mg/dL (0.1-1.2) 08/06/21 22:46 AST 42 units/L (5-40) H 08/06/21 22:46 ALT 32 units/L (7-56) 08/06/21 22:46 Alkaline Phosphatase 96 units/L (35-129) 08/06/21 22:46 Total Creatine Kinase 124 units/L (30-135) 08/06/21 17:36 Troponin T < 0.010 ng/mL (0.00-0.029) 08/06/21 17:36 Total Protein 6.7 g/dL (6.3-8.2) 08/06/21 22:46 Albumin 2.7 g/dL (3.9-5) L 08/06/21 22:46 Albumin/Globulin Ratio 0.7 % 08/06/21 22:46 Lipase 13 units/L (13-60) 08/06/21 17:36 Urine Color Yellow (Yellow) 08/07/21 05:57 Urine Turbidity Cloudy (Clear) 08/07/21 05:57 Urine pH 5.0 (5.0-7.0) 08/07/21 05:57 Ur Specific [place] 1.023 (1.003-1.030) 08/07/21 05:57 Urine Protein 100 mg/dl mg/dL (Negative) 08/07/21 05:57 Urine Glucose (UA) >=500 mg/dL (Negative) 08/07/21 05:57 Urine Ketones 80 mg/dL (Negative) 08/07/21 05:57 Urine Blood Mod (Negative) 08/07/21 05:57 Urine Nitrite Neg (Negative) 08/07/21 05:57 Urine Bilirubin Neg (Negative) 08/07/21 05:57 Urine Urobilinogen < 2.0 mg/dL (<2.0) 08/07/21 05:57 Ur Leukocyte Esterase Neg (Negative) 08/07/21 05:57 Urine WBC (Auto) 2.0 /HPF (0.0-6.0) 08/07/21 05:57 Urine RBC (Auto) > 182.0 /HPF (0.0-6.0) 08/07/21 05:57 U Epithel Cells (Auto) 4.0 /HPF (0-13.0) 08/07/21 05:57 Urine WBC Clumps 1+ /HPF 08/07/21 05:57 Urine Mucus Few /HPF 08/07/21 05:57 Urine Yeast (Budding) 3+ /HPF 08/07/21 05:57 Urine Opiates Screen Negative 08/07/21 05:57 Urine Methadone Screen Negative 08/07/21 05:57 Ur Barbiturates Screen Negative 08/07/21 05:57 Ur Phencyclidine Scrn Negative 08/07/21 05:57 Ur Amphetamines Screen Negative 08/07/21 05:57 U Benzodiazepines Scrn Negative 08/07/21 05:57 Urine Cocaine Screen Negative 08/07/21 05:57 U Marijuana (THC) Screen Positive 08/07/21 05:57 Drugs of Abuse Note Disclamer 08/07/21 05:57 Active Medications - Current Medications Current Medications: Generic Name Dose Route Start Last Admin Trade Name Freq PRN Reason Stop Dose Admin Acetaminophen 650 mg 08/07/21 01:48 Acetaminophen 325 Mg Tab PO Q4H PRN Pain MILD(1-3)/Fever >100.5/ROJAS Albuterol 2.5 mg 08/07/21 01:48 Albuterol 2.5 Mg/3 Ml Nebu IH Q3HRT PRN Shortness Of Breath Albuterol/Ipratropium 1 ampul 08/07/21 02:00 Ipratropium/Albuterol Sulfate 3 Ml Ampul.Neb IH Q6HRT [facility] Aspirin 325 mg 08/08/21 10:00 Aspirin Ec 325 Mg Tab PO QDAY [facility] Atorvastatin Calcium 40 mg 08/07/21 22:00 Atorvastatin 40 Mg Tab PO QHS [facility] Dextrose 0 ml 08/07/21 02:12 Dextrose 10% *Hypoglycemia IV DIRECT PRN Hypoglycemia Protocol Famotidine 20 mg 08/07/21 10:00 Famotidine 20 Mg/2 Ml Inj IV BID [facility] Guaifenesin 600 mg 08/07/21 10:00 Guaifenesin Er 600 Mg Tab PO BID [facility] Heparin Sodium (Porcine) 5,000 unit 08/07/21 06:00 Heparin 5,000 Unit/1 Ml Vial SUB-Q Q8HR [facility] Hydralazine HCl 10 mg 08/07/21 02:00 Hydralazine 20 Mg/1 Ml Inj IV Q6H PRN Blood Pressure Hydromorphone HCl 0.5 mg 08/07/21 01:48 Hydromorphone 1 Mg/1 Ml Inj IV Q3H PRN Pain , Severe (7-10) Insulin Human Regular 100 100 mls @ 1 mls/hr 08/07/21 02:00 08/07/21 06:52 units/ Sodium Chloride IV 8 units/hr TITR [facility] 8 mls/hr Titration Protocol 1 UNITS/HR Dextrose/Sodium Chloride 1,000 mls @ 125 mls/hr 08/07/21 02:00 D5/0.45ns IV DIRECT [facility] Ceftriaxone Sodium 2 gm in 100 mls @ 200 mls/hr 08/07/21 02:00 Rocephin/Ns 2 Gm/100 Ml IV Q24HR [facility] Protocol Morphine Sulfate 2 mg 08/07/21 01:48 Morphine 2 Mg/1 Ml Inj IV Q4H PRN Pain, Moderate (4-6) Nitroglycerin 0.4 mg 08/07/21 01:48 Nitroglycerin 0.4 Mg Tab Subl SL Q5M PRN Chest Pain Ondansetron HCl 4 mg 08/07/21 01:48 Ondansetron 4 Mg/2 Ml Inj IV Q8H PRN Nausea And Vomiting Sodium Chloride 10 ml 08/07/21 10:00 Sodium Chloride 0.9% 10 Ml Flush Syringe IV BID [facility] Sodium Chloride 10 ml 08/07/21 01:48 Sodium Chloride 0.9% 10 Ml Flush Syringe IV PRN PRN LINE FLUSH Tramadol HCl 50 mg 08/07/21 01:48 Tramadol 50 Mg Tab PO Q6H PRN Pain, Moderate (4-6)
[2021-08-07] MEDS: cefTRIAXone/NS 2 GM/100 ML 2 GM/100 ML BAG IV SCH ×2 (09:13→09:52)
[2021-08-07] MEDS: guaiFENesin ER 600 MG TAB PO SCH ×2 (09:51→23:40)
[2021-08-07] MEDS: FAMOTIDINE 20 MG/2 ML INJ IV SCH ×2 (09:52→23:40)
--- NOTE | 2021-08-07 11:47 | Electrocardiograph Report ---
[facility] Test Date: 2021-08-06 Test Time: 15:14:48 Pat Name: JESSICA MEDINA Department: Room: [place] [address] Gender: F [employer] Operator: CODIE RENTERIAB: 1980 Requested By: ANIYAH EDWARDS Order Number: [id number] Reading MD: Aldo Fleming Measurements Intervals [place] Rate: 122 P: 75 VA: 135 QRS: 55 QRSD: 71 T: 4 QT: 276 QTc: 393 Interpretive Statements Sinus tachycardia LAE, consider biatrial enlargement Anteroseptal infarct, old Compared to ECG 10/18/2020 17:12:49 Early repolarization no longer present Possible ischemia no longer present Electronically Signed On 08-07-2021 10:46:50 EST by Aldo Fleming
[2021-08-07] MEDS: MORPHINE 2 MG/1 ML INJ IV PRN (12:52)
--- NOTE | 2021-08-07 13:47 | Consultation ---
History of Present Illness - Reason for Consult Consult date: 08/07/21 DKA - History of Present Illness 40 y/o female, my clinic patient for asthma, admitted with DKA. Per patient had some nausea and vomiting on Thursday. Has been out of meds for a "long time" but cannot tell me exactly how long and or why. Very flat affect but wants to go home. Denies any chest pain or shortness of breath. Stable on room air. Past History Past Medical History: diabetes, hypertension, other (asthma) Social history: Medications and Allergies Allergies Allergy/AdvReac Type Severity Reaction Status Date / Time No Known Allergies Allergy Verified 10/19/20 01:19 Home Medications Medication Instructions Recorded Confirmed Last Taken Type Albuterol Mdi (or & Nicu Only) 2 puff IH Q2HRT PRN #1 inha 10/31/20 Unknown Rx [ProAir HFA Inhaler] Insulin NPH/Regular [Novolin 70/30] 20 unit SQ BIDDIAB #2 vial 10/31/20 Unknown Rx Insulin Regular, Human [Humulin R] 3 unit SC ACHS #2 vial 10/31/20 Unknown Rx Phenol 1.4% [Chloraseptic] 1 spray MM PRN PRN #1 bottle 10/31/20 Unknown Rx guaiFENesin ER [Mucinex ER] 600 mg PO BID #30 tablet 10/31/20 Unknown Rx Active Meds: Active Medications Acetaminophen (Acetaminophen 325 Mg Tab) 650 mg PO Q4H PRN PRN Reason: Pain MILD(1-3)/Fever >100.5/ROJAS Albuterol (Albuterol 2.5 Mg/3 Ml Nebu) 2.5 mg IH Q3HRT PRN PRN Reason: Shortness Of Breath Albuterol/Ipratropium (Ipratropium/Albuterol Sulfate 3 Ml Ampul.Neb) 1 ampul IH Q6HRT [facility] Aspirin (Aspirin Ec 325 Mg Tab) 325 mg PO QDAY [facility] Atorvastatin Calcium (Atorvastatin 40 Mg Tab) 40 mg PO QHS [facility] Dextrose (Dextrose 10% *Hypoglycemia) 0 ml IV DIRECT PRN; Protocol PRN Reason: Hypoglycemia Famotidine (Famotidine 20 Mg/2 Ml Inj) 20 mg IV BID [facility] Last Admin: 08/07/21 09:52 Dose: 20 mg Guaifenesin (Guaifenesin Er 600 Mg Tab) 600 mg PO BID [facility] Last Admin: 08/07/21 09:51 Dose: 600 mg Heparin Sodium (Porcine) (Heparin 5,000 Unit/1 Ml Vial) 5,000 unit SUB-Q Q8HR [facility] Last Admin: 08/07/21 08:00 Dose: 5,000 unit Hydralazine HCl (Hydralazine 20 Mg/1 Ml Inj) 10 mg IV Q6H PRN PRN Reason: Blood Pressure Hydromorphone HCl (Hydromorphone 1 Mg/1 Ml Inj) 0.5 mg IV Q3H PRN PRN Reason: Pain , Severe (7-10) Insulin Human Regular 100 (units/ Sodium Chloride) 100 mls @ 1 mls/hr IV TITR [facility]; Protocol Last Titration: 08/07/21 12:51 Dose: 12 units/hr, 12 mls/hr Dextrose/Sodium Chloride (D5/0.45ns) 1,000 mls @ 125 mls/hr IV DIRECT ROSSANA Last Admin: 08/07/21 09:00 Dose: 125 mls/hr Ceftriaxone Sodium (Rocephin/Ns 2 Gm/100 Ml) 2 gm in 100 mls @ 200 mls/hr IV Q24HR [facility]; Protocol Last Admin: 08/07/21 09:52 Dose: Not Given Morphine Sulfate (Morphine 2 Mg/1 Ml Inj) 2 mg IV Q4H PRN PRN Reason: Pain, Moderate (4-6) Last Admin: 08/07/21 12:52 Dose: 2 mg Nitroglycerin (Nitroglycerin 0.4 Mg Tab Subl) 0.4 mg SL Q5M PRN PRN Reason: Chest Pain Ondansetron HCl (Ondansetron 4 Mg/2 Ml Inj) 4 mg IV Q8H PRN PRN Reason: Nausea And Vomiting Sodium Chloride (Sodium Chloride 0.9% 10 Ml Flush Syringe) 10 ml IV BID [facility] Last Admin: 08/07/21 10:00 Dose: 10 ml Sodium Chloride (Sodium Chloride 0.9% 10 Ml Flush Syringe) 10 ml IV PRN PRN PRN Reason: LINE FLUSH Tramadol HCl (Tramadol 50 Mg Tab) 50 mg PO Q6H PRN PRN Reason: Pain, Moderate (4-6) Review of Systems All systems: negative Exam - Constitutional Vitals: Temp Pulse Resp BP Pulse Ox 98.0 F 130 H 21 101/72 97 08/07/21 04:44 08/07/21 11:46 08/07/21 11:46 08/07/21 11:46 08/07/21 11:46 General appearance: Present: no acute distress, well-nourished - EENT Eyes: Present: PERRL, EOM intact ENT: hearing intact, clear oral mucosa, dentition normal - Neck Neck: Present: supple, normal ROM - Respiratory Respiratory effort: normal Respiratory: bilateral: CTA - Cardiovascular Rhythm: regular Heart Sounds: Present: S1 & S2 - Extremities Extremities: no ischemia - Abdominal General gastrointestinal: Present: soft, non-tender Female genitourinary: Present: deferred - Rectal Rectal Exam: deferred - Musculoskeletal Musculoskeletal: strength equal bilaterally Results - Labs CBC & Chem 7: 08/06/21 17:36 08/07/21 01:21 Labs: Abnormal lab results 08/06/21 08/06/21 08/06/21 Range/Units 17:36 17:36 17:36 WBC 17.9 H (4.5-11.0) K/mm3 RBC 5.85 H (3.65-5.03) M/mm3 Hct 44.6 H (30.3-42.9) % MCV 76 L (79-97) fl MCH 23 L (28-32) pg Seg Neuts % (Manual) 85.0 H (40.0-70.0) % Seg Neutrophils # Man 15.2 H (1.8-7.7) K/mm3 PT 15.5 H (12.2-14.9) Sec. Sodium 135 L (137-145) mmol/L Chloride 94.9 L (98-107) mmol/L Carbon Dioxide 15 L (22-30) mmol/L Glucose 315 H (65-100) mg/dL POC Glucose (70-105) mg/dL Calcium (8.4-10.2) mg/dL Phosphorus (2.5-4.5) mg/dL AST 43 H (5-40) units/L Albumin 3.5 L (3.9-5) g/dL 08/06/21 08/06/21 08/07/21 Range/Units 22:46 23:10 01:21 WBC (4.5-11.0) K/mm3 RBC (3.65-5.03) M/mm3 Hct (30.3-42.9) % MCV (79-97) fl MCH (28-32) pg Seg Neuts % (Manual) (40.0-70.0) % Seg Neutrophils # Man (1.8-7.7) K/mm3 PT (12.2-14.9) Sec. Sodium 133 L (137-145) mmol/L Chloride (98-107) mmol/L Carbon Dioxide 10 L (22-30) mmol/L Glucose 280 H (65-100) mg/dL POC Glucose 269 H (70-105) mg/dL Calcium 8.3 L (8.4-10.2) mg/dL Phosphorus 1.10 L (2.5-4.5) mg/dL AST 42 H (5-40) units/L Albumin 2.7 L (3.9-5) g/dL 08/07/21 08/07/21 08/07/21 Range/Units 01:21 02:21 03:30 WBC (4.5-11.0) K/mm3 RBC (3.65-5.03) M/mm3 Hct (30.3-42.9) % MCV (79-97) fl MCH (28-32) pg Seg Neuts % (Manual) (40.0-70.0) % Seg Neutrophils # Man (1.8-7.7) K/mm3 PT (12.2-14.9) Sec. Sodium 132 L (137-145) mmol/L Chloride (98-107) mmol/L Carbon Dioxide 12 L (22-30) mmol/L Glucose 287 H (65-100) mg/dL POC Glucose 245 H 276 H (70-105) mg/dL Calcium 8.1 L (8.4-10.2) mg/dL Phosphorus (2.5-4.5) mg/dL AST (5-40) units/L Albumin (3.9-5) g/dL 08/07/21 08/07/21 08/07/21 Range/Units 04:38 05:41 06:49 WBC (4.5-11.0) K/mm3 RBC (3.65-5.03) M/mm3 Hct (30.3-42.9) % MCV (79-97) fl MCH (28-32) pg Seg Neuts % (Manual) (40.0-70.0) % Seg Neutrophils # Man (1.8-7.7) K/mm3 PT (12.2-14.9) Sec. Sodium (137-145) mmol/L Chloride (98-107) mmol/L Carbon Dioxide (22-30) mmol/L Glucose (65-100) mg/dL POC Glucose 279 H 294 H 265 H (70-105) mg/dL Calcium (8.4-10.2) mg/dL Phosphorus (2.5-4.5) mg/dL AST (5-40) units/L Albumin (3.9-5) g/dL 08/07/21 08/07/21 08/07/21 Range/Units 08:02 09:24 11:29 WBC (4.5-11.0) K/mm3 RBC (3.65-5.03) M/mm3 Hct (30.3-42.9) % MCV (79-97) fl MCH (28-32) pg Seg Neuts % (Manual) (40.0-70.0) % Seg Neutrophils # Man (1.8-7.7) K/mm3 PT (12.2-14.9) Sec. Sodium (137-145) mmol/L Chloride (98-107) mmol/L Carbon Dioxide (22-30) mmol/L Glucose (65-100) mg/dL POC Glucose 193 H 199 H 143 H (70-105) mg/dL Calcium (8.4-10.2) mg/dL Phosphorus (2.5-4.5) mg/dL AST (5-40) units/L Albumin (3.9-5) g/dL Assessment and Plan 40 y/o female with DKA 1. Insulin drip until anion gap closes 2. Continue saline until Blood sugar is less than 250 and then switch fluids to D5 With potassium 3. NPO for now 4. PRN albuterol. Patient takes trelegy at home so will add BID pulmicort and Brovana 5. Will continue to follow CCT 31 minutes.
[2021-08-07] MEDS ORDERED: INSULIN REGULAR, HUMAN 100 UNITS/1 ML ONE (15:05)
[2021-08-07 15:23] LABS: Hematocrit 35.9 % (30.3-42.9); Hemoglobin 11.9 gm/dl (10.1-14.3); Mean Corpuscular HGB Conc 33 % (30-34); Mean Corpuscular Volume 73 fl (79-97); Platelet Count 172 K/mm3 (140-440); Red Blood Count 4.94 M/mm3 (3.65-5.03); Red Cell Distribution Width 14.9 % (13.2-15.2)
[2021-08-07 15:57] LABS: Blood Urea Nitrogen 17 mg/dL (7-17); Calcium 8.5 mg/dL (8.4-10.2); Hemolysis Index 21
[2021-08-07 15:58] LABS: BUN/Creatinine Ratio 24
[2021-08-07 16:29] LABS: Anisocytosis 1+; Basophils % (Manual) 0 % (0.0-1.8); Eosinophils % (Manual) 0 % (0.0-4.3); Large Platelets Few; Platelet Estimate Consistent w Auto; Total Cells Counted 100
[2021-08-07] MEDS: ACETAMINOPHEN 325 MG TAB PO PRN (17:13)
[2021-08-07] MEDS ORDERED: MAGNESIUM SULFATE 4 GM/100 ML BAG IV ONE (17:29)
[2021-08-07] MEDS ORDERED: POTASSIUM PHOSPHATE 45 MMOL in SODIUM CHLORIDE 0.9% 500 ML 500 ML IV ONE (17:32)
[2021-08-07 17:48] LABS: BUN/Creatinine Ratio 21; Blood Urea Nitrogen 17 mg/dL (7-17); Calcium 8.5 mg/dL (8.4-10.2); Hemolysis Index 1
[2021-08-07 20:02] LABS: BUN/Creatinine Ratio 23; Blood Urea Nitrogen 18 mg/dL (7-17); Calcium 8.8 mg/dL (8.4-10.2); Hemolysis Index 5
[2021-08-07 21:17] LABS: BUN/Creatinine Ratio 23; Blood Urea Nitrogen 18 mg/dL (7-17); Calcium 8.6 mg/dL (8.4-10.2); Hemolysis Index 5
--- NOTE | 2021-08-07 22:53 | Event Note ---
Date: 08/07/21 Patient downgraded to Telemetry IV Insulin stopped AG has closed
[2021-08-07 23:25] LABS: BUN/Creatinine Ratio 21; Blood Urea Nitrogen 17 mg/dL (7-17); Calcium 7.8 mg/dL (8.4-10.2); Hemolysis Index 10
[2021-08-07] MEDS ORDERED: INSULIN GLARGINE 100 UNITS/ML SUB-Q SCH (23:30)
[2021-08-08] MEDS: ONDANSETRON 4 MG/2 ML INJ IV PRN ×2 (00:12→16:35)
[2021-08-08] MEDS: INSULIN LISPRO 100 UNIT/ML SUB-Q SCH ×7 (00:13→22:36)
[2021-08-08] MEDS: HEPARIN 5,000 UNIT/1 ML VIAL SUB-Q SCH ×4 (00:13→22:31)
[2021-08-08] MEDS: MORPHINE 2 MG/1 ML INJ IV PRN (03:35)
[2021-08-08] MEDS: IPRATROPIUM/ALBUTEROL SULFATE 3 ML AMPUL.NEB IH SCH ×2 (04:34→09:40)
[2021-08-08] MEDS: BUDESONIDE 0.5 MG/2 ML NEBU IH SCH ×3 (04:34→21:29)
[2021-08-08] MEDS: ARFORMOTEROL 15 MCG/2 ML NEBU IH SCH ×3 (04:34→21:29)
[2021-08-08 06:16] LABS: Hemoglobin 11.2 gm/dl (10.1-14.3); Mean Corpuscular HGB Conc 31 % (30-34); Mean Corpuscular Volume 73 fl (79-97); Platelet Count 151 K/mm3 (140-440); Red Blood Count 4.92 M/mm3 (3.65-5.03); Red Cell Distribution Width 14.9 % (13.2-15.2)
[2021-08-08 06:33] LABS: BUN/Creatinine Ratio 22; Blood Urea Nitrogen 20 mg/dL (7-17); Calcium 8.1 mg/dL (8.4-10.2); Hemolysis Index 2
[2021-08-08 07:08] LABS: Basophils % (Manual) 0 % (0.0-1.8); Eosinophils % (Manual) 0 % (0.0-4.3); Total Cells Counted 100
[2021-08-08 07:09] LABS: Anisocytosis 1+; Large Platelets Few; Platelet Estimate Cons
--- NOTE | 2021-08-08 07:41 | Progress Note ---
Assessment and Plan Assessment and plan: --Diabetic ketoacidosis/resolved Acidosis and anion gap improved Insulin drip discontinued Change IV fluids to normal saline Start ADA diet Start long-acting insulin Novolin 70/30 every 12 hours Start Accu-Chek before every meal and at bedtime Start sliding scale coverage moderate dose HbA1c 13.6 --Uncontrolled blood sugars/diabetes mellitus type 2; Accu-Chek, sliding scale coverage, ADA diet Long-acting insulin Novolin 70/30, start 12 units twice a day and adjust as needed Patient's HbA1c 13.6. --Medical noncompliance; With medications and diet follow-up visits Patient strongly counseled to comply with medications, diet And follow-up doctors visits, and also recommend outpatient hand clerical verifier evaluation --Musculoskeletal chest pain/resolved - reproducible with papation - doubt acs, non elevated troponin, EKG appears to be normal with no st depressios/elevations. --Hypertension/well controlled Closely monitor blood pressure As needed antihypertensives --SIRS Procalcitonin level high, continue empiric antibiotics follow cultures --History of marijuana use Counseling done advised to quit recreational drug use --Advance care planning/spent 35 minutes Disease education conducted, care plan discussed, diagnoses discussed, prognosis discussed, patient is full code, I discussed in detail the importance of adhering to the treatment plan I reiterated the need to follow strictly the diabetic diet I also explained that her hemoglobin A1c is very high indicating No control of blood sugars the last 6 months Patient also informed that we will be setting up home health nurse to assist the patient with diabetes control I advised to see a private hand clerical verifier/deployment specialist upon discharge for better control of her blood sugars patient verbalized understanding and agree with care plan, We will closely monitor the patient and adjust management as needed Plan of care reviewed with the patient and her nurse I also discussed with the case management during the multidisciplinary rounds Out of bed and ambulate as tolerated Brief history and daily hospital course: 40 years old female with history of diabetes and hypertension was brought to the hospital because of chest pain which is right chest 9/10 sharp , constant radiating to the right side to the back and neck, patient had some chest pain few days ago right side going to the back, musculoskeletal in nature no shortness of breath no cough no fever. Initial cardiac enzyme is negative troponin is 0.010 In the emergency room patient is found to have DKA patient blood glucose is 315, bicarb 15 anion gap 30.'s were going to admit the patient to the ICU overnight. We will put the patient on insulin drip and consult critical care Hospital Course: 08/07: Patient was discontinued off her diabetic medication as an outpatient by her primary. She states that after her blood sugars had normalized so insulin discontinued. She does not track her blood sugars and does not take any medications for diabetes. Of note her A1c was 12.5 in October 2020. We will continue IV insulin until anion gap is closed. Can likely be downgraded once metabolic acidosis resolves. 08/08; patient was noncompliant with medications, will start diabetic diet, diabetic education, diabetic diet education Change insulin to Novolin 70/30, procalcitonin is high continue empiric antibiotics follow cultures History Interval history: I have seen and examined the patient at the bedside Patient's chart and medications reviewed Patient was admitted with DKA, acidosis improved Anion gap significantly closed Insulin drip discontinued Patient complains of generalized weakness And wants to eat food Hospitalist Physical - Constitutional Vitals: Temp Pulse Resp BP Pulse Ox 98.6 F 118 H 14 100/72 93 08/08/21 04:13 08/08/21 04:38 08/08/21 04:38 08/08/21 04:13 08/08/21 04:37 General appearance: Present: no acute distress, well-nourished - EENT Eyes: Present: PERRL, EOM intact - Neck Neck: Present: supple, normal ROM - Respiratory Respiratory effort: normal Respiratory: bilateral: diminished, negative: rales, rhonchi, wheezing - Cardiovascular Rhythm: regular Heart Sounds: Present: S1 & S2 - Extremities Extremities: no ischemia, No edema - Abdominal General gastrointestinal: soft, non-tender, non-distended, normal bowel sounds - Integumentary Integumentary: Present: clear, warm - Psychiatric Psychiatric: appropriate mood/affect, cooperative - Neurologic Neurologic: CNII-XII intact, moves all extremities HEART Score - HEART Score Troponin: WBC 16.1 K/mm3 (4.5-11.0) H 08/08/21 05:56 RBC 4.92 M/mm3 (3.65-5.03) 08/08/21 05:56 Hgb 11.2 gm/dl (10.1-14.3) 08/08/21 05:56 Hct 36.0 % (30.3-42.9) 08/08/21 05:56 MCV 73 fl (79-97) L 08/08/21 05:56 MCH 23 pg (28-32) L 08/08/21 05:56 MCHC 31 % (30-34) 08/08/21 05:56 RDW 14.9 % (13.2-15.2) 08/08/21 05:56 Plt Count 151 K/mm3 (140-440) 08/08/21 05:56 Add Manual Diff Complete 08/08/21 05:56 Total Counted 100 08/08/21 05:56 Seg Neutrophils % Body Worker 08/07/21 15:00 Seg Neuts % (Manual) 93.0 % (40.0-70.0) H 08/08/21 05:56 Band Neutrophils % 0 % 08/08/21 05:56 Lymphocytes % (Manual) 5.0 % (13.4-35.0) L 08/08/21 05:56 Reactive Lymphs % (Man) 0 % 08/08/21 05:56 Monocytes % (Manual) 2.0 % (0.0-7.3) 08/08/21 05:56 Eosinophils % (Manual) 0 % (0.0-4.3) 08/08/21 05:56 Basophils % (Manual) 0 % (0.0-1.8) 08/08/21 05:56 Metamyelocytes % 0 % 08/08/21 05:56 Myelocytes % 0 % 08/08/21 05:56 Promyelocytes % 0 % 08/08/21 05:56 Blast Cells % 0 % 08/08/21 05:56 Nucleated RBC % Not Reportable 08/08/21 05:56 Seg Neutrophils # Man 15.0 K/mm3 (1.8-7.7) H 08/08/21 05:56 Band Neutrophils # 0.0 K/mm3 08/08/21 05:56 Lymphocytes # (Manual) 0.8 K/mm3 (1.2-5.4) L 08/08/21 05:56 Abs React Lymphs (Man) 0.0 K/mm3 08/08/21 05:56 Monocytes # (Manual) 0.3 K/mm3 (0.0-0.8) 08/08/21 05:56 Eosinophils # (Manual) 0.0 K/mm3 (0.0-0.4) 08/08/21 05:56 Basophils # (Manual) 0.0 K/mm3 (0.0-0.1) 08/08/21 05:56 Metamyelocytes # 0.0 K/mm3 08/08/21 05:56 Myelocytes # 0.0 K/mm3 08/08/21 05:56 Promyelocytes # 0.0 K/mm3 08/08/21 05:56 Blast Cells # 0.0 K/mm3 08/08/21 05:56 WBC Morphology Not Reportable 08/08/21 05:56 Hypersegmented Neuts Not Reportable 08/08/21 05:56 Hyposegmented Neuts Not Reportable 08/08/21 05:56 Hypogranular Neuts Not Reportable 08/08/21 05:56 Smudge Cells Not Reportable 08/08/21 05:56 Toxic Granulation Not Reportable 08/08/21 05:56 Toxic Vacuolation Not Reportable 08/08/21 05:56 Dohle Bodies Not Reportable 08/08/21 05:56 Pelger-Huet Anomaly Not Reportable 08/08/21 05:56 Apryl Rods Not Reportable 08/08/21 05:56 Platelet Estimate Cons 08/08/21 05:56 Clumped Platelets Not Reportable 08/08/21 05:56 Plt Clumps, EDTA Not Reportable 08/08/21 05:56 Large Platelets Few 08/08/21 05:56 Giant Platelets Not Reportable 08/08/21 05:56 Platelet Satelliting Not Reportable 08/08/21 05:56 Plt Morphology Comment Not Reportable 08/08/21 05:56 RBC Morphology Not Reportable 08/08/21 05:56 Dimorphic RBCs Not Reportable 08/08/21 05:56 Polychromasia Not Reportable 08/08/21 05:56 Hypochromasia Not Reportable 08/08/21 05:56 Poikilocytosis Not Reportable 08/08/21 05:56 Anisocytosis 1+ 08/08/21 05:56 Microcytosis Not Reportable 08/08/21 05:56 Macrocytosis Not Reportable 08/08/21 05:56 Spherocytes Not Reportable 08/08/21 05:56 Pappenheimer Bodies Not Reportable 08/08/21 05:56 Sickle Cells Not Reportable 08/08/21 05:56 Target Cells Not Reportable 08/08/21 05:56 Tear Drop Cells Not Reportable 08/08/21 05:56 Ovalocytes Not Reportable 08/08/21 05:56 Helmet Cells Not Reportable 08/08/21 05:56 [place] Bodies Not Reportable 08/08/21 05:56 [place] Rings Not Reportable 08/08/21 05:56 [place] Cells Not Reportable 08/08/21 05:56 Bite Cells Not Reportable 08/08/21 05:56 Crenated Cell Not Reportable 08/08/21 05:56 Elliptocytes Not Reportable 08/08/21 05:56 Acanthocytes (Spur) Not Reportable 08/08/21 05:56 Rouleaux Not Reportable 08/08/21 05:56 Hemoglobin C Crystals Not Reportable 08/08/21 05:56 Schistocytes Not Reportable 08/08/21 05:56 Malaria parasites Not Reportable 08/08/21 05:56 Mauricio Bodies Not Reportable 08/08/21 05:56 Hem Pathologist Commnt No 08/08/21 05:56 PT 15.5 Sec. (12.2-14.9) H 08/06/21 17:36 INR 1.11 (0.87-1.13) 08/06/21 17:36 VBG pH 7.362 (7.320-7.420) 08/06/21 20:07 Sodium 130 mmol/L (137-145) L 08/08/21 05:56 Potassium 3.8 mmol/L (3.6-5.0) 08/08/21 05:56 Chloride 99.2 mmol/L (98-107) 08/08/21 05:56 Carbon Dioxide 12 mmol/L (22-30) L 08/08/21 05:56 Anion Gap 23 mmol/L 08/08/21 05:56 BUN 20 mg/dL (7-17) H 08/08/21 05:56 Creatinine 0.9 mg/dL (0.6-1.2) 08/08/21 05:56 Estimated GFR > 60 ml/min 08/08/21 05:56 BUN/Creatinine Ratio 22 % 08/08/21 05:56 Glucose 258 mg/dL (65-100) H 08/08/21 05:56 POC Glucose 250 mg/dL (70-105) H 08/08/21 06:15 Hemoglobin A1c 13.6 % (4-6) H 08/07/21 15:00 Ketones Quantitative Moderate (Negative) 08/06/21 20:07 Calcium 8.1 mg/dL (8.4-10.2) L 08/08/21 05:56 Phosphorus 2.00 mg/dL (2.5-4.5) L D 08/08/21 05:56 Magnesium 2.00 mg/dL (1.7-2.3) 08/07/21 15:00 Total Bilirubin 0.60 mg/dL (0.1-1.2) 08/06/21 22:46 AST 42 units/L (5-40) H 08/06/21 22:46 ALT 32 units/L (7-56) 08/06/21 22:46 Alkaline Phosphatase 96 units/L (35-129) 08/06/21 22:46 Total Creatine Kinase 124 units/L (30-135) 08/06/21 17:36 Troponin T < 0.010 ng/mL (0.00-0.029) 08/07/21 15:00 Total Protein 6.7 g/dL (6.3-8.2) 08/06/21 22:46 Albumin 2.7 g/dL (3.9-5) L 08/06/21 22:46 Albumin/Globulin Ratio 0.7 % 08/06/21 22:46 Lipase 13 units/L (13-60) 08/06/21 17:36 Procalcitonin 18.72 ng/mL (<0.15) 08/07/21 15:00 Urine Color Yellow (Yellow) 08/07/21 05:57 Urine Turbidity Cloudy (Clear) 08/07/21 05:57 Urine pH 5.0 (5.0-7.0) 08/07/21 05:57 Ur Specific Maynard 1.023 (1.003-1.030) 08/07/21 05:57 Urine Protein 100 mg/dl mg/dL (Negative) 08/07/21 05:57 Urine Glucose (UA) >=500 mg/dL (Negative) 08/07/21 05:57 Urine Ketones 80 mg/dL (Negative) 08/07/21 05:57 Urine Blood Mod (Negative) 08/07/21 05:57 Urine Nitrite Neg (Negative) 08/07/21 05:57 Urine Bilirubin Neg (Negative) 08/07/21 05:57 Urine Urobilinogen < 2.0 mg/dL (<2.0) 08/07/21 05:57 Ur Leukocyte Esterase Neg (Negative) 08/07/21 05:57 Urine WBC (Auto) 2.0 /HPF (0.0-6.0) 08/07/21 05:57 Urine RBC (Auto) > 182.0 /HPF (0.0-6.0) 08/07/21 05:57 U Epithel Cells (Auto) 4.0 /HPF (0-13.0) 08/07/21 05:57 Urine WBC Clumps 1+ /HPF 08/07/21 05:57 Urine Mucus Few /HPF 08/07/21 05:57 Urine Yeast (Budding) 3+ /HPF 08/07/21 05:57 Urine Opiates Screen Negative 08/07/21 05:57 Urine Methadone Screen Negative 08/07/21 05:57 Ur Barbiturates Screen Negative 08/07/21 05:57 Ur Phencyclidine Scrn Negative 08/07/21 05:57 Ur Amphetamines Screen Negative 08/07/21 05:57 U Benzodiazepines Scrn Negative 08/07/21 05:57 Urine Cocaine Screen Negative 08/07/21 05:57 U Marijuana (THC) Screen Positive 08/07/21 05:57 Drugs of Abuse Note Disclamer 08/07/21 05:57 Results - Labs CBC & Chem 7: 08/08/21 05:56 08/08/21 05:56 Labs: Laboratory Last Values WBC 16.1 K/mm3 (4.5-11.0) H 08/08/21 05:56 RBC 4.92 M/mm3 (3.65-5.03) 08/08/21 05:56 Hgb 11.2 gm/dl (10.1-14.3) 08/08/21 05:56 Hct 36.0 % (30.3-42.9) 08/08/21 05:56 MCV 73 fl (79-97) L 08/08/21 05:56 MCH 23 pg (28-32) L 08/08/21 05:56 MCHC 31 % (30-34) 08/08/21 05:56 RDW 14.9 % (13.2-15.2) 08/08/21 05:56 Plt Count 151 K/mm3 (140-440) 08/08/21 05:56 Add Manual Diff Complete 08/08/21 05:56 Total Counted 100 08/08/21 05:56 Seg Neutrophils % Body Worker 08/07/21 15:00 Seg Neuts % (Manual) 93.0 % (40.0-70.0) H 08/08/21 05:56 Band Neutrophils % 0 % 08/08/21 05:56 Lymphocytes % (Manual) 5.0 % (13.4-35.0) L 08/08/21 05:56 Reactive Lymphs % (Man) 0 % 08/08/21 05:56 Monocytes % (Manual) 2.0 % (0.0-7.3) 08/08/21 05:56 Eosinophils % (Manual) 0 % (0.0-4.3) 08/08/21 05:56 Basophils % (Manual) 0 % (0.0-1.8) 08/08/21 05:56 Metamyelocytes % 0 % 08/08/21 05:56 Myelocytes % 0 % 08/08/21 05:56 Promyelocytes % 0 % 08/08/21 05:56 Blast Cells % 0 % 08/08/21 05:56 Nucleated RBC % Not Reportable 08/08/21 05:56 Seg Neutrophils # Man 15.0 K/mm3 (1.8-7.7) H 08/08/21 05:56 Band Neutrophils # 0.0 K/mm3 08/08/21 05:56 Lymphocytes # (Manual) 0.8 K/mm3 (1.2-5.4) L 08/08/21 05:56 Abs React Lymphs (Man) 0.0 K/mm3 08/08/21 05:56 Monocytes # (Manual) 0.3 K/mm3 (0.0-0.8) 08/08/21 05:56 Eosinophils # (Manual) 0.0 K/mm3 (0.0-0.4) 08/08/21 05:56 Basophils # (Manual) 0.0 K/mm3 (0.0-0.1) 08/08/21 05:56 Metamyelocytes # 0.0 K/mm3 08/08/21 05:56 Myelocytes # 0.0 K/mm3 08/08/21 05:56 Promyelocytes # 0.0 K/mm3 08/08/21 05:56 Blast Cells # 0.0 K/mm3 08/08/21 05:56 WBC Morphology Not Reportable 08/08/21 05:56 Hypersegmented Neuts Not Reportable 08/08/21 05:56 Hyposegmented Neuts Not Reportable 08/08/21 05:56 Hypogranular Neuts Not Reportable 08/08/21 05:56 Smudge Cells Not Reportable 08/08/21 05:56 Toxic Granulation Not Reportable 08/08/21 05:56 Toxic Vacuolation Not Reportable 08/08/21 05:56 Dohle Bodies Not Reportable 08/08/21 05:56 Pelger-Huet Anomaly Not Reportable 08/08/21 05:56 Apryl Rods Not Reportable 08/08/21 05:56 Platelet Estimate Cons 08/08/21 05:56 Clumped Platelets Not Reportable 08/08/21 05:56 Plt Clumps, EDTA Not Reportable 08/08/21 05:56 Large Platelets Few 08/08/21 05:56 Giant Platelets Not Reportable 08/08/21 05:56 Platelet Satelliting Not Reportable 08/08/21 05:56 Plt Morphology Comment Not Reportable 08/08/21 05:56 RBC Morphology Not Reportable 08/08/21 05:56 Dimorphic RBCs Not Reportable 08/08/21 05:56 Polychromasia Not Reportable 08/08/21 05:56 Hypochromasia Not Reportable 08/08/21 05:56 Poikilocytosis Not Reportable 08/08/21 05:56 Anisocytosis 1+ 08/08/21 05:56 Microcytosis Not Reportable 08/08/21 05:56 Macrocytosis Not Reportable 08/08/21 05:56 Spherocytes Not Reportable 08/08/21 05:56 Pappenheimer Bodies Not Reportable 08/08/21 05:56 Sickle Cells Not Reportable 08/08/21 05:56 Target Cells Not Reportable 08/08/21 05:56 Tear Drop Cells Not Reportable 08/08/21 05:56 Ovalocytes Not Reportable 08/08/21 05:56 Helmet Cells Not Reportable 08/08/21 05:56 [place] Bodies Not Reportable 08/08/21 05:56 [place] Rings Not Reportable 08/08/21 05:56 [place] Cells Not Reportable 08/08/21 05:56 Bite Cells Not Reportable 08/08/21 05:56 Crenated Cell Not Reportable 08/08/21 05:56 Elliptocytes Not Reportable 08/08/21 05:56 Acanthocytes (Spur) Not Reportable 08/08/21 05:56 Rouleaux Not Reportable 08/08/21 05:56 Hemoglobin C Crystals Not Reportable 08/08/21 05:56 Schistocytes Not Reportable 08/08/21 05:56 Malaria parasites Not Reportable 08/08/21 05:56 Mauricio Bodies Not Reportable 08/08/21 05:56 Hem Pathologist Commnt No 08/08/21 05:56 PT 15.5 Sec. (12.2-14.9) H 08/06/21 17:36 INR 1.11 (0.87-1.13) 08/06/21 17:36 VBG pH 7.362 (7.320-7.420) 08/06/21 20:07 Sodium 130 mmol/L (137-145) L 08/08/21 05:56 Potassium 3.8 mmol/L (3.6-5.0) 08/08/21 05:56 Chloride 99.2 mmol/L (98-107) 08/08/21 05:56 Carbon Dioxide 12 mmol/L (22-30) L 08/08/21 05:56 Anion Gap 23 mmol/L 08/08/21 05:56 BUN 20 mg/dL (7-17) H 08/08/21 05:56 Creatinine 0.9 mg/dL (0.6-1.2) 08/08/21 05:56 Estimated GFR > 60 ml/min 08/08/21 05:56 BUN/Creatinine Ratio 22 % 08/08/21 05:56 Glucose 258 mg/dL (65-100) H 08/08/21 05:56 POC Glucose 250 mg/dL (70-105) H 08/08/21 06:15 Hemoglobin A1c 13.6 % (4-6) H 08/07/21 15:00 Ketones Quantitative Moderate (Negative) 08/06/21 20:07 Calcium 8.1 mg/dL (8.4-10.2) L 08/08/21 05:56 Phosphorus 2.00 mg/dL (2.5-4.5) L D 08/08/21 05:56 Magnesium 2.00 mg/dL (1.7-2.3) 08/07/21 15:00 Total Bilirubin 0.60 mg/dL (0.1-1.2) 08/06/21 22:46 AST 42 units/L (5-40) H 08/06/21 22:46 ALT 32 units/L (7-56) 08/06/21 22:46 Alkaline Phosphatase 96 units/L (35-129) 08/06/21 22:46 Total Creatine Kinase 124 units/L (30-135) 08/06/21 17:36 Troponin T < 0.010 ng/mL (0.00-0.029) 08/07/21 15:00 Total Protein 6.7 g/dL (6.3-8.2) 08/06/21 22:46 Albumin 2.7 g/dL (3.9-5) L 08/06/21 22:46 Albumin/Globulin Ratio 0.7 % 08/06/21 22:46 Lipase 13 units/L (13-60) 08/06/21 17:36 Procalcitonin 18.72 ng/mL (<0.15) 08/07/21 15:00 Urine Color Yellow (Yellow) 08/07/21 05:57 Urine Turbidity Cloudy (Clear) 08/07/21 05:57 Urine pH 5.0 (5.0-7.0) 08/07/21 05:57 Ur Specific [place]ard 1.023 (1.003-1.030) 08/07/21 05:57 Urine Protein 100 mg/dl mg/dL (Negative) 08/07/21 05:57 Urine Glucose (UA) >=500 mg/dL (Negative) 08/07/21 05:57 Urine Ketones 80 mg/dL (Negative) 08/07/21 05:57 Urine Blood Mod (Negative) 08/07/21 05:57 Urine Nitrite Neg (Negative) 08/07/21 05:57 Urine Bilirubin Neg (Negative) 08/07/21 05:57 Urine Urobilinogen < 2.0 mg/dL (<2.0) 08/07/21 05:57 Ur Leukocyte Esterase Neg (Negative) 08/07/21 05:57 Urine WBC (Auto) 2.0 /HPF (0.0-6.0) 08/07/21 05:57 Urine RBC (Auto) > 182.0 /HPF (0.0-6.0) 08/07/21 05:57 U Epithel Cells (Auto) 4.0 /HPF (0-13.0) 08/07/21 05:57 Urine WBC Clumps 1+ /HPF 08/07/21 05:57 Urine Mucus Few /HPF 08/07/21 05:57 Urine Yeast (Budding) 3+ /HPF 08/07/21 05:57 Urine Opiates Screen Negative 08/07/21 05:57 Urine Methadone Screen Negative 08/07/21 05:57 Ur Barbiturates Screen Negative 08/07/21 05:57 Ur Phencyclidine Scrn Negative 08/07/21 05:57 Ur Amphetamines Screen Negative 08/07/21 05:57 U Benzodiazepines Scrn Negative 08/07/21 05:57 Urine Cocaine Screen Negative 08/07/21 05:57 U Marijuana (THC) Screen Positive 08/07/21 05:57 Drugs of Abuse Note Disclamer 08/07/21 05:57 Active Medications - Current Medications Current Medications: Generic Name Dose Route Start Last Admin Trade Name Freq PRN Reason Stop Dose Admin Acetaminophen 650 mg 08/07/21 01:48 08/07/21 17:13 Acetaminophen 325 Mg Tab PO 650 mg Q4H PRN Administration Pain MILD(1-3)/Fever >100.5/ROJAS Albuterol 2.5 mg 08/07/21 01:48 Albuterol 2.5 Mg/3 Ml Nebu IH Q3HRT PRN Shortness Of Breath Arformoterol Tartrate 15 mcg 08/07/21 20:00 08/08/21 04:34 Arformoterol 15 Mcg/2 Ml Nebu IH 15 mcg Q12HRT ROSSANA Administration Aspirin 325 mg 08/08/21 10:00 Aspirin Ec 325 Mg Tab PO QDAY ROSSANA Atorvastatin Calcium 40 mg 08/07/21 22:00 08/07/21 23:40 Atorvastatin 40 Mg Tab PO 40 mg QHS ROSSANA Administration Budesonide 0.5 mg 08/07/21 20:00 08/08/21 04:34 Budesonide 0.5 Mg/2 Ml Nebu IH 0.5 mg Q12HRT ROSSANA Administration Dextrose 0 ml 08/07/21 02:12 Dextrose 10% *Hypoglycemia IV DIRECT PRN Hypoglycemia Protocol Famotidine 20 mg 08/07/21 10:00 08/07/21 23:40 Famotidine 20 Mg/2 Ml Inj IV 20 mg BID ROSSANA Administration Guaifenesin 600 mg 08/07/21 10:00 08/07/21 23:40 Guaifenesin Er 600 Mg Tab PO 600 mg BID ROSSANA Administration Heparin Sodium (Porcine) 5,000 unit 08/07/21 06:00 08/08/21 06:39 Heparin 5,000 Unit/1 Ml Vial SUB-Q 5,000 unit Q8HR ROSSANA Administration Hydralazine HCl 10 mg 08/07/21 02:00 Hydralazine 20 Mg/1 Ml Inj IV Q6H PRN Blood Pressure Hydromorphone HCl 0.5 mg 08/07/21 01:48 Hydromorphone 1 Mg/1 Ml Inj IV Q3H PRN Pain , Severe (7-10) Dextrose/Sodium Chloride 1,000 mls @ 75 mls/hr 08/07/21 02:00 08/07/21 09:00 D5/0.45ns IV 125 mls/hr DIRECT ROSSANA Administration Ceftriaxone Sodium 2 gm in 100 mls @ 200 mls/hr 08/07/21 02:00 08/07/21 09:52 Rocephin/Ns 2 Gm/100 Ml IV Not Given Q24HR [facility] Protocol Insulin Glargine 15 units 08/07/21 23:30 08/08/21 00:14 Insulin Glargine 100 Units/Ml SUB-Q 15 units QHS ROSSANA Administration Insulin Human Lispro 0 unit 08/07/21 23:00 08/08/21 06:39 Insulin Lispro 100 Unit/Ml SUB-Q 6 unit Q4HR ROSSANA Administration Protocol Morphine Sulfate 2 mg 08/07/21 01:48 08/08/21 03:35 Morphine 2 Mg/1 Ml Inj IV 2 mg Q4H PRN Administration Pain, Moderate (4-6) Ondansetron HCl 4 mg 08/07/21 01:48 08/08/21 00:12 Ondansetron 4 Mg/2 Ml Inj IV 4 mg Q8H PRN Administration Nausea And Vomiting Sodium Chloride 10 ml 08/07/21 10:00 08/07/21 23:09 Sodium Chloride 0.9% 10 Ml Flush Syringe IV 10 ml BID ROSSANA Administration Sodium Chloride 10 ml 08/07/21 01:48 08/08/21 03:37 Sodium Chloride 0.9% 10 Ml Flush Syringe IV 10 ml PRN PRN Administration LINE FLUSH Tramadol HCl 50 mg 08/07/21 01:48 Tramadol 50 Mg Tab PO Q6H PRN Pain, Moderate (4-6) Nutrition/Malnutrition Assess - Dietary Evaluation Nutrition/Malnutrition Findings: Nutrition Notes Start: 08/07/21 16:10 Freq: Status: Active Protocol: Document 08/07/21 16:10 ITALO (Rec: 08/07/21 16:15 ITALO [id number]) Nutrition Notes Need for Assessment generated from: MD Order,Education Initial or Follow up Brief Note Current Diagnosis Diabetes,Hypertension Other Pertinent Diagnosis DKA, SIRS, Chest Pain. Current Diet NPO (since 08/07 01:49). Height 5 ft 7 in Weight 77.111 kg Drake Body Weight (kg) 61.36 BMI 26.6 Weight change and time frame None reported at admission. Weight Status Overweight Subjective/Other Information RD consult for Nutrition education. Pt currently on NPO. Pt still on critical conditions, not a candidate for Nutrition Education at the time, will assess feasibility on F/U. Percent of energy/protein needs met: Pt currently on NPO. Nutrition Intervention Follow-Up By: 08/14/21 Additional Comments Nutrition education will be provided on F/U, if feasible. Continue monitoring food tolerance, %PO intake of meals , and BM.
[2021-08-08 07:45] LABS: Monocytes # (Auto) 1.3 K/mm3 (0.0-0.8); Monocytes % (Auto) 8.1 % (0.0-7.3)
[2021-08-08] MEDS ORDERED: SODIUM CHLORIDE 0.9% 500 ML 500 ML IV SCH (09:00)
[2021-08-08] MEDS: ASPIRIN EC 325 MG TAB PO SCH (09:32)
[2021-08-08] MEDS: cefTRIAXone/NS 2 GM/100 ML 2 GM/100 ML BAG IV SCH (09:32)
[2021-08-08] MEDS: FAMOTIDINE 20 MG/2 ML INJ IV SCH ×2 (09:34→22:31)
[2021-08-08] MEDS: INSULIN NPH/REGULAR 70/30 INJ SUB-Q SCH ×2 (09:39→17:29)
[2021-08-08] MEDS: SODIUM CHLORIDE 0.9% 1000 ML 1,000 ML IV SCH (09:40)
[2021-08-08] MEDS: guaiFENesin ER 600 MG TAB PO SCH ×2 (12:54→22:31)
[2021-08-08] MEDS: K-PHOS NEUTRAL 250 MG TAB PO SCH ×3 (12:54→22:40)
[2021-08-08] MEDS: ACETAMINOPHEN 325 MG TAB PO PRN (16:33)
[2021-08-08] MEDS: HYDROmorphone 1 MG/1 ML INJ IV PRN (22:40)
[2021-08-09] MEDS: SODIUM CHLORIDE 0.9% 1000 ML 1,000 ML IV SCH ×2 (00:08→10:04)
[2021-08-09 05:28] LABS: Alanine Aminotransferase 96 units/L (7-56); Albumin 2.1 g/dL (3.9-5); BUN/Creatinine Ratio 20; Blood Urea Nitrogen 16 mg/dL (7-17); Calcium 8.3 mg/dL (8.4-10.2); Hemolysis Index 59
[2021-08-09] MEDS: HYDROmorphone 1 MG/1 ML INJ IV PRN (08:10)
[2021-08-09] MEDS: INSULIN NPH/REGULAR 70/30 INJ SUB-Q SCH ×3 (08:31→17:51)
[2021-08-09] MEDS: INSULIN LISPRO 100 UNIT/ML SUB-Q SCH ×4 (08:33→22:08)
[2021-08-09] MEDS: BUDESONIDE 0.5 MG/2 ML NEBU IH SCH ×2 (09:05→21:29)
[2021-08-09] MEDS: ARFORMOTEROL 15 MCG/2 ML NEBU IH SCH ×2 (09:06→21:29)
[2021-08-09] MEDS ORDERED: SODIUM PHOSPHATE 30 MMOL in SODIUM CHLORIDE 0.9% 500 ML 500 ML IV ONE (10:00)
[2021-08-09] MEDS: cefTRIAXone/NS 2 GM/100 ML 2 GM/100 ML BAG IV SCH (10:04)
[2021-08-09] MEDS: guaiFENesin ER 600 MG TAB PO SCH ×2 (10:08→21:50)
[2021-08-09] MEDS: FAMOTIDINE 20 MG TAB PO SCH ×2 (10:08→21:51)
[2021-08-09] MEDS: ASPIRIN EC 325 MG TAB PO SCH (10:08)
[2021-08-09] MEDS: K-PHOS NEUTRAL 250 MG TAB PO SCH ×4 (10:09→21:50)
[2021-08-09] MEDS: HEPARIN 5,000 UNIT/1 ML VIAL SUB-Q SCH ×2 (14:25→21:52)
--- NOTE | 2021-08-09 15:53 | Progress Note ---
Assessment and Plan Assessment and plan: : Pseudohyponatremia: Na 129-131-135 due to severe hyperglycemia Sodium level significantly improved, closely monitor Treat the underlying hyperglycemia, and IV normal saline Closely monitor electrolytes --Hypophosphatemia; mild improvement Still levels are low, managed with sodium phosphate IV Monitor electrolytes --Diabetic ketoacidosis/resolved Acidosis and anion gap improved Insulin drip discontinued, on ADA Change IV fluids to normal saline Start long-acting insulin Novolin 70/30 every 12 hours Increase the dose to 15 units Novolin subcu every 12 hours Continue Accu-Cheks sliding scale coverage ADA diet HbA1c 13.6, diabetic diet, diabetic education --Uncontrolled blood sugars/diabetes mellitus type 2; Accu-Chek, sliding scale coverage, ADA diet Long-acting insulin Novolin 70/30, start 12 units twice a day and adjust as needed Patient's HbA1c 13.6. --Medical noncompliance; With medications and diet follow-up visits Patient strongly counseled to comply with medications, diet And follow-up doctors visits, and also recommend outpatient repairer switchgear evaluation --Musculoskeletal chest pain/resolved - reproducible with papation - doubt acs, non elevated troponin, EKG appears to be normal with no st depressios/elevations. --Hypertension/well controlled Closely monitor blood pressure As needed antihypertensives --SIRS Procalcitonin level high, continue empiric antibiotics follow cultures --History of marijuana use Counseling done advised to quit recreational drug use --Advance care planning/spent 35 minutes Disease education conducted, care plan discussed, diagnoses discussed, prognosis discussed, patient is full code, I discussed in detail the importance of adhering to the treatment plan I reiterated the need to follow strictly the diabetic diet I also explained that her hemoglobin A1c is very high indicating No control of blood sugars the last 6 months Patient also informed that we will be setting up home health nurse to assist the patient with diabetes control I advised to see a private repairer switchgear/commission specialist upon discharge for better control of her blood sugars patient verbalized understanding and agree with care plan, We will closely monitor the patient and adjust management as needed Plan of care reviewed with the patient and her nurse I also discussed with the case management during the multidisciplinary rounds Out of bed and ambulate as tolerated Physical therapy evaluation and discharge needs Possible discharge in 1 to 2 days if stable Brief history and daily hospital course: 40 years old female with history of diabetes and hypertension was brought to the hospital because of chest pain which is right chest 9/10 sharp , constant radiating to the right side to the back and neck, patient had some chest pain few days ago right side going to the back, musculoskeletal in nature no shortness of breath no cough no fever. Initial cardiac enzyme is negative troponin is 0.010 In the emergency room patient is found to have DKA patient blood glucose is 315, bicarb 15 anion gap 30.'s were going to admit the patient to the ICU overnight. We will put the patient on insulin drip and consult critical care Hospital Course: 08/07: Patient was discontinued off her diabetic medication as an outpatient by her primary. She states that after her blood sugars had normalized so insulin discontinued. She does not track her blood sugars and does not take any medications for diabetes. Of note her A1c was 12.5 in October 2020. We will continue IV insulin until anion gap is closed. Can likely be downgraded once metabolic acidosis resolves. 08/08; patient was noncompliant with medications, will start diabetic diet, diabetic education, diabetic diet education Change insulin to Novolin 70/30, procalcitonin is high continue empiric antibiotics follow cultures 08/09; patient sugars are moderate control, adjust insulin dose, diabetic education, diabetic diet education prior to discharge, patient complains of generalized weakness unable to walk,Consult physical therapy to evaluate and for DC needs, out of bed to chair 3 times during meals, ambulate as tolerated Possible discharge in 1 to 2 days if stable History Interval history: I have seen and examined the patient at the bedside Patient's chart and medications reviewed Patient blood sugars are reasonably controlled, Tolerating ADA diet However complains of generalized weakness says that she is unable to walk Afebrile vital signs stable Hospitalist Physical - Constitutional Vitals: Temp Pulse Resp BP Pulse Ox 97.9 F 116 H 16 92/64 97 08/09/21 11:40 08/09/21 08:00 08/09/21 11:40 08/09/21 11:40 08/09/21 09:10 General appearance: Present: no acute distress, well-nourished - EENT Eyes: Present: PERRL, EOM intact - Neck Neck: Present: supple, normal ROM - Respiratory Respiratory effort: normal Respiratory: bilateral: diminished, negative: rales, rhonchi, wheezing - Cardiovascular Rhythm: regular Heart Sounds: Present: S1 & S2 - Extremities Extremities: no ischemia, No edema - Abdominal General gastrointestinal: soft, non-tender, non-distended, normal bowel sounds - Integumentary Integumentary: Present: clear, warm - Psychiatric Psychiatric: appropriate mood/affect, cooperative - Neurologic Neurologic: CNII-XII intact, moves all extremities HEART Score - HEART Score Troponin: Troponin T < 0.010 ng/mL (0.00-0.029) 08/07/21 15:00 Results - Labs CBC & Chem 7: 08/08/21 05:56 08/09/21 04:48 Labs: Laboratory Last Values WBC 16.1 K/mm3 (4.5-11.0) H 08/08/21 05:56 RBC 4.92 M/mm3 (3.65-5.03) 08/08/21 05:56 Hgb 11.2 gm/dl (10.1-14.3) 08/08/21 05:56 Hct 36.0 % (30.3-42.9) 08/08/21 05:56 MCV 73 fl (79-97) L 08/08/21 05:56 MCH 23 pg (28-32) L 08/08/21 05:56 MCHC 31 % (30-34) 08/08/21 05:56 RDW 14.9 % (13.2-15.2) 08/08/21 05:56 Plt Count 151 K/mm3 (140-440) 08/08/21 05:56 Mobile % (Auto) 8.1 % (0.0-7.3) H 08/08/21 05:56 Eos % (Auto) 0.0 % (0.0-4.3) 08/08/21 05:56 Mobile # (Auto) 1.3 K/mm3 (0.0-0.8) H 08/08/21 05:56 Eos # (Auto) 0.0 K/mm3 (0.0-0.4) 08/08/21 05:56 Baso # (Auto) 0.0 K/mm3 (0.0-0.1) 08/08/21 05:56 Add Manual Diff Complete 08/08/21 05:56 Total Counted 100 08/08/21 05:56 Seg Neutrophils % 86.3 % (40.0-70.0) H 08/08/21 05:56 Seg Neuts % (Manual) 93.0 % (40.0-70.0) H 08/08/21 05:56 Band Neutrophils % 0 % 08/08/21 05:56 Lymphocytes % (Manual) 5.0 % (13.4-35.0) L 08/08/21 05:56 Reactive Lymphs % (Man) 0 % 08/08/21 05:56 Monocytes % (Manual) 2.0 % (0.0-7.3) 08/08/21 05:56 Eosinophils % (Manual) 0 % (0.0-4.3) 08/08/21 05:56 Basophils % (Manual) 0 % (0.0-1.8) 08/08/21 05:56 Metamyelocytes % 0 % 08/08/21 05:56 Myelocytes % 0 % 08/08/21 05:56 Promyelocytes % 0 % 08/08/21 05:56 Blast Cells % 0 % 08/08/21 05:56 Nucleated RBC % Not Reportable 08/08/21 05:56 Seg Neutrophils # 14.1 K/mm3 (1.8-7.7) H 08/08/21 05:56 Seg Neutrophils # Man 15.0 K/mm3 (1.8-7.7) H 08/08/21 05:56 Band Neutrophils # 0.0 K/mm3 08/08/21 05:56 Lymphocytes # (Manual) 0.8 K/mm3 (1.2-5.4) L 08/08/21 05:56 Abs React Lymphs (Man) 0.0 K/mm3 08/08/21 05:56 Monocytes # (Manual) 0.3 K/mm3 (0.0-0.8) 08/08/21 05:56 Eosinophils # (Manual) 0.0 K/mm3 (0.0-0.4) 08/08/21 05:56 Basophils # (Manual) 0.0 K/mm3 (0.0-0.1) 08/08/21 05:56 Metamyelocytes # 0.0 K/mm3 08/08/21 05:56 Myelocytes # 0.0 K/mm3 08/08/21 05:56 Promyelocytes # 0.0 K/mm3 08/08/21 05:56 Blast Cells # 0.0 K/mm3 08/08/21 05:56 WBC Morphology Not Reportable 08/08/21 05:56 Hypersegmented Neuts Not Reportable 08/08/21 05:56 Hyposegmented Neuts Not Reportable 08/08/21 05:56 Hypogranular Neuts Not Reportable 08/08/21 05:56 Smudge Cells Not Reportable 08/08/21 05:56 Toxic Granulation Not Reportable 08/08/21 05:56 Toxic Vacuolation Not Reportable 08/08/21 05:56 Dohle Bodies Not Reportable 08/08/21 05:56 Pelger-Huet Anomaly Not Reportable 08/08/21 05:56 Apryl Rods Not Reportable 08/08/21 05:56 Platelet Estimate Cons 08/08/21 05:56 Clumped Platelets Not Reportable 08/08/21 05:56 Plt Clumps, EDTA Not Reportable 08/08/21 05:56 Large Platelets Few 08/08/21 05:56 Giant Platelets Not Reportable 08/08/21 05:56 Platelet Satelliting Not Reportable 08/08/21 05:56 Plt Morphology Comment Not Reportable 08/08/21 05:56 RBC Morphology Not Reportable 08/08/21 05:56 Dimorphic RBCs Not Reportable 08/08/21 05:56 Polychromasia Not Reportable 08/08/21 05:56 Hypochromasia Not Reportable 08/08/21 05:56 Poikilocytosis Not Reportable 08/08/21 05:56 Anisocytosis 1+ 08/08/21 05:56 Microcytosis Not Reportable 08/08/21 05:56 Macrocytosis Not Reportable 08/08/21 05:56 Spherocytes Not Reportable 08/08/21 05:56 Pappenheimer Bodies Not Reportable 08/08/21 05:56 Sickle Cells Not Reportable 08/08/21 05:56 Target Cells Not Reportable 08/08/21 05:56 Tear Drop Cells Not Reportable 08/08/21 05:56 Ovalocytes Not Reportable 08/08/21 05:56 Helmet Cells Not Reportable 08/08/21 05:56 [place] Bodies Not Reportable 08/08/21 05:56 [place] Rings Not Reportable 08/08/21 05:56 [place] Cells Not Reportable 08/08/21 05:56 Bite Cells Not Reportable 08/08/21 05:56 Crenated Cell Not Reportable 08/08/21 05:56 Elliptocytes Not Reportable 08/08/21 05:56 Acanthocytes (Spur) Not Reportable 08/08/21 05:56 Rouleaux Not Reportable 08/08/21 05:56 Hemoglobin C Crystals Not Reportable 08/08/21 05:56 Schistocytes Not Reportable 08/08/21 05:56 Malaria parasites Not Reportable 08/08/21 05:56 Mauricio Bodies Not Reportable 08/08/21 05:56 Hem Pathologist Commnt No 08/08/21 05:56 PT 15.5 Sec. (12.2-14.9) H 08/06/21 17:36 INR 1.11 (0.87-1.13) 08/06/21 17:36 VBG pH 7.362 (7.320-7.420) 08/06/21 20:07 Sodium 135 mmol/L (137-145) L 08/09/21 04:48 Potassium 3.8 mmol/L (3.6-5.0) 08/09/21 04:48 Chloride 103.4 mmol/L (98-107) 08/09/21 04:48 Carbon Dioxide 14 mmol/L (22-30) L 08/09/21 04:48 Anion Gap 21 mmol/L 08/09/21 04:48 BUN 16 mg/dL (7-17) 08/09/21 04:48 Creatinine 0.8 mg/dL (0.6-1.2) 08/09/21 04:48 Estimated GFR > 60 ml/min 08/09/21 04:48 BUN/Creatinine Ratio 20 % 08/09/21 04:48 Glucose 202 mg/dL (65-100) H 08/09/21 04:48 POC Glucose 244 mg/dL (70-105) H 08/09/21 11:37 Hemoglobin A1c 13.6 % (4-6) H 08/07/21 15:00 Ketones Quantitative Moderate (Negative) 08/06/21 20:07 Calcium 8.3 mg/dL (8.4-10.2) L 08/09/21 04:48 Phosphorus 2.20 mg/dL (2.5-4.5) L 08/09/21 04:48 Magnesium 2.20 mg/dL (1.7-2.3) 08/09/21 04:48 Total Bilirubin 1.00 mg/dL (0.1-1.2) 08/09/21 04:48 AST 134 units/L (5-40) H 08/09/21 04:48 ALT 96 units/L (7-56) H 08/09/21 04:48 Alkaline Phosphatase 141 units/L (35-129) H 08/09/21 04:48 Total Creatine Kinase 124 units/L (30-135) 08/06/21 17:36 Troponin T < 0.010 ng/mL (0.00-0.029) 08/07/21 15:00 Total Protein 6.2 g/dL (6.3-8.2) L 08/09/21 04:48 Albumin 2.1 g/dL (3.9-5) L 08/09/21 04:48 Albumin/Globulin Ratio 0.5 % 08/09/21 04:48 Lipase 13 units/L (13-60) 08/06/21 17:36 Procalcitonin 18.72 ng/mL (<0.15) 08/07/21 15:00 Urine Color Yellow (Yellow) 08/07/21 05:57 Urine Turbidity Cloudy (Clear) 08/07/21 05:57 Urine pH 5.0 (5.0-7.0) 08/07/21 05:57 Ur Specific Roby 1.023 (1.003-1.030) 08/07/21 05:57 Urine Protein 100 mg/dl mg/dL (Negative) 08/07/21 05:57 Urine Glucose (UA) >=500 mg/dL (Negative) 08/07/21 05:57 Urine Ketones 80 mg/dL (Negative) 08/07/21 05:57 Urine Blood Mod (Negative) 08/07/21 05:57 Urine Nitrite Neg (Negative) 08/07/21 05:57 Urine Bilirubin Neg (Negative) 08/07/21 05:57 Urine Urobilinogen < 2.0 mg/dL (<2.0) 08/07/21 05:57 Ur Leukocyte Esterase Neg (Negative) 08/07/21 05:57 Urine WBC (Auto) 2.0 /HPF (0.0-6.0) 08/07/21 05:57 Urine RBC (Auto) > 182.0 /HPF (0.0-6.0) 08/07/21 05:57 U Epithel Cells (Auto) 4.0 /HPF (0-13.0) 08/07/21 05:57 Urine WBC Clumps 1+ /HPF 08/07/21 05:57 Urine Mucus Few /HPF 08/07/21 05:57 Urine Yeast (Budding) 3+ /HPF 08/07/21 05:57 Urine Opiates Screen Negative 08/07/21 05:57 Urine Methadone Screen Negative 08/07/21 05:57 Ur Barbiturates Screen Negative 08/07/21 05:57 Ur Phencyclidine Scrn Negative 08/07/21 05:57 Ur Amphetamines Screen Negative 08/07/21 05:57 U Benzodiazepines Scrn Negative 08/07/21 05:57 Urine Cocaine Screen Negative 08/07/21 05:57 U Marijuana (THC) Screen Positive 08/07/21 05:57 Drugs of Abuse Note Disclamer 08/07/21 05:57 Microbiology: Microbiology 08/08/21 11:55 Peripheral/Venous Blood Culture - Preliminary NO GROWTH AFTER 24 HOURS 08/08/21 11:01 Peripheral/Venous Blood Culture - Preliminary NO GROWTH AFTER 24 HOURS 08/08/21 Unknown Urine,Clean Catch Urine Culture - Preliminary [place]/IV: Voiding Method Diaper Active Medications - Current Medications Current Medications: Generic Name Dose Route Start Last Admin Trade Name Freq PRN Reason Stop Dose Admin Acetaminophen 650 mg 08/07/21 01:48 08/08/21 16:33 Acetaminophen 325 Mg Tab PO 650 mg Q4H PRN Administration Pain MILD(1-3)/Fever >100.5/ROJAS Albuterol 2.5 mg 08/07/21 01:48 Albuterol 2.5 Mg/3 Ml Nebu IH Q3HRT PRN Shortness Of Breath Arformoterol Tartrate 15 mcg 08/07/21 20:00 08/09/21 09:06 Arformoterol 15 Mcg/2 Ml Nebu IH 15 mcg Q12HRT ROSSANA Administration Aspirin 325 mg 08/08/21 10:00 08/09/21 10:08 Aspirin Ec 325 Mg Tab PO 325 mg QDAY ROSSANA Administration Atorvastatin Calcium 40 mg 08/07/21 22:00 08/08/21 22:31 Atorvastatin 40 Mg Tab PO 40 mg QHS ROSSANA Administration Budesonide 0.5 mg 08/07/21 20:00 08/09/21 09:05 Budesonide 0.5 Mg/2 Ml Nebu IH 0.5 mg Q12HRT ROSSANA Administration Dextrose 0 ml 08/07/21 02:12 Dextrose 10% *Hypoglycemia IV DIRECT PRN Hypoglycemia Protocol Famotidine 20 mg 08/09/21 10:00 08/09/21 10:08 Famotidine 20 Mg Tab PO 20 mg BID ROSSANA Administration Guaifenesin 600 mg 08/07/21 10:00 08/09/21 10:08 Guaifenesin Er 600 Mg Tab PO 600 mg BID ROSSANA Administration Heparin Sodium (Porcine) 5,000 unit 08/07/21 06:00 08/09/21 14:25 Heparin 5,000 Unit/1 Ml Vial SUB-Q 5,000 unit Q8HR ROSSANA Administration Hydralazine HCl 10 mg 08/07/21 02:00 Hydralazine 20 Mg/1 Ml Inj IV Q6H PRN Blood Pressure Hydromorphone HCl 0.5 mg 08/07/21 01:48 08/09/21 08:10 Hydromorphone 1 Mg/1 Ml Inj IV 0.5 mg Q3H PRN Administration Pain , Severe (7-10) Ceftriaxone Sodium 2 gm in 100 mls @ 200 mls/hr 08/07/21 02:00 08/09/21 10:04 Rocephin/Ns 2 Gm/100 Ml IV 200 mls/hr Q24HR ROSSANA Administration Protocol Sodium Chloride 1,000 mls @ 100 mls/hr 08/08/21 09:00 08/09/21 10:04 Nacl 0.9% 1000 Ml IV 100 mls/hr DIRECT ROSSANA Administration Insulin Human Isoph/Insulin Regular 15 unit 08/09/21 17:00 Insulin Nph/Regular 70/30 Inj SUB-Q BIDDIAB ROSSANA Insulin Human Lispro 0 unit 08/08/21 11:30 08/09/21 11:59 Insulin Lispro 100 Unit/Ml SUB-Q 3 unit ACHS ROSSANA Administration Protocol Morphine Sulfate 2 mg 08/07/21 01:48 08/08/21 03:35 Morphine 2 Mg/1 Ml Inj IV 2 mg Q4H PRN Administration Pain, Moderate (4-6) Ondansetron HCl 4 mg 08/07/21 01:48 08/08/21 16:35 Ondansetron 4 Mg/2 Ml Inj IV 4 mg Q8H PRN Administration Nausea And Vomiting Sodium Chloride 10 ml 08/07/21 10:00 08/09/21 10:10 Sodium Chloride 0.9% 10 Ml Flush Syringe IV Not Given BID ROSSANA Sodium Chloride 10 ml 08/07/21 01:48 08/08/21 03:37 Sodium Chloride 0.9% 10 Ml Flush Syringe IV 10 ml PRN PRN Administration LINE FLUSH Sodium Phosphate 250 mg 08/08/21 10:00 08/09/21 14:29 K-Phos Neutral 250 Mg Tab PO 08/10/21 09:59 Not Given QID ROSSANA Tramadol HCl 50 mg 08/07/21 01:48 Tramadol 50 Mg Tab PO Q6H PRN Pain, Moderate (4-6) Nutrition/Malnutrition Assess - Dietary Evaluation Nutrition/Malnutrition Findings: Nutrition Notes Start: 08/07/21 16:10 Freq: Status: Active Protocol: Document 08/07/21 16:10 ITALO (Rec: 08/07/21 16:15 ITALO [id number]) Nutrition Notes Need for Assessment generated from: MD Order,Education Initial or Follow up Brief Note Current Diagnosis Diabetes,Hypertension Other Pertinent Diagnosis DKA, SIRS, Chest Pain. Current Diet NPO (since 08/07 01:49). Height 5 ft 7 in Weight 77.111 kg [place] Body Weight (kg) 61.36 BMI 26.6 Weight change and time frame None reported at admission. Weight Status Overweight Subjective/Other Information RD consult for Nutrition education. Pt currently on NPO. Pt still on critical conditions, not a candidate for Nutrition Education at the time, will assess feasibility on F/U. Percent of energy/protein needs met: Pt currently on NPO. Nutrition Intervention Follow-Up By: 08/14/21 Additional Comments Nutrition education will be provided on F/U, if feasible. Continue monitoring food tolerance, %PO intake of meals , and BM.
[2021-08-09] MEDS: MORPHINE 2 MG/1 ML INJ IV PRN (21:51)
[2021-08-10] MEDS: SODIUM CHLORIDE 0.9% 1000 ML 1,000 ML IV SCH (04:03)
[2021-08-10] MEDS: VANCOMYCIN/NS 1 GM/250 ML 1 GM/250 ML BAG IV SCH ×2 (04:58→17:50)
[2021-08-10] MEDS: HEPARIN 5,000 UNIT/1 ML VIAL SUB-Q SCH ×4 (05:06→22:39)
--- NOTE | 2021-08-10 08:24 | Progress Note ---
Assessment and Plan Assessment and plan: --SIRS/sepsis; Preliminary blood cultures 1:2 gram-positive cocci Vanco started, will add cefepime, check chest x-ray Procalcitonin level high, continue empiric antibiotics follow cultures Fever, leukocytosis, tachycardia, positive blood cultures Consult ID if no improvement --Pseudohyponatremia: Na 129-131-135 due to severe hyperglycemia Sodium level significantly improved, closely monitor Treat the underlying hyperglycemia, and IV normal saline Closely monitor electrolytes --Hypophosphatemia; mild improvement Still levels are low, managed with sodium phosphate IV Monitor electrolytes --Diabetic ketoacidosis/resolved Acidosis and anion gap improved Insulin drip discontinued, on ADA Change IV fluids to normal saline Start long-acting insulin Novolin 70/30 every 12 hours Increase the dose to 15 units Novolin subcu every 12 hours Continue Accu-Cheks sliding scale coverage ADA diet HbA1c 13.6, diabetic diet, diabetic education --Uncontrolled blood sugars/diabetes mellitus type 2; Accu-Chek, sliding scale coverage, ADA diet Long-acting insulin Novolin 70/30, start 12 units twice a day and adjust as needed Patient's HbA1c 13.6. --Medical noncompliance; With medications and diet follow-up visits Patient strongly counseled to comply with medications, diet And follow-up doctors visits, and also recommend outpatient supervisor accounting clerks evaluation --Musculoskeletal chest pain/resolved - reproducible with papation - doubt acs, non elevated troponin, EKG appears to be normal with no st depressios/elevations. --Hypertension/well controlled Closely monitor blood pressure As needed antihypertensives --History of marijuana use Counseling done advised to quit recreational drug use --Advance care planning/spent 35 minutes Disease education conducted, care plan discussed, diagnoses discussed, prognosis discussed, patient is full code, I discussed in detail the importance of adhering to the treatment plan I reiterated the need to follow strictly the diabetic diet I also explained that her hemoglobin A1c is very high indicating No control of blood sugars the last 6 months Patient also informed that we will be setting up home health nurse to assist the patient with diabetes control I advised to see a private supervisor accounting clerks/control specialist upon discharge for better control of her blood sugars patient verbalized understanding and agree with care plan, We will closely monitor the patient and adjust management as needed Plan of care reviewed with the patient and her nurse I also discussed with the case management during the multidisciplinary rounds Out of bed and ambulate as tolerated Physical therapy evaluation and discharge needs Possible discharge in 1 to 2 days if stable Brief history and daily hospital course: 40 years old female with history of diabetes and hypertension was brought to the hospital because of chest pain which is right chest 9/10 sharp , constant radiating to the right side to the back and neck, patient had some chest pain few days ago right side going to the back, musculoskeletal in nature no shortness of breath no cough no fever. Initial cardiac enzyme is negative troponin is 0.010 In the emergency room patient is found to have DKA patient blood glucose is 315, bicarb 15 anion gap 30.'s were going to admit the patient to the ICU overnight. We will put the patient on insulin drip and consult critical care Hospital Course: 08/07: Patient was discontinued off her diabetic medication as an outpatient by her primary. She states that after her blood sugars had normalized so insulin discontinued. She does not track her blood sugars and does not take any medications for diabetes. Of note her A1c was 12.5 in October 2020. We will continue IV insulin until anion gap is closed. Can likely be downgraded once metabolic acidosis resolves. 08/08; patient was noncompliant with medications, will start diabetic diet, diabetic education, diabetic diet education Change insulin to Novolin 70/30, procalcitonin is high continue empiric antibiotics follow cultures 08/09; patient sugars are moderate control, adjust insulin dose, diabetic education, diabetic diet education prior to discharge, patient complains of generalized weakness unable to walk,Consult physical therapy to evaluate and for DC needs, out of bed to chair 3 times during meals, ambulate as tolerated Possible discharge in 1 to 2 days if stable 08/10; patient has low-grade fever, and persistent leukocytosis, mild rales and crackles bilateral lung shrestha, check x-ray lung. Blood cultures 1 in 2 positive for gram positive cocci, dose of Vanco given this morning, will add cefepime History Interval history: I have seen and examined the patient at the bedside this morning Patient's chart and medications reviewed 1:2 blood cultures positive for gram-positive cocci ,Vanco IV started Patient has low-grade fever, complains of not feeling well generalized weakness Vital signs noted last 24 hours T-max 99.9 Hospitalist Physical - Constitutional Vitals: Temp Pulse Resp BP Pulse Ox 99.9 F H 111 H 18 96/66 96 08/10/21 03:48 08/10/21 03:48 08/10/21 03:48 08/10/21 03:48 08/10/21 03:48 General appearance: Present: no acute distress, well-nourished - EENT Eyes: Present: PERRL, EOM intact - Neck Neck: Present: supple, normal ROM - Respiratory Respiratory effort: normal Respiratory: bilateral: diminished, rales, rhonchi, negative: wheezing - Cardiovascular Rhythm: regular Heart Sounds: Present: S1 & S2 - Extremities Extremities: no ischemia, abnormal (Trace edema right foot) - Abdominal General gastrointestinal: soft, non-tender, non-distended, normal bowel sounds - Integumentary Integumentary: Present: clear, warm - Psychiatric Psychiatric: appropriate mood/affect, cooperative - Neurologic Neurologic: CNII-XII intact, moves all extremities HEART Score - HEART Score Troponin: Troponin T < 0.010 ng/mL (0.00-0.029) 08/07/21 15:00 Results - Labs CBC & Chem 7: 08/08/21 05:56 08/09/21 04:48 Labs: Laboratory Last Values WBC 16.1 K/mm3 (4.5-11.0) H 08/08/21 05:56 RBC 4.92 M/mm3 (3.65-5.03) 08/08/21 05:56 Hgb 11.2 gm/dl (10.1-14.3) 08/08/21 05:56 Hct 36.0 % (30.3-42.9) 08/08/21 05:56 MCV 73 fl (79-97) L 08/08/21 05:56 MCH 23 pg (28-32) L 08/08/21 05:56 MCHC 31 % (30-34) 08/08/21 05:56 RDW 14.9 % (13.2-15.2) 08/08/21 05:56 Plt Count 151 K/mm3 (140-440) 08/08/21 05:56 [place] % (Auto) 8.1 % (0.0-7.3) H 08/08/21 05:56 Eos % (Auto) 0.0 % (0.0-4.3) 08/08/21 05:56 [place] # (Auto) 1.3 K/mm3 (0.0-0.8) H 08/08/21 05:56 Eos # (Auto) 0.0 K/mm3 (0.0-0.4) 08/08/21 05:56 Baso # (Auto) 0.0 K/mm3 (0.0-0.1) 08/08/21 05:56 Add Manual Diff Complete 08/08/21 05:56 Total Counted 100 08/08/21 05:56 Seg Neutrophils % 86.3 % (40.0-70.0) H 08/08/21 05:56 Seg Neuts % (Manual) 93.0 % (40.0-70.0) H 08/08/21 05:56 Band Neutrophils % 0 % 08/08/21 05:56 Lymphocytes % (Manual) 5.0 % (13.4-35.0) L 08/08/21 05:56 Reactive Lymphs % (Man) 0 % 08/08/21 05:56 Monocytes % (Manual) 2.0 % (0.0-7.3) 08/08/21 05:56 Eosinophils % (Manual) 0 % (0.0-4.3) 08/08/21 05:56 Basophils % (Manual) 0 % (0.0-1.8) 08/08/21 05:56 Metamyelocytes % 0 % 08/08/21 05:56 Myelocytes % 0 % 08/08/21 05:56 Promyelocytes % 0 % 08/08/21 05:56 Blast Cells % 0 % 08/08/21 05:56 Nucleated RBC % Not Reportable 08/08/21 05:56 Seg Neutrophils # 14.1 K/mm3 (1.8-7.7) H 08/08/21 05:56 Seg Neutrophils # Man 15.0 K/mm3 (1.8-7.7) H 08/08/21 05:56 Band Neutrophils # 0.0 K/mm3 08/08/21 05:56 Lymphocytes # (Manual) 0.8 K/mm3 (1.2-5.4) L 08/08/21 05:56 Abs React Lymphs (Man) 0.0 K/mm3 08/08/21 05:56 Monocytes # (Manual) 0.3 K/mm3 (0.0-0.8) 08/08/21 05:56 Eosinophils # (Manual) 0.0 K/mm3 (0.0-0.4) 08/08/21 05:56 Basophils # (Manual) 0.0 K/mm3 (0.0-0.1) 08/08/21 05:56 Metamyelocytes # 0.0 K/mm3 08/08/21 05:56 Myelocytes # 0.0 K/mm3 08/08/21 05:56 Promyelocytes # 0.0 K/mm3 08/08/21 05:56 Blast Cells # 0.0 K/mm3 08/08/21 05:56 WBC Morphology Not Reportable 08/08/21 05:56 Hypersegmented Neuts Not Reportable 08/08/21 05:56 Hyposegmented Neuts Not Reportable 08/08/21 05:56 Hypogranular Neuts Not Reportable 08/08/21 05:56 Smudge Cells Not Reportable 08/08/21 05:56 Toxic Granulation Not Reportable 08/08/21 05:56 Toxic Vacuolation Not Reportable 08/08/21 05:56 Dohle Bodies Not Reportable 08/08/21 05:56 Pelger-Huet Anomaly Not Reportable 08/08/21 05:56 Apryl Rods Not Reportable 08/08/21 05:56 Platelet Estimate Cons 08/08/21 05:56 Clumped Platelets Not Reportable 08/08/21 05:56 Plt Clumps, EDTA Not Reportable 08/08/21 05:56 Large Platelets Few 08/08/21 05:56 Giant Platelets Not Reportable 08/08/21 05:56 Platelet Satelliting Not Reportable 08/08/21 05:56 Plt Morphology Comment Not Reportable 08/08/21 05:56 RBC Morphology Not Reportable 08/08/21 05:56 Dimorphic RBCs Not Reportable 08/08/21 05:56 Polychromasia Not Reportable 08/08/21 05:56 Hypochromasia Not Reportable 08/08/21 05:56 Poikilocytosis Not Reportable 08/08/21 05:56 Anisocytosis 1+ 08/08/21 05:56 Microcytosis Not Reportable 08/08/21 05:56 Macrocytosis Not Reportable 08/08/21 05:56 Spherocytes Not Reportable 08/08/21 05:56 Pappenheimer Bodies Not Reportable 08/08/21 05:56 Sickle Cells Not Reportable 08/08/21 05:56 Target Cells Not Reportable 08/08/21 05:56 Tear Drop Cells Not Reportable 08/08/21 05:56 Ovalocytes Not Reportable 08/08/21 05:56 Helmet Cells Not Reportable 08/08/21 05:56 [place] Bodies Not Reportable 08/08/21 05:56 [place] Rings Not Reportable 08/08/21 05:56 Delores Cells Not Reportable 08/08/21 05:56 Bite Cells Not Reportable 08/08/21 05:56 Crenated Cell Not Reportable 08/08/21 05:56 Elliptocytes Not Reportable 08/08/21 05:56 Acanthocytes (Spur) Not Reportable 08/08/21 05:56 Rouleaux Not Reportable 08/08/21 05:56 Hemoglobin C Crystals Not Reportable 08/08/21 05:56 Schistocytes Not Reportable 08/08/21 05:56 Malaria parasites Not Reportable 08/08/21 05:56 Mauricio Bodies Not Reportable 08/08/21 05:56 Hem Pathologist Commnt No 08/08/21 05:56 PT 15.5 Sec. (12.2-14.9) H 08/06/21 17:36 INR 1.11 (0.87-1.13) 08/06/21 17:36 VBG pH 7.362 (7.320-7.420) 08/06/21 20:07 Sodium 135 mmol/L (137-145) L 08/09/21 04:48 Potassium 3.8 mmol/L (3.6-5.0) 08/09/21 04:48 Chloride 103.4 mmol/L (98-107) 08/09/21 04:48 Carbon Dioxide 14 mmol/L (22-30) L 08/09/21 04:48 Anion Gap 21 mmol/L 08/09/21 04:48 BUN 16 mg/dL (7-17) 08/09/21 04:48 Creatinine 0.8 mg/dL (0.6-1.2) 08/09/21 04:48 Estimated GFR > 60 ml/min 08/09/21 04:48 BUN/Creatinine Ratio 20 % 08/09/21 04:48 Glucose 202 mg/dL (65-100) H 08/09/21 04:48 POC Glucose 143 mg/dL (70-105) H 08/09/21 21:23 Hemoglobin A1c 13.6 % (4-6) H 08/07/21 15:00 Ketones Quantitative Moderate (Negative) 08/06/21 20:07 Calcium 8.3 mg/dL (8.4-10.2) L 08/09/21 04:48 Phosphorus 2.20 mg/dL (2.5-4.5) L 08/09/21 04:48 Magnesium 2.20 mg/dL (1.7-2.3) 08/09/21 04:48 Total Bilirubin 1.00 mg/dL (0.1-1.2) 08/09/21 04:48 AST 134 units/L (5-40) H 08/09/21 04:48 ALT 96 units/L (7-56) H 08/09/21 04:48 Alkaline Phosphatase 141 units/L (35-129) H 08/09/21 04:48 Total Creatine Kinase 124 units/L (30-135) 08/06/21 17:36 Troponin T < 0.010 ng/mL (0.00-0.029) 08/07/21 15:00 Total Protein 6.2 g/dL (6.3-8.2) L 08/09/21 04:48 Albumin 2.1 g/dL (3.9-5) L 08/09/21 04:48 Albumin/Globulin Ratio 0.5 % 08/09/21 04:48 Lipase 13 units/L (13-60) 08/06/21 17:36 Procalcitonin 18.72 ng/mL (<0.15) 08/07/21 15:00 Urine Color Yellow (Yellow) 08/07/21 05:57 Urine Turbidity Cloudy (Clear) 08/07/21 05:57 Urine pH 5.0 (5.0-7.0) 08/07/21 05:57 Ur Specific [place] 1.023 (1.003-1.030) 08/07/21 05:57 Urine Protein 100 mg/dl mg/dL (Negative) 08/07/21 05:57 Urine Glucose (UA) >=500 mg/dL (Negative) 08/07/21 05:57 Urine Ketones 80 mg/dL (Negative) 08/07/21 05:57 Urine Blood Mod (Negative) 08/07/21 05:57 Urine Nitrite Neg (Negative) 08/07/21 05:57 Urine Bilirubin Neg (Negative) 08/07/21 05:57 Urine Urobilinogen < 2.0 mg/dL (<2.0) 08/07/21 05:57 Ur Leukocyte Esterase Neg (Negative) 08/07/21 05:57 Urine WBC (Auto) 2.0 /HPF (0.0-6.0) 08/07/21 05:57 Urine RBC (Auto) > 182.0 /HPF (0.0-6.0) 08/07/21 05:57 U Epithel Cells (Auto) 4.0 /HPF (0-13.0) 08/07/21 05:57 Urine WBC Clumps 1+ /HPF 08/07/21 05:57 Urine Mucus Few /HPF 08/07/21 05:57 Urine Yeast (Budding) 3+ /HPF 08/07/21 05:57 Urine Opiates Screen Negative 08/07/21 05:57 Urine Methadone Screen Negative 08/07/21 05:57 Ur Barbiturates Screen Negative 08/07/21 05:57 Ur Phencyclidine Scrn Negative 08/07/21 05:57 Ur Amphetamines Screen Negative 08/07/21 05:57 U Benzodiazepines Scrn Negative 08/07/21 05:57 Urine Cocaine Screen Negative 08/07/21 05:57 U Marijuana (THC) Screen Positive 08/07/21 05:57 Drugs of Abuse Note Disclamer 08/07/21 05:57 Microbiology: Microbiology 08/08/21 11:01 Peripheral/Venous Blood Culture - Preliminary 08/08/21 11:55 Peripheral/Venous Blood Culture - Preliminary NO GROWTH AFTER 24 HOURS 08/08/21 Unknown Urine,Clean Catch Urine Culture - Preliminary [place]/IV: Voiding Method Diaper Active Medications - Current Medications Current Medications: Generic Name Dose Route Start Last Admin Trade Name Freq PRN Reason Stop Dose Admin Acetaminophen 650 mg 08/07/21 01:48 08/08/21 16:33 Acetaminophen 325 Mg Tab PO 650 mg Q4H PRN Administration Pain MILD(1-3)/Fever >100.5/ROJAS Albuterol 2.5 mg 02/23/22 01:48 Albuterol 2.5 Mg/3 Ml Nebu IH Q3HRT PRN Shortness Of Breath Arformoterol Tartrate 15 mcg 08/07/21 20:00 08/09/21 21:29 Arformoterol 15 Mcg/2 Ml Nebu IH 15 mcg Q12HRT ROSSANA Administration Aspirin 325 mg 08/08/21 10:00 08/09/21 10:08 Aspirin Ec 325 Mg Tab PO 325 mg QDAY ROSSANA Administration Atorvastatin Calcium 40 mg 08/07/21 22:00 08/09/21 21:50 Atorvastatin 40 Mg Tab PO 40 mg QHS ROSSANA Administration Budesonide 0.5 mg 08/07/21 20:00 08/09/21 21:29 Budesonide 0.5 Mg/2 Ml Nebu IH 0.5 mg Q12HRT ROSSANA Administration Dextrose 0 ml 08/07/21 02:12 Dextrose 10% *Hypoglycemia IV DIRECT PRN Hypoglycemia Protocol Famotidine 20 mg 08/09/21 10:00 08/09/21 21:51 Famotidine 20 Mg Tab PO 20 mg BID ROSSANA Administration Guaifenesin 600 mg 08/07/21 10:00 08/09/21 21:50 Guaifenesin Er 600 Mg Tab PO 600 mg BID ROSSANA Administration Heparin Sodium (Porcine) 5,000 unit 08/07/21 06:00 08/10/21 07:38 Heparin 5,000 Unit/1 Ml Vial SUB-Q Not Given Q8HR ROSSANA Hydralazine HCl 10 mg 08/07/21 02:00 Hydralazine 20 Mg/1 Ml Inj IV Q6H PRN Blood Pressure Hydromorphone HCl 0.5 mg 08/07/21 01:48 08/09/21 08:10 Hydromorphone 1 Mg/1 Ml Inj IV 0.5 mg Q3H PRN Administration Pain , Severe (7-10) Sodium Chloride 1,000 mls @ 100 mls/hr 08/08/21 09:00 08/10/21 04:03 Nacl 0.9% 1000 Ml IV 100 mls/hr DIRECT ROSSANA Administration Vancomycin HCl 1 gm in 250 mls @ 166.667 mls/hr 08/10/21 04:00 08/10/21 04:58 Vancomycin/Ns 1 Gm/250 Ml IV 166.667 mls/hr Q12H ROSSANA Administration Protocol Insulin Human Isoph/Insulin Regular 15 unit 08/09/21 17:00 08/09/21 17:51 Insulin Nph/Regular 70/30 Inj SUB-Q 15 unit BIDDIAB ROSSANA Administration Insulin Human Lispro 0 unit 08/08/21 11:30 08/09/21 22:08 Insulin Lispro 100 Unit/Ml SUB-Q Not Given ACHS ROSSANA Protocol Morphine Sulfate 2 mg 08/07/21 01:48 08/09/21 21:51 Morphine 2 Mg/1 Ml Inj IV 2 mg Q4H PRN Administration Pain, Moderate (4-6) Ondansetron HCl 4 mg 08/07/21 01:48 08/08/21 16:35 Ondansetron 4 Mg/2 Ml Inj IV 4 mg Q8H PRN Administration Nausea And Vomiting Sodium Chloride 10 ml 08/07/21 10:00 08/09/21 21:52 Sodium Chloride 0.9% 10 Ml Flush Syringe IV 10 ml BID ROSSANA Administration Sodium Chloride 10 ml 08/07/21 01:48 08/08/21 03:37 Sodium Chloride 0.9% 10 Ml Flush Syringe IV 10 ml PRN PRN Administration LINE FLUSH Sodium Phosphate 250 mg 08/08/21 10:00 08/09/21 21:50 K-Phos Neutral 250 Mg Tab PO 08/10/21 09:59 250 mg QID ROSSANA Administration Tramadol HCl 50 mg 08/07/21 01:48 Tramadol 50 Mg Tab PO Q6H PRN Pain, Moderate (4-6) Nutrition/Malnutrition Assess - Dietary Evaluation Nutrition/Malnutrition Findings: Nutrition Notes Start: 08/07/21 16:10 Freq: Status: Active Protocol: Document 08/07/21 16:10 ITALO (Rec: 08/07/21 16:15 ITALO [id number]) Nutrition Notes Need for Assessment generated from: MD Order,Education Initial or Follow up Brief Note Current Diagnosis Diabetes,Hypertension Other Pertinent Diagnosis DKA, SIRS, Chest Pain. Current Diet NPO (since 08/07 01:49). Height 5 ft 7 in Weight 77.111 kg [place] Body Weight (kg) 61.36 BMI 26.6 Weight change and time frame None reported at admission. Weight Status Overweight Subjective/Other Information RD consult for Nutrition education. Pt currently on NPO. Pt still on critical conditions, not a candidate for Nutrition Education at the time, will assess feasibility on F/U. Percent of energy/protein needs met: Pt currently on NPO. Nutrition Intervention Follow-Up By: 08/14/21 Additional Comments Nutrition education will be provided on F/U, if feasible. Continue monitoring food tolerance, %PO intake of meals , and BM.
--- NOTE | 2021-08-10 08:48 | XRay Report ---
CHEST 1 VIEW 08/10/2021 7:40 AM INDICATION / CLINICAL INFORMATION: Fever. COMPARISON: 08/06/2021 FINDINGS: SUPPORT DEVICES: None. HEART / MEDIASTINUM: No significant abnormality. LUNGS / PLEURA: Interval development of right pleural effusion and possible left pleural effusion. Th ere is also airspace opacity in the left greater than right lung bases with obscuration of the left h emidiaphragm No pneumothorax. ADDITIONAL FINDINGS: No significant additional findings. IMPRESSION: 1. Interval development of right pleural effusion and possible left pleural effusion. There is also a irspace opacity in the left greater than right lung bases with obscuration of the left hemidiaphragm. This concerning for a left lower lobe pneumonia. Right basilar pneumonia is not excluded. Signer Name: Jaden Reid DO Signed: 08/10/2021 8:44 AM Workstation Name: [id number]
[2021-08-10] MEDS: HYDROmorphone 1 MG/1 ML INJ IV PRN (11:07)
[2021-08-10] MEDS: ASPIRIN EC 325 MG TAB PO SCH (11:07)
[2021-08-10] MEDS: FAMOTIDINE 20 MG TAB PO SCH ×2 (11:07→22:00)
[2021-08-10] MEDS: guaiFENesin ER 600 MG TAB PO SCH (11:08)
[2021-08-10] MEDS: INSULIN LISPRO 100 UNIT/ML SUB-Q SCH ×4 (11:08→22:39)
[2021-08-10] MEDS: INSULIN NPH/REGULAR 70/30 INJ SUB-Q SCH ×3 (11:11→18:13)
--- NOTE | 2021-08-10 11:52 | Event Note ---
Chest x-ray; 08/10/2021; Interval development of right pleural effusion and possible left pleural effusion also airspace opacity in the left greater than right lung bases with obscuration of left hemidiaphragm concerning for left lower lobe pneumonia right basilar pneumonia is not excluded 1:2; blood cultures positive for staph aureus, leukocytosis, tachycardia, low- grade fever, bilateral pneumonia on chest x-ray Possible healthcare associated pneumonia; already started on Vanco and cefepime Oxygen titrate O2 sats more than 90% ID consult, pulmonary is already on the case The tests and reports and treatment plan with IV antibiotics and ID consultation Was discussed in detail with the patient, answered all her questions, she verbalized understanding. Plan of care also reviewed with the patient's nurse
[2021-08-10] MEDS ORDERED: FUROSEMIDE 40 MG/4 ML INJ IV SCH (12:00)
[2021-08-10] MEDS: CEFEPIME/NS 2 GM/100 ML 2 GM/100 ML BAG IV SCH ×2 (14:12→22:44)
[2021-08-10] MEDS: ONDANSETRON 4 MG/2 ML INJ IV PRN (14:17)
[2021-08-10] MEDS: ARFORMOTEROL 15 MCG/2 ML NEBU IH SCH ×2 (14:59→20:34)
[2021-08-10] MEDS: BUDESONIDE 0.5 MG/2 ML NEBU IH SCH ×2 (15:00→20:34)
[2021-08-10] MEDS: traMADol 50 MG TAB PO PRN (22:44)
[2021-08-11] MEDS: INSULIN LISPRO 100 UNIT/ML SUB-Q SCH ×5 (00:42→21:35)
[2021-08-11] MEDS: guaiFENesin ER 600 MG TAB PO SCH ×3 (00:43→21:35)
[2021-08-11] MEDS: HEPARIN 5,000 UNIT/1 ML VIAL SUB-Q SCH ×3 (05:43→21:35)
[2021-08-11] MEDS: ONDANSETRON 4 MG/2 ML INJ IV PRN (05:44)
[2021-08-11 05:49] LABS: Hematocrit 31.3 % (30.3-42.9); Hemoglobin 9.8 gm/dl (10.1-14.3); Mean Corpuscular HGB Conc 31 % (30-34); Mean Corpuscular Volume 73 fl (79-97); Platelet Count 233 K/mm3 (140-440); Red Blood Count 4.32 M/mm3 (3.65-5.03); Red Cell Distribution Width 14.9 % (13.2-15.2)
[2021-08-11] MEDS: CEFEPIME/NS 2 GM/100 ML 2 GM/100 ML BAG IV SCH ×3 (06:03→20:05)
[2021-08-11 06:13] LABS: Blood Urea Nitrogen 8 mg/dL (7-17); Calcium 7.8 mg/dL (8.4-10.2); Hemolysis Index 6
[2021-08-11 06:14] LABS: BUN/Creatinine Ratio 11
[2021-08-11] MEDS: VANCOMYCIN/NS 1 GM/250 ML 1 GM/250 ML BAG IV SCH ×2 (06:37→17:24)
[2021-08-11 07:06] LABS: Anisocytosis 1+; Band Neutrophils # (Manual) 0.1 K/mm3; Basophils % (Manual) 0 % (0.0-1.8); Platelet Estimate Consistent w Auto; Total Cells Counted 100
--- NOTE | 2021-08-11 08:00 | Progress Note ---
Assessment and Plan Assessment and plan: MRSA bacteremia/septicemia[Blood cultures 1 in 4 positive for MRSA 08/11/2021 Patient is already on Vanco and cefepime ID consulted pending evaluation Contact isolation, follow repeat blood cultures --Sepsis; due to healthcare associated pneumonia[HCAP] Fever, leukocytosis, tachycardia, positive blood cultures pneumonia on chest x- ray Preliminary blood cultures 1:2 gram-positive cocci Continue Vanco and cefepime, Procalcitonin level high --Staph aureus/MRSA septicemia;1:2 positive blood cultures Continue Vanco and cefepime ID consulted, contact isolation New set of blood cultures requested --Hypokalemia; Replenished with potassium phosphate --Hypophosphatemia; replenish with potassium phosphate Closely monitor electrolytes --Hyponatremia /pseudohyponatremia: Sodium level significantly improved, closely monitor Treat the underlying hyperglycemia, and IV normal saline Closely monitor electrolytes --Metabolic acidosis; Due to DKA, slowly improving Continue current management --Diabetic ketoacidosis/resolved Change IV fluids to normal saline Start long-acting insulin Novolin 70/30 every 12 hours Increase the dose to 15 units Novolin subcu every 12 hours Continue Accu-Cheks sliding scale coverage ADA diet HbA1c 13.6, diabetic diet, diabetic education --Uncontrolled blood sugars/diabetes mellitus type 2; Accu-Chek, sliding scale coverage, ADA diet Long-acting insulin Novolin 70/30, start 12 units twice a day and adjust as needed Patient's HbA1c 13.6. --Medical noncompliance; With medications and diet follow-up visits Patient strongly counseled to comply with medications, diet And follow-up doctors visits, and also recommend outpatient manager metrology evaluation --Musculoskeletal chest pain/resolved - reproducible with papation - doubt acs, non elevated troponin, EKG appears to be normal with no st depressios/elevations. --Hypertension/well controlled Closely monitor blood pressure As needed antihypertensives --History of marijuana use Counseling done advised to quit recreational drug use --Advance care planning/spent additional 30 minutes Disease education conducted, care plan discussed, diagnoses discussed, prognosis discussed, patient is full code, I discussed in detail the importance of adhering to the treatment plan I reiterated the need to follow strictly the diabetic diet I also explained that her hemoglobin A1c is very high indicating No control of blood sugars the last 6 months Patient also informed that we will be setting up home health nurse to assist the patient with diabetes control I advised to see a private manager metrology/family specialist upon discharge for better control of her blood sugars patient verbalized understanding and agree with care plan, We will closely monitor the patient and adjust management as needed Plan of care reviewed with the patient and her nurse I also discussed with the case management during the multidisciplinary rounds Out of bed and ambulate as tolerated Physical therapy evaluation and discharge needs Possible discharge in 1 to 2 days if stable Brief history and daily hospital course: 40 years old female with history of diabetes and hypertension was brought to the hospital because of chest pain which is right chest 9/10 sharp , constant radiating to the right side to the back and neck, patient had some chest pain few days ago right side going to the back, musculoskeletal in nature no shortness of breath no cough no fever. Initial cardiac enzyme is negative troponin is 0.010 In the emergency room patient is found to have DKA patient blood glucose is 315, bicarb 15 anion gap 30.'s were going to admit the patient to the ICU overnight. We will put the patient on insulin drip and consult critical care Hospital Course: 08/07: Patient was discontinued off her diabetic medication as an outpatient by her primary. She states that after her blood sugars had normalized so insulin discontinued. She does not track her blood sugars and does not take any medications for diabetes. Of note her A1c was 12.5 in October 2020. We will continue IV insulin until anion gap is closed. Can likely be downgraded once metabolic acidosis resolves. 08/08; patient was noncompliant with medications, will start diabetic diet, diabetic education, diabetic diet education Change insulin to Novolin 70/30, procalcitonin is high continue empiric antibiotics follow cultures 08/09; patient sugars are moderate control, adjust insulin dose, diabetic education, diabetic diet education prior to discharge, patient complains of generalized weakness unable to walk,Consult physical therapy to evaluate and for DC needs, out of bed to chair 3 times during meals, ambulate as tolerated Possible discharge in 1 to 2 days if stable 08/10; patient has low-grade fever, and persistent leukocytosis, mild rales and crackles bilateral lung shrestha, check x-ray lung. Blood cultures 1 in 2 positive for gram positive cocci, dose of Vanco given this morning, will add cefepime 08/11; multiple electrolyte abnormalities, hypokalemia, hypophosphatemia, hyponatremia replenish per protocol and monitor levels Possible Healthcare associated pneumonia, continue Vanco and cefepime, ID consulted Blood cultures positive for MRSA, continue Vanco cefepime, follow repeat cultures, follow ID evaluation Plan of care reviewed with the patient and her nurse History Interval history: 1:2 blood cultures positive for MRSA/MRSA septicemia; Patient is already on Vanco and cefepime, ID consulted pending evaluation I have seen and examined the patient at the bedside in isolation room Patient's chart and medications reviewed Patient feels slightly better right lower extremity swelling significantly improved Patient denies chest pain or shortness of breath Vital signs reviewed Hospitalist Physical - Constitutional Vitals: Temp Pulse Resp BP Pulse Ox 98.7 F 103 H 20 103/71 97 08/11/21 05:35 08/11/21 05:35 08/11/21 05:35 08/11/21 05:35 08/11/21 05:35 General appearance: Present: no acute distress, well-nourished - EENT Eyes: Present: PERRL, EOM intact - Neck Neck: Present: supple, normal ROM - Respiratory Respiratory effort: normal Respiratory: bilateral: diminished, rhonchi, negative: rales, wheezing - Cardiovascular Rhythm: regular Heart Sounds: Present: S1 & S2 - Extremities Extremities: no ischemia, No edema - Abdominal General gastrointestinal: soft, non-tender, non-distended, normal bowel sounds - Integumentary Integumentary: Present: clear, warm - Psychiatric Psychiatric: appropriate mood/affect, cooperative - Neurologic Neurologic: moves all extremities HEART Score - HEART Score Troponin: Troponin T < 0.010 ng/mL (0.00-0.029) 08/07/21 15:00 Results - Labs CBC & Chem 7: 08/11/21 05:11 08/11/21 05:11 Labs: Laboratory Last Values WBC 11.7 K/mm3 (4.5-11.0) H 08/11/21 05:11 RBC 4.32 M/mm3 (3.65-5.03) 08/11/21 05:11 Hgb 9.8 gm/dl (10.1-14.3) L 08/11/21 05:11 Hct 31.3 % (30.3-42.9) 08/11/21 05:11 MCV 73 fl (79-97) L 08/11/21 05:11 MCH 23 pg (28-32) L 08/11/21 05:11 MCHC 31 % (30-34) 08/11/21 05:11 RDW 14.9 % (13.2-15.2) 08/11/21 05:11 Plt Count 233 K/mm3 (140-440) 08/11/21 05:11 [place] % (Auto) 8.1 % (0.0-7.3) H 08/08/21 05:56 Eos % (Auto) 0.0 % (0.0-4.3) 08/08/21 05:56 [place] # (Auto) 1.3 K/mm3 (0.0-0.8) H 08/08/21 05:56 Eos # (Auto) 0.0 K/mm3 (0.0-0.4) 08/08/21 05:56 Baso # (Auto) 0.0 K/mm3 (0.0-0.1) 08/08/21 05:56 Add Manual Diff Complete 08/11/21 05:11 Total Counted 100 08/11/21 05:11 Seg Neutrophils % 86.3 % (40.0-70.0) H 08/08/21 05:56 Seg Neuts % (Manual) 81.0 % (40.0-70.0) H 08/11/21 05:11 Band Neutrophils % 1.0 % 08/11/21 05:11 Lymphocytes % (Manual) 10.0 % (13.4-35.0) L 08/11/21 05:11 Reactive Lymphs % (Man) 0 % 08/11/21 05:11 Monocytes % (Manual) 7.0 % (0.0-7.3) 08/11/21 05:11 Eosinophils % (Manual) 1.0 % (0.0-4.3) 08/11/21 05:11 Basophils % (Manual) 0 % (0.0-1.8) 08/11/21 05:11 Metamyelocytes % 0 % 08/11/21 05:11 Myelocytes % 0 % 08/11/21 05:11 Promyelocytes % 0 % 08/11/21 05:11 Blast Cells % 0 % 08/11/21 05:11 Nucleated RBC % Not Reportable 08/11/21 05:11 Seg Neutrophils # 14.1 K/mm3 (1.8-7.7) H 08/08/21 05:56 Seg Neutrophils # Man 9.5 K/mm3 (1.8-7.7) H 08/11/21 05:11 Band Neutrophils # 0.1 K/mm3 08/11/21 05:11 Lymphocytes # (Manual) 1.2 K/mm3 (1.2-5.4) 08/11/21 05:11 Abs React Lymphs (Man) 0.0 K/mm3 08/11/21 05:11 Monocytes # (Manual) 0.8 K/mm3 (0.0-0.8) 08/11/21 05:11 Eosinophils # (Manual) 0.1 K/mm3 (0.0-0.4) 08/11/21 05:11 Basophils # (Manual) 0.0 K/mm3 (0.0-0.1) 08/11/21 05:11 Metamyelocytes # 0.0 K/mm3 08/11/21 05:11 Myelocytes # 0.0 K/mm3 08/11/21 05:11 Promyelocytes # 0.0 K/mm3 08/11/21 05:11 Blast Cells # 0.0 K/mm3 08/11/21 05:11 WBC Morphology Not Reportable 08/11/21 05:11 Hypersegmented Neuts Not Reportable 08/11/21 05:11 Hyposegmented Neuts Not Reportable 08/11/21 05:11 Hypogranular Neuts Not Reportable 08/11/21 05:11 Smudge Cells Not Reportable 08/11/21 05:11 Toxic Granulation Not Reportable 08/11/21 05:11 Toxic Vacuolation Not Reportable 08/11/21 05:11 Dohle Bodies Not Reportable 08/11/21 05:11 Pelger-Huet Anomaly Not Reportable 08/11/21 05:11 Apryl Rods Not Reportable 08/11/21 05:11 Platelet Estimate Consistent w auto 08/11/21 05:11 Clumped Platelets Not Reportable 08/11/21 05:11 Plt Clumps, EDTA Not Reportable 08/11/21 05:11 Large Platelets Not Reportable 08/11/21 05:11 Giant Platelets Not Reportable 08/11/21 05:11 Platelet Satelliting Not Reportable 08/11/21 05:11 Plt Morphology Comment Not Reportable 08/11/21 05:11 RBC Morphology Not Reportable 08/11/21 05:11 Dimorphic RBCs Not Reportable 08/11/21 05:11 Polychromasia Not Reportable 08/11/21 05:11 Hypochromasia Not Reportable 08/11/21 05:11 Poikilocytosis Not Reportable 08/11/21 05:11 Anisocytosis 1+ 08/11/21 05:11 Microcytosis Not Reportable 08/11/21 05:11 Macrocytosis Not Reportable 08/11/21 05:11 Spherocytes Not Reportable 08/11/21 05:11 Pappenheimer Bodies Not Reportable 08/11/21 05:11 Sickle Cells Not Reportable 08/11/21 05:11 Target Cells Not Reportable 08/11/21 05:11 Tear Drop Cells Not Reportable 08/11/21 05:11 Ovalocytes Not Reportable 08/11/21 05:11 Helmet Cells Not Reportable 08/11/21 05:11 Shaw-Portales Bodies Not Reportable 08/11/21 05:11 [place] Rings Not Reportable 08/11/21 05:11 Delores Cells Not Reportable 08/11/21 05:11 Bite Cells Not Reportable 08/11/21 05:11 Crenated Cell Not Reportable 08/11/21 05:11 Elliptocytes Not Reportable 08/11/21 05:11 Acanthocytes (Spur) Not Reportable 08/11/21 05:11 Rouleaux Not Reportable 08/11/21 05:11 Hemoglobin C Crystals Not Reportable 08/11/21 05:11 Schistocytes Not Reportable 08/11/21 05:11 Malaria parasites Not Reportable 08/11/21 05:11 Mauricio Bodies Not Reportable 08/11/21 05:11 Hem Pathologist Commnt No 08/11/21 05:11 PT 15.5 Sec. (12.2-14.9) H 08/06/21 17:36 INR 1.11 (0.87-1.13) 08/06/21 17:36 VBG pH 7.362 (7.320-7.420) 08/06/21 20:07 Sodium 134 mmol/L (137-145) L 08/11/21 05:11 Potassium 3.0 mmol/L (3.6-5.0) L D 08/11/21 05:11 Chloride 100.3 mmol/L (98-107) 08/11/21 05:11 Carbon Dioxide 19 mmol/L (22-30) L 08/11/21 05:11 Anion Gap 18 mmol/L 08/11/21 05:11 BUN 8 mg/dL (7-17) 08/11/21 05:11 Creatinine 0.7 mg/dL (0.6-1.2) 08/11/21 05:11 Estimated GFR > 60 ml/min 08/11/21 05:11 BUN/Creatinine Ratio 11 % 08/11/21 05:11 Glucose 190 mg/dL (65-100) H 08/11/21 05:11 POC Glucose 181 mg/dL (70-105) H 08/10/21 21:05 Hemoglobin A1c 13.6 % (4-6) H 08/07/21 15:00 Ketones Quantitative Moderate (Negative) 08/06/21 20:07 Calcium 7.8 mg/dL (8.4-10.2) L 08/11/21 05:11 Phosphorus 2.00 mg/dL (2.5-4.5) L 08/11/21 05:11 Magnesium 2.30 mg/dL (1.7-2.3) 08/11/21 05:11 Total Bilirubin 1.00 mg/dL (0.1-1.2) 08/09/21 04:48 AST 134 units/L (5-40) H 08/09/21 04:48 ALT 96 units/L (7-56) H 08/09/21 04:48 Alkaline Phosphatase 141 units/L (35-129) H 08/09/21 04:48 Total Creatine Kinase 124 units/L (30-135) 08/06/21 17:36 Troponin T < 0.010 ng/mL (0.00-0.029) 08/07/21 15:00 Total Protein 6.2 g/dL (6.3-8.2) L 08/09/21 04:48 Albumin 2.1 g/dL (3.9-5) L 08/09/21 04:48 Albumin/Globulin Ratio 0.5 % 08/09/21 04:48 Lipase 13 units/L (13-60) 08/06/21 17:36 Procalcitonin 18.72 ng/mL (<0.15) 08/07/21 15:00 Urine Color Yellow (Yellow) 08/07/21 05:57 Urine Turbidity Cloudy (Clear) 08/07/21 05:57 Urine pH 5.0 (5.0-7.0) 08/07/21 05:57 Ur Specific [place] 1.023 (1.003-1.030) 08/07/21 05:57 Urine Protein 100 mg/dl mg/dL (Negative) 08/07/21 05:57 Urine Glucose (UA) >=500 mg/dL (Negative) 08/07/21 05:57 Urine Ketones 80 mg/dL (Negative) 08/07/21 05:57 Urine Blood Mod (Negative) 08/07/21 05:57 Urine Nitrite Neg (Negative) 08/07/21 05:57 Urine Bilirubin Neg (Negative) 08/07/21 05:57 Urine Urobilinogen < 2.0 mg/dL (<2.0) 08/07/21 05:57 Ur Leukocyte Esterase Neg (Negative) 08/07/21 05:57 Urine WBC (Auto) 2.0 /HPF (0.0-6.0) 08/07/21 05:57 Urine RBC (Auto) > 182.0 /HPF (0.0-6.0) 08/07/21 05:57 U Epithel Cells (Auto) 4.0 /HPF (0-13.0) 08/07/21 05:57 Urine WBC Clumps 1+ /HPF 08/07/21 05:57 Urine Mucus Few /HPF 08/07/21 05:57 Urine Yeast (Budding) 3+ /HPF 08/07/21 05:57 Urine Opiates Screen Negative 08/07/21 05:57 Urine Methadone Screen Negative 08/07/21 05:57 Ur Barbiturates Screen Negative 08/07/21 05:57 Ur Phencyclidine Scrn Negative 08/07/21 05:57 Ur Amphetamines Screen Negative 08/07/21 05:57 U Benzodiazepines Scrn Negative 08/07/21 05:57 Urine Cocaine Screen Negative 08/07/21 05:57 U Marijuana (THC) Screen Positive 08/07/21 05:57 Drugs of Abuse Note Disclamer 08/07/21 05:57 Microbiology: Microbiology 08/08/21 11:55 Peripheral/Venous Blood Culture - Preliminary NO GROWTH AFTER 48 HOURS 08/08/21 11:01 Peripheral/Venous Blood Culture - Preliminary Staphylococcus Aureus 08/08/21 Unknown Urine,Clean Catch Urine Culture - Final [place]/IV: Voiding Method Bedside Commode Active Medications - Current Medications Current Medications: Generic Name Dose Route Start Last Admin Trade Name Freq PRN Reason Stop Dose Admin Acetaminophen 650 mg 08/07/21 01:48 08/08/21 16:33 Acetaminophen 325 Mg Tab PO 650 mg Q4H PRN Administration Pain MILD(1-3)/Fever >100.5/ROJAS Albuterol 2.5 mg 08/07/21 01:48 Albuterol 2.5 Mg/3 Ml Nebu IH Q3HRT PRN Shortness Of Breath Arformoterol Tartrate 15 mcg 08/07/21 20:00 08/10/21 20:34 Arformoterol 15 Mcg/2 Ml Nebu IH 15 mcg Q12HRT ROSSANA Administration Aspirin 325 mg 08/08/21 10:00 08/10/21 11:07 Aspirin Ec 325 Mg Tab PO 325 mg QDAY ROSSANA Administration Atorvastatin Calcium 40 mg 08/07/21 22:00 08/10/21 22:39 Atorvastatin 40 Mg Tab PO 40 mg QHS ROSSANA Administration Budesonide 0.5 mg 08/07/21 20:00 08/10/21 20:34 Budesonide 0.5 Mg/2 Ml Nebu IH 0.5 mg Q12HRT ROSSANA Administration Dextrose 0 ml 08/07/21 02:12 Dextrose 10% *Hypoglycemia IV DIRECT PRN Hypoglycemia Protocol Famotidine 20 mg 08/09/21 10:00 08/10/21 22:00 Famotidine 20 Mg Tab PO 20 mg BID ROSSANA Administration Furosemide 40 mg 08/11/21 10:00 Furosemide 40 Mg/4 Ml Inj IV QDAY ROSSANA Guaifenesin 600 mg 08/07/21 10:00 08/11/21 00:43 Guaifenesin Er 600 Mg Tab PO 600 mg BID ROSSANA Administration Heparin Sodium (Porcine) 5,000 unit 08/07/21 06:00 08/11/21 05:43 Heparin 5,000 Unit/1 Ml Vial SUB-Q 5,000 unit Q8HR ROSSANA Administration Hydralazine HCl 10 mg 08/07/21 02:00 Hydralazine 20 Mg/1 Ml Inj IV Q6H PRN Blood Pressure Hydromorphone HCl 0.5 mg 08/07/21 01:48 08/10/21 11:07 Hydromorphone 1 Mg/1 Ml Inj IV 0.5 mg Q3H PRN Administration Pain , Severe (7-10) Vancomycin HCl 1 gm in 250 mls @ 166.667 mls/hr 08/10/21 04:00 08/11/21 06:37 Vancomycin/Ns 1 Gm/250 Ml IV 166.667 mls/hr Q12H [facility] Administration Protocol Cefepime HCl 2 gm in 100 mls @ 200 mls/hr 08/10/21 12:00 08/11/21 06:03 Cefepime/Ns 2 Gm/100 Ml IV 200 mls/hr Q8H [facility] Administration Protocol Potassium Phosphate 40 mmol/ 513.3333 mls @ 83 mls/hr 08/11/21 07:48 Sodium Chloride IV 08/11/21 13:59 ONCE ONE Insulin Human Isoph/Insulin Regular 15 unit 08/09/21 17:00 08/10/21 18:13 Insulin Nph/Regular 70/30 Inj SUB-Q 15 unit BIDDIAB [facility] Administration Insulin Human Lispro 0 unit 08/08/21 11:30 08/11/21 00:42 Insulin Lispro 100 Unit/Ml SUB-Q 2 unit ACHS [facility] Administration Protocol Morphine Sulfate 2 mg 08/07/21 01:48 08/09/21 21:51 Morphine 2 Mg/1 Ml Inj IV 2 mg Q4H PRN Administration Pain, Moderate (4-6) Ondansetron HCl 4 mg 08/07/21 01:48 08/11/21 05:44 Ondansetron 4 Mg/2 Ml Inj IV 4 mg Q8H PRN Administration Nausea And Vomiting Sodium Chloride 10 ml 08/07/21 10:00 08/11/21 01:21 Sodium Chloride 0.9% 10 Ml Flush Syringe IV Not Given BID ROSSANA Sodium Chloride 10 ml 08/07/21 01:48 08/08/21 03:37 Sodium Chloride 0.9% 10 Ml Flush Syringe IV 10 ml PRN PRN Administration LINE FLUSH Tramadol HCl 50 mg 08/07/21 01:48 08/10/21 22:44 Tramadol 50 Mg Tab PO 50 mg Q6H PRN Administration Pain, Moderate (4-6) Nutrition/Malnutrition Assess - Dietary Evaluation Nutrition/Malnutrition Findings: Nutrition Notes Start: 08/07/21 16:10 Freq: Status: Active Protocol: Document 08/07/21 16:10 ITALO (Rec: 08/07/21 16:15 ITALO [id number]) Nutrition Notes Need for Assessment generated from: MD Order,Education Initial or Follow up Brief Note Current Diagnosis Diabetes,Hypertension Other Pertinent Diagnosis DKA, SIRS, Chest Pain. Current Diet NPO (since 08/07 01:49). Height 5 ft 7 in Weight 77.111 kg [place] Body Weight (kg) 61.36 BMI 26.6 Weight change and time frame None reported at admission. Weight Status Overweight Subjective/Other Information RD consult for Nutrition education. Pt currently on NPO. Pt still on critical conditions, not a candidate for Nutrition Education at the time, will assess feasibility on F/U. Percent of energy/protein needs met: Pt currently on NPO. Nutrition Intervention Follow-Up By: 08/14/21 Additional Comments Nutrition education will be provided on F/U, if feasible. Continue monitoring food tolerance, %PO intake of meals , and BM.
[2021-08-11] MEDS: BUDESONIDE 0.5 MG/2 ML NEBU IH SCH ×2 (08:42→20:53)
[2021-08-11] MEDS: ARFORMOTEROL 15 MCG/2 ML NEBU IH SCH ×2 (08:42→20:53)
[2021-08-11] MEDS ORDERED: POTASSIUM PHOSPHATE 40 MMOL in SODIUM CHLORIDE 0.9% 500 ML 500 ML IV ONE (09:00)
[2021-08-11] MEDS ORDERED: FUROSEMIDE 40 MG/4 ML INJ IV SCH (10:00)
[2021-08-11] MEDS: ASPIRIN EC 325 MG TAB PO SCH (10:41)
[2021-08-11] MEDS: FAMOTIDINE 20 MG TAB PO SCH ×2 (10:41→21:35)
[2021-08-11] MEDS: INSULIN NPH/REGULAR 70/30 INJ SUB-Q SCH ×2 (10:41→17:24)
[2021-08-11] MEDS: ZOLPIDEM 5 MG TAB PO PRN (23:23)
[2021-08-12] MEDS: CEFEPIME/NS 2 GM/100 ML 2 GM/100 ML BAG IV SCH ×2 (04:51→13:02)
[2021-08-12 05:52] LABS: BUN/Creatinine Ratio 10; Blood Urea Nitrogen 8 mg/dL (7-17); Calcium 8.4 mg/dL (8.4-10.2); Hemolysis Index 5
[2021-08-12 05:57] LABS: Hematocrit 30.9 % (30.3-42.9); Hemoglobin 9.6 gm/dl (10.1-14.3); Mean Corpuscular HGB Conc 31 % (30-34); Mean Corpuscular Volume 72 fl (79-97); Platelet Count 289 K/mm3 (140-440); Red Blood Count 4.26 M/mm3 (3.65-5.03); Red Cell Distribution Width 14.5 % (13.2-15.2)
[2021-08-12] MEDS: HEPARIN 5,000 UNIT/1 ML VIAL SUB-Q SCH ×3 (06:23→22:16)
[2021-08-12] MEDS: VANCOMYCIN/NS 1 GM/250 ML 1 GM/250 ML BAG IV SCH ×2 (06:32→16:50)
[2021-08-12] MEDS ORDERED: POTASSIUM CHLORIDE ER 20 MEQ TAB PO ONE (06:33)
[2021-08-12] MEDS: POTASSIUM CHLORIDE ER 20 MEQ TAB PO SCH ×2 (06:54→11:48)
[2021-08-12 06:55] LABS: Anisocytosis 1+; Band Neutrophils # (Manual) 0.3 K/mm3; Basophils % (Manual) 0 % (0.0-1.8); Platelet Estimate Consistent w Auto; Total Cells Counted 100
--- NOTE | 2021-08-12 07:41 | Progress Note ---
Assessment and Plan Assessment and plan: --Severe hypokalemia; K2.9 Replenished with potassium chloride 40 mEq p.o. x2 doses Magnesium within normal limits, follow electrolytes --Hypophosphatemia; replenished with IV potassium phosphate Phosphorus remains low And Neutra-Phos 1 packet every 8 hours x3 days Closely monitor electrolytes --Hyponatremia /pseudohyponatremia: Sodium level significantly improved, closely monitor Treat the underlying hyperglycemia, and IV normal saline Closely monitor electrolytes --Sepsis; due to healthcare associated pneumonia[HCAP] Fever, leukocytosis, tachycardia, positive blood cultures pneumonia on chest x- ray Preliminary blood cultures 1:2 gram-positive cocci Continue Vanco and cefepime, Procalcitonin level high --MRSA bacteremia/septicemia[Blood cultures 1 in 4 positive 08/11/2021 Patient is already on Vanco and cefepime ID consulted pending evaluation Contact isolation, follow repeat blood cultures --Staph aureus/MRSA septicemia;1:2 positive blood cultures Continue Vanco and cefepime ID consulted, contact isolation New set of blood cultures requested --Metabolic acidosis; Due to DKA, slowly improving Continue current management --Diabetic ketoacidosis/resolved Change IV fluids to normal saline Start long-acting insulin Novolin 70/30 every 12 hours Increase the dose to 15 units Novolin subcu every 12 hours Continue Accu-Cheks sliding scale coverage ADA diet HbA1c 13.6, diabetic diet, diabetic education --Uncontrolled blood sugars/diabetes mellitus type 2; Accu-Chek, sliding scale coverage, ADA diet Long-acting insulin Novolin 70/30, start 12 units twice a day and adjust as needed Patient's HbA1c 13.6. 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 --Hypertension/well controlled Closely monitor blood pressure As needed antihypertensives --History of marijuana use Counseling done advised to quit recreational drug use --Advance care planning/spent additional 30 minutes Disease education conducted, care plan discussed, diagnoses discussed, prognosis discussed, patient is full code, I discussed in detail the importance of adhering to the treatment plan I reiterated the need to follow strictly the diabetic diet I also explained that her hemoglobin A1c is very high indicating No control of blood sugars the last 6 months Patient also informed that we will be setting up home health nurse to assist the patient with diabetes control I advised to see a private reactor kettle operator/program production specialist upon discharge for better control of her blood sugars patient verbalized understanding and agree with care plan, We will closely monitor the patient and adjust management as needed Plan of care reviewed with the patient and her nurse I also discussed with the case management during the multidisciplinary rounds Out of bed and ambulate as tolerated Physical therapy evaluation and discharge needs Possible discharge in 1 to 2 days if stable Brief history and daily hospital course: 40 years old female with history of diabetes and hypertension was brought to the hospital because of chest pain which is right chest 9/10 sharp , constant radiating to the right side to the back and neck, patient had some chest pain few days ago right side going to the back, musculoskeletal in nature no shortness of breath no cough no fever. Initial cardiac enzyme is negative troponin is 0.010 In the emergency room patient is found to have DKA patient blood glucose is 315, bicarb 15 anion gap 30.'s were going to admit the patient to the ICU overnight. We will put the patient on insulin drip and consult critical care Hospital Course: 08/07: Patient was discontinued off her diabetic medication as an outpatient by her primary. She states that after her blood sugars had normalized so insulin discontinued. She does not track her blood sugars and does not take any medications for diabetes. Of note her A1c was 12.5 in October 2020. We will continue IV insulin until anion gap is closed. Can likely be downgraded once metabolic acidosis resolves. 08/08; patient was noncompliant with medications, will start diabetic diet, diabetic education, diabetic diet education Change insulin to Novolin 70/30, procalcitonin is high continue empiric antibiotics follow cultures 08/09; patient sugars are moderate control, adjust insulin dose, diabetic education, diabetic diet education prior to discharge, patient complains of generalized weakness unable to walk,Consult physical therapy to evaluate and for DC needs, out of bed to chair 3 times during meals, ambulate as tolerated Possible discharge in 1 to 2 days if stable 08/10; patient has low-grade fever, and persistent leukocytosis, mild rales and crackles bilateral lung shrestha, check x-ray lung. Blood cultures 1 in 2 positive for gram positive cocci, dose of Vanco given this morning, will add cefepime 08/11; multiple electrolyte abnormalities, hypokalemia, hypophosphatemia, hypo natremia replenish per protocol and monitor levels Possible Healthcare associated pneumonia, continue Vanco and cefepime, ID consulted Blood cultures positive for MRSA, continue Vanco cefepime, follow repeat cultures, contact isolation. follow ID evaluation 08/12; severe hypokalemia, phosphatemia ,replenished per protocol, continue current antibiotics, commendations Patient is on Vanco and cefepime for MRSA septicemia, ID consulted 08/13; transthoracic echocardiogram, to rule out endocarditis/vegetations, ID discontinued cefepime Follow repeat cultures, follow-up chest x-ray Disposition; follow ID recommendations, reconsult pulmonary Discharge when medically stable History Interval history: I have seen and examined the patient at the bedside Patient's chart and medications reviewed Patient says she feels better and she wants to go home On IV antibiotics, Mild shortness of breath Saturating well on room air Vital signs reviewed Hospitalist Physical - Constitutional Vitals: Temp Pulse Resp BP Pulse Ox 99.2 F 104 H 20 97/65 99 08/12/21 05:13 08/12/21 05:13 08/12/21 05:13 08/12/21 05:13 08/12/21 05:13 General appearance: Present: no acute distress, well-nourished - EENT Eyes: Present: PERRL, EOM intact - Neck Neck: Present: supple, normal ROM - Respiratory Respiratory effort: normal Respiratory: bilateral: diminished, rhonchi, negative: rales, wheezing - Cardiovascular Rhythm: regular Heart Sounds: Present: S1 & S2 - Extremities Extremities: no ischemia, No edema - Abdominal General gastrointestinal: soft, non-tender, non-distended, normal bowel sounds - Integumentary Integumentary: Present: clear, warm - Psychiatric Psychiatric: appropriate mood/affect, cooperative - Neurologic Neurologic: CNII-XII intact, moves all extremities HEART Score - HEART Score Troponin: Troponin T < 0.010 ng/mL (0.00-0.029) 08/07/21 15:00 Results - Labs CBC & Chem 7: 08/12/21 05:00 08/13/21 10:24 Labs: Laboratory Last Values WBC 15.0 K/mm3 (4.5-11.0) H 08/12/21 05:00 RBC 4.26 M/mm3 (3.65-5.03) 08/12/21 05:00 Hgb 9.6 gm/dl (10.1-14.3) L 08/12/21 05:00 Hct 30.9 % (30.3-42.9) 08/12/21 05:00 MCV 72 fl (79-97) L 08/12/21 05:00 MCH 23 pg (28-32) L 08/12/21 05:00 MCHC 31 % (30-34) 08/12/21 05:00 RDW 14.5 % (13.2-15.2) 08/12/21 05:00 Plt Count 289 K/mm3 (140-440) 08/12/21 05:00 [place] % (Auto) 8.1 % (0.0-7.3) H 08/08/21 05:56 Eos % (Auto) 0.0 % (0.0-4.3) 08/08/21 05:56 [place] # (Auto) 1.3 K/mm3 (0.0-0.8) H 08/08/21 05:56 Eos # (Auto) 0.0 K/mm3 (0.0-0.4) 08/08/21 05:56 Baso # (Auto) 0.0 K/mm3 (0.0-0.1) 08/08/21 05:56 Add Manual Diff Complete 08/12/21 05:00 Total Counted 100 08/12/21 05:00 Seg Neutrophils % 86.3 % (40.0-70.0) H 08/08/21 05:56 Seg Neuts % (Manual) 72.0 % (40.0-70.0) H 08/12/21 05:00 Band Neutrophils % 2.0 % 08/12/21 05:00 Lymphocytes % (Manual) 13.0 % (13.4-35.0) L 08/12/21 05:00 Reactive Lymphs % (Man) 1.0 % 08/12/21 05:00 Monocytes % (Manual) 10.0 % (0.0-7.3) H 08/12/21 05:00 Eosinophils % (Manual) 2.0 % (0.0-4.3) 08/12/21 05:00 Basophils % (Manual) 0 % (0.0-1.8) 08/12/21 05:00 Metamyelocytes % 0 % 08/12/21 05:00 Myelocytes % 0 % 08/12/21 05:00 Promyelocytes % 0 % 08/12/21 05:00 Blast Cells % 0 % 08/12/21 05:00 Nucleated RBC % Not Reportable 08/12/21 05:00 Seg Neutrophils # 14.1 K/mm3 (1.8-7.7) H 08/08/21 05:56 Seg Neutrophils # Man 10.8 K/mm3 (1.8-7.7) H 08/12/21 05:00 Band Neutrophils # 0.3 K/mm3 08/12/21 05:00 Lymphocytes # (Manual) 2.0 K/mm3 (1.2-5.4) 08/12/21 05:00 Abs React Lymphs (Man) 0.2 K/mm3 08/12/21 05:00 Monocytes # (Manual) 1.5 K/mm3 (0.0-0.8) H 08/12/21 05:00 Eosinophils # (Manual) 0.3 K/mm3 (0.0-0.4) 08/12/21 05:00 Basophils # (Manual) 0.0 K/mm3 (0.0-0.1) 08/12/21 05:00 Metamyelocytes # 0.0 K/mm3 08/12/21 05:00 Myelocytes # 0.0 K/mm3 08/12/21 05:00 Promyelocytes # 0.0 K/mm3 08/12/21 05:00 Blast Cells # 0.0 K/mm3 08/12/21 05:00 WBC Morphology Not Reportable 08/12/21 05:00 Hypersegmented Neuts Not Reportable 08/12/21 05:00 Hyposegmented Neuts Not Reportable 08/12/21 05:00 Hypogranular Neuts Not Reportable 08/12/21 05:00 Smudge Cells Not Reportable 08/12/21 05:00 Toxic Granulation Not Reportable 08/12/21 05:00 Toxic Vacuolation Not Reportable 08/12/21 05:00 Dohle Bodies Not Reportable 08/12/21 05:00 Pelger-Huet Anomaly Not Reportable 08/12/21 05:00 Apryl Rods Not Reportable 08/12/21 05:00 Platelet Estimate Consistent w auto 08/12/21 05:00 Clumped Platelets Not Reportable 08/12/21 05:00 Plt Clumps, EDTA Not Reportable 08/12/21 05:00 Large Platelets Not Reportable 08/12/21 05:00 Giant Platelets Not Reportable 08/12/21 05:00 Platelet Satelliting Not Reportable 08/12/21 05:00 Plt Morphology Comment Not Reportable 08/12/21 05:00 RBC Morphology Not Reportable 08/12/21 05:00 Dimorphic RBCs Not Reportable 08/12/21 05:00 Polychromasia Not Reportable 08/12/21 05:00 Hypochromasia Not Reportable 08/12/21 05:00 Poikilocytosis Not Reportable 08/12/21 05:00 Anisocytosis 1+ 08/12/21 05:00 Microcytosis Not Reportable 08/12/21 05:00 Macrocytosis Not Reportable 08/12/21 05:00 Spherocytes Not Reportable 08/12/21 05:00 Pappenheimer Bodies Not Reportable 08/12/21 05:00 Sickle Cells Not Reportable 08/12/21 05:00 Target Cells Not Reportable 08/12/21 05:00 Tear Drop Cells Not Reportable 08/12/21 05:00 Ovalocytes Not Reportable 08/12/21 05:00 Helmet Cells Not Reportable 08/12/21 05:00 [place] Bodies Not Reportable 08/12/21 05:00 [place] Rings Not Reportable 08/12/21 05:00 [place] Cells Not Reportable 08/12/21 05:00 Bite Cells Not Reportable 08/12/21 05:00 Crenated Cell Not Reportable 08/12/21 05:00 Elliptocytes Not Reportable 08/12/21 05:00 Acanthocytes (Spur) Not Reportable 08/12/21 05:00 Rouleaux Not Reportable 08/12/21 05:00 Hemoglobin C Crystals Not Reportable 08/12/21 05:00 Schistocytes Not Reportable 08/12/21 05:00 Malaria parasites Not Reportable 08/12/21 05:00 Mauricio Bodies Not Reportable 08/12/21 05:00 Hem Pathologist Commnt No 08/12/21 05:00 PT 15.5 Sec. (12.2-14.9) H 08/06/21 17:36 INR 1.11 (0.87-1.13) 08/06/21 17:36 VBG pH 7.362 (7.320-7.420) 08/06/21 20:07 Sodium 136 mmol/L (137-145) L 08/12/21 05:00 Potassium 2.9 mmol/L (3.6-5.0) L* 08/12/21 05:00 Chloride 97.8 mmol/L (98-107) L 08/12/21 05:00 Carbon Dioxide 25 mmol/L (22-30) 08/12/21 05:00 Anion Gap 16 mmol/L 08/12/21 05:00 BUN 8 mg/dL (7-17) 08/12/21 05:00 Creatinine 0.8 mg/dL (0.6-1.2) 08/12/21 05:00 Estimated GFR > 60 ml/min 08/12/21 05:00 BUN/Creatinine Ratio 10 % 08/12/21 05:00 Glucose 178 mg/dL (65-100) H 08/12/21 05:00 POC Glucose 135 mg/dL (70-105) H 08/11/21 21:03 Hemoglobin A1c 13.6 % (4-6) H 08/07/21 15:00 Ketones Quantitative Moderate (Negative) 08/06/21 20:07 Calcium 8.4 mg/dL (8.4-10.2) 08/12/21 05:00 Phosphorus 2.30 mg/dL (2.5-4.5) L 08/12/21 05:00 Magnesium 1.90 mg/dL (1.7-2.3) 08/12/21 05:00 Total Bilirubin 1.00 mg/dL (0.1-1.2) 08/09/21 04:48 AST 134 units/L (5-40) H 08/09/21 04:48 ALT 96 units/L (7-56) H 08/09/21 04:48 Alkaline Phosphatase 141 units/L (35-129) H 08/09/21 04:48 Total Creatine Kinase 124 units/L (30-135) 08/06/21 17:36 Troponin T < 0.010 ng/mL (0.00-0.029) 08/07/21 15:00 Total Protein 6.2 g/dL (6.3-8.2) L 08/09/21 04:48 Albumin 2.1 g/dL (3.9-5) L 08/09/21 04:48 Albumin/Globulin Ratio 0.5 % 08/09/21 04:48 Lipase 13 units/L (13-60) 08/06/21 17:36 Procalcitonin 18.72 ng/mL (<0.15) 08/07/21 15:00 Urine Color Yellow (Yellow) 08/07/21 05:57 Urine Turbidity Cloudy (Clear) 08/07/21 05:57 Urine pH 5.0 (5.0-7.0) 08/07/21 05:57 Ur Specific [place] 1.023 (1.003-1.030) 08/07/21 05:57 Urine Protein 100 mg/dl mg/dL (Negative) 08/07/21 05:57 Urine Glucose (UA) >=500 mg/dL (Negative) 08/07/21 05:57 Urine Ketones 80 mg/dL (Negative) 08/07/21 05:57 Urine Blood Mod (Negative) 08/07/21 05:57 Urine Nitrite Neg (Negative) 08/07/21 05:57 Urine Bilirubin Neg (Negative) 08/07/21 05:57 Urine Urobilinogen < 2.0 mg/dL (<2.0) 08/07/21 05:57 Ur Leukocyte Esterase Neg (Negative) 08/07/21 05:57 Urine WBC (Auto) 2.0 /HPF (0.0-6.0) 08/07/21 05:57 Urine RBC (Auto) > 182.0 /HPF (0.0-6.0) 08/07/21 05:57 U Epithel Cells (Auto) 4.0 /HPF (0-13.0) 08/07/21 05:57 Urine WBC Clumps 1+ /HPF 08/07/21 05:57 Urine Mucus Few /HPF 08/07/21 05:57 Urine Yeast (Budding) 3+ /HPF 08/07/21 05:57 Vancomycin Trough 11.5 ug/mL (5.0-20.0) 08/11/21 16:20 Urine Opiates Screen Negative 08/07/21 05:57 Urine Methadone Screen Negative 08/07/21 05:57 Ur Barbiturates Screen Negative 08/07/21 05:57 Ur Phencyclidine Scrn Negative 08/07/21 05:57 Ur Amphetamines Screen Negative 08/07/21 05:57 U Benzodiazepines Scrn Negative 08/07/21 05:57 Urine Cocaine Screen Negative 08/07/21 05:57 U Marijuana (THC) Screen Positive 08/07/21 05:57 Drugs of Abuse Note Disclamer 08/07/21 05:57 Microbiology: Microbiology 08/11/21 10:10 Peripheral/Venous Blood Culture - Preliminary Culture in Progress 08/11/21 08:51 Peripheral/Venous Blood Culture - Preliminary Culture in Progress 08/08/21 11:55 Peripheral/Venous Blood Culture - Preliminary NO GROWTH AFTER 72 HOURS 08/08/21 11:01 Peripheral/Venous Blood Culture - Preliminary Methicillin Resist S. Aureus Sauceda/IV: Voiding Method Bedside Commode Active Medications - Current Medications Current Medications: Generic Name Dose Route Start Last Admin Trade Name Freq PRN Reason Stop Dose Admin Acetaminophen 650 mg 08/07/21 01:48 08/08/21 16:33 Acetaminophen 325 Mg Tab PO 650 mg Q4H PRN Administration Pain MILD(1-3)/Fever >100.5/ROJAS Albuterol 2.5 mg 08/07/21 01:48 Albuterol 2.5 Mg/3 Ml Nebu IH Q3HRT PRN Shortness Of Breath Arformoterol Tartrate 15 mcg 08/07/21 20:00 08/11/21 20:53 Arformoterol 15 Mcg/2 Ml Nebu IH 15 mcg Q12HRT ROSSANA Administration Aspirin 325 mg 08/08/21 10:00 08/11/21 10:41 Aspirin Ec 325 Mg Tab PO 325 mg QDAY ROSSANA Administration Atorvastatin Calcium 40 mg 08/07/21 22:00 08/11/21 21:35 Atorvastatin 40 Mg Tab PO 40 mg QHS ROSSANA Administration Budesonide 0.5 mg 08/07/21 20:00 08/11/21 20:53 Budesonide 0.5 Mg/2 Ml Nebu IH 0.5 mg Q12HRT ROSSANA Administration Dextrose 0 ml 08/07/21 02:12 Dextrose 10% *Hypoglycemia IV DIRECT PRN Hypoglycemia Protocol Famotidine 20 mg 08/09/21 10:00 08/11/21 21:35 Famotidine 20 Mg Tab PO 20 mg BID ROSSANA Administration Furosemide 40 mg 08/11/21 10:00 08/11/21 10:41 Furosemide 40 Mg/4 Ml Inj IV 40 mg QDAY ROSSANA Administration Guaifenesin 600 mg 08/07/21 10:00 08/11/21 21:35 Guaifenesin Er 600 Mg Tab PO 600 mg BID ROSSANA Administration Heparin Sodium (Porcine) 5,000 unit 08/07/21 06:00 08/12/21 06:23 Heparin 5,000 Unit/1 Ml Vial SUB-Q 5,000 unit Q8HR ROSSANA Administration Hydralazine HCl 10 mg 08/07/21 02:00 Hydralazine 20 Mg/1 Ml Inj IV Q6H PRN Blood Pressure Hydromorphone HCl 0.5 mg 08/07/21 01:48 08/10/21 11:07 Hydromorphone 1 Mg/1 Ml Inj IV 0.5 mg Q3H PRN Administration Pain , Severe (7-10) Vancomycin HCl 1 gm in 250 mls @ 166.667 mls/hr 08/10/21 04:00 08/12/21 06:32 Vancomycin/Ns 1 Gm/250 Ml IV 166.667 mls/hr Q12H ROSSANA Administration Protocol Cefepime HCl 2 gm in 100 mls @ 200 mls/hr 08/10/21 12:00 08/12/21 04:51 Cefepime/Ns 2 Gm/100 Ml IV 200 mls/hr Q8H ROSSANA Administration Protocol Insulin Human Isoph/Insulin Regular 15 unit 08/09/21 17:00 08/11/21 17:24 Insulin Nph/Regular 70/30 Inj SUB-Q 15 unit BIDDIAB ROSSANA Administration Insulin Human Lispro 0 unit 08/08/21 11:30 08/11/21 21:35 Insulin Lispro 100 Unit/Ml SUB-Q Not Given [facility] Protocol Morphine Sulfate 2 mg 08/07/21 01:48 08/09/21 21:51 Morphine 2 Mg/1 Ml Inj IV 2 mg Q4H PRN Administration Pain, Moderate (4-6) Ondansetron HCl 4 mg 08/07/21 01:48 08/11/21 05:44 Ondansetron 4 Mg/2 Ml Inj IV 4 mg Q8H PRN Administration Nausea And Vomiting Potassium Chloride 40 meq 08/12/21 06:45 08/12/21 06:54 Potassium Chloride Er 20 Meq Tab PO 08/12/21 10:46 40 meq Q4H ROSSANA Administration Sodium Chloride 10 ml 08/07/21 10:00 08/11/21 21:39 Sodium Chloride 0.9% 10 Ml Flush Syringe IV 10 ml BID ROSSANA Administration Sodium Chloride 10 ml 08/07/21 01:48 08/08/21 03:37 Sodium Chloride 0.9% 10 Ml Flush Syringe IV 10 ml PRN PRN Administration LINE FLUSH Tramadol HCl 50 mg 08/07/21 01:48 08/10/21 22:44 Tramadol 50 Mg Tab PO 50 mg Q6H PRN Administration Pain, Moderate (4-6) Zolpidem Tartrate 5 mg 08/11/21 23:15 08/11/21 23:23 Zolpidem 5 Mg Tab PO 5 mg QHS PRN Administration Sleep Nutrition/Malnutrition Assess - Dietary Evaluation Nutrition/Malnutrition Findings: Nutrition Notes Start: 08/07/21 16:10 Freq: Status: Active Protocol: Document 08/07/21 16:10 ITALO (Rec: 08/07/21 16:15 ITALO [id number]) Nutrition Notes Need for Assessment generated from: MD Order,Education Initial or Follow up Brief Note Current Diagnosis Diabetes,Hypertension Other Pertinent Diagnosis DKA, SIRS, Chest Pain. Current Diet NPO (since 08/07 01:49). Height 5 ft 7 in Weight 77.111 kg [place] Body Weight (kg) 61.36 BMI 26.6 Weight change and time frame None reported at admission. Weight Status Overweight Subjective/Other Information RD consult for Nutrition education. Pt currently on NPO. Pt still on critical conditions, not a candidate for Nutrition Education at the time, will assess feasibility on F/U. Percent of energy/protein needs met: Pt currently on NPO. Nutrition Intervention Follow-Up By: 08/14/21 Additional Comments Nutrition education will be provided on F/U, if feasible. Continue monitoring food tolerance, %PO intake of meals , and BM.
[2021-08-12] MEDS: INSULIN LISPRO 100 UNIT/ML SUB-Q SCH ×4 (07:50→22:19)
[2021-08-12] MEDS: BUDESONIDE 0.5 MG/2 ML NEBU IH SCH ×2 (08:17→21:55)
[2021-08-12] MEDS: ARFORMOTEROL 15 MCG/2 ML NEBU IH SCH ×2 (08:17→21:55)
[2021-08-12] MEDS: INSULIN NPH/REGULAR 70/30 INJ SUB-Q SCH ×2 (08:20→17:51)
[2021-08-12] MEDS: guaiFENesin ER 600 MG TAB PO SCH ×2 (10:01→22:16)
[2021-08-12] MEDS: ASPIRIN EC 325 MG TAB PO SCH (13:02)
[2021-08-12] MEDS: PHOS-NAK POWDER PACKET PO SCH ×3 (13:02→22:16)
[2021-08-12] MEDS: FAMOTIDINE 20 MG TAB PO SCH ×2 (13:02→22:16)
--- NOTE | 2021-08-12 13:51 | Consultation ---
History of Present Illness - Reason for Consult Consult date: 08/12/21 - History of Present Illness 40-year-old female past medical history diabetes, hypertension presented to the hospital complaining of chest pain. The pain rated to her back and neck. She otherwise denied any complaints such as fevers, sweats, chills. She was found to be in DKA on admission and was admitted to the ICU, now on the floors. She subsequently developed a left pleural effusion and airspace opacity concerning for pneumonia, and blood cultures positive for staph aureus. Febrile earlier in admission to 100.9 with a white count of 15. Normal renal function. Blood cultures with MRSA. Imaging personally reviewed: Chest x-ray: Right pleural effusion, airspace opacity Review of Systems: Bold if positive, otherwise negative General: fevers, chills, rigors HEENT: visual disturbance, diplopia, eye pain Respiratory: cough, sputum, hemoptysis, shortness of breath Cardiovascular: chest pain, syncope Gastrointestinal: nausea, vomiting, diarrhea, abdominal pain Genitourinary: dysuria, hematuria, flank pain Musculoskeletal: neck pain, back pain, joint pain, edema Neurologic: headaches, seizures Hematologic: easy bruising or bleeding Endocrine: night sweats, acute weight loss Skin: rash, jaundice, redness Psychiatric: suicidal, homicidal ideation Past History Past Medical History: diabetes, hypertension, other (asthma) Social history: Family history: hypertension Medications and Allergies Allergies Allergy/AdvReac Type Severity Reaction Status Date / Time metformin AdvReac Severe Diarrhea Verified 08/08/21 08:27 Home Medications Medication Instructions Recorded Confirmed Last Taken Type Albuterol Mdi (or & Nicu Only) 2 puff IH Q2HRT PRN #1 inha 10/31/20 08/08/21 08/05/21 Rx [ProAir HFA Inhaler] Phenol 1.4% [Chloraseptic] 1 spray MM PRN PRN #1 bottle 10/31/20 08/08/21 1 Month Ago Rx ~07/08/21 guaiFENesin ER [Mucinex ER] 600 mg PO BID #30 tablet 10/31/20 08/08/21 1 Month Ago Rx ~07/08/21 Ashwagandha Root Extract 300 mg PO QDAY 08/08/21 08/08/21 08/05/21 History Active Meds: Active Medications Acetaminophen (Acetaminophen 325 Mg Tab) 650 mg PO Q4H PRN PRN Reason: Pain MILD(1-3)/Fever >100.5/ROJAS Last Admin: 08/08/21 16:33 Dose: 650 mg Albuterol (Albuterol 2.5 Mg/3 Ml Nebu) 2.5 mg IH Q3HRT PRN PRN Reason: Shortness Of Breath Arformoterol Tartrate (Arformoterol 15 Mcg/2 Ml Nebu) 15 mcg IH Q12HRT [facility] Last Admin: 08/12/21 08:17 Dose: 15 mcg Aspirin (Aspirin Ec 325 Mg Tab) 325 mg PO QDAY [facility] Last Admin: 08/12/21 13:02 Dose: 325 mg Atorvastatin Calcium (Atorvastatin 40 Mg Tab) 40 mg PO QHS [facility] Last Admin: 08/11/21 21:35 Dose: 40 mg Budesonide (Budesonide 0.5 Mg/2 Ml Nebu) 0.5 mg IH Q12HRT [facility] Last Admin: 08/12/21 08:17 Dose: 0.5 mg Dextrose (Dextrose 10% *Hypoglycemia) 0 ml IV DIRECT PRN; Protocol PRN Reason: Hypoglycemia Famotidine (Famotidine 20 Mg Tab) 20 mg PO BID [facility] Last Admin: 08/12/21 13:02 Dose: 20 mg Guaifenesin (Guaifenesin Er 600 Mg Tab) 600 mg PO BID [facility] Last Admin: 08/12/21 10:01 Dose: 600 mg Heparin Sodium (Porcine) (Heparin 5,000 Unit/1 Ml Vial) 5,000 unit SUB-Q Q8HR [facility] Last Admin: 08/12/21 06:23 Dose: 5,000 unit Hydralazine HCl (Hydralazine 20 Mg/1 Ml Inj) 10 mg IV Q6H PRN PRN Reason: Blood Pressure Hydromorphone HCl (Hydromorphone 1 Mg/1 Ml Inj) 0.5 mg IV Q3H PRN PRN Reason: Pain , Severe (7-10) Last Admin: 08/10/21 11:07 Dose: 0.5 mg Vancomycin HCl (Vancomycin/Ns 1 Gm/250 Ml) 1 gm in 250 mls @ 166.667 mls/hr IV Q12H [facility]; Protocol Last Admin: 08/12/21 06:32 Dose: 166.667 mls/hr Cefepime HCl (Cefepime/Ns 2 Gm/100 Ml) 2 gm in 100 mls @ 200 mls/hr IV Q8H [facility]; Protocol Last Admin: 08/12/21 13:02 Dose: 200 mls/hr Insulin Human Isoph/Insulin Regular (Insulin Nph/Regular 70/30 Inj) 15 unit SUB-Q BIDDIAB [facility] Last Admin: 08/12/21 08:20 Dose: 15 unit Insulin Human Lispro (Insulin Lispro 100 Unit/Ml) 0 unit SUB-Q ACHS [facility]; Protocol Last Admin: 08/12/21 11:50 Dose: 8 unit Morphine Sulfate (Morphine 2 Mg/1 Ml Inj) 2 mg IV Q4H PRN PRN Reason: Pain, Moderate (4-6) Last Admin: 08/09/21 21:51 Dose: 2 mg Ondansetron HCl (Ondansetron 4 Mg/2 Ml Inj) 4 mg IV Q8H PRN PRN Reason: Nausea And Vomiting Last Admin: 08/11/21 05:44 Dose: 4 mg Potassium Phos/Sodium Phos (Phos-Nak Powder Packet) 1 each PO Q8HR [facility] Stop: 08/15/21 07:59 Last Admin: 08/12/21 13:02 Dose: 1 each Sodium Chloride (Sodium Chloride 0.9% 10 Ml Flush Syringe) 10 ml IV BID [facility] Last Admin: 08/12/21 13:04 Dose: 10 ml Sodium Chloride (Sodium Chloride 0.9% 10 Ml Flush Syringe) 10 ml IV PRN PRN PRN Reason: LINE FLUSH Last Admin: 08/08/21 03:37 Dose: 10 ml Tramadol HCl (Tramadol 50 Mg Tab) 50 mg PO Q6H PRN PRN Reason: Pain, Moderate (4-6) Last Admin: 08/10/21 22:44 Dose: 50 mg Zolpidem Tartrate (Zolpidem 5 Mg Tab) 5 mg PO QHS PRN PRN Reason: Sleep Last Admin: 08/11/21 23:23 Dose: 5 mg Physical Examination - Physical Exam Narrative exam: Physical Exam: Constitutional: Alert, cooperative. No acute distress Head, Ears, Nose: Normocephalic, atraumatic. External ears, nose normal Eyes: Conjunctivae/corneas clear. No icterus. No ptosis. Neck: Supple, no meningeal signs Oral: dentition fair, no thrush Cardiovascular: S1, S2 normal. Respiratory: Good air entry, clear to auscultation bilaterally GI: Soft, non-tender; bowel sounds normal. No peritoneal signs. Musculoskeletal: No pedal edema, no cyanosis. Skin: No rash or abscess Hem/Lymphatic: No palpable cervical or supraclavicular nodes. No lymphangitis Psych: Mood ok. Affect normal Neurological: Awake, alert, oriented. No gross abnormality - Constitutional Vitals: Vital Signs Temp Pulse Resp BP Pulse Ox 98.8 F 102 H 16 108/73 96 08/12/21 08:24 08/12/21 08:24 08/12/21 08:24 08/12/21 08:24 08/12/21 08:24 Temperature -Last 24 Hours Temperature 98.8 F Temperature 99.2 F Temperature 98.9 F Temperature 99.6 F Temperature 98.4 F Results - Labs CBC & Chem 7: 08/12/21 05:00 08/12/21 05:00 Labs: Abnormal lab results 08/11/21 08/11/21 08/12/21 Range/Units 15:20 21:03 05:00 WBC 15.0 H (4.5-11.0) K/mm3 Hgb 9.6 L (10.1-14.3) gm/dl MCV 72 L (79-97) fl MCH 23 L (28-32) pg Seg Neuts % (Manual) 72.0 H (40.0-70.0) % Lymphocytes % (Manual) 13.0 L (13.4-35.0) % Monocytes % (Manual) 10.0 H (0.0-7.3) % Seg Neutrophils # Man 10.8 H (1.8-7.7) K/mm3 Monocytes # (Manual) 1.5 H (0.0-0.8) K/mm3 Sodium (137-145) mmol/L Potassium (3.6-5.0) mmol/L Chloride (98-107) mmol/L Glucose (65-100) mg/dL POC Glucose 233 H 135 H (70-105) mg/dL Phosphorus (2.5-4.5) mg/dL 08/12/21 08/12/21 08/12/21 Range/Units 05:00 07:37 11:24 WBC (4.5-11.0) K/mm3 Hgb (10.1-14.3) gm/dl MCV (79-97) fl MCH (28-32) pg Seg Neuts % (Manual) (40.0-70.0) % Lymphocytes % (Manual) (13.4-35.0) % Monocytes % (Manual) (0.0-7.3) % Seg Neutrophils # Man (1.8-7.7) K/mm3 Monocytes # (Manual) (0.0-0.8) K/mm3 Sodium 136 L (137-145) mmol/L Potassium 2.9 L* (3.6-5.0) mmol/L Chloride 97.8 L (98-107) mmol/L Glucose 178 H (65-100) mg/dL POC Glucose 206 H 403 H (70-105) mg/dL Phosphorus 2.30 L (2.5-4.5) mg/dL Assessment and Plan Cultures: Blood culture 08/08/2021 MRSA Blood culture 08/11/2021 no growth so far A/P: 40-year-old female past medical history diabetes, hypertension now with: #Acute sepsis: Present with fevers leukocytosis. Secondary to MRSA bacteremia. #MRSA bacteremia: Given history of diabetes and potential source in the lungs will treat for 4 weeks despite only 1 set positive. #LL PNA: possible Staph #Pleural effusions: would have pulmonary re-examine #Diabetes: tight glycemic control for best outcomes. Recs: -Continue vancomycin goal trough 10-20 -Stop cefepime -Follow-up repeat blood cultures -Ordered TTE -Consider pulmonary reevaluation for new onset pleural effusion in the setting of pneumonia and staph bacteremia Thank you for the consult, we will continue to follow. Loki Byrne MD [facility] ([facility]) O: [phone] F: [phone]
[2021-08-12] MEDS: ZOLPIDEM 5 MG TAB PO PRN (22:16)
[2021-08-13] MEDS: VANCOMYCIN/NS 1 GM/250 ML 1 GM/250 ML BAG IV SCH ×2 (04:53→16:03)
[2021-08-13] MEDS: PHOS-NAK POWDER PACKET PO SCH ×3 (06:25→21:57)
[2021-08-13] MEDS: HEPARIN 5,000 UNIT/1 ML VIAL SUB-Q SCH ×3 (06:25→21:58)
[2021-08-13] MEDS: INSULIN LISPRO 100 UNIT/ML SUB-Q SCH ×4 (08:00→22:20)
[2021-08-13] MEDS: INSULIN NPH/REGULAR 70/30 INJ SUB-Q SCH ×2 (08:15→17:58)
[2021-08-13] MEDS: ARFORMOTEROL 15 MCG/2 ML NEBU IH SCH ×2 (08:55→21:34)
[2021-08-13] MEDS: BUDESONIDE 0.5 MG/2 ML NEBU IH SCH ×2 (08:55→21:34)
--- NOTE | 2021-08-13 10:58 | XRay Report ---
CHEST - 1 VIEW INDICATION: Follow-up pneumonia COMPARISON: Yesterday FINDINGS: Support devices: None Heart: Stable Lungs/pleura: Bibasilar opacities and small pleural effusions appear stable since the previous exam. The upper lung zones remain clear. No pneumothorax. Additional findings: None. IMPRESSION: Unchanged exam. Signer Name: Rio Rodriguez Jr, MD Signed: 08/13/2021 10:53 AM Workstation Name: [id number]
[2021-08-13] MEDS: FAMOTIDINE 20 MG TAB PO SCH ×2 (11:15→21:57)
[2021-08-13] MEDS: guaiFENesin ER 600 MG TAB PO SCH ×2 (11:15→21:57)
[2021-08-13] MEDS: ASPIRIN EC 325 MG TAB PO SCH (11:15)
--- NOTE | 2021-08-13 12:18 | Progress Note ---
Assessment and Plan Cultures: Blood culture 08/08/2021 MRSA Blood culture 08/11/2021 no growth so far A/P: 40-year-old female past medical history diabetes, hypertension now with: #Acute sepsis: Present with fevers leukocytosis. Secondary to MRSA bacteremia. #MRSA bacteremia: Given history of diabetes and potential source in the lungs will treat for 4 weeks despite only 1 set positive. #LL PNA: possible Staph #Pleural effusions: would have pulmonary re-examine #Diabetes: tight glycemic control for best outcomes. Recs: -Continue vancomycin goal trough 10-20 -Follow-up repeat blood cultures -Ordered TTE -Consider pulmonary reevaluation for new onset pleural effusion in the setting of pneumonia and staph bacteremia Thank you for the consult, we will continue to follow. Loki Byrne MD [facility] ([facility]) O: [phone] F: [phone] Subjective Date of service: 08/13/21 Interval history: Afebrile, no acute changes today Imaging personally reviewed: CXR: ongoing effusions and opacities Objective - Exam Narrative Exam: Physical Exam: Constitutional: Alert, cooperative. No acute distress Head, Ears, Nose: Normocephalic, atraumatic. External ears, nose normal Eyes: Conjunctivae/corneas clear. No icterus. No ptosis. Neck: Supple, no meningeal signs Oral: dentition fair, no thrush Cardiovascular: S1, S2 normal. Respiratory: Good air entry, clear to auscultation bilaterally GI: Soft, non-tender; bowel sounds normal. No peritoneal signs. Musculoskeletal: No pedal edema, no cyanosis. Skin: No rash or abscess Hem/Lymphatic: No palpable cervical or supraclavicular nodes. No lymphangitis Psych: Mood ok. Affect normal Neurological: Awake, alert, oriented. No gross abnormality - Constitutional Vitals: Vital Signs Temp Pulse Resp BP Pulse Ox 98.7 F 88 18 149/87 99 08/13/21 11:58 08/13/21 11:58 08/13/21 11:58 08/13/21 11:58 08/13/21 11:58 Temperature -Last 24 Hours Temperature 98.7 F Temperature 96.7 F Temperature 98.6 F Temperature 98 F Temperature 98.1 F Temperature 98.9 F - Labs CBC & Chem 7: 08/12/21 05:00 08/13/21 10:24 Labs: Abnormal lab results 08/12/21 08/13/21 08/13/21 Range/Units 16:12 08:01 10:24 Potassium 2.8 L* (3.6-5.0) mmol/L POC Glucose 270 H 122 H (70-105) mg/dL
[2021-08-13] MEDS: POTASSIUM CHLORIDE ER 20 MEQ TAB PO SCH ×2 (14:31→17:58)
[2021-08-13] MEDS: ACETAMINOPHEN 325 MG TAB PO PRN (18:15)
[2021-08-13] MEDS: ZOLPIDEM 5 MG TAB PO PRN (21:57)
[2021-08-14] MEDS: VANCOMYCIN/NS 1 GM/250 ML 1 GM/250 ML BAG IV SCH ×2 (04:47→16:38)
[2021-08-14] MEDS: PHOS-NAK POWDER PACKET PO SCH ×3 (05:59→22:55)
[2021-08-14] MEDS: HEPARIN 5,000 UNIT/1 ML VIAL SUB-Q SCH ×3 (05:59→22:55)
[2021-08-14 06:16] LABS: Hematocrit 31.1 % (30.3-42.9); Hemoglobin 9.6 gm/dl (10.1-14.3); Mean Corpuscular HGB Conc 31 % (30-34); Mean Corpuscular Volume 73 fl (79-97); Platelet Count 362 K/mm3 (140-440); Red Blood Count 4.26 M/mm3 (3.65-5.03); Red Cell Distribution Width 14.7 % (13.2-15.2)
[2021-08-14 06:37] LABS: BUN/Creatinine Ratio 7; Blood Urea Nitrogen 6 mg/dL (7-17); Calcium 7.7 mg/dL (8.4-10.2); Hemolysis Index 0
[2021-08-14 07:21] LABS: Band Neutrophils # (Manual) 1.7 K/mm3; Basophils % (Manual) 0 % (0.0-1.8); Eosinophils % (Manual) 0 % (0.0-4.3); Total Cells Counted 100
[2021-08-14 07:22] LABS: Anisocytosis 1+; Hypochromasia 2+; Large Platelets Few; Platelet Estimate Consistent w Auto; Target Cells Few; Toxic Granulation 1+
[2021-08-14] MEDS: INSULIN LISPRO 100 UNIT/ML SUB-Q SCH ×4 (08:23→22:45)
[2021-08-14] MEDS: BUDESONIDE 0.5 MG/2 ML NEBU IH SCH ×2 (08:40→20:13)
[2021-08-14] MEDS: ARFORMOTEROL 15 MCG/2 ML NEBU IH SCH ×2 (08:40→20:14)
[2021-08-14] MEDS: ASPIRIN EC 325 MG TAB PO SCH (09:36)
[2021-08-14] MEDS: INSULIN NPH/REGULAR 70/30 INJ SUB-Q SCH ×2 (09:37→16:40)
[2021-08-14] MEDS: FAMOTIDINE 20 MG TAB PO SCH ×2 (09:37→22:55)
[2021-08-14] MEDS: guaiFENesin ER 600 MG TAB PO SCH ×2 (09:38→22:55)
--- NOTE | 2021-08-14 13:58 | Progress Note ---
Assessment and Plan Cultures: Blood culture 08/08/2021 MRSA Blood culture 08/11/2021 S aureus Sputum culture 08/12/2021 no growth so far. A/P: 40-year-old female past medical history diabetes, hypertension now with: #Acute sepsis: Present with fevers leukocytosis. Secondary to MRSA bacteremia. #MRSA bacteremia: Given history of diabetes and potential source in the lungs will treat for 4 weeks despite only 1 set positive. #LL PNA: possible Staph #Pleural effusions: would have pulmonary re-examine #Diabetes: tight glycemic control for best outcomes. Recs: -Continue vancomycin goal trough 10-20 -Ordered repeat blood repeat blood cultures -Ordered TTE -Consider pulmonary reevaluation for new onset pleural effusion in the setting of pneumonia and staph bacteremia Thank you for the consult, we will continue to follow. Loki Byrne MD [facility] ([facility]) O: [phone] F: [phone] Subjective Date of service: 08/14/21 Interval history: Afebrile, white count continues to increase. Otherwise no new issues. Imaging personally reviewed: CXR: No change TTE: no evidence of endocarditis. Objective - Exam Narrative Exam: Physical Exam: Constitutional: Alert, cooperative. No acute distress Head, Ears, Nose: Normocephalic, atraumatic. External ears, nose normal Eyes: Conjunctivae/corneas clear. No icterus. No ptosis. Neck: Supple, no meningeal signs Oral: dentition fair, no thrush Cardiovascular: S1, S2 normal. Respiratory: Good air entry, clear to auscultation bilaterally GI: Soft, non-tender; bowel sounds normal. No peritoneal signs. Musculoskeletal: No pedal edema, no cyanosis. Skin: No rash or abscess Hem/Lymphatic: No palpable cervical or supraclavicular nodes. No lymphangitis Psych: Mood ok. Affect normal Neurological: Awake, alert, oriented. No gross abnormality - Constitutional Vitals: Vital Signs Temp Pulse Resp BP Pulse Ox 98.4 F 109 H 18 98/69 89 08/14/21 11:26 08/14/21 11:26 08/14/21 11:26 08/14/21 11:26 08/14/21 11:26 Temperature -Last 24 Hours Temperature 98.4 F Temperature 98.4 F Temperature 98.3 F Temperature 98.2 F Temperature 97.3 F - Labs CBC & Chem 7: 08/14/21 05:44 08/14/21 05:44 Labs: Abnormal lab results 08/13/21 08/14/21 08/14/21 Range/Units 23:55 05:44 05:44 WBC 21.5 H (4.5-11.0) K/mm3 Hgb 9.6 L (10.1-14.3) gm/dl MCV 73 L (79-97) fl MCH 23 L (28-32) pg Seg Neuts % (Manual) 80.0 H (40.0-70.0) % Lymphocytes % (Manual) 4.0 L (13.4-35.0) % Seg Neutrophils # Man 17.2 H (1.8-7.7) K/mm3 Lymphocytes # (Manual) 0.9 L (1.2-5.4) K/mm3 Monocytes # (Manual) 1.1 H (0.0-0.8) K/mm3 Potassium 3.3 L (3.6-5.0) mmol/L Chloride 97.9 L (98-107) mmol/L BUN 6 L (7-17) mg/dL POC Glucose (70-105) mg/dL Calcium 7.7 L (8.4-10.2) mg/dL 08/14/21 Range/Units 12:08 WBC (4.5-11.0) K/mm3 Hgb (10.1-14.3) gm/dl MCV (79-97) fl MCH (28-32) pg Seg Neuts % (Manual) (40.0-70.0) % Lymphocytes % (Manual) (13.4-35.0) % Seg Neutrophils # Man (1.8-7.7) K/mm3 Lymphocytes # (Manual) (1.2-5.4) K/mm3 Monocytes # (Manual) (0.0-0.8) K/mm3 Potassium (3.6-5.0) mmol/L Chloride (98-107) mmol/L BUN (7-17) mg/dL POC Glucose 261 H (70-105) mg/dL Calcium (8.4-10.2) mg/dL
--- NOTE | 2021-08-14 15:00 | Consultation ---
History of Present Illness Consult date: 08/14/21 Requesting physician: HUNTER REDDY Reason for consult: pleural effusion History of present illness: PULMONARY/CCM CONSULT NOTE (Full dictation # ) Please see dictated notes for full details Past History Past Medical History: diabetes, hypertension, other (asthma) Social history: Family history: hypertension Medications and Allergies Allergies Allergy/AdvReac Type Severity Reaction Status Date / Time metformin AdvReac Severe Diarrhea Verified 08/08/21 08:27 Home Medications Medication Instructions Recorded Confirmed Last Taken Type Albuterol Mdi (or & Nicu Only) 2 puff IH Q2HRT PRN #1 inha 10/31/20 08/08/21 08/05/21 Rx [ProAir HFA Inhaler] Phenol 1.4% [Chloraseptic] 1 spray MM PRN PRN #1 bottle 10/31/20 08/08/21 1 Month Ago Rx ~07/08/21 guaiFENesin ER [Mucinex ER] 600 mg PO BID #30 tablet 10/31/20 08/08/21 1 Month Ago Rx ~07/08/21 Ashwagandha Root Extract 300 mg PO QDAY 08/08/21 08/08/21 08/05/21 History Active Meds: Active Medications Acetaminophen (Acetaminophen 325 Mg Tab) 650 mg PO Q4H PRN PRN Reason: Pain MILD(1-3)/Fever >100.5/ROJAS Last Admin: 08/13/21 18:15 Dose: 650 mg Albuterol (Albuterol 2.5 Mg/3 Ml Nebu) 2.5 mg IH Q3HRT PRN PRN Reason: Shortness Of Breath Arformoterol Tartrate (Arformoterol 15 Mcg/2 Ml Nebu) 15 mcg IH Q12HRT [facility] Last Admin: 08/14/21 08:40 Dose: 15 mcg Aspirin (Aspirin Ec 325 Mg Tab) 325 mg PO QDAY [facility] Last Admin: 08/14/21 09:36 Dose: 325 mg Atorvastatin Calcium (Atorvastatin 40 Mg Tab) 40 mg PO QHS [facility] Last Admin: 08/13/21 21:57 Dose: 40 mg Budesonide (Budesonide 0.5 Mg/2 Ml Nebu) 0.5 mg IH Q12HRT [facility] Last Admin: 08/14/21 08:40 Dose: 0.5 mg Dextrose (Dextrose 10% *Hypoglycemia) 0 ml IV DIRECT PRN; Protocol PRN Reason: Hypoglycemia Famotidine (Famotidine 20 Mg Tab) 20 mg PO BID [facility] Last Admin: 08/14/21 09:37 Dose: 20 mg Guaifenesin (Guaifenesin Er 600 Mg Tab) 600 mg PO BID [facility] Last Admin: 08/14/21 09:38 Dose: 600 mg Heparin Sodium (Porcine) (Heparin 5,000 Unit/1 Ml Vial) 5,000 unit SUB-Q Q8HR [facility] Last Admin: 08/14/21 13:29 Dose: 5,000 unit Hydralazine HCl (Hydralazine 20 Mg/1 Ml Inj) 10 mg IV Q6H PRN PRN Reason: Blood Pressure Hydromorphone HCl (Hydromorphone 1 Mg/1 Ml Inj) 0.5 mg IV Q3H PRN PRN Reason: Pain , Severe (7-10) Last Admin: 08/10/21 11:07 Dose: 0.5 mg Vancomycin HCl (Vancomycin/Ns 1 Gm/250 Ml) 1 gm in 250 mls @ 166.667 mls/hr IV Q12H [facility]; Protocol Last Admin: 08/14/21 04:47 Dose: 166.667 mls/hr Insulin Human Isoph/Insulin Regular (Insulin Nph/Regular 70/30 Inj) 15 unit SUB-Q BIDDIAB [facility] Last Admin: 08/14/21 09:37 Dose: 15 unit Insulin Human Lispro (Insulin Lispro 100 Unit/Ml) 0 unit SUB-Q [facility]; Pro tocol Last Admin: 08/14/21 12:25 Dose: 4 unit Morphine Sulfate (Morphine 2 Mg/1 Ml Inj) 2 mg IV Q4H PRN PRN Reason: Pain, Moderate (4-6) Last Admin: 08/09/21 21:51 Dose: 2 mg Ondansetron HCl (Ondansetron 4 Mg/2 Ml Inj) 4 mg IV Q8H PRN PRN Reason: Nausea And Vomiting Last Admin: 08/11/21 05:44 Dose: 4 mg Potassium Phos/Sodium Phos (Phos-Nak Powder Packet) 1 each PO Q8HR [facility] Stop: 08/15/21 07:59 Last Admin: 08/14/21 13:29 Dose: 1 each Sodium Chloride (Sodium Chloride 0.9% 10 Ml Flush Syringe) 10 ml IV BID ROSSANA Last Admin: 08/14/21 09:37 Dose: 10 ml Sodium Chloride (Sodium Chloride 0.9% 10 Ml Flush Syringe) 10 ml IV PRN PRN PRN Reason: LINE FLUSH Last Admin: 08/08/21 03:37 Dose: 10 ml Tramadol HCl (Tramadol 50 Mg Tab) 50 mg PO Q6H PRN PRN Reason: Pain, Moderate (4-6) Last Admin: 08/10/21 22:44 Dose: 50 mg Zolpidem Tartrate (Zolpidem 5 Mg Tab) 5 mg PO QHS PRN PRN Reason: Sleep Last Admin: 08/13/21 21:57 Dose: 5 mg Physical Examination Vital signs: Vital Signs Temp Pulse Resp BP Pulse Ox 100.1 F H 130 H 18 117/84 97 08/06/21 15:05 08/06/21 15:05 08/06/21 15:05 08/06/21 15:05 08/06/21 15:05 Results - Laboratory Findings CBC and BMP: 08/14/21 05:44 08/14/21 05:44 PT/INR, D-dimer PT 15.5 Sec. (12.2-14.9) H 08/06/21 17:36 INR 1.11 (0.87-1.13) 08/06/21 17:36 Abnormal lab findings: Abnormal Labs 08/06/21 08/06/21 08/06/21 17:36 17:36 17:36 WBC 17.9 H RBC 5.85 H Hgb Hct 44.6 H MCV 76 L MCH 23 L Yates % (Auto) Yates # (Auto) Seg Neutrophils % Seg Neuts % (Manual) 85.0 H Lymphocytes % (Manual) Monocytes % (Manual) Seg Neutrophils # Seg Neutrophils # Man 15.2 H Lymphocytes # (Manual) Monocytes # (Manual) PT 15.5 H Sodium 135 L Potassium Chloride 94.9 L Carbon Dioxide 15 L BUN Glucose 315 H POC Glucose Hemoglobin A1c Calcium Phosphorus AST 43 H ALT Alkaline Phosphatase Total Protein Albumin 3.5 L 08/06/21 08/06/21 08/07/21 22:46 23:10 01:21 WBC RBC Hgb Hct MCV MCH Yates % (Auto) Yates # (Auto) Seg Neutrophils % Seg Neuts % (Manual) Lymphocytes % (Manual) Monocytes % (Manual) Seg Neutrophils # Seg Neutrophils # Man Lymphocytes # (Manual) Monocytes # (Manual) PT Sodium 133 L Potassium Chloride Carbon Dioxide 10 L BUN Glucose 280 H POC Glucose 269 H Hemoglobin A1c Calcium 8.3 L Phosphorus 1.10 L AST 42 H ALT Alkaline Phosphatase Total Protein Albumin 2.7 L 08/07/21 08/07/21 08/07/21 01:21 02:21 03:30 WBC RBC Hgb Hct MCV MCH Yates % (Auto) Yates # (Auto) Seg Neutrophils % Seg Neuts % (Manual) Lymphocytes % (Manual) Monocytes % (Manual) Seg Neutrophils # Seg Neutrophils # Man Lymphocytes # (Manual) Monocytes # (Manual) PT Sodium 132 L Potassium Chloride Carbon Dioxide 12 L BUN Glucose 287 H POC Glucose 245 H 276 H Hemoglobin A1c Calcium 8.1 L Phosphorus AST ALT Alkaline Phosphatase Total Protein Albumin 08/07/21 08/07/21 08/07/21 04:38 05:41 06:49 WBC RBC Hgb Hct MCV MCH Yates % (Auto) Yates # (Auto) Seg Neutrophils % Seg Neuts % (Manual) Lymphocytes % (Manual) Monocytes % (Manual) Seg Neutrophils # Seg Neutrophils # Man Lymphocytes # (Manual) Monocytes # (Manual) PT Sodium Potassium Chloride Carbon Dioxide BUN Glucose POC Glucose 279 H 294 H 265 H Hemoglobin A1c Calcium Phosphorus AST ALT Alkaline Phosphatase Total Protein Albumin 08/07/21 08/07/21 08/07/21 08:02 09:24 11:29 WBC RBC Hgb Hct MCV MCH Yates % (Auto) Yates # (Auto) Seg Neutrophils % Seg Neuts % (Manual) Lymphocytes % (Manual) Monocytes % (Manual) Seg Neutrophils # Seg Neutrophils # Man Lymphocytes # (Manual) Monocytes # (Manual) PT Sodium Potassium Chloride Carbon Dioxide BUN Glucose POC Glucose 193 H 199 H 143 H Hemoglobin A1c Calcium Phosphorus AST ALT Alkaline Phosphatase Total Protein Albumin 08/07/21 08/07/21 08/07/21 12:45 13:46 13:53 WBC RBC Hgb Hct MCV MCH Yates % (Auto) Yates # (Auto) Seg Neutrophils % Seg Neuts % (Manual) Lymphocytes % (Manual) Monocytes % (Manual) Seg Neutrophils # Seg Neutrophils # Man Lymphocytes # (Manual) Monocytes # (Manual) PT Sodium Potassium Chloride Carbon Dioxide BUN Glucose POC Glucose 190 H 193 H 191 H Hemoglobin A1c Calcium Phosphorus AST ALT Alkaline Phosphatase Total Protein Albumin 08/07/21 08/07/21 08/07/21 14:46 15:00 15:00 WBC 14.7 H RBC Hgb Hct MCV 73 L MCH 24 L Yates % (Auto) Yates # (Auto) Seg Neutrophils % Seg Neuts % (Manual) 88.0 H Lymphocytes % (Manual) 5.0 L Monocytes % (Manual) Seg Neutrophils # Seg Neutrophils # Man 12.9 H Lymphocytes # (Manual) 0.7 L Monocytes # (Manual) 1.0 H PT Sodium Potassium Chloride Carbon Dioxide BUN Glucose POC Glucose 189 H Hemoglobin A1c Calcium Phosphorus 0.60 L* D AST ALT Alkaline Phosphatase Total Protein Albumin 08/07/21 08/07/21 08/07/21 15:00 15:00 16:10 WBC RBC Hgb Hct MCV MCH Yates % (Auto) Yates # (Auto) Seg Neutrophils % Seg Neuts % (Manual) Lymphocytes % (Manual) Monocytes % (Manual) Seg Neutrophils # Seg Neutrophils # Man Lymphocytes # (Manual) Monocytes # (Manual) PT Sodium 131 L Potassium 3.4 L Chloride Carbon Dioxide 13 L BUN Glucose 165 H POC Glucose 128 H Hemoglobin A1c 13.6 H Calcium Phosphorus AST ALT Alkaline Phosphatase Total Protein Albumin 08/07/21 08/07/21 08/07/21 16:53 17:15 18:11 WBC RBC Hgb Hct MCV MCH Yates % (Auto) Yates # (Auto) Seg Neutrophils % Seg Neuts % (Manual) Lymphocytes % (Manual) Monocytes % (Manual) Seg Neutrophils # Seg Neutrophils # Man Lymphocytes # (Manual) Monocytes # (Manual) PT Sodium 129 L Potassium 3.4 L Chloride Carbon Dioxide 16 L BUN Glucose 177 H POC Glucose 140 H 148 H Hemoglobin A1c Calcium Phosphorus AST ALT Alkaline Phosphatase Total Protein Albumin 08/07/21 08/07/21 08/07/21 19:08 19:43 20:52 WBC RBC Hgb Hct MCV MCH Yates % (Auto) Yates # (Auto) Seg Neutrophils % Seg Neuts % (Manual) Lymphocytes % (Manual) Monocytes % (Manual) Seg Neutrophils # Seg Neutrophils # Man Lymphocytes # (Manual) Monocytes # (Manual) PT Sodium 132 L 129 L Potassium 3.0 L 3.3 L Chloride Carbon Dioxide 16 L 15 L BUN 18 H 18 H Glucose 177 H 192 H POC Glucose 164 H Hemoglobin A1c Calcium Phosphorus AST ALT Alkaline Phosphatase Total Protein Albumin 08/07/21 08/07/21 08/07/21 21:38 22:51 23:37 WBC RBC Hgb Hct MCV MCH Yates % (Auto) Yates # (Auto) Seg Neutrophils % Seg Neuts % (Manual) Lymphocytes % (Manual) Monocytes % (Manual) Seg Neutrophils # Seg Neutrophils # Man Lymphocytes # (Manual) Monocytes # (Manual) PT Sodium 131 L Potassium Chloride Carbon Dioxide 14 L BUN Glucose 205 H POC Glucose 178 H 220 H Hemoglobin A1c Calcium 7.8 L Phosphorus AST ALT Alkaline Phosphatase Total Protein Albumin 08/08/21 08/08/21 08/08/21 02:32 05:56 05:56 WBC 16.1 H RBC Hgb Hct MCV 73 L MCH 23 L Yates % (Auto) 8.1 H Yates # (Auto) 1.3 H Seg Neutrophils % 86.3 H Seg Neuts % (Manual) 93.0 H Lymphocytes % (Manual) 5.0 L Monocytes % (Manual) Seg Neutrophils # 14.1 H Seg Neutrophils # Man 15.0 H Lymphocytes # (Manual) 0.8 L Monocytes # (Manual) PT Sodium 130 L Potassium Chloride Carbon Dioxide 12 L BUN 20 H Glucose 258 H POC Glucose 268 H Hemoglobin A1c Calcium 8.1 L Phosphorus 2.00 L D AST ALT Alkaline Phosphatase Total Protein Albumin 08/08/21 08/08/21 08/08/21 06:15 07:45 11:59 WBC RBC Hgb Hct MCV MCH Yates % (Auto) Yates # (Auto) Seg Neutrophils % Seg Neuts % (Manual) Lymphocytes % (Manual) Monocytes % (Manual) Seg Neutrophils # Seg Neutrophils # Man Lymphocytes # (Manual) Monocytes # (Manual) PT Sodium Potassium Chloride Carbon Dioxide BUN Glucose POC Glucose 250 H 275 H 276 H Hemoglobin A1c Calcium Phosphorus AST ALT Alkaline Phosphatase Total Protein Albumin 08/08/21 08/08/21 08/09/21 16:14 20:24 04:48 WBC RBC Hgb Hct MCV MCH Yates % (Auto) Yates # (Auto) Seg Neutrophils % Seg Neuts % (Manual) Lymphocytes % (Manual) Monocytes % (Manual) Seg Neutrophils # Seg Neutrophils # Man Lymphocytes # (Manual) Monocytes # (Manual) PT Sodium 135 L Potassium Chloride Carbon Dioxide 14 L BUN Glucose 202 H POC Glucose 274 H 201 H Hemoglobin A1c Calcium 8.3 L Phosphorus 2.20 L AST 134 H ALT 96 H Alkaline Phosphatase 141 H Total Protein 6.2 L Albumin 2.1 L 08/09/21 08/09/2108/09/22 07:46 11:37 17:51 WBC RBC Hgb Hct MCV MCH Yates % (Auto) Yates # (Auto) Seg Neutrophils % Seg Neuts % (Manual) Lymphocytes % (Manual) Monocytes % (Manual) Seg Neutrophils # Seg Neutrophils # Man Lymphocytes # (Manual) Monocytes # (Manual) PT Sodium Potassium Chloride Carbon Dioxide BUN Glucose POC Glucose 210 H 244 H 200 H Hemoglobin A1c Calcium Phosphorus AST ALT Alkaline Phosphatase Total Protein Albumin 08/09/21 08/10/21 08/10/21 21:23 08:37 11:43 WBC RBC Hgb Hct MCV MCH Yates % (Auto) Yates # (Auto) Seg Neutrophils % Seg Neuts % (Manual) Lymphocytes % (Manual) Monocytes % (Manual) Seg Neutrophils # Seg Neutrophils # Man Lymphocytes # (Manual) Monocytes # (Manual) PT Sodium Potassium Chloride Carbon Dioxide BUN Glucose POC Glucose 143 H 163 H 178 H Hemoglobin A1c Calcium Phosphorus AST ALT Alkaline Phosphatase Total Protein Albumin 08/10/21 08/11/21 08/11/21 21:05 05:11 05:11 WBC 11.7 H RBC Hgb 9.8 L Hct MCV 73 L MCH 23 L Yates % (Auto) Yates # (Auto) Seg Neutrophils % Seg Neuts % (Manual) 81.0 H Lymphocytes % (Manual) 10.0 L Monocytes % (Manual) Seg Neutrophils # Seg Neutrophils # Man 9.5 H Lymphocytes # (Manual) Monocytes # (Manual) PT Sodium 134 L Potassium 3.0 L D Chloride Carbon Dioxide 19 L BUN Glucose 190 H POC Glucose 181 H Hemoglobin A1c Calcium 7.8 L Phosphorus 2.00 L AST ALT Alkaline Phosphatase Total Protein Albumin 08/11/21 08/11/21 08/11/21 08:01 11:51 15:20 WBC RBC Hgb Hct MCV MCH Yates % (Auto) Yates # (Auto) Seg Neutrophils % Seg Neuts % (Manual) Lymphocytes % (Manual) Monocytes % (Manual) Seg Neutrophils # Seg Neutrophils # Man Lymphocytes # (Manual) Monocytes # (Manual) PT Sodium Potassium Chloride Carbon Dioxide BUN Glucose POC Glucose 192 H 233 H 233 H Hemoglobin A1c Calcium Phosphorus AST ALT Alkaline Phosphatase Total Protein Albumin 08/11/21 08/12/21 08/12/21 21:03 05:00 05:00 WBC 15.0 H RBC Hgb 9.6 L Hct MCV 72 L MCH 23 L Yates % (Auto) Yates # (Auto) Seg Neutrophils % Seg Neuts % (Manual) 72.0 H Lymphocytes % (Manual) 13.0 L Monocytes % (Manual) 10.0 H Seg Neutrophils # Seg Neutrophils # Man 10.8 H Lymphocytes # (Manual) Monocytes # (Manual) 1.5 H PT Sodium 136 L Potassium 2.9 L* Chloride 97.8 L Carbon Dioxide BUN Glucose 178 H POC Glucose 135 H Hemoglobin A1c Calcium Phosphorus 2.30 L AST ALT Alkaline Phosphatase Total Protein Albumin 08/12/21 08/12/21 08/12/21 07:37 11:24 16:12 WBC RBC Hgb Hct MCV MCH Yates % (Auto) Yates # (Auto) Seg Neutrophils % Seg Neuts % (Manual) Lymphocytes % (Manual) Monocytes % (Manual) Seg Neutrophils # Seg Neutrophils # Man Lymphocytes # (Manual) Monocytes # (Manual) PT Sodium Potassium Chloride Carbon Dioxide BUN Glucose POC Glucose 206 H 403 H 270 H Hemoglobin A1c Calcium Phosphorus AST ALT Alkaline Phosphatase Total Protein Albumin 08/13/21 08/13/21 08/13/21 08:01 10:24 23:55 WBC RBC Hgb Hct MCV MCH Yates % (Auto) Yates # (Auto) Seg Neutrophils % Seg Neuts % (Manual) Lymphocytes % (Manual) Monocytes % (Manual) Seg Neutrophils # Seg Neutrophils # Man Lymphocytes # (Manual) Monocytes # (Manual) PT Sodium Potassium 2.8 L* 3.3 L Chloride Carbon Dioxide BUN Glucose POC Glucose 122 H Hemoglobin A1c Calcium Phosphorus AST ALT Alkaline Phosphatase Total Protein Albumin 08/14/21 08/14/21 08/14/21 05:44 05:44 12:08 WBC 21.5 H RBC Hgb 9.6 L Hct MCV 73 L MCH 23 L Yates % (Auto) Yates # (Auto) Seg Neutrophils % Seg Neuts % (Manual) 80.0 H Lymphocytes % (Manual) 4.0 L Monocytes % (Manual) Seg Neutrophils # Seg Neutrophils # Man 17.2 H Lymphocytes # (Manual) 0.9 L Monocytes # (Manual) 1.1 H PT Sodium Potassium Chloride 97.9 L Carbon Dioxide BUN 6 L Glucose POC Glucose 261 H Hemoglobin A1c Calcium 7.7 L Phosphorus AST ALT Alkaline Phosphatase Total Protein Albumin
--- NOTE | 2021-08-14 15:14 | Progress Note ---
Assessment and Plan --Severe hypokalemia; K2.9 Replenished with potassium chloride 40 mEq p.o. x2 doses Magnesium within normal limits, follow electrolytes --Hypophosphatemia; replenished with IV potassium phosphate Phosphorus remains low And Neutra-Phos 1 packet every 8 hours x3 days Closely monitor electrolytes --Hyponatremia /pseudohyponatremia: Sodium level significantly improved, closely monitor Treat the underlying hyperglycemia, and IV normal saline Closely monitor electrolytes --Sepsis; due to healthcare associated pneumonia[HCAP] Fever, leukocytosis, tachycardia, positive blood cultures pneumonia on chest x- ray Preliminary blood cultures 1:2 gram-positive cocci Continue Vanco and cefepime, Procalcitonin level high --MRSA bacteremia/septicemia[Blood cultures 1 in 4 positive 08/11/2021 Patient is already on Vanco and cefepime ID consulted pending evaluation Contact isolation, follow repeat blood cultures --Staph aureus/MRSA septicemia;1:2 positive blood cultures Continue Vanco and cefepime ID consulted, contact isolation New set of blood cultures requested --Metabolic acidosis; Due to DKA, slowly improving Continue current management --Diabetic ketoacidosis/resolved Change IV fluids to normal saline Start long-acting insulin Novolin 70/30 every 12 hours Increase the dose to 15 units Novolin subcu every 12 hours Continue Accu-Cheks sliding scale coverage ADA diet HbA1c 13.6, diabetic diet, diabetic education --Uncontrolled blood sugars/diabetes mellitus type 2; Accu-Chek, sliding scale coverage, ADA diet Long-acting insulin Novolin 70/30, start 12 units twice a day and adjust as needed Patient's HbA1c 13.6. 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 --Hypertension/well controlled Closely monitor blood pressure As needed antihypertensives --History of marijuana use Counseling done advised to quit recreational drug use --Advance care planning/spent additional 30 minutes Disease education conducted, care plan discussed, diagnoses discussed, prognosis discussed, patient is full code, I discussed in detail the importance of adhering to the treatment plan I reiterated the need to follow strictly the diabetic diet I also explained that her hemoglobin A1c is very high indicating No control of blood sugars the last 6 months Patient also informed that we will be setting up home health nurse to assist the patient with diabetes control I advised to see a private jewelry casting model maker apprentice/neonatal specialist upon discharge for better control of her blood sugars patient verbalized understanding and agree with care plan, We will closely monitor the patient and adjust management as needed Plan of care reviewed with the patient and her nurse I also discussed with the case management during the multidisciplinary rounds Out of bed and ambulate as tolerated Physical therapy evaluation and discharge needs Possible discharge in 1 to 2 days if stable Brief history and daily hospital course: 40 years old female with history of diabetes and hypertension was brought to the hospital because of chest pain which is right chest 9/10 sharp , constant radiating to the right side to the back and neck, patient had some chest pain few days ago right side going to the back, musculoskeletal in nature no shortness of breath no cough no fever. Initial cardiac enzyme is negative troponin is 0.010 In the emergency room patient is found to have DKA patient blood glucose is 315, bicarb 15 anion gap 30.'s were going to admit the patient to the ICU overnight. We will put the patient on insulin drip and consult critical care Hospital Course: 08/07: Patient was discontinued off her diabetic medication as an outpatient by her primary. She states that after her blood sugars had normalized so insulin discontinued. She does not track her blood sugars and does not take any medications for diabetes. Of note her A1c was 12.5 in October 2020. We will c ontinue IV insulin until anion gap is closed. Can likely be downgraded once metabolic acidosis resolves. 08/08; patient was noncompliant with medications, will start diabetic diet, diabetic education, diabetic diet education Change insulin to Novolin 70/30, procalcitonin is high continue empiric an tibiotics follow cultures 08/09; patient sugars are moderate control, adjust insulin dose, diabetic education, diabetic diet education prior to discharge, patient complains of generalized weakness unable to walk,Consult physical therapy to evaluate and for DC needs, out of bed to chair 3 times during meals, ambulate as tolerated Possible discharge in 1 to 2 days if stable 08/10; patient has low-grade fever, and persistent leukocytosis, mild rales and crackles bilateral lung shrestha, check x-ray lung. Blood cultures 1 in 2 positive for gram positive cocci, dose of Vanco given this morning, will add cefepime 08/11; multiple electrolyte abnormalities, hypokalemia, hypophosphatemia, hyponatremia replenish per protocol and monitor levels Possible Healthcare associated pneumonia, continue Vanco and cefepime, ID consulted Blood cultures positive for MRSA, continue Vanco cefepime, follow repeat cultures, contact isolation. follow ID evaluation 08/12; severe hypokalemia, phosphatemia ,replenished per protocol, continue current antibiotics, commendations Patient is on Vanco and cefepime for MRSA septicemia, ID consulted 08/13; transthoracic echocardiogram, to rule out endocarditis/vegetations, ID discontinued cefepime Follow repeat cultures, follow-up chest x-ray 08/14: consulted pulmonary for pleural effusion Subjective Date of service: 08/14/21 Objective - Constitutional Vitals: Vital Signs - 12hr 08/14/21 08/14/21 08/14/21 03:57 07:20 08:23 Temperature 98.3 F 98.4 F Pulse Rate 105 H 95 H 100 H Pulse Rate [ Anterior Bilateral Throughout] Pulse Rate [ Radial] Respiratory 19 18 Rate Respiratory Rate [Anterior Bilateral Throughout] Blood Pressure 102/58 97/62 O2 Sat by Pulse 92 99 Oximetry 08/14/21 08/14/21 08/14/21 08:40 08:41 10:00 Temperature Pulse Rate Pulse Rate [ 104 H Anterior Bilateral Throughout] Pulse Rate [ 100 H Radial] Respiratory 18 Rate Respiratory 18 Rate [Anterior Bilateral Throughout] Blood Pressure O2 Sat by Pulse 92 97 Oximetry 08/14/21 11:26 Temperature 98.4 F Pulse Rate 109 H Pulse Rate [ Anterior Bilateral Throughout] Pulse Rate [ Radial] Respiratory 18 Rate Respiratory Rate [Anterior Bilateral Throughout] Blood Pressure 98/69 O2 Sat by Pulse 89 Oximetry - Labs CBC & Chem 7: 08/15/21 07:58 08/15/21 07:58 Labs: Abnormal lab results 08/13/21 08/14/21 08/14/21 Range/Units 23:55 05:44 05:44 WBC 21.5 H (4.5-11.0) K/mm3 Hgb 9.6 L (10.1-14.3) gm/dl MCV 73 L (79-97) fl MCH 23 L (28-32) pg Seg Neuts % (Manual) 80.0 H (40.0-70.0) % Lymphocytes % (Manual) 4.0 L (13.4-35.0) % Seg Neutrophils # Man 17.2 H (1.8-7.7) K/mm3 Lymphocytes # (Manual) 0.9 L (1.2-5.4) K/mm3 Monocytes # (Manual) 1.1 H (0.0-0.8) K/mm3 Potassium 3.3 L (3.6-5.0) mmol/L Chloride 97.9 L (98-107) mmol/L BUN 6 L (7-17) mg/dL POC Glucose (70-105) mg/dL Calcium 7.7 L (8.4-10.2) mg/dL 08/14/21 Range/Units 12:08 WBC (4.5-11.0) K/mm3 Hgb (10.1-14.3) gm/dl MCV (79-97) fl MCH (28-32) pg Seg Neuts % (Manual) (40.0-70.0) % Lymphocytes % (Manual) (13.4-35.0) % Seg Neutrophils # Man (1.8-7.7) K/mm3 Lymphocytes # (Manual) (1.2-5.4) K/mm3 Monocytes # (Manual) (0.0-0.8) K/mm3 Potassium (3.6-5.0) mmol/L Chloride (98-107) mmol/L BUN (7-17) mg/dL POC Glucose 261 H (70-105) mg/dL Calcium (8.4-10.2) mg/dL HEART Score - HEART Score Troponin: Troponin T < 0.010 ng/mL (0.00-0.029) 08/07/21 15:00
[2021-08-14] MEDS: ZOLPIDEM 5 MG TAB PO PRN (22:55)
[2021-08-15] MEDS: VANCOMYCIN/NS 1 GM/250 ML 1 GM/250 ML BAG IV SCH ×2 (04:29→16:53)
[2021-08-15] MEDS: HEPARIN 5,000 UNIT/1 ML VIAL SUB-Q SCH ×3 (07:01→22:00)
[2021-08-15] MEDS: PHOS-NAK POWDER PACKET PO SCH (07:01)
[2021-08-15] MEDS: BUDESONIDE 0.5 MG/2 ML NEBU IH SCH ×2 (08:20→19:36)
[2021-08-15] MEDS: ARFORMOTEROL 15 MCG/2 ML NEBU IH SCH ×2 (08:20→19:37)
[2021-08-15] MEDS: INSULIN LISPRO 100 UNIT/ML SUB-Q SCH ×4 (08:30→21:59)
[2021-08-15 08:54] LABS: Hematocrit 36.1 % (30.3-42.9); Hemoglobin 11.1 gm/dl (10.1-14.3); Mean Corpuscular HGB Conc 31 % (30-34); Mean Corpuscular Volume 73 fl (79-97); Platelet Count 480 K/mm3 (140-440); Red Blood Count 4.92 M/mm3 (3.65-5.03); Red Cell Distribution Width 14.7 % (13.2-15.2)
[2021-08-15 09:14] LABS: BUN/Creatinine Ratio 4; Blood Urea Nitrogen 3 mg/dL (7-17); Calcium 8.9 mg/dL (8.4-10.2); Hemolysis Index 0
[2021-08-15] MEDS: INSULIN NPH/REGULAR 70/30 INJ SUB-Q SCH ×2 (09:42→16:55)
[2021-08-15] MEDS: guaiFENesin ER 600 MG TAB PO SCH ×2 (09:42→22:01)
[2021-08-15] MEDS: ASPIRIN EC 325 MG TAB PO SCH (09:42)
[2021-08-15] MEDS: FAMOTIDINE 20 MG TAB PO SCH ×2 (09:42→22:00)
--- NOTE | 2021-08-15 13:23 | Progress Note ---
Assessment and Plan Cultures: Blood culture 08/08/2021 MRSA Blood culture 08/11/2021 S aureus Sputum culture 08/12/2021 no growth so far. A/P: 40-year-old female past medical history diabetes, hypertension now with: #Acute sepsis: Present with fevers leukocytosis. Secondary to MRSA bacteremia. #MRSA bacteremia: Given history of diabetes and potential source in the lungs will treat for 4 weeks despite only 1 set positive. #LL PNA: possible Staph #Pleural effusions: would have pulmonary re-examine #Diabetes: tight glycemic control for best outcomes. Recs: -Continue vancomycin goal trough 10-20 -Follow up repeat blood repeat blood cultures Thank you for the consult, we will continue to follow. Loki Byrne MD [facility] ([facility]) O: [phone] F: [phone] Subjective Date of service: 08/15/21 Interval history: Afebrile, white count 23.9 Objective - Exam Narrative Exam: Physical Exam: Constitutional: Alert, cooperative. No acute distress Head, Ears, Nose: Normocephalic, atraumatic. External ears, nose normal Eyes: Conjunctivae/corneas clear. No icterus. No ptosis. Neck: Supple, no meningeal signs Oral: dentition fair, no thrush Cardiovascular: S1, S2 normal. Respiratory: Good air entry, clear to auscultation bilaterally GI: Soft, non-tender; bowel sounds normal. No peritoneal signs. Musculoskeletal: No pedal edema, no cyanosis. Skin: No rash or abscess Hem/Lymphatic: No palpable cervical or supraclavicular nodes. No lymphangitis Psych: Mood ok. Affect normal Neurological: Awake, alert, oriented. No gross abnormality - Constitutional Vitals: Vital Signs Temp Pulse Resp BP Pulse Ox 98.3 F 110 H 18 93/61 91 08/15/21 11:08 08/15/21 11:08 08/15/21 11:08 08/15/21 11:08 08/15/21 11:08 Temperature -Last 24 Hours Temperature 98.3 F Temperature 98.4 F Temperature 98.6 F Temperature 98.3 F Temperature 98.7 F Temperature 98.6 F - Labs CBC & Chem 7: 08/15/21 07:58 08/15/21 07:58 Labs: Abnormal lab results 08/14/21 08/14/21 08/15/21 Range/Units 16:34 21:32 07:58 WBC 23.9 H (4.5-11.0) K/mm3 MCV 73 L (79-97) fl MCH 23 L (28-32) pg Plt Count 480 H (140-440) K/mm3 BUN (7-17) mg/dL Glucose (65-100) mg/dL POC Glucose 184 H 115 H (70-105) mg/dL 08/15/21 08/15/21 08/15/21 Range/Units 07:58 08:12 11:09 WBC (4.5-11.0) K/mm3 MCV (79-97) fl MCH (28-32) pg Plt Count (140-440) K/mm3 BUN 3 L (7-17) mg/dL Glucose 108 H (65-100) mg/dL POC Glucose 124 H 242 H (70-105) mg/dL
--- NOTE | 2021-08-15 16:32 | Progress Note ---
Assessment and Plan --Severe hypokalemia; K2.9 Replenished with potassium chloride 40 mEq p.o. x2 doses Magnesium within normal limits, follow electrolytes --Hypophosphatemia; replenished with IV potassium phosphate Phosphorus remains low And Neutra-Phos 1 packet every 8 hours x3 days Closely monitor electrolytes --Hyponatremia /pseudohyponatremia: Sodium level significantly improved, closely monitor Treat the underlying hyperglycemia, and IV normal saline Closely monitor electrolytes --Sepsis; due to healthcare associated pneumonia[HCAP] Fever, leukocytosis, tachycardia, positive blood cultures pneumonia on chest x- ray Preliminary blood cultures 1:2 gram-positive cocci Continue Vanco and cefepime, Procalcitonin level high --MRSA bacteremia/septicemia[Blood cultures 1 in 4 positive 08/11/2021 Patient is already on Vanco and cefepime ID consulted pending evaluation Contact isolation, follow repeat blood cultures --Staph aureus/MRSA septicemia;1:2 positive blood cultures Continue Vanco and cefepime ID consulted, contact isolation New set of blood cultures requested --Metabolic acidosis; Due to DKA, slowly improving Continue current management --Diabetic ketoacidosis/resolved Change IV fluids to normal saline Start long-acting insulin Novolin 70/30 every 12 hours Increase the dose to 15 units Novolin subcu every 12 hours Continue Accu-Cheks sliding scale coverage ADA diet HbA1c 13.6, diabetic diet, diabetic education --Uncontrolled blood sugars/diabetes mellitus type 2; Accu-Chek, sliding scale coverage, ADA diet Long-acting insulin Novolin 70/30, start 12 units twice a day and adjust as needed Patient's HbA1c 13.6. --Medical noncompliance; With medications and diet follow-up visits Patient strongly counseled to comply with medications, diet And follow-up doctors visits, and also recommend outpatient ekg technician evaluation --Musculoskeletal chest pain/resolved - reproducible with papation - doubt acs, non elevated troponin, EKG appears to be normal with no st depressios/elevations. --Hypertension/well controlled Closely monitor blood pressure As needed antihypertensives --History of marijuana use Counseling done advised to quit recreational drug use --Advance care planning/spent additional 30 minutes Disease education conducted, care plan discussed, diagnoses discussed, prognosis discussed, patient is full code, I discussed in detail the importance of adhering to the treatment plan I reiterated the need to follow strictly the diabetic diet I also explained that her hemoglobin A1c is very high indicating No control of blood sugars the last 6 months Patient also informed that we will be setting up home health nurse to assist the patient with diabetes control I advised to see a private ekg technician/it desktop support specialist upon discharge for better control of her blood sugars patient verbalized understanding and agree with care plan, We will closely monitor the patient and adjust management as needed Plan of care reviewed with the patient and her nurse I also discussed with the case management during the multidisciplinary rounds Out of bed and ambulate as tolerated Physical therapy evaluation and discharge needs Possible discharge in 1 to 2 days if stable Brief history and daily hospital course: 40 years old female with history of diabetes and hypertension was brought to the hospital because of chest pain which is right chest 9/10 sharp , constant radiating to the right side to the back and neck, patient had some chest pain few days ago right side going to the back, musculoskeletal in nature no shortness of breath no cough no fever. Initial cardiac enzyme is negative troponin is 0.010 In the emergency room patient is found to have DKA patient blood glucose is 315, bicarb 15 anion gap 30.'s were going to admit the patient to the ICU overnight. We will put the patient on insulin drip and consult critical care Hospital Course: 08/07: Patient was discontinued off her diabetic medication as an outpatient by her primary. She states that after her blood sugars had normalized so insulin discontinued. She does not track her blood sugars and does not take any medications for diabetes. Of note her A1c was 12.5 in October 2020. We will c ontinue IV insulin until anion gap is closed. Can likely be downgraded once metabolic acidosis resolves. 08/08; patient was noncompliant with medications, will start diabetic diet, diabetic education, diabetic diet education Change insulin to Novolin 70/30, procalcitonin is high continue empiric an tibiotics follow cultures 08/09; patient sugars are moderate control, adjust insulin dose, diabetic education, diabetic diet education prior to discharge, patient complains of generalized weakness unable to walk,Consult physical therapy to evaluate and for DC needs, out of bed to chair 3 times during meals, ambulate as tolerated Possible discharge in 1 to 2 days if stable 08/10; patient has low-grade fever, and persistent leukocytosis, mild rales and crackles bilateral lung shrestha, check x-ray lung. Blood cultures 1 in 2 positive for gram positive cocci, dose of Vanco given this morning, will add cefepime 08/11; multiple electrolyte abnormalities, hypokalemia, hypophosphatemia, hyponatremia replenish per protocol and monitor levels Possible Healthcare associated pneumonia, continue Vanco and cefepime, ID consulted Blood cultures positive for MRSA, continue Vanco cefepime, follow repeat cultures, contact isolation. follow ID evaluation 08/12; severe hypokalemia, phosphatemia ,replenished per protocol, continue current antibiotics, commendations Patient is on Vanco and cefepime for MRSA septicemia, ID consulted 08/13; transthoracic echocardiogram, to rule out endocarditis/vegetations, ID discontinued cefepime Follow repeat cultures, follow-up chest x-ray 08/14: Consulted pulmonary for pleural effusion, follow clinically 08/15: Ordered repeat blood culture, follow clinically, Pending pulmonary recommendation Subjective Date of service: 08/15/21 Objective - Constitutional Vitals: Vital Signs - 12hr 08/15/21 08/15/21 08/15/21 05:16 08:10 08:11 Temperature 98.6 F 98.4 F Pulse Rate 102 H 106 H Pulse Rate [ Anterior Bilateral Throughout] Pulse Rate [ 92 H Radial] Respiratory 18 18 Rate Respiratory Rate [Anterior Bilateral Throughout] Blood Pressure 103/63 100/71 O2 Sat by Pulse 97 97 92 Oximetry 08/15/21 08/15/21 08/15/21 08:20 09:01 11:08 Temperature 98.3 F Pulse Rate 110 H Pulse Rate [ 109 H Anterior Bilateral Throughout] Pulse Rate [ Radial] Respiratory 18 Rate Respiratory 20 Rate [Anterior Bilateral Throughout] Blood Pressure 93/61 O2 Sat by Pulse 92 91 Oximetry - Labs CBC & Chem 7: 08/15/21 07:58 08/15/21 07:58 Labs: Abnormal lab results 08/14/21 08/14/21 08/15/21 Range/Units 16:34 21:32 07:58 WBC 23.9 H (4.5-11.0) K/mm3 MCV 73 L (79-97) fl MCH 23 L (28-32) pg Plt Count 480 H (140-440) K/mm3 BUN (7-17) mg/dL Glucose (65-100) mg/dL POC Glucose 184 H 115 H (70-105) mg/dL 08/15/21 08/15/21 08/15/21 Range/Units 07:58 08:12 11:09 WBC (4.5-11.0) K/mm3 MCV (79-97) fl MCH (28-32) pg Plt Count (140-440) K/mm3 BUN 3 L (7-17) mg/dL Glucose 108 H (65-100) mg/dL POC Glucose 124 H 242 H (70-105) mg/dL 08/15/21 Range/Units 15:43 WBC (4.5-11.0) K/mm3 MCV (79-97) fl MCH (28-32) pg Plt Count (140-440) K/mm3 BUN (7-17) mg/dL Glucose (65-100) mg/dL POC Glucose 156 H (70-105) mg/dL HEART Score - HEART Score Troponin: Troponin T < 0.010 ng/mL (0.00-0.029) 08/07/21 15:00
[2021-08-15] MEDS: ACETAMINOPHEN 325 MG TAB PO PRN (18:40)
[2021-08-15] MEDS: ZOLPIDEM 5 MG TAB PO PRN (22:07)
[2021-08-16] MEDS: VANCOMYCIN/NS 1 GM/250 ML 1 GM/250 ML BAG IV SCH ×2 (04:08→17:32)
[2021-08-16] MEDS: HEPARIN 5,000 UNIT/1 ML VIAL SUB-Q SCH ×3 (05:42→22:29)
[2021-08-16] MEDS: ARFORMOTEROL 15 MCG/2 ML NEBU IH SCH ×2 (09:13→22:58)
[2021-08-16] MEDS: BUDESONIDE 0.5 MG/2 ML NEBU IH SCH ×2 (09:13→22:58)
[2021-08-16] MEDS: ASPIRIN EC 325 MG TAB PO SCH (09:23)
[2021-08-16] MEDS: FAMOTIDINE 20 MG TAB PO SCH ×2 (09:23→22:30)
[2021-08-16] MEDS: guaiFENesin ER 600 MG TAB PO SCH ×2 (09:23→22:30)
[2021-08-16] MEDS: INSULIN LISPRO 100 UNIT/ML SUB-Q SCH ×4 (09:23→22:12)
[2021-08-16] MEDS: INSULIN NPH/REGULAR 70/30 INJ SUB-Q SCH ×2 (12:28→17:32)
--- NOTE | 2021-08-16 14:46 | Progress Note ---
Assessment and Plan Cultures: Blood culture 08/08/2021 MRSA Blood culture 08/11/2021 S aureus Sputum culture 08/12/2021 no growth so far. Blood culture 08/15/2021 no growth so far A/P: 40-year-old female past medical history diabetes, hypertension now with: #Acute sepsis: Present with fevers leukocytosis. Secondary to MRSA bacteremia. #MRSA bacteremia: Given history of diabetes and potential source in the lungs will treat for 4 weeks. #LL PNA: possible Staph #Pleural effusions: would have pulmonary re-examine #Diabetes: tight glycemic control for best outcomes. Recs: -Continue vancomycin goal trough 10-20 -Follow up repeat blood repeat blood cultures -Case management consulted for vancomycin 1 g every 12 hours until 09/12/2021 -OK for PICC when cultures negative x48 hours Discussed with Dr. Nieves. Thank you for the consult, we will continue to follow. Loki Byrne MD [facility] ([facility]) O: [phone] F: [phone] Subjective Date of service: 08/16/21 Interval history: Afebrile, blood cultures remain no growth so far. Objective - Exam Narrative Exam: Physical Exam: Constitutional: Alert, cooperative. No acute distress Head, Ears, Nose: Normocephalic, atraumatic. External ears, nose normal Eyes: Conjunctivae/corneas clear. No icterus. No ptosis. Neck: Supple, no meningeal signs Oral: dentition fair, no thrush Cardiovascular: S1, S2 normal. Respiratory: Good air entry, clear to auscultation bilaterally GI: Soft, non-tender; bowel sounds normal. No peritoneal signs. Musculoskeletal: No pedal edema, no cyanosis. Skin: No rash or abscess Hem/Lymphatic: No palpable cervical or supraclavicular nodes. No lymphangitis Psych: Mood ok. Affect normal Neurological: Awake, alert, oriented. No gross abnormality - Constitutional Vitals: Vital Signs Temp Pulse Resp BP Pulse Ox 98.3 F 106 H 18 107/71 96 08/16/21 12:01 08/16/21 12:01 08/16/21 12:01 08/16/21 12:01 08/16/21 12:01 Temperature -Last 24 Hours Temperature 98.3 F Temperature 98.3 F Temperature 98.6 F Temperature 98.0 F Temperature 98.5 F Temperature 98.8 F - Labs CBC & Chem 7: 08/15/21 07:58 08/15/21 07:58 Labs: Abnormal lab results 08/15/21 08/15/21 08/16/21 Range/Units 15:43 23:57 07:43 POC Glucose 156 H 144 H 164 H (70-105) mg/dL 08/16/21 Range/Units 12:02 POC Glucose 187 H (70-105) mg/dL
--- NOTE | 2021-08-16 16:01 | Progress Note ---
Assessment and Plan --Severe hypokalemia; K2.9 Replenished with potassium chloride 40 mEq p.o. x2 doses Magnesium within normal limits, follow electrolytes --Hypophosphatemia; replenished with IV potassium phosphate Phosphorus remains low And Neutra-Phos 1 packet every 8 hours x3 days Closely monitor electrolytes --Hyponatremia /pseudohyponatremia: Sodium level significantly improved, closely monitor Treat the underlying hyperglycemia, and IV normal saline Closely monitor electrolytes --Sepsis; due to healthcare associated pneumonia[HCAP] Fever, leukocytosis, tachycardia, positive blood cultures pneumonia on chest x- ray Preliminary blood cultures 1:2 gram-positive cocci Continue Vanco and cefepime, Procalcitonin level high --MRSA bacteremia/septicemia[Blood cultures 1 in 4 positive 08/11/2021 Patient is already on Vanco and cefepime ID consulted pending evaluation Contact isolation, follow repeat blood cultures --Staph aureus/MRSA septicemia;1:2 positive blood cultures Continue Vanco and cefepime ID consulted, contact isolation New set of blood cultures requested --Metabolic acidosis; Due to DKA, slowly improving Continue current management --Diabetic ketoacidosis/resolved Change IV fluids to normal saline Start long-acting insulin Novolin 70/30 every 12 hours Increase the dose to 15 units Novolin subcu every 12 hours Continue Accu-Cheks sliding scale coverage ADA diet HbA1c 13.6, diabetic diet, diabetic education --Uncontrolled blood sugars/diabetes mellitus type 2; Accu-Chek, sliding scale coverage, ADA diet Long-acting insulin Novolin 70/30, start 12 units twice a day and adjust as needed Patient's HbA1c 13.6. --Medical noncompliance; With medications and diet follow-up visits Patient strongly counseled to comply with medications, diet And follow-up doctors visits, and also recommend outpatient masonry teacher evaluation --Musculoskeletal chest pain/resolved - reproducible with papation - doubt acs, non elevated troponin, EKG appears to be normal with no st depressios/elevations. --Hypertension/well controlled Closely monitor blood pressure As needed antihypertensives --History of marijuana use Counseling done advised to quit recreational drug use --Advance care planning/spent additional 30 minutes Disease education conducted, care plan discussed, diagnoses discussed, prognosis discussed, patient is full code, I discussed in detail the importance of adhering to the treatment plan I reiterated the need to follow strictly the diabetic diet I also explained that her hemoglobin A1c is very high indicating No control of blood sugars the last 6 months Patient also informed that we will be setting up home health nurse to assist the patient with diabetes control I advised to see a private masonry teacher/telecommunications specialist upon discharge for better control of her blood sugars patient verbalized understanding and agree with care plan, We will closely monitor the patient and adjust management as needed Plan of care reviewed with the patient and her nurse I also discussed with the case management during the multidisciplinary rounds Out of bed and ambulate as tolerated Physical therapy evaluation and discharge needs Possible discharge in 1 to 2 days if stable Brief history and daily hospital course: 40 years old female with history of diabetes and hypertension was brought to the hospital because of chest pain which is right chest 9/10 sharp , constant radiating to the right side to the back and neck, patient had some chest pain few days ago right side going to the back, musculoskeletal in nature no shortness of breath no cough no fever. Initial cardiac enzyme is negative troponin is 0.010 In the emergency room patient is found to have DKA patient blood glucose is 315, bicarb 15 anion gap 30.'s were going to admit the patient to the ICU overnight. We will put the patient on insulin drip and consult critical care Hospital Course: 08/07: Patient was discontinued off her diabetic medication as an outpatient by her primary. She states that after her blood sugars had normalized so insulin discontinued. She does not track her blood sugars and does not take any medications for diabetes. Of note her A1c was 12.5 in October 2020. We will c ontinue IV insulin until anion gap is closed. Can likely be downgraded once metabolic acidosis resolves. 08/08; patient was noncompliant with medications, will start diabetic diet, diabetic education, diabetic diet education Change insulin to Novolin 70/30, procalcitonin is high continue empiric an tibiotics follow cultures 08/09; patient sugars are moderate control, adjust insulin dose, diabetic education, diabetic diet education prior to discharge, patient complains of generalized weakness unable to walk,Consult physical therapy to evaluate and for DC needs, out of bed to chair 3 times during meals, ambulate as tolerated Possible discharge in 1 to 2 days if stable 08/10; patient has low-grade fever, and persistent leukocytosis, mild rales and crackles bilateral lung shrestha, check x-ray lung. Blood cultures 1 in 2 positive for gram positive cocci, dose of Vanco given this morning, will add cefepime 08/11; multiple electrolyte abnormalities, hypokalemia, hypophosphatemia, hyponatremia replenish per protocol and monitor levels Possible Healthcare associated pneumonia, continue Vanco and cefepime, ID consulted Blood cultures positive for MRSA, continue Vanco cefepime, follow repeat cultures, contact isolation. follow ID evaluation 08/12; severe hypokalemia, phosphatemia ,replenished per protocol, continue current antibiotics, commendations Patient is on Vanco and cefepime for MRSA septicemia, ID consulted 08/13; transthoracic echocardiogram, to rule out endocarditis/vegetations, ID discontinued cefepime Follow repeat cultures, follow-up chest x-ray 08/14: Consulted pulmonary for pleural effusion, follow clinically 08/15: Ordered repeat blood culture, follow clinically, Pending pulmonary recommendation 08/16: planned for PICC line if blood cx neg at 48h, cont iv vancomycin for mRSA bacteremia Subjective Date of service: 08/16/21 Objective - Constitutional Vitals: Vital Signs - 12hr 08/16/21 08/16/21 08/16/21 04:21 07:44 09:13 Temperature 98.6 F 98.3 F Pulse Rate 110 H 100 H Pulse Rate [ 92 H Anterior Bilateral Throughout] Respiratory 20 18 Rate Respiratory 16 Rate [Anterior Bilateral Throughout] Blood Pressure 93/57 103/71 O2 Sat by Pulse 96 96 Oximetry 08/16/21 08/16/21 09:19 12:01 Temperature 98.3 F Pulse Rate 106 H Pulse Rate [ Anterior Bilateral Throughout] Respiratory 18 Rate Respiratory Rate [Anterior Bilateral Throughout] Blood Pressure 107/71 O2 Sat by Pulse 96 96 Oximetry - Labs CBC & Chem 7: 08/17/21 05:14 08/15/21 07:58 Labs: Abnormal lab results 08/15/21 08/16/21 08/16/21 Range/Units 23:57 07:43 12:02 POC Glucose 144 H 164 H 187 H (70-105) mg/dL 08/16/21 Range/Units 15:51 POC Glucose 148 H (70-105) mg/dL HEART Score - HEART Score Troponin: Troponin T < 0.010 ng/mL (0.00-0.029) 08/07/21 15:00
[2021-08-16] MEDS: ZOLPIDEM 5 MG TAB PO PRN (22:30)
[2021-08-17] MEDS: VANCOMYCIN/NS 1 GM/250 ML 1 GM/250 ML BAG IV SCH ×2 (03:55→17:02)
[2021-08-17] MEDS: HEPARIN 5,000 UNIT/1 ML VIAL SUB-Q SCH ×3 (05:35→21:56)
[2021-08-17 06:24] LABS: Hematocrit 31.1 % (30.3-42.9); Hemoglobin 9.5 gm/dl (10.1-14.3); Mean Corpuscular HGB Conc 30 % (30-34); Mean Corpuscular Volume 74 fl (79-97); Platelet Count 400 K/mm3 (140-440); Red Blood Count 4.21 M/mm3 (3.65-5.03); Red Cell Distribution Width 14.8 % (13.2-15.2)
[2021-08-17 08:10] LABS: Band Neutrophils # (Manual) 0.8 K/mm3; Basophils % (Manual) 0 % (0.0-1.8); Eosinophils % (Manual) 0 % (0.0-4.3); Total Cells Counted 100
[2021-08-17 08:13] LABS: Large Platelets Few; Platelet Clumps Few
[2021-08-17 08:14] LABS: Bite Cells 1+; Hypochromasia 1+; Ovalocytes 1+
[2021-08-17 08:16] LABS: Platelet Estimate Consistent w Auto
[2021-08-17] MEDS: BUDESONIDE 0.5 MG/2 ML NEBU IH SCH ×2 (09:44→22:02)
[2021-08-17] MEDS: ARFORMOTEROL 15 MCG/2 ML NEBU IH SCH ×2 (09:44→22:02)
[2021-08-17] MEDS: INSULIN NPH/REGULAR 70/30 INJ SUB-Q SCH ×2 (10:44→17:02)
[2021-08-17] MEDS: ASPIRIN EC 325 MG TAB PO SCH (10:44)
[2021-08-17] MEDS: FAMOTIDINE 20 MG TAB PO SCH ×2 (10:45→21:57)
[2021-08-17] MEDS: guaiFENesin ER 600 MG TAB PO SCH ×2 (10:46→21:57)
[2021-08-17] MEDS: INSULIN LISPRO 100 UNIT/ML SUB-Q SCH ×4 (10:47→21:57)
--- NOTE | 2021-08-17 13:30 | Discharge Summary ---
Providers - Providers Date of Admission: 08/07/21 01:49 Date of discharge: 08/19/21 Attending physician: HUNTER REDDY 08/07/21 Consult to Cardiac Rehabilitation [CONS] Routine Reason For Exam: Phase I 08/07/21 01:49 Consult to Dietitian/Nutrition [CONS] Routine Physician Instructions: Reason For Exam: DKA Reason for Consult: Nutrition Recommendations Reason for Consult: Diet education 08/08/21 13:41 Physical Therapy Evaluation and Treat [CONS] Urgent Comment: Reason For Exam: PT to eval and treat 08/10/21 12:15 Consult to Physician [CONS] Routine Comment: Consulting Provider: ZEKE PAGE Physician Instructions: Reason For Exam: Staph bacteremia/ HCAP pneumonia 08/14/21 13:37 Consult to Physician [CONS] Routine Comment: Consulting Provider: WASHINGTON CHANG Physician Instructions: Reason For Exam: pleural effusion 08/16/21 14:47 Consult to Case Management [CONS] Routine Services Needed at Discharge: Home Health Services Notified:: briefcase sewer Additional Physician Instructions: Loki Byrne MD [facility] ([facility]) M: [phone] O: [phone] F: [phone] Outpatient parenteral antibiotic therapy orders Diagnosis: MRSA bacteremia Antibiotic administration: vancomycin 1 g every 12 hours until 09/12/2021 Line: PICC Lab monitoring: CBC with differential, BUN, creatinine, LFTs, vancomycin trough once per week preferably on Thursday or Thursday Vancomycin: Check creatinine and vancomycin trough every Thursday and , fax results to [phone] For critical labs, call office: [phone] Loki Byrne Primary care physician: MANAGER CUSTOMER SERVICE Hospitalization Condition: Fair Disposition: 01 HOME / SELF CARE / HOMELESS Final Discharge Diagnosis (Prints w/discharge instructions): --MRSA bacteremia Time spent for discharge: 34 minutes Core Measure Documentation - Palliative Care Palliative Care/ Comfort Measures: Not Applicable - Core Measures Any of the following diagnoses?: none Exam - Constitutional Vitals: Temp Pulse Resp BP Pulse Ox 98.6 F 109 H 18 130/78 100 08/17/21 12:04 08/17/21 12:04 08/17/21 12:04 08/17/21 12:04 08/17/21 12:04 Plan Activity: advance as tolerated Weight Bearing Status: Weight Bear as Tolerated Diet: low fat, low salt Special Instructions: home oxygen via (2L N/c ) Additional Instructions: need vancomycin 1 g every 12 hours until 09/12/2021. f/u with Dr Chang in one week Follow up with: PRIMARY CARE, [Primary Care Provider] - 3-5 Days Prescriptions: Ipratropium/Albuterol Sulfate [DUONEB *Not for PRN Use*] 1 ampul IH Q4HR #30 ampul.neb guaiFENesin ER [Mucinex ER] 600 mg PO BID #30 tablet Insulin NPH/Regular [NovoLIN 70/30] 15 unit SUB-Q BIDDIAB 30 Days
[2021-08-17] MEDS ORDERED: FUROSEMIDE 40 MG/4 ML INJ IV ONE (14:00)
[2021-08-17] MEDS: ZOLPIDEM 5 MG TAB PO PRN (21:57)
[2021-08-17] MEDS: BENZOCAINE/MENTHOL LOZENGE MM PRN (23:20)
[2021-08-18] MEDS: BENZOCAINE/MENTHOL LOZENGE MM PRN ×2 (02:59→17:20)
[2021-08-18] MEDS: VANCOMYCIN/NS 1 GM/250 ML 1 GM/250 ML BAG IV SCH ×2 (03:01→17:12)
[2021-08-18] MEDS: HEPARIN 5,000 UNIT/1 ML VIAL SUB-Q SCH ×3 (05:03→22:15)
[2021-08-18 06:27] LABS: Blood Urea Nitrogen 3 mg/dL (7-17); Hemolysis Index 0
[2021-08-18 06:28] LABS: BUN/Creatinine Ratio 4
[2021-08-18] MEDS: INSULIN LISPRO 100 UNIT/ML SUB-Q SCH ×4 (08:23→22:17)
[2021-08-18] MEDS: ARFORMOTEROL 15 MCG/2 ML NEBU IH SCH ×2 (09:22→21:48)
[2021-08-18] MEDS: BUDESONIDE 0.5 MG/2 ML NEBU IH SCH ×2 (09:22→21:48)
[2021-08-18] MEDS: INSULIN NPH/REGULAR 70/30 INJ SUB-Q SCH ×2 (10:19→17:12)
[2021-08-18] MEDS: ASPIRIN EC 325 MG TAB PO SCH (10:19)
[2021-08-18] MEDS: guaiFENesin ER 600 MG TAB PO SCH ×2 (10:19→22:17)
[2021-08-18] MEDS: FAMOTIDINE 20 MG TAB PO SCH ×2 (10:19→22:16)
[2021-08-18] MEDS: traMADol 50 MG TAB PO PRN (10:21)
[2021-08-18] MEDS ORDERED: POTASSIUM CHLORIDE ER 20 MEQ TAB PO ONE (12:00)
--- NOTE | 2021-08-18 22:33 | Progress Note ---
Assessment and Plan --Severe hypokalemia; K2.9 Replenished with potassium chloride 40 mEq p.o. x2 doses Magnesium within normal limits, follow electrolytes --Hypophosphatemia; replenished with IV potassium phosphate Phosphorus remains low And Neutra-Phos 1 packet every 8 hours x3 days Closely monitor electrolytes --Hyponatremia /pseudohyponatremia: Sodium level significantly improved, closely monitor Treat the underlying hyperglycemia, and IV normal saline Closely monitor electrolytes --Sepsis; due to healthcare associated pneumonia[HCAP] Fever, leukocytosis, tachycardia, positive blood cultures pneumonia on chest x- ray Preliminary blood cultures 1:2 gram-positive cocci Continue Vanco and cefepime, Procalcitonin level high --MRSA bacteremia/septicemia[Blood cultures 1 in 4 positive 08/11/2021 Patient is already on Vanco and cefepime ID consulted pending evaluation Contact isolation, follow repeat blood cultures --Staph aureus/MRSA septicemia;1:2 positive blood cultures Continue Vanco and cefepime ID consulted, contact isolation New set of blood cultures requested --Metabolic acidosis; Due to DKA, slowly improving Continue current management --Diabetic ketoacidosis/resolved Change IV fluids to normal saline Start long-acting insulin Novolin 70/30 every 12 hours Increase the dose to 15 units Novolin subcu every 12 hours Continue Accu-Cheks sliding scale coverage ADA diet HbA1c 13.6, diabetic diet, diabetic education --Uncontrolled blood sugars/diabetes mellitus type 2; Accu-Chek, sliding scale coverage, ADA diet Long-acting insulin Novolin 70/30, start 12 units twice a day and adjust as needed Patient's HbA1c 13.6. --Medical noncompliance; With medications and diet follow-up visits Patient strongly counseled to comply with medications, diet And follow-up doctors visits, and also recommend outpatient chargeback specialist evaluation --Musculoskeletal chest pain/resolved - reproducible with papation - doubt acs, non elevated troponin, EKG appears to be normal with no st depressios/elevations. --Hypertension/well controlled Closely monitor blood pressure As needed antihypertensives --History of marijuana use Counseling done advised to quit recreational drug use --Advance care planning/spent additional 30 minutes Disease education conducted, care plan discussed, diagnoses discussed, prognosis discussed, patient is full code, I discussed in detail the importance of adhering to the treatment plan I reiterated the need to follow strictly the diabetic diet I also explained that her hemoglobin A1c is very high indicating No control of blood sugars the last 6 months Patient also informed that we will be setting up home health nurse to assist the patient with diabetes control I advised to see a private chargeback specialist/workers compensation specialist upon discharge for better control of her blood sugars patient verbalized understanding and agree with care plan, We will closely monitor the patient and adjust management as needed Plan of care reviewed with the patient and her nurse I also discussed with the case management during the multidisciplinary rounds Out of bed and ambulate as tolerated Physical therapy evaluation and discharge needs Possible discharge in 1 to 2 days if stable Brief history and daily hospital course: 40 years old female with history of diabetes and hypertension was brought to the hospital because of chest pain which is right chest 9/10 sharp , constant radiating to the right side to the back and neck, patient had some chest pain few days ago right side going to the back, musculoskeletal in nature no shortness of breath no cough no fever. Initial cardiac enzyme is negative troponin is 0.010 In the emergency room patient is found to have DKA patient blood glucose is 315, bicarb 15 anion gap 30.'s were going to admit the patient to the ICU overnight. We will put the patient on insulin drip and consult critical care Hospital Course: 08/07: Patient was discontinued off her diabetic medication as an outpatient by her primary. She states that after her blood sugars had normalized so insulin discontinued. She does not track her blood sugars and does not take any medications for diabetes. Of note her A1c was 12.5 in October 2020. We will c ontinue IV insulin until anion gap is closed. Can likely be downgraded once metabolic acidosis resolves. 08/08; patient was noncompliant with medications, will start diabetic diet, diabetic education, diabetic diet education Change insulin to Novolin 70/30, procalcitonin is high continue empiric an tibiotics follow cultures 08/09; patient sugars are moderate control, adjust insulin dose, diabetic education, diabetic diet education prior to discharge, patient complains of generalized weakness unable to walk,Consult physical therapy to evaluate and for DC needs, out of bed to chair 3 times during meals, ambulate as tolerated Possible discharge in 1 to 2 days if stable 08/10; patient has low-grade fever, and persistent leukocytosis, mild rales and crackles bilateral lung shrestha, check x-ray lung. Blood cultures 1 in 2 positive for gram positive cocci, dose of Vanco given this morning, will add cefepime 08/11; multiple electrolyte abnormalities, hypokalemia, hypophosphatemia, hyponatremia replenish per protocol and monitor levels Possible Healthcare associated pneumonia, continue Vanco and cefepime, ID consulted Blood cultures positive for MRSA, continue Vanco cefepime, follow repeat cultures, contact isolation. follow ID evaluation 08/12; severe hypokalemia, phosphatemia ,replenished per protocol, continue current antibiotics, commendations Patient is on Vanco and cefepime for MRSA septicemia, ID consulted 08/13; transthoracic echocardiogram, to rule out endocarditis/vegetations, ID discontinued cefepime Follow repeat cultures, follow-up chest x-ray 08/14: Consulted pulmonary for pleural effusion, follow clinically 08/15: Ordered repeat blood culture, follow clinically, Pending pulmonary recommendation 08/16: planned for PICC line if blood cx neg at 48h, cont iv vancomycin for mRSA bacteremia Subjective Date of service: 08/18/21 Objective - Constitutional Vitals: Vital Signs - 12hr 08/18/21 08/18/21 08/18/21 10:46 15:47 19:35 Temperature 97.8 F 98.7 F 98.4 F Pulse Rate 108 H Pulse Rate [ Anterior Bilateral Throughout] Respiratory 18 17 20 Rate Respiratory Rate [Anterior Bilateral Throughout] Blood Pressure 137/67 136/79 115/70 O2 Sat by Pulse 92 Oximetry 08/18/21 08/18/21 20:00 21:49 Temperature Pulse Rate Pulse Rate [ 110 H Anterior Bilateral Throughout] Respiratory Rate Respiratory 18 Rate [Anterior Bilateral Throughout] Blood Pressure O2 Sat by Pulse 94 Oximetry - Labs CBC & Chem 7: 08/17/21 05:14 08/18/21 05:10 Labs: Abnormal lab results 08/18/21 08/18/21 08/18/21 Range/Units 05:10 07:55 10:44 Potassium 3.3 L (3.6-5.0) mmol/L BUN 3 L (7-17) mg/dL Glucose 121 H (65-100) mg/dL POC Glucose 134 H 240 H (70-105) mg/dL Calcium 8.0 L (8.4-10.2) mg/dL 08/18/21 08/18/21 Range/Units 15:46 21:23 Potassium (3.6-5.0) mmol/L BUN (7-17) mg/dL Glucose (65-100) mg/dL POC Glucose 143 H 171 H (70-105) mg/dL Calcium (8.4-10.2) mg/dL HEART Score - HEART Score Troponin: Troponin T < 0.010 ng/mL (0.00-0.029) 08/07/21 15:00
[2021-08-18] MEDS: ZOLPIDEM 5 MG TAB PO PRN (22:51)
[2021-08-18] MEDS: ONDANSETRON 4 MG/2 ML INJ IV PRN (22:51)
[2021-08-19] MEDS: VANCOMYCIN/NS 1 GM/250 ML 1 GM/250 ML BAG IV SCH ×2 (03:11→18:35)
[2021-08-19] MEDS: HEPARIN 5,000 UNIT/1 ML VIAL SUB-Q SCH ×2 (05:30→17:16)
[2021-08-19] MEDS: ARFORMOTEROL 15 MCG/2 ML NEBU IH SCH (07:56)
[2021-08-19] MEDS: BUDESONIDE 0.5 MG/2 ML NEBU IH SCH (07:56)
[2021-08-19] MEDS: INSULIN LISPRO 100 UNIT/ML SUB-Q SCH ×4 (08:26→17:18)
[2021-08-19] MEDS: FAMOTIDINE 20 MG TAB PO SCH (09:26)
[2021-08-19] MEDS: ASPIRIN EC 325 MG TAB PO SCH (09:26)
[2021-08-19] MEDS: INSULIN NPH/REGULAR 70/30 INJ SUB-Q SCH ×2 (09:26→17:17)
[2021-08-19] MEDS: guaiFENesin ER 600 MG TAB PO SCH (09:27)
--- NOTE | 2021-08-19 13:19 | Progress Note ---
Assessment and Plan Cultures: Blood culture 08/08/2021 MRSA Blood culture 08/11/2021 S aureus Sputum culture 08/12/2021 no growth so far. Blood culture 08/15/2021 no growth so far A/P: 40-year-old female past medical history diabetes, hypertension now with: #Acute sepsis: Present with fevers leukocytosis. Secondary to MRSA bacteremia. #MRSA bacteremia: Given history of diabetes and potential source in the lungs will treat for 4 weeks. #LL PNA: possible Staph #Pleural effusions: would have pulmonary re-examine #Diabetes: tight glycemic control for best outcomes. Recs: -Continue vancomycin goal trough 10-20 -Follow up repeat blood repeat blood cultures -Case management consulted for vancomycin 1 g every 12 hours until 09/12/[address] Nieves. Thank you for the consult, we will continue to follow. Loki Byrne MD [facility] ([facility]) O: [phone] F: [phone] Subjective Date of service: 08/19/21 Interval history: Afebrile, no acute change. Wants to go home. Objective - Exam Narrative Exam: Physical Exam: Constitutional: Alert, cooperative. No acute distress Head, Ears, Nose: Normocephalic, atraumatic. External ears, nose normal Eyes: Conjunctivae/corneas clear. No icterus. No ptosis. Neck: Supple, no meningeal signs Oral: dentition fair, no thrush Cardiovascular: S1, S2 normal. Respiratory: Good air entry, clear to auscultation bilaterally GI: Soft, non-tender; bowel sounds normal. No peritoneal signs. Musculoskeletal: No pedal edema, no cyanosis. Skin: No rash or abscess Hem/Lymphatic: No palpable cervical or supraclavicular nodes. No lymphangitis Psych: Mood ok. Affect normal Neurological: Awake, alert, oriented. No gross abnormality - Constitutional Vitals: Vital Signs Temp Pulse Resp BP Pulse Ox 98.0 F 102 H 18 141/86 97 08/19/21 11:56 08/19/21 11:56 08/19/21 11:56 08/19/21 11:56 08/19/21 11:56 Temperature -Last 24 Hours Temperature 98.0 F Temperature 98.1 F Temperature 98.4 F Temperature 98.7 F - Labs CBC & Chem 7: 08/17/21 05:14 08/18/21 05:10 Labs: Abnormal lab results 08/18/21 08/18/21 08/19/21 Range/Units 15:46 21:23 07:46 POC Glucose 143 H 171 H 115 H (70-105) mg/dL 08/19/21 Range/Units 11:53 POC Glucose 140 H (70-105) mg/dL
--- NOTE | 2021-08-19 15:57 | Progress Note ---
Assessment and Plan --Severe hypokalemia; K2.9 Replenished with potassium chloride 40 mEq p.o. x2 doses Magnesium within normal limits, follow electrolytes --Hypophosphatemia; replenished with IV potassium phosphate Phosphorus remains low And Neutra-Phos 1 packet every 8 hours x3 days Closely monitor electrolytes --Hyponatremia /pseudohyponatremia: Sodium level significantly improved, closely monitor Treat the underlying hyperglycemia, and IV normal saline Closely monitor electrolytes --Sepsis; due to healthcare associated pneumonia[HCAP] Fever, leukocytosis, tachycardia, positive blood cultures pneumonia on chest x- ray Preliminary blood cultures 1:2 gram-positive cocci Continue Vanco and cefepime, Procalcitonin level high --MRSA bacteremia/septicemia[Blood cultures 1 in 4 positive 08/11/2021 Patient is already on Vanco and cefepime ID consulted pending evaluation Contact isolation, follow repeat blood cultures --Staph aureus/MRSA septicemia;1:2 positive blood cultures Continue Vanco and cefepime ID consulted, contact isolation New set of blood cultures requested --Metabolic acidosis; Due to DKA, slowly improving Continue current management --Diabetic ketoacidosis/resolved Change IV fluids to normal saline Start long-acting insulin Novolin 70/30 every 12 hours Increase the dose to 15 units Novolin subcu every 12 hours Continue Accu-Cheks sliding scale coverage ADA diet HbA1c 13.6, diabetic diet, diabetic education --Uncontrolled blood sugars/diabetes mellitus type 2; Accu-Chek, sliding scale coverage, ADA diet Long-acting insulin Novolin 70/30, start 12 units twice a day and adjust as needed Patient's HbA1c 13.6. --Medical noncompliance; With medications and diet follow-up visits Patient strongly counseled to comply with medications, diet And follow-up doctors visits, and also recommend outpatient veneer manufacturer evaluation --Musculoskeletal chest pain/resolved - reproducible with papation - doubt acs, non elevated troponin, EKG appears to be normal with no st depressios/elevations. --Hypertension/well controlled Closely monitor blood pressure As needed antihypertensives --History of marijuana use Counseling done advised to quit recreational drug use --Advance care planning/spent additional 30 minutes Disease education conducted, care plan discussed, diagnoses discussed, prognosis discussed, patient is full code, I discussed in detail the importance of adhering to the treatment plan I reiterated the need to follow strictly the diabetic diet I also explained that her hemoglobin A1c is very high indicating No control of blood sugars the last 6 months Patient also informed that we will be setting up home health nurse to assist the patient with diabetes control I advised to see a private veneer manufacturer/pharmacy specialist upon discharge for better control of her blood sugars patient verbalized understanding and agree with care plan, We will closely monitor the patient and adjust management as needed Plan of care reviewed with the patient and her nurse I also discussed with the case management during the multidisciplinary rounds Out of bed and ambulate as tolerated Physical therapy evaluation and discharge needs Possible discharge in 1 to 2 days if stable Brief history and daily hospital course: 40 years old female with history of diabetes and hypertension was brought to the hospital because of chest pain which is right chest 9/10 sharp , constant radiating to the right side to the back and neck, patient had some chest pain few days ago right side going to the back, musculoskeletal in nature no shortness of breath no cough no fever. Initial cardiac enzyme is negative troponin is 0.010 In the emergency room patient is found to have DKA patient blood glucose is 315, bicarb 15 anion gap 30.'s were going to admit the patient to the ICU overnight. We will put the patient on insulin drip and consult critical care Hospital Course: 08/07: Patient was discontinued off her diabetic medication as an outpatient by her primary. She states that after her blood sugars had normalized so insulin discontinued. She does not track her blood sugars and does not take any medications for diabetes. Of note her A1c was 12.5 in October 2020. We will c ontinue IV insulin until anion gap is closed. Can likely be downgraded once metabolic acidosis resolves. 08/08; patient was noncompliant with medications, will start diabetic diet, diabetic education, diabetic diet education Change insulin to Novolin 70/30, procalcitonin is high continue empiric an tibiotics follow cultures 08/09; patient sugars are moderate control, adjust insulin dose, diabetic education, diabetic diet education prior to discharge, patient complains of generalized weakness unable to walk,Consult physical therapy to evaluate and for DC needs, out of bed to chair 3 times during meals, ambulate as tolerated Possible discharge in 1 to 2 days if stable 08/10; patient has low-grade fever, and persistent leukocytosis, mild rales and crackles bilateral lung shrestha, check x-ray lung. Blood cultures 1 in 2 positive for gram positive cocci, dose of Vanco given this morning, will add cefepime 08/11; multiple electrolyte abnormalities, hypokalemia, hypophosphatemia, hyponatremia replenish per protocol and monitor levels Possible Healthcare associated pneumonia, continue Vanco and cefepime, ID consulted Blood cultures positive for MRSA, continue Vanco cefepime, follow repeat cultures, contact isolation. follow ID evaluation 08/12; severe hypokalemia, phosphatemia ,replenished per protocol, continue current antibiotics, commendations Patient is on Vanco and cefepime for MRSA septicemia, ID consulted 08/13; transthoracic echocardiogram, to rule out endocarditis/vegetations, ID discontinued cefepime Follow repeat cultures, follow-up chest x-ray 08/14: Consulted pulmonary for pleural effusion, follow clinically 08/15: Ordered repeat blood culture, follow clinically, Pending pulmonary recommendation 08/16: planned for PICC line if blood cx neg at 48h, cont iv vancomycin for mRSA bacteremia Subjective Date of service: 08/17/21 Objective - Constitutional Vitals: Vital Signs - 12hr 08/19/21 08/19/21 08/19/21 04:28 07:56 08:05 Temperature Pulse Rate 104 H Pulse Rate [ 107 H Anterior Bilateral Throughout] Pulse Rate [ Radial] Respiratory 20 Rate Respiratory 20 Rate [Anterior Bilateral Throughout] Blood Pressure 119/69 O2 Sat by Pulse 93 93 Oximetry 08/19/21 08/19/21 08/19/21 08:23 09:24 11:56 Temperature 98.1 F 98.0 F Pulse Rate 110 H 102 H Pulse Rate [ Anterior Bilateral Throughout] Pulse Rate [ 104 H Radial] Respiratory 18 18 18 Rate Respiratory Rate [Anterior Bilateral Throughout] Blood Pressure 132/75 141/86 O2 Sat by Pulse 95 96 97 Oximetry 08/19/21 12:30 Temperature Pulse Rate 98 H Pulse Rate [ Anterior Bilateral Throughout] Pulse Rate [ Radial] Respiratory Rate Respiratory Rate [Anterior Bilateral Throughout] Blood Pressure O2 Sat by Pulse Oximetry - Labs CBC & Chem 7: 08/17/21 05:14 08/18/21 05:10 Labs: Abnormal lab results 08/18/21 08/19/21 08/19/21 Range/Units 21:23 07:46 11:53 POC Glucose 171 H 115 H 140 H (70-105) mg/dL HEART Score - HEART Score Troponin: Troponin T < 0.010 ng/mL (0.00-0.029) 08/07/21 15:00
[2021-08-19 17:09] VITALS: BP 140/80
== END 2021-08-19 18:21 | disposition home health service (06) | DRG 871 ==
LOC: ED 14:41 → CC1 08-07 01:49 → 4A 08-07 22:55
PROVIDERS: ADMIT Hospitalist; ATTEND Internal Medicine
PROC: 02HV33Z Insertion of Infusion Device into Superior Vena Cava, Percutaneous Approach (ICD-10-PCS; principal; 2021-08-17)
DX: A41.02 Sepsis due to Methicillin resistant Staphylococcus aureus (principal); E11.10 Type 2 diabetes mellitus with ketoacidosis without coma; J18.9 Pneumonia, unspecified organism; J90 Pleural effusion, not elsewhere classified; E87.1 Hypo-osmolality and hyponatremia; I10 Essential (primary) hypertension; E11.65 Type 2 diabetes mellitus with hyperglycemia; M79.18 Myalgia, other site; E87.6 Hypokalemia; E83.39 Other disorders of phosphorus metabolism; Z88.8 Allergy status to other drugs, medicaments and biological substances; Z20.822 Contact with and (suspected) exposure to COVID-19; Z91.19 Patient's noncompliance with other medical treatment and regimen; R07.89 Other chest pain; Z79.4 Long term (current) use of insulin
CPT/HCPCS: 36415; 71045; 71046; 80048; 80053; 80202; 80307; 81001; 82010; 82550; 82805; 82962; 83036; 83690; 83735; 84100; 84132; 84145; 84484; 85007; 85025; 85027; 85610; 87040; 87076; 87086; 87186; 87205; 93005; 93010; 93306; 94640; 94644; 94760; G0378; J3490; J7070; J7510; Q0162; Q0177; Q9967; C8929; C9113; J0692; J0696; J1170; J1644; J1815; J1940; J2270; J2405; J3370; J3430; J7030; J7040; U0003

== ENCOUNTER 2021-08-21 07:21 | Emergency (ER) | payer BC ==
[2021-08-21] MEDS ORDERED: METOCLOPRAMIDE 10 MG/2 ML INJ IV ONE (07:39)
[2021-08-21] MEDS ORDERED: MORPHINE 4 MG/1 ML INJ IV ONE (07:39)
[2021-08-21] MEDS ORDERED: ONDANSETRON 4 MG/2 ML INJ IV ONE (07:39)
[2021-08-21] MEDS ORDERED: diphenhydrAMINE 50 MG/ML VIAL IV ONE (07:39)
[2021-08-21] MEDS ORDERED: SODIUM CHLORIDE 0.9% 1000 ML 1,000 ML IV ONE ×3 (07:40→14:05)
[2021-08-21] MEDS ORDERED: FAMOTIDINE 20 MG/2 ML INJ IV ONE (07:43)
--- NOTE | 2021-08-21 08:01 | Emergency Department Report ---
ED N/V/D HPI - General Chief complaint: Nausea/Vomiting/Diarrhea Stated complaint: N/V Time Seen by Provider: 08/21/21 07:27 Source: patient, EMS, old records reviewed Mode of arrival: Stretcher Limitations: No Limitations - History of Present Illness Initial comments: 40-year-old female with a past medical history of insulin-dependent diabetes and recent hospital admission for DKA, MRSA pneumonia, and MRSA bacteremia with discharged on August 19 presents to the hospital complains of nausea, vomiting, abdominal pain, p.o. intolerance since yesterday. Patient complains of lower abdominal pain rated moderate to severe intensity worse with palpation. Decreased urine output reported. Previous abdominal surgery includes laparotomy status post ectopic and hysterectomy. Patient denies fever, dysuria, or diarrhea. Patient was discharged on IV vancomycin x4 weeks presents with a PICC line. - Related Data Previous Rx's Medication Instructions Recorded Last Taken Type Albuterol Mdi (or & Nicu Only) 2 puff IH Q2HRT PRN #1 inha 10/31/20 08/05/21 Rx [ProAir HFA Inhaler] Insulin NPH/Regular [NovoLIN 70/30] 15 unit SUB-Q BIDDIAB 30 Days 08/17/21 Unknown Rx Ipratropium/Albuterol Sulfate 1 ampul IH Q4HR #30 ampul.neb 08/17/21 Unknown Rx [DUONEB *Not for PRN Use*] guaiFENesin ER [Mucinex ER] 600 mg PO BID #30 tablet 08/17/21 Unknown Rx Ondansetron [Zofran Odt] 4 mg PO Q8HR PRN #20 tab.rapdis 08/21/21 Unknown Rx Allergies Allergy/AdvReac Type Severity Reaction Status Date / Time metformin AdvReac Severe Diarrhea Verified 08/21/21 07:24 ED Review of Systems ROS: Stated complaint: N/V Other details as noted in HPI ED Past Medical Hx - Past Medical History Hx Congestive Heart Failure: No Hx Diabetes: Yes Hx Deep Vein Thrombosis: No Hx Asthma: Yes Hx COPD: No - Surgical History Hx Pacemaker: No Hx Internal Defibrillator: No - Social History Smoking Status: Never Smoker - Medications Home Medications: Home Medications Medication Instructions Recorded Confirmed Last Taken Type Albuterol Mdi (or & Nicu Only) 2 puff IH Q2HRT PRN #1 inha 10/31/20 08/08/21 0 08/05/21 Rx [ProAir HFA Inhaler] Insulin NPH/Regular [NovoLIN 70/30] 15 unit SUB-Q BIDDIAB 30 Days 08/17/21 Unknown Rx Ipratropium/Albuterol Sulfate 1 ampul IH Q4HR #30 ampul.neb 08/17/21 Unknown Rx [DUONEB *Not for PRN Use*] guaiFENesin ER [Mucinex ER] 600 mg PO BID #30 tablet 08/17/21 Unknown Rx Ondansetron [Zofran Odt] 4 mg PO Q8HR PRN #20 tab.rapdis 08/21/21 Unknown Rx ED Physical Exam - General Limitations: No Limitations - Other Other exam information: General: No acute distress Head: Atraumatic Eyes: normal appearance ENT: Moist mucous membranes Neck: Normal appearance, no midline tenderness Chest: Clear to auscultation bilaterally CV: Regular rate and rhythm Abdomen: Soft, normal bowel sounds, generalized abdominal tenderness Back: Normal inspection Extremity: Normal inspection, full range of motion Neuro: Alert O x 3, no facial asymmetry, speech clear, no gross motor sensory deficit Psych: Appropriate behavior Skin: No rash ED Course Vital Signs 08/21/21 08/21/21 08/21/21 07:22 07:36 10:16 Temperature 97.9 F Pulse Rate 87 110 H 100 H Respiratory 20 18 17 Rate Blood Pressure Blood Pressure 148/97 146/87 [Left] O2 Sat by Pulse 98 Oximetry 08/21/21 08/21/21 08/21/21 10:19 10:30 10:46 Temperature Pulse Rate 99 H 98 H Respiratory 19 22 18 Rate Blood Pressure 129/84 114/71 Blood Pressure [Left] O2 Sat by Pulse 97 98 99 Oximetry 08/21/21 08/21/21 08/21/21 11:00 11:16 11:30 Temperature Pulse Rate 92 H 91 H 101 H Respiratory 18 17 16 Rate Blood Pressure 128/88 136/84 135/83 Blood Pressure [Left] O2 Sat by Pulse 99 100 100 Oximetry 08/21/21 08/21/21 08/21/21 11:46 12:00 12:16 Temperature Pulse Rate 100 H 90 85 Respiratory 19 15 14 Rate Blood Pressure 125/84 126/83 119/88 Blood Pressure [Left] O2 Sat by Pulse 99 99 99 Oximetry 08/21/21 08/21/21 08/21/21 12:30 12:46 13:00 Temperature Pulse Rate 88 98 H 82 Respiratory 14 18 14 Rate Blood Pressure 110/78 121/82 120/83 Blood Pressure [Left] O2 Sat by Pulse 99 98 98 Oximetry 08/21/21 08/21/21 08/21/21 13:16 13:30 13:46 Temperature Pulse Rate 81 84 83 Respiratory 14 15 16 Rate Blood Pressure 126/81 129/90 136/88 Blood Pressure [Left] O2 Sat by Pulse 99 100 100 Oximetry 08/21/21 08/21/21 08/21/21 14:00 14:16 14:30 Temperature Pulse Rate 89 101 H 92 H Respiratory 19 17 20 Rate Blood Pressure 136/90 138/94 138/95 Blood Pressure [Left] O2 Sat by Pulse 100 92 97 Oximetry 08/21/21 08/21/21 08/21/21 14:46 15:00 15:16 Temperature Pulse Rate 98 H 96 H 87 Respiratory 17 19 20 Rate Blood Pressure 136/89 125/77 132/88 Blood Pressure [Left] O2 Sat by Pulse 97 84 95 Oximetry 08/21/21 08/21/21 08/21/21 15:30 15:46 16:00 Temperature Pulse Rate 99 H 103 H 106 H Respiratory 21 20 27 H Rate Blood Pressure 136/89 136/89 136/89 Blood Pressure [Left] O2 Sat by Pulse 97 96 95 Oximetry 08/21/21 08/21/21 08/21/21 16:16 16:30 16:31 Temperature 97.8 F Pulse Rate 111 H Respiratory 16 Rate Blood Pressure 136/89 130/82 Blood Pressure [Left] O2 Sat by Pulse 96 84 Oximetry ED Medical Decision Making - Lab Data Result diagrams: 08/21/21 07:46 08/21/21 07:47 Lab Results 08/21/21 08/21/21 08/21/21 Range/Units 07:34 07:46 07:47 WBC 14.8 H (4.5-11.0) K/mm3 RBC 4.28 (3.65-5.03) M/mm3 Hgb 9.8 L (10.1-14.3) gm/dl Hct 32.0 (30.3-42.9) % MCV 75 L (79-97) fl MCH 23 L (28-32) pg MCHC 31 (30-34) % RDW 15.4 H (13.2-15.2) % Plt Count 412 (140-440) K/mm3 Lymph % (Auto) 7.2 L (13.4-35.0) % [place] % (Auto) 3.1 (0.0-7.3) % Eos % (Auto) 0.1 (0.0-4.3) % Baso % (Auto) 0.3 (0.0-1.8) % Lymph # (Auto) 1.1 L (1.2-5.4) K/mm3 [place] # (Auto) 0.5 (0.0-0.8) K/mm3 Eos # (Auto) 0.0 (0.0-0.4) K/mm3 Baso # (Auto) 0.0 (0.0-0.1) K/mm3 Seg Neutrophils % 89.3 H (40.0-70.0) % Seg Neutrophils # 13.2 H (1.8-7.7) K/mm3 Sodium 145 (137-145) mmol/L Potassium 3.7 (3.6-5.0) mmol/L Chloride 108.3 H (98-107) mmol/L Carbon Dioxide 25 (22-30) mmol/L Anion Gap 15 mmol/L BUN 6 L (7-17) mg/dL Creatinine 0.6 (0.6-1.2) mg/dL Estimated GFR > 60 ml/min BUN/Creatinine Ratio 10 % Glucose 59 L (65-100) mg/dL POC Glucose 93 (70-105) mg/dL Calcium 9.3 D (8.4-10.2) mg/dL Total Bilirubin 0.20 (0.1-1.2) mg/dL AST 22 (5-40) units/L ALT 23 (7-56) units/L Alkaline Phosphatase 158 H (35-129) units/L Total Protein 7.2 (6.3-8.2) g/dL Albumin 2.9 L (3.9-5) g/dL Albumin/Globulin Ratio 0.7 % Lipase 16 (13-60) units/L Urine Color (Yellow) Urine Turbidity (Clear) Urine pH (5.0-7.0) Ur Specific [place] (1.003-1.030) Urine Protein (Negative) mg/dL Urine Glucose (UA) (Negative) mg/dL Urine Ketones (Negative) mg/dL Urine Blood (Negative) Urine Nitrite (Negative) Ur Reducing Substances Urine Bilirubin (Negative) Urine Ictotest Urine Urobilinogen (<2.0) mg/dL Ur Leukocyte Esterase (Negative) Urine WBC (Auto) (0.0-6.0) /HPF Urine RBC (Auto) (0.0-6.0) /HPF U Epithel Cells (Auto) (0-13.0) /HPF Urine Mucus /HPF Urine Yeast (Budding) /HPF 08/21/21 08/21/21 08/21/21 Range/Units 10:07 10:27 10:45 WBC (4.5-11.0) K/mm3 RBC (3.65-5.03) M/mm3 Hgb (10.1-14.3) gm/dl Hct (30.3-42.9) % MCV (79-97) fl MCH (28-32) pg MCHC (30-34) % RDW (13.2-15.2) % Plt Count (140-440) K/mm3 Lymph % (Auto) (13.4-35.0) % [place] % (Auto) (0.0-7.3) % Eos % (Auto) (0.0-4.3) % Baso % (Auto) (0.0-1.8) % Lymph # (Auto) (1.2-5.4) K/mm3 [place] # (Auto) (0.0-0.8) K/mm3 Eos # (Auto) (0.0-0.4) K/mm3 Baso # (Auto) (0.0-0.1) K/mm3 Seg Neutrophils % (40.0-70.0) % Seg Neutrophils # (1.8-7.7) K/mm3 Sodium (137-145) mmol/L Potassium (3.6-5.0) mmol/L Chloride (98-107) mmol/L Carbon Dioxide (22-30) mmol/L Anion Gap mmol/L BUN (7-17) mg/dL Creatinine (0.6-1.2) mg/dL Estimated GFR ml/min BUN/Creatinine Ratio % Glucose (65-100) mg/dL POC Glucose 32 L 55 L 69 L (70-105) mg/dL Calcium (8.4-10.2) mg/dL Total Bilirubin (0.1-1.2) mg/dL AST (5-40) units/L ALT (7-56) units/L Alkaline Phosphatase (35-129) units/L Total Protein (6.3-8.2) g/dL Albumin (3.9-5) g/dL Albumin/Globulin Ratio % Lipase (13-60) units/L Urine Color (Yellow) Urine Turbidity (Clear) Urine pH (5.0-7.0) Ur Specific [place] (1.003-1.030) Urine Protein (Negative) mg/dL Urine Glucose (UA) (Negative) mg/dL Urine Ketones (Negative) mg/dL Urine Blood (Negative) Urine Nitrite (Negative) Ur Reducing Substances Urine Bilirubin (Negative) Urine Ictotest Urine Urobilinogen (<2.0) mg/dL Ur Leukocyte Esterase (Negative) Urine WBC (Auto) (0.0-6.0) /HPF Urine RBC (Auto) (0.0-6.0) /HPF U Epithel Cells (Auto) (0-13.0) /HPF Urine Mucus /HPF Urine Yeast (Budding) /HPF 08/21/21 08/21/21 Range/Units 10:50 11:31 WBC (4.5-11.0) K/mm3 RBC (3.65-5.03) M/mm3 Hgb (10.1-14.3) gm/dl Hct (30.3-42.9) % MCV (79-97) fl MCH (28-32) pg MCHC (30-34) % RDW (13.2-15.2) % Plt Count (140-440) K/mm3 Lymph % (Auto) (13.4-35.0) % [place] % (Auto) (0.0-7.3) % Eos % (Auto) (0.0-4.3) % Baso % (Auto) (0.0-1.8) % Lymph # (Auto) (1.2-5.4) K/mm3 [place] # (Auto) (0.0-0.8) K/mm3 Eos # (Auto) (0.0-0.4) K/mm3 Baso # (Auto) (0.0-0.1) K/mm3 Seg Neutrophils % (40.0-70.0) % Seg Neutrophils # (1.8-7.7) K/mm3 Sodium (137-145) mmol/L Potassium (3.6-5.0) mmol/L Chloride (98-107) mmol/L Carbon Dioxide (22-30) mmol/L Anion Gap mmol/L BUN (7-17) mg/dL Creatinine (0.6-1.2) mg/dL Estimated GFR ml/min BUN/Creatinine Ratio % Glucose (65-100) mg/dL POC Glucose 137 H (70-105) mg/dL Calcium (8.4-10.2) mg/dL Total Bilirubin (0.1-1.2) mg/dL AST (5-40) units/L ALT (7-56) units/L Alkaline Phosphatase (35-129) units/L Total Protein (6.3-8.2) g/dL Albumin (3.9-5) g/dL Albumin/Globulin Ratio % Lipase (13-60) units/L Urine Color Yellow (Yellow) Urine Turbidity Cloudy (Clear) Urine pH 6.0 (5.0-7.0) Ur Specific [place] 1.005 (1.003-1.030) Urine Protein 100 mg/dl (Negative) mg/dL Urine Glucose (UA) 500 (Negative) mg/dL Urine Ketones Negative (Negative) mg/dL Urine Blood Negative (Negative) Urine Nitrite Negative (Negative) Ur Reducing Substances Not Reportable Urine Bilirubin Negative (Negative) Urine Ictotest Not Reportable Urine Urobilinogen < 2.0 (<2.0) mg/dL Ur Leukocyte Esterase Negative (Negative) Urine WBC (Auto) < 1.0 (0.0-6.0) /HPF Urine RBC (Auto) > 182.0 (0.0-6.0) /HPF U Epithel Cells (Auto) 1.0 (0-13.0) /HPF Urine Mucus Few /HPF Urine Yeast (Budding) 3+ /HPF - EKG Data -: EKG Interpreted by Sc EKG shows normal: sinus rhythm, ST-T waves (no stemi) Rate: normal - Radiology Data Radiology results: report reviewed CT ABDOMEN AND PELVIS WITH CONTRAST HISTORY: n,v abd pain OMNI 300 100 ML COMPARISON: None TECHNIQUE: Routine abdominal and pelvic CT exam performed following intrav enous contrast administration.. All CT scans at this location are performed using CT dose reduction for ALARA by means of automated exposure control. FINDINGS: CT ABDOMEN: Lung Bases: Small bilateral pleural effusions are seen in both lung bases as well as areas of groundglass opacity in the left lower lung. Liver: No significant abnormality. Biliary: No significant abnormality. Spleen: No significant abnormality. Unenlarged. Pancreas: No significant abnormality. Adrenals: No significant abnormality. Kidneys: No significant abnormality. Lymphatics: No lymphadenopathy. Vasculature: No significant abnormality. Bowel/Peritoneum: No significant abnormality. No free air. No free fluid. Normal appendix. CT PELVIC: : No significant abnormality. Lymphatics: No lymphadenopathy. Osseous Structures: No aggressive appearing osseous lesions. Additional Findings: None IMPRESSION: 1. Small bilateral pleural effusions with areas of groundglass opacity in the left lower lung that could indicate developing infectious process. 2. No acute findings in the abdomen or pelvis. - Medical Decision Making Symptoms improved with ED treatment. Patient no longer has nausea, vomiting, or abdominal pain after meds and Sauceda placement. Urine output approximately 400 mL after Sauceda placement suggesting urine retention. It is unclear as to why patient is having urine retention. She was recently placed on Mucinex but has taken the medication in the past without issues. CT and labs do not reveal any acute abnormalities. Urine with positive blood however this could be due to Sauceda catheter placement with no gross hematuria noted. Patient does not endorse any respiratory symptoms Patient also had a recurrent hypoglycemia likely secondary to take insulin and poor p.o. intake. Patient received IV dextrose and was fed several times in the ED. We will continue to monitor. Patient signed out to my partner Dr. Luna. Sauceda catheter will be removed. IV fluids will be provided. Plan to discharge patient without Sauceda if she has urine output. If patient does not have urine output and recurrent retention then she will require discharged with a Sauceda catheter in place. Patient inform ed of plan As per Dr. Tidwell note patient did urinate after Sauceda catheter removed and was d/lauri Critical Care Time: No Critical care attestation.: If time is entered above; I have spent that time in minutes in the direct care of this critically ill patient, excluding procedure time. ED Disposition Clinical Impression: Nausea and vomiting, Urine retention, Hypoglycemia Disposition: 01 HOME / SELF CARE / HOMELESS Is pt being admited?: No Condition: Stable Instructions: Nausea and Vomiting, Adult, [id number], Acute Urinary Retention, Female, [id number], Hypoglycemia, [id number] Additional Instructions: Take the medication as prescribed. You should stop taking the Mucinex in case that is the cause of your urine retention symptoms. follow-up with your doctor or doctor/clinic provided. Return if symptoms worsen as indicated by your discharge instructions. Prescriptions: Ondansetron [Zofran Odt] 4 mg PO Q8HR PRN #20 tab.rapdis PRN Reason: Nausea And Vomiting Referrals: PRIMARY CARE, [Primary Care Provider] - 3-5 Days Time of Disposition: 14:09
[2021-08-21 08:27] LABS: Basophils % (Auto) 0.3 % (0.0-1.8); Eosinophils % (Auto) 0.1 % (0.0-4.3); Hemoglobin 9.8 gm/dl (10.1-14.3); Lymphocytes # (Auto) 1.1 K/mm3 (1.2-5.4); Lymphocytes % (Auto) 7.2 % (13.4-35.0); Mean Corpuscular HGB Conc 31 % (30-34); Mean Corpuscular Volume 75 fl (79-97); Monocytes # (Auto) 0.5 K/mm3 (0.0-0.8); Monocytes % (Auto) 3.1 % (0.0-7.3); Platelet Count 412 K/mm3 (140-440); Red Blood Count 4.28 M/mm3 (3.65-5.03); Red Cell Distribution Width 15.4 % (13.2-15.2)
[2021-08-21 08:50] LABS: Alanine Aminotransferase 23 units/L (7-56); Albumin 2.9 g/dL (3.9-5); Blood Urea Nitrogen 6 mg/dL (7-17); Calcium 9.3 mg/dL (8.4-10.2); Hemolysis Index 32
[2021-08-21 08:51] LABS: BUN/Creatinine Ratio 10
--- NOTE | 2021-08-21 09:26 | Cat Scan Report ---
CT ABDOMEN AND PELVIS WITH CONTRAST HISTORY: n,v abd pain OMNI 300 100 ML COMPARISON: None TECHNIQUE: Routine abdominal and pelvic CT exam performed following intravenous contrast administrat ion.. All CT scans at this location are performed using CT dose reduction for ALARA by means of autom ated exposure control. FINDINGS: CT ABDOMEN: Lung Bases: Small bilateral pleural effusions are seen in both lung bases as well as areas of groundg lass opacity in the left lower lung. Liver: No significant abnormality. Biliary: No significant abnormality. Spleen: No significant abnormality. Unenlarged. Pancreas: No significant abnormality. Adrenals: No significant abnormality. Kidneys: No significant abnormality. Lymphatics: No lymphadenopathy. Vasculature: No significant abnormality. Bowel/Peritoneum: No significant abnormality. No free air. No free fluid. Normal appendix. CT PELVIC: : No significant abnormality. Lymphatics: No lymphadenopathy. Osseous Structures: No aggressive appearing osseous lesions. Additional Findings: None IMPRESSION: 1. Small bilateral pleural effusions with areas of groundglass opacity in the left lower lung that co uld indicate developing infectious process. 2. No acute findings in the abdomen or pelvis. Signer Name: Yury Jasso MD Signed: 08/21/2021 9:21 AM Workstation Name: [id number]
[2021-08-21] MEDS ORDERED: DEXTROSE 10% *Hypoglycemia IV ONE ×2 (10:12→10:13)
[2021-08-21 11:41] LABS: Mucus,Urine FEW /HPF
[2021-08-21 12:03] LABS: Bilirubin,Urine Negative (Negative); Blood,Urine Negative (Negative); Color,Urine Yellow (Yellow); Urobilinogen,Urine < 2.0 mg/dL (<2.0)
[2021-08-21 12:04] LABS: RBC,Urine > 182.0 /HPF (0.0-6.0); WBC,Urine < 1.0 /HPF (0.0-6.0)
[2021-08-21] MEDS ORDERED: D5W/0.9% NACL 1,000 ML IV SCH (15:00)
--- NOTE | 2021-08-21 15:47 | Emergency Department Report ---
Blank Doc - Documentation Documentation: I assumed care. We were waiting for the patient to void after the Sauceda had b een removed. Etiology for urinary retention was not entirely clear. Patient has now voided without difficulty. Sugar had been rechecked. She was subsequently discharged.
[2021-08-21 16:31] VITALS: BP 130/82
== END 2021-08-21 16:32 | disposition home or self-care (01) ==
LOC: ED 07:21
DX: E11.649 Type 2 diabetes mellitus with hypoglycemia without coma (principal); R11.2 Nausea with vomiting, unspecified; R33.9 Retention of urine, unspecified; J45.909 Unspecified asthma, uncomplicated; Z91.09 Other allergy status, other than to drugs and biological substances
CPT/HCPCS: 36415; 51701; 74177; 80053; 81001; 82962; 83690; 85025; 96361; 96374; 96375; 99285; J1200; J2270; J2405; J2765; J3490; J7030; Q9967; 51702; 99284; Q0162

== ENCOUNTER 2021-08-23 17:38 | Outpatient (CLI) | payer BC ==
--- NOTE | 2021-08-23 18:23 | XRay Report ---
XR chest routine 2V INDICATION / CLINICAL INFORMATION: SOB. COMPARISON: 08/13/2021 FINDINGS: SUPPORT DEVICES: Left PICC line terminates over the cavoatrial junction. HEART /PULMONARY VASCULATURE: No significant abnormality. LUNGS / PLEURA: Small effusions and left greater than right airspace opacities appear improved from radiograph. No pneumothorax. ADDITIONAL FINDINGS: No significant additional findings. IMPRESSION: Improved but persistent small effusions and left greater than right airspace opacities. Signer Name: Samson Roy MD Signed: 08/23/2021 6:18 PM Workstation Name: [id number]
== END 2021-08-23 17:39 | disposition home or self-care (01) ==
LOC: XRAY 17:38
PROVIDERS: ATTEND Internal Medicine
DX: J90 Pleural effusion, not elsewhere classified (principal)
CPT/HCPCS: 71046